=== PATIENT | female | born 1975 | race Hispanic/Latino ===

== ENCOUNTER 2018-03-25 18:37 | Emergency (ER) | payer OTHER ==
--- OUTSIDE RECORDS SUMMARY | 2018-03-25 18:40 | XMS REPORT ---
:1975 [facility] Address [address] [place] [address] Care Team Providers Name Role Phone Unavailable Unavailable Unavailable Problems This patient has no known problems. Allergies, Adverse Reactions, Alerts This patient has no known allergies or adverse reactions. Medications This patient has no known medications. Encounters Start End Encounter Admission Attending Care Care Encounter Date/Time Date/Time Type Type Clinicians Facility Department ID 2018-03-20 2018-03-20 Outpatient [facility] [id number] 00:00:00 00:00:00 2018-03-15 2018-03-15 Outpatient [facility] [id number] 10:56:14 10:56:14 2018-02-16 2018-02-16 Outpatient [facility] [id number] 08:26:03 08:26:03 2018-02-16 2018-02-16 Outpatient [facility] [id number] 00:00:00 00:00:00
[2018-03-25 19:43] LABS: Absolute Lymphocytes (CBC) 2.4 K/uL (0.7-4.9); Absolute Monocytes 0.9 K/uL (0.1-1.3); Absolute Neutrophil 7.2 K/uL (1.8-8.0); Basophils % 0.8 % (0-1.3); Eosinophils % 3.1 % (0-4.4); Hematocrit 39.2 % (36.0-45.0); Lymphocytes % 22.2 % (15.3-44.8); MPV 7.8 fL (7.6-11.3); Monocytes % 8.3 % (3.3-12.3)
[2018-03-25 20:02] LABS: ALT/SGPT 25 U/L (12-78); AST/SGOT 15 U/L (15-37); Albumin 3.7 g/dL (3.4-5.0); Alkaline Phosphatase 93 U/L (45-117); BUN Blood Urea Nitrogen 39 mg/dL (7-18); Bicarbonate 21 mmol/L (21-32); Bilirubin Direct < 0.1 mg/dL (0-0.2); Bilirubin Total 0.3 mg/dL (0.2-1.0); Glucose Level 95 mg/dL (74-106); Magnesium 2.2 mg/dL (1.8-2.4); NT PRO-BNP 421 pg/mL (<125); Potassium 4.1 mmol/L (3.5-5.1); Protein, Total 8.1 g/dL (6.4-8.2); Sodium Level 140 mmol/L (136-145); Troponin (Emerg Dept Use Only) 0.04 ng/mL (0.0-0.045)
[2018-03-25 20:05] LABS: Urine Blood NEGATIVE (NEG); Urine Glucose NEGATIVE (NEG); Urine Protein 3+ (NEG); Urine Specific Gravity >1.030 (1.005-1.030); Urine pH 5.5 (5.0-7.0)
--- NOTE | 2018-03-25 20:16 | RAD REPORT ---
EXAM DESCRIPTION: RAD - Chest Single View - 03/25/2018 7:48 pm CLINICAL HISTORY: Slurred speech, shortness of breath COMPARISON: October 2009 TECHNIQUE: AP portable chest image was obtained 1945 hours . FINDINGS: Lungs are clear. No significant failure or volume overload. Heart and vasculature are norm al. No measurable pleural effusion and no pneumothorax. No acute bony abnormality seen. No acute aort ic findings suspected. IMPRESSION: No acute cardiopulmonary process. No significant change from comparison.
--- NOTE | 2018-03-25 20:23 | RAD REPORT ---
EXAM DESCRIPTION: CT - Head Brain Wo Cont - 03/25/2018 7:58 pm CLINICAL HISTORY: Slurred speech, left-sided facial droop, history of CVA COMPARISON: None. TECHNIQUE: Axial 5 mm thick images of the head were obtained without IV contrast. All CT scans are performed using dose optimization technique as appropriate and may include automated exposure control or mA/KV adjustment according to patient size. FINDINGS: No intracranial hemorrhage is present. There is no mass, edema or shift of midline structu res. A 3.5 centimeter area of old encephalomalacia noted at the left frontal parietal junction. There is extension into the temporal lobe. A 3 x 2 centimeter area of diminished attenuation is present in the lateral right frontal lobe along the superior margin of the sylvian fissure. This has the appear ance of acute to subacute nonhemorrhagic CVA. Atrophy changes are minimal but greater than typically seen in a patient this age. Chronic ischemic changes throughout the cerebral white matter are present also greater than typically seen for age. No abnormal extra-axial fluid collections. Ventricles are in proportion to any volume loss. Mastoid air cells and visualized portions of the paranasal sinuses are clear. No acute bony findings. IMPRESSION: Acute to subacute nonhemorrhagic CVA right frontal lobe along the superior margin of the sylvian fissure. Old encephalomalacia at the left frontal parietal junction. Atrophy and chronic ischemic changes are minimal but greater than typically seen for a patient this a ge.
--- NOTE | 2018-03-25 21:04 | ER ---
Nurse's Notes [facility] Name: Donna Rust Age: 43 yrs Sex: Female : 1975 Arrival Date: 03/25/2018 Time: 18:40 Bed 19 Private MD: Out, of [facility] Diagnosis: Cerebral infarction-right acute vs sub acute non hem cva right frontal lobe, old left frontal;Obesity, unspecified;Unspecified kidney failure;Essential (primary) hypertension Presentation: 03/25 18:45 Presenting complaint: Slurred speech that started yesterday at 1330, today family hb reports speech seems more slurred, left sided facial droop today at 1300. Hx of CVA with right sided weakness. Transition of care: patient was not received from another setting of care. Onset of symptoms was March 24, 2018 at 13:30. Risk Assessment: Do you want to hurt yourself or someone else? Patient reports no desire to harm self or others. Care prior to arrival: None. 18:45 Method Of Arrival: Wheelchair hb 18:45 Acuity: TON 3 hb 20:21 Pre-hospital glucose is not applicable to this patient. Initial Sepsis Screen: Does the tl2 patient meet any 2 criteria? No. Patient's initial sepsis screen is negative. Does the patient have a suspected source of infection? No. Patient's initial sepsis screen is negative. 20:22 No acute neurological deficit is noted. tl2 Triage Assessment: 20:22 The onset of the patients symptoms was March 24, 2018 at 13:30. tl2 20:22 Neuro: Reports none. tl2 Historical: - Allergies: 18:48 No Known Allergies; hb - PMHx: 18:48 CVA; Hypertension; hb - Immunization history:: Adult Immunizations up to date. - Social history:: Smoking status: Patient uses tobacco products, smokes one-half pack cigarettes per day. - Ebola Screening: : No symptoms or risks identified at this time. Screenin:23 Abuse screen: Denies threats or abuse. Nutritional screening: No deficits noted. tl2 Tuberculosis screening: No symptoms or risk factors identified. Fall Risk None identified. Assessment: 19:20 T-PA (Activase) Screening: Contraindications: Patient reports onset of signs and tl2 symptoms of stroke greater than 6 hours ago: Yes. 19:23 General: Appears in no apparent distress. uncomfortable, Behavior is calm, cooperative, tl2 appropriate for age. Pain: Denies pain. Neuro: Level of Consciousness is awake, alert, obeys commands, Oriented to person, place, time, situation, Speech is normal, Facial symmetry appears normal, pt has right sided weakness and decreased sensation from previous stroke. Denies weakness blurred vision dizziness, numbness headache. Neuro: Small Business Consultant are equal bilaterally. Cardiovascular: Denies chest pain, Rhythm is sinus rhythm. Respiratory: Airway is patent Respiratory effort is even, unlabored, Respiratory pattern is regular, symmetrical. GI: No signs and/or symptoms were reported involving the gastrointestinal system. : No signs and/or symptoms were reported regarding the genitourinary system. Derm: Skin is pink, warm \T\ dry. 20:21 The patient has not been NPO before screening. The patient is alert, and able to follow tl2 commands. The patient does not exhibit slurred or garbled speech. The patient is not exhibiting difficulty speaking. The patient does not exhibit difficulty understanding words. The patient is able to swallow own secretions with no drooling or need for suction. Patient tolerated one teaspoon of water. No drooling, immediate coughing, gurgling, or clearing of the throat was noted. The patient tolerated 90mL of water. No drooling, immediate coughing, gurgling, or clearing of the throat was noted. The patient passed the bedside swallow screening. Oral medications may be given as ordered. Contact Physician for further diet orders. 20:21 Provider notified of bedside swallow screening results: Nathan العراقي MD. tl2 20:35 Reassessment: Patient appears in no apparent distress at this time. Patient and/or tl2 family updated on plan of care and expected duration. Pain level reassessed. Patient is alert, oriented x 3, equal unlabored respirations, skin warm/dry/pink. pt resting, no complaints or concerns at this time. 21:30 Reassessment: Patient appears in no apparent distress at this time. Patient and/or tl2 family updated on plan of care and expected duration. Pain level reassessed. Patient is alert, oriented x 3, equal unlabored respirations, skin warm/dry/pink. 22:30 Reassessment: Patient appears in no apparent distress at this time. Patient and/or tl2 family updated on plan of care and expected duration. Pain level reassessed. Patient is alert, oriented x 3, equal unlabored respirations, skin warm/dry/pink. 23:27 Reassessment: Patient appears in no apparent distress at this time. Patient and/or tl2 family updated on plan of care and expected duration. Pain level reassessed. Patient is alert, oriented x 3, equal unlabored respirations, skin warm/dry/pink. pt stable and ready for transfer. Vital Signs: 18:45 BP 142 / 90; Pulse 87; Resp 16; Temp 98.1(TE); Pulse Ox 100% on R/A; Pain 0/10; hb 20:34 BP 111 / 74; Pulse 84; Resp 18; Pulse Ox 100% on R/A; tl2 22:03 BP 108 / 64; Pulse 82; Resp 18; Pulse Ox 100% on R/A; tl2 NIH Stroke Scale Scores: 19:23 NIHSS Score: 2 tl2 20:52 NIHSS Score: 9 [facility] ED Course: 18:40 Patient arrived in ED. sb2 18:40 Out, of [facility] is Private Physician. sb2 18:46 Triage completed. hb 18:48 Arm band placed on. hb 19:09 Carole Alex, RN is Primary Nurse. tl2 19:23 Patient has correct armband on for positive identification. Placed in gown. Bed in low tl2 position. Call light in reach. Side rails up X 1. Adult w/ patient. 19:23 Inserted saline lock: 20 gauge in left antecubital area, using aseptic technique. Blood tl2 collected. 19:50 XRAY Chest (1 view) In Process Unspecified. EDMS 19:59 CT Head Brain wo Cont In Process Unspecified. EDMS 20:36 Nathan العراقي MD is Attending Physician. [facility] 23:27 No provider procedures requiring assistance completed. Patient transferred, IV remains tl2 in place. Administered Medications: 21:28 Drug: NS 0.9% 1000 ml Route: IV; Rate: 1 bolus; Site: left antecubital; tl2 23:29 Follow up: IV Status: Infusion continued upon transfer tl2 21:28 Drug: Aspirin Chewable Tablet 324 mg Route: PO; tl2 23:30 Follow up: Response: No adverse reaction tl2 21:28 Drug: foLIC Acid 1 mg Route: IVPB; Site: left antecubital; tl2 22:00 Follow up: IV Status: Completed infusion tl2 Point of Care Testing: Blood Glucose: 18:45 Blood Glucose: 91 mg/dL; hb Ranges: Outcome: 21:04 ER care complete, transfer ordered by MD. barrera 23:27 Transferred by ground EMS to [facility], Transfer form completed. tl2 23:27 Condition: stable 23:27 Discharge instructions given to patient, family, Instructed on the need for transfer. 23:30 Patient left the ED. tl2 NIH Stroke Scale - NIH Stroke Score Date: 03/25/2018 Time: 19:23 Total Score = 2 1a. Level of Consciousness (LOC) - 0(Alert) 1b. Level of Consciousness (LOC) (Year \T\ Age) - 0(Both) 1c. LOC Commands (Open \T\ Closes Eyes/Roof Plumber) - 0(Both) 2. Best Gaze (Lateral Gaze Paresis) - 0(Normal) 3. Visual Field Loss - 0(No visual loss) 4. Facial Palsy - 0(Normal) 5a. Left Arm: Motor (10-second hold) - 0(No drift) 5b. Right Arm: Motor (10-second hold) - 0(No drift) 6a. Left Leg: Motor (5-second hold - always test supine) - 0(No drift) 6b. Right Leg: Motor (5-second hold - always test supine) - 0(No drift) 7. Limb Ataxia (finger/nose \T\ heel/la - test with eyes open) - 0(Absent) 8. Sensory Loss (pinprick arms/legs/face) - 1(Mild to moderate loss) 9. Best Language: Aphasia (description/naming/reading) - 0(No aphasia) 10. Dysarthria (speech clarity - read or repeat words) - 1(Mild to Moderate) 11. Extinction and Inattention (visual/tactile/auditory/spatial/personal) - 0(No abnormality) Initials: tl2 NIH Stroke Scale - NIH Stroke Score Date: 03/25/2018 Time: 20:52 Total Score = 9 1a. Level of Consciousness (LOC) - 0(Alert) 1b. Level of Consciousness (LOC) (Year \T\ Age) - 0(Both) 1c. LOC Commands (Open \T\ Closes Eyes/Roof Plumber) - 0(Both) 2. Best Gaze (Lateral Gaze Paresis) - 0(Normal) 3. Visual Field Loss - 0(No visual loss) 4. Facial Palsy - 2(Partial paralysis) 5a. Left Arm: Motor (10-second hold) - 1(Drift) 5b. Right Arm: Motor (10-second hold) - 0(No drift) 6a. Left Leg: Motor (5-second hold - always test supine) - 1(Drift) 6b. Right Leg: Motor (5-second hold - always test supine) - 0(No drift) 7. Limb Ataxia (finger/nose \T\ heel/la - test with eyes open) - 1(Present in one limb) 8. Sensory Loss (pinprick arms/legs/face) - 1(Mild to moderate loss) 9. Best Language: Aphasia (description/naming/reading) - 1(Mild to moderate aphasia) 10. Dysarthria (speech clarity - read or repeat words) - 1(Mild to Moderate) 11. Extinction and Inattention (visual/tactile/auditory/spatial/personal) - 1(Present) Initials: bruce Signatures: Dispatcher [employer] Nathan Sung MD MD cha Baxter, Heather, RN RN Carole Alex RN RN tl2 Laura La sb2
--- NOTE | 2018-03-25 21:04 | EDPHYS ---
Physician Documentation [facility] Name: Donna Rust Age: 43 yrs Sex: Female : 1975 Arrival Date: 03/25/2018 Time: 18:40 Bed 19 Private MD: Out, [facility] ED Physician Nathan العراقي HPI: 03/25 20:50 This 43 yrs old Female presents to ER via Wheelchair with complaints of bruce Slurred Speech. 20:50 The patient presents to the emergency department with a speech or higher order brain bruce function problem, difficult walking, the patient falls to the left. Onset: The symptoms/episode began/occurred 1 day(s) ago. Context: occurred at work. Historical: - Allergies: 18:48 No Known Allergies; hb - PMHx: 18:48 CVA; Hypertension; hb - Immunization history:: Adult Immunizations up to date. - Social history:: Smoking status: Patient uses tobacco products, smokes one-half pack cigarettes per day. - Ebola Screening: : No symptoms or risks identified at this time. ROS: 20:53 Constitutional: Negative for fever, chills, and weight loss, Eyes: Negative for injury, bruce pain, redness, and discharge, ENT: Negative for injury, pain, and discharge, Neck: Negative for injury, pain, and swelling, Cardiovascular: Negative for chest pain, palpitations, and edema, Respiratory: Negative for shortness of breath, cough, wheezing, and pleuritic chest pain, Abdomen/GI: Negative for abdominal pain, nausea, vomiting, diarrhea, and constipation, Back: Negative for injury and pain, : Negative for injury, bleeding, discharge, and swelling, MS/Extremity: Negative for injury and deformity, Skin: Negative for injury, rash, and discoloration, Psych: Negative for depression, anxiety, suicide ideation, homicidal ideation, and hallucinations, Allergy/Immunology: Negative for hives, rash, and allergies, Endocrine: Negative for neck swelling, polydipsia, polyuria, polyphagia, and marked weight changes, Hematologic/Lymphatic: Negative for swollen nodes, abnormal bleeding, and unusual bruising. 20:53 Neuro: Positive for dizziness, gait disturbance, speech changes, weakness, of the face, left arm and left leg. Exam: 20:53 Constitutional: This is a well developed, well nourished patient who is awake, alert, bruce and in no acute distress. Eyes: Pupils equal round and reactive to light, extra-ocular motions intact. Lids and lashes normal. Conjunctiva and sclera are non-icteric and not injected. Cornea within normal limits. Periorbital areas with no swelling, redness, or edema. ENT: Nares patent. No nasal discharge, no septal abnormalities noted. Tympanic membranes are normal and external auditory canals are clear. Oropharynx with no redness, swelling, or masses, exudates, or evidence of obstruction, uvula midline. Mucous membranes moist. Neck: Trachea midline, no thyromegaly or masses palpated, and no cervical lymphadenopathy. Supple, full range of motion without nuchal rigidity, or vertebral point tenderness. No Meningismus. Chest/axilla: Normal chest wall appearance and motion. Nontender with no deformity. No lesions are appreciated. Cardiovascular: Regular rate and rhythm with a normal S1 and S2. No gallops, murmurs, or rubs. Normal PMI, no JVD. No pulse deficits. Respiratory: Lungs have equal breath sounds bilaterally, clear to auscultation and percussion. No rales, rhonchi or wheezes noted. No increased work of breathing, no retractions or nasal flaring. Abdomen/GI: Soft, non-tender, with normal bowel sounds. No distension or tympany. No guarding or rebound. No evidence of tenderness throughout. Back: No spinal tenderness. No costovertebral tenderness. Full range of motion. Female : Normal external genitalia. Skin: Warm, dry with normal turgor. Normal color with no rashes, no lesions, and no evidence of cellulitis. Psych: Awake, alert, with orientation to person, place and time. Behavior, mood, and affect are within normal limits. 20:53 Head/face: Noted is left facial weakness, forehead spared. 20:59 Musculoskeletal/extremity: Extremities: weakness and mild drift left arm. [facility] Vital Signs: 18:45 BP 142 / 90; Pulse 87; Resp 16; Temp 98.1(TE); Pulse Ox 100% on R/A; Pain 0/10; hb 20:34 BP 111 / 74; Pulse 84; Resp 18; Pulse Ox 100% on R/A; tl2 22:03 BP 108 / 64; Pulse 82; Resp 18; Pulse Ox 100% on R/A; tl2 NIH Stroke Scale Scores: 19:23 NIHSS Score: 2 tl2 20:52 NIHSS Score: 9 bruce MDM: 20:36 Patient medically screened. [facility] 20:53 Data reviewed: vital signs, nurses notes, lab test result(s), EKG, radiologic studies, bruce CT scan, plain films. 21:00 ED course: dw case with neuro at [facility], symptoms yesterday, cva seen on ct, asa only, no bruce tpa. 03/25 19:22 Order name: Basic Metabolic Panel; Complete Time: 20:20 2 03/25 19:22 Order name: CBC with Diff; Complete Time: 20:20 2 03/25 19:22 Order name: LFT's; Complete Time: 20:20 2 03/25 19:22 Order name: Magnesium; Complete Time: 20:20 2 03/25 19:22 Order name: NT PRO-BNP; Complete Time: 20:20 2 03/25 19:22 Order name: PT-INR; Complete Time: 20:20 2 03/25 18:53 Order name: CT Head Brain wo Cont; Complete Time: 20:46 hb 03/25 19:22 Order name: Troponin (emerg Dept Use Only); Complete Time: 20:20 2 03/25 19:22 Order name: XRAY Chest (1 view); Complete Time: 20:20 2 03/25 19:51 Order name: Urine Dipstick--Ancillary (enter results); Complete Time: 20:20 [facility] 03/25 19:51 Order name: Urine --Ancillary (enter results); Complete Time: 20:20 [facility] 03/25 20:45 Order name: Sed Rate; Complete Time: 23:27 [facility] 03/25 20:45 Order name: CRP; Complete Time: 23:27 [facility] 03/25 19:22 Order name: EKG; Complete Time: 19:23 2 03/25 19:22 Order name: Cardiac monitoring; Complete Time: 19:22 2 03/25 19:22 Order name: EKG - Nurse/Tech; Complete Time: 19:22 2 03/25 19:22 Order name: IV Saline Lock; Complete Time: 19:22 2 03/25 19:22 Order name: Labs collected and sent; Complete Time: 19:23 tl2 03/25 19:22 Order name: O2 Per Protocol; Complete Time: : tl2 03/25 19:22 Order name: O2 Sat Monitoring; Complete Time: tl2 03/25 19:44 Order name: Urine Dipstick-Ancillary (obtain specimen); Complete Time: : tl2 03/25 19:44 Order name: Urine Test (obtain specimen); Complete Time: :44 tl2 Administered Medications: 21:28 Drug: NS 0.9% 1000 ml Route: IV; Rate: 1 bolus; Site: left antecubital; tl2 23:29 Follow up: IV Status: Infusion continued upon transfer tl2 21:28 Drug: Aspirin Chewable Tablet 324 mg Route: PO; tl2 23:30 Follow up: Response: No adverse reaction tl2 21:28 Drug: foLIC Acid 1 mg Route: IVPB; Site: left antecubital; tl2 22:00 Follow up: IV Status: Completed infusion tl2 Point of Care Testing: Blood Glucose: 18:45 Blood Glucose: 91 mg/dL; hb Ranges: Critical Glucose Levels:Adult <50 mg/dl or >400 mg/dl <40 mg/dl or >180 mg/dl Disposition: 03/25/18 21:04 Transfer ordered to [facility]. Diagnosis are Cerebral infarction - right acute vs sub acute non hem cva right frontal lobe, old left frontal, Obesity, unspecified, Unspecified kidney failure, Essential (primary) hypertension. - Reason for transfer: Higher level of care. - Accepting physician is to dr. huddleston. - Condition is Fair. - Problem is new. - Symptoms have improved. NIH Stroke Scale - NIH Stroke Score Date: 03/25/2018 Time: : Total Score = 2 1a. Level of Consciousness (LOC) - 0(Alert) 1b. Level of Consciousness (LOC) (Year \T\ Age) - 0(Both) 1c. LOC Commands (Open \T\ Closes Eyes/Demolition Engineer) - 0(Both) 2. Best Gaze (Lateral Gaze Paresis) - 0(Normal) 3. Visual Field Loss - 0(No visual loss) 4. Facial Palsy - 0(Normal) 5a. Left Arm: Motor (10-second hold) - 0(No drift) 5b. Right Arm: Motor (10-second hold) - 0(No drift) 6a. Left Leg: Motor (5-second hold - always test supine) - 0(No drift) 6b. Right Leg: Motor (5-second hold - always test supine) - 0(No drift) 7. Limb Ataxia (finger/nose \T\ heel/la - test with eyes open) - 0(Absent) 8. Sensory Loss (pinprick arms/legs/face) - 1(Mild to moderate loss) 9. Best Language: Aphasia (description/naming/reading) - 0(No aphasia) 10. Dysarthria (speech clarity - read or repeat words) - 1(Mild to Moderate) 11. Extinction and Inattention (visual/tactile/auditory/spatial/personal) - 0(No abnormality) Initials: tl2 NIH Stroke Scale - NIH Stroke Score Date: 03/25/2018 Time: 20:52 Total Score = 9 1a. Level of Consciousness (LOC) - 0(Alert) 1b. Level of Consciousness (LOC) (Year \T\ Age) - 0(Both) 1c. LOC Commands (Open \T\ Closes Eyes/Demolition Engineer) - 0(Both) 2. Best Gaze (Lateral Gaze Paresis) - 0(Normal) 3. Visual Field Loss - 0(No visual loss) 4. Facial Palsy - 2(Partial paralysis) 5a. Left Arm: Motor (10-second hold) - 1(Drift) 5b. Right Arm: Motor (10-second hold) - 0(No drift) 6a. Left Leg: Motor (5-second hold - always test supine) - 1(Drift) 6b. Right Leg: Motor (5-second hold - always test supine) - 0(No drift) 7. Limb Ataxia (finger/nose \T\ heel/la - test with eyes open) - 1(Present in one limb) 8. Sensory Loss (pinprick arms/legs/face) - 1(Mild to moderate loss) 9. Best Language: Aphasia (description/naming/reading) - 1(Mild to moderate aphasia) 10. Dysarthria (speech clarity - read or repeat words) - 1(Mild to Moderate) 11. Extinction and Inattention (visual/tactile/auditory/spatial/personal) - 1(Present) Initials: bruce Signatures: Dispatcher [employer] Nathan Sung MD MD cha Therrien, Shelly, CAMPAIGN MARKETING MANAGER-C CAMPAIGN MARKETING MANAGER-Csnw Dorita Bowens, RN RN Carole Alex, RN RN tl2 Corrections: (The following items were deleted from the chart) 23:30 21:04 03/25/2018 21:04 Transfer ordered to [facility]. tl2 Diagnosis is Cerebral infarction - right acute vs sub acute non hem cva right frontal lobe, old left frontal; Obesity, unspecified; Unspecified kidney failure; Essential (primary) hypertension. Reason for transfer: Higher level of care. Accepting physician is to dr. huddleston. Condition is Fair. Problem is new. Symptoms have improved. bruce
[2018-03-25] MEDS ORDERED: NA CHLORIDE 0.9% 1,000 ML ONE (21:23)
[2018-03-25] MEDS ORDERED: ASPIRIN 81 MG CHEWABLE TABLET ONE (21:23)
[2018-03-25] MEDS ORDERED: FOLIC ACID 5 MG/ML VIAL ONE (21:24)
--- NOTE | 2018-03-26 07:21 | EKG ---
Test Date: 2018-03-25 Test Time: 19:10:17 Compressor Mechanic Bus: SNEHA MEASUREMENT RESULTS: Intervals: Rate: 82 TX: 194 QRSD: 82 QT: 366 QTc: 427 [place]: P: 36 TX: 194 QRS: 67 T: 54 INTERPRETIVE STATEMENTS: Normal sinus rhythm Normal ECG Compared to ECG 10/31/2009 00:53:05 T-wave abnormality no longer present Prolonged QT interval no longer present Electronically Signed On 03-26-18 07:20:41 DRIER FEEDER by Roberto Lewis
== END 2018-03-25 23:30 | disposition short-term general hospital (02) ==
LOC: ER 18:37
DX: I63.9 Cerebral infarction, unspecified (principal); E66.9 Obesity, unspecified; N19 Unspecified kidney failure; Z86.73 Personal history of transient ischemic attack (TIA), and cerebral infarction without residual deficits; I10 Essential (primary) hypertension
CPT/HCPCS: 36415; 70450; 71045; 80048; 80076; 81003; 81025; 82962; 83735; 83880; 84484; 85025; 85610; 85652; 86140; 93005; 96361; 96365; 99285; J7030

== ENCOUNTER 2023-01-06 11:47 | Emergency (ER) | payer OTHER, SELFPAY ==
--- OUTSIDE RECORDS SUMMARY | 2023-01-06 12:04 | XMS REPORT | Continuity of Care Document ---
:1975 Author Organization [facility] [place] [facility] t Address [address] [place] [address] [address] [place] [address] Care Team Providers Name Role Phone Jere Kelly MD Primary Care Physician Unavailable JAIMEE MCGEE Attending Clinician Unavailable JAIMEE MCGEE Attending Clinician Unavailable JESSIKA ROSS Attending Clinician Unavailable MARY GARCIA Attending Clinician Unavailable MARY GARCIA Attending Clinician Unavailable WANDER BOYCE Attending Clinician Unavailable LATOYA ABBASI Attending Clinician Unavailable Román Harding Attending Clinician Unavailable Doctor Unassigned, [place] Attending Clinician Unavailable Nurse, Kel Db Attending Clinician Unavailable Lab, Ang - Db Attending Clinician Unavailable LITTLE GIRON Attending Clinician Unavailable AKASH ORTIZ Attending Clinician Unavailable Akash Ortiz DO Attending Clinician OMERMAPERLA JOSE MANUELColin Attending Clinician Unavailable Omaghomi INSTALLER, Omayemi Attending Clinician Unknown, Attending Attending Clinician Unavailable Ayleen AMIN, Latoya Grewal Attending Clinician Brown PROCESS SAFETY ENGINEER, Marla Alex Attending Clinician Unavailable Vtc-Lab Attending Clinician Unavailable Jorge Perez MD Attending Clinician JORGE PEREZ Attending Clinician Unavailable Yanick Perez MD Attending Clinician Parag PT, Laura Mo Attending Clinician Unavailable JAYLEN HERNÁNDEZ Attending Clinician Unavailable Betito Duffy PT, Elisa Attending Clinician Unavailable Jessika Ross DO Attending Clinician Caryl Malin PA-C Attending Clinician Gladys Daniel MD Attending Clinician Pob, Adc Lab Main Attending Clinician Unavailable JASE SMITH Attending Clinician Unavailable Sarah AMIN, Jase Attending Clinician Pcp-Lab Attending Clinician Unavailable Venita Muro Attending Clinician VENITA WALTER Attending Clinician Unavailable Jessica Tsai RN Attending Clinician Unavailable PAYAL HOFFMAN Attending Clinician Unavailable Marialuisa Devine NP Attending Clinician Payal Hoffman DO Attending Clinician Isai BARBOZA Attending Clinician Unavailable Isai Zuniga Attending Clinician Toby Aquino RN Attending Clinician Unavailable ROC HERNANDEZ Attending Clinician Unavailable JEANIE GARCIA Attending Clinician Unavailable Roc Reed Attending Clinician Mick Collins MD Attending Clinician [phone] Roxana Osman MD Attending Clinician ROXANA OSMAN Attending Clinician Unavailable Tavon Snow Attending Clinician MELBA BASSETT Attending Clinician Unavailable Kel [facility] Attending Clinician Unavailable Melba Ortega Attending Clinician JERE KELLY Attending Clinician Unavailable ENDY MALDONADO Attending Clinician Unavailable ENDY MALDONADO Attending Clinician Unavailable Endy Maldonado MD Attending Clinician Radiology Attending Clinician Unavailable RADIOLOGY Attending Clinician Unavailable Jere Kelly MD Attending Clinician Ena Hung Attending Clinician Gemma Bill MD Attending Clinician KIMMIE PRESTON Attending Clinician Unavailable Kimmie Preston MD Attending Clinician GEMMA BILL Attending Clinician Unavailable BERTRAND PORRAS Attending Clinician Unavailable ADOLFO NEELY Attending Clinician Unavailable Carlotta Quiñones Attending Clinician [facility] Neurology Continuity Attending Clinician Unavail able SHAHID CAMPOS Attending Clinician Unavailable NIKA NARANJO Attending Clinician Unavailable Vladimir Luis Attending Clinician IWONA CRAFT Attending Clinician Unavailable KNOW, DOES_NOT Admitting Clinician Unavailable MARY GARCIA Admitting Clinician Unavailable ABBASI, LATOYA K.H. Admitting Clinician Unavailable JASE SMITH Admitting Clinician Unavailable PAYAL HOFFMAN Admitting Clinician Unavailable Payal Hoffman DO Admitting Clinician Isai BARBOZA Admitting Clinician Unavailable Roxana Osman MD Admitting Clinician ROXANA OSMAN Admitting Clinician Unavailable ENDY MALDONADO Admitting Clinician Unavailable SHAHID CAMPOS Admitting Clinician Unavailable NIKA NARANJO Admitting Clinician Unavailable IWONA CRAFT Admitting Clinician Unavailable Payers Payer Name Policy Type Policy Number Effective Date Expiration Date Valerio [facility] D[facility] [id number] 2021 COMP HMO D SNP 00:00:00 MEDICARE PART A [id number] 2016 \\T\\ B 00:00:00 Problems Condition Condition Condition Status Onset Resolution Last Treating Co mments Source Name Details Category Date Date Treatment Clinician Date Pain in Pain in Disease Active 2021-02 Univers leg, leg, 0-04 [facility] [place] [facility] Elevated Elevated Disease Active Unive rs brain brain 9-20 ity of natriureti natriureti [place] c peptide c peptide 00 Medi shavon (BNP) (BNP) Branch level level First First Disease Active Univers degree AV degree AV 9-20 ity of block block 00:00: [place] 00 Medical Branch Persistent Persistent Disease Active U nivers cough for cough for 9-19 ity of 3 weeks or 3 weeks [place] longer 00 [facility] Pneumonia Pneumonia Disease Active Uni vers 9-18 ity of 00:00: [place] 00 Medical Branch Acute Acute Disease Active Univers heart heart 7-07 ity of failure, failure, 00:00: [place] unspecifie unspecifie 00 Me dical d heart d heart Branch failure failure type type Balance Balance Disease Active Univers problem problem 3-18 ity of 00:00: [place] 00 Medical Branch Need for Need for Disease Active Unive rs vaccinatio vaccinatio 3-18 it y of n n 00:00: [place] 00 Medical Branch Change in Change in Disease Active Overview: Univers bowel bowel 1-21 Formattin ity of habits habits 00:00: g of this note Medical might be Branch different from the original. Added automatic ally from request for surgery [id number] Change in Change in Disease Active Overview: Univers bowel bowel 1-21 Formattin ity of habits habits 00:00: g of this note Medical might be Branch different from the original. Added automatic ally from request for surgery [id number] Obesity Obesity Disease Active Univers (BMI (BMI 1-11 ity of 30-39.9) 30-39.9) 00:00: [place] [facility] Vitamin D Vitamin D Disease Active 2020-02 Uni vers deficiency deficiency 2-23 it y of 00:00: [place] [facility] Weight Weight Disease Active 2020-02 Univers loss, loss, 2-21 ity of unintentio unintentio 00:00: [place] [facility] Branch History of History of Disease Active 2020-02 U nivers drug abuse drug abuse 2-21 it y of 00:00: [place] [facility] COVID-19 COVID-19 Disease Active 2020-02 Unive rs vaccinatio vaccinatio 2-10 it y of n refused n refused 00:00: [facility] COVID-19 COVID-19 Disease Active 2020-02 Unive rs vaccinatio vaccinatio 2-10 it y of n refused n refused 00:00: [facility] 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 1-06 it y of athy athy 00:00: [place] [facility] Chest pain Chest pain Disease Active 2018-02 U nivers 0-14 ity of 00:00: [place] [facility] 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 0-01 it y of sterolemia sterolemia 00:00: Parminder bahena Medical Branch Hyperurice Hyperurice Disease Active 2018- U nivers boni boni 0-01 ity of without without 00:00: [place] signs of signs of 00 Medica l inflammato inflammato Br anch ry ry arthritis arthritis and and tophaceous tophaceous disease disease Localized Localized Disease Active 2018-02 Uni vers edema due edema due 0-01 ity of to fluid to fluid 00:00: [place] overload overload 00 Medica l Branch Microscopi Microscopi Disease Active 2018- U nivers c c 0-01 ity of hematuria hematuria 00:00: [facility] Branch Acquired Acquired Disease Active 2019 Unive rs dysphasia dysphasia 8-20 ity of 00:00: [place] [address] Medical Branch Allergic Allergic Disease Active 2019 Unive rs rhinitis rhinitis 8-20 ity of due to due to 00:00: [place] pollen pollen Medical Branch Generalize Generalize Disease Active 2019- U nivers d anxiety d anxiety 8-20 ity of disorder disorder 00:00: [place] 00 Medical Branch Nephrogeno Nephrogeno Disease Active U nivers us us 8-20 ity of proteinuri proteinuri [place] [facility] Nicotine Nicotine Disease Active Unive rs dependence dependence 8-20 it y of 00:00: [place] 00 Medical Branch Slow Slow Disease Active Univers transit transit 8-20 ity of constipati constipati 00:[place]: [place] [facility] [place] Essential Essential Disease Active Uni vers hypertensi hypertensi 6-24 it y of on on 00:00: [place] 00 Medical Branch Insomnia Insomnia Disease Active Unive rs 6-24 ity of 00:00: [place] 00 Medical Branch Late Late Disease Active Overview: Univer s effects of effects of 5-13 Formattin ity of CVA CVA 00:00: g of this [place] (cerebrova (cerebrova 00 note Me dical scular scular might be Branch accident) accident) different from the original. Word-find ing difficult y, Some difficult ies with reading comprehen terrance, Mild facial droop Polyarthra Polyarthra Disease Active U nivers lgia lgia 2-23 ity of 00:00: [place] 00 Medical Branch Tobacco Tobacco Disease Active Univers use use 2-23 ity of 00:00: [place] 00 Medical Branch Positive Positive Disease Active Unive rs SHONDA SHONDA 2-23 ity of (antinucle (antinucle 00[place] 00 Medical antibody) antibody) Bran ch Folate Folate Disease Active Univers deficiency deficiency 2-22 it y of 00:00: [place] 00 Medical Branch Morbid Morbid Disease Active Univers obesity obesity 2-22 ity of 00:00: [place] 00 Medical Branch CLARI CLARI Disease Active [facility] (obstructi (obstructi 2-16 Roxanne kes ve sleep ve sleep 00:00: Medica l apnea) apnea) 00 Center Morbid Morbid Disease Recurre [facility] obesity obesity nce 2-13 [facility] with BMI with BMI 00:00: Medica l of of 00 Center 45.0-49.9, 45.0-49.9, adult adult CKD CKD Disease Recurre [facility] (chronic (chronic nce 2-12 [facility] kidney kidney 00:00: Medical disease), disease), 00 Cent er stage IV stage IV Folate Folate Disease Active [facility] deficiency deficiency 2-12 Roxanne kes 00:00: Medical 00 Center Acute Acute Disease Recurre [facility] ischemic ischemic nce 2-11 [facility] right MCA right MCA 00:00: Medi shavon stroke stroke 00 Center Essential Essential Disease Recurre [facility] hypertensi hypertensi nce 2-11 Roxanne kes on on 00:00: Medical 00 [place] Low back Low back Disease Active Lalito griffiths pain pain 112 Health radiating radiating 00:00: to right to right 00 lower lower extremity extremity Chronic Chronic Disease Active [facility] low back low back 1- ity of pain pain 00:00: [place] [address] Medical Branch Impaired Impaired Disease Active Lalito griffiths cognition cognition 3-03 Heal th 00:00: 00 Impaired Impaired Disease Active Lalito griffiths mobility mobility 3 Health and ADLs and ADLs 00:00: 00 At risk At risk Disease Active [facility] for stroke for stroke 03-11 He alth 00:00: 00 History of History of Disease Active H arris stroke stroke 03-03 Health 00:00: 00 Adjustment Adjustment Disease Active 2014-02 arris disorder disorder 02-21 Health with with 00:00: depressed depressed 00 mood mood History of History of Disease Active 2014-02 H arris cocaine cocaine 02-21 Health use use 00:00: 00 Cerebral Cerebral Disease Active Lalito griffiths vascular vascular 18 Health disease disease 00:00: 00 Late Late Disease Active Joshua effects of effects of 07-16 He alth CVA CVA 00:00: (cerebrova (cerebrova 00 scular scular accident) accident) Right Right Disease Active [facility] hemiparesi hemiparesi 07-16 He alth s s 00:00: 00 History of History of Disease Active H arris drug use drug use 07-16 Health 00:00: 00 HTN HTN Disease Active [facility] (hypertens (hypertens 5-20 He alth ion) ion) 00:00: 00 CRI CRI Disease Active [facility] (chronic (chronic 20 Health renal renal 00:00: insufficie insufficie 00 ncy) ncy) Obesity, Obesity, Disease Active Harri s unspecifie unspecifie 07-02 He alth d d 00:00: 00 Positive Positive Disease Active Lalito s SHONDA SHONDA 07-02 Health (antinucle (antinucle 00:00: ar ar 00 antibody) antibody) Vitamin D Vitamin D Disease Active Gordon ris deficiency deficiency 07-02 He alth 00:00: 00 Abnormal Abnormal Disease Active Brieni s EKG EKG 07-02 Health 00:00: 00 CVA CVA Disease Active Overview: Univer s (cerebral (cerebral Formattin i ty of vascular vascular g of this Daniel as accident) accident) note Medi shavon might be Branch different from the original. 03/2018 (MCA) and 2015 Hyperlipid Hyperlipid Disease Active U nivers emia emia ity of [facility] Depression Depression Disease Active U nivers ity of [facility] Asthma Asthma Disease Active Univers ity of [facility] Allergies, Adverse Reactions, Alerts Allergy Allergy Status Severity Reaction(s) Onset Inactive Treating Comm ents Source Name Type Date Date Clinician No DA Active U 2022-02 [facility] Allergy 03-08 [place] Informat 00:00: d ion 00 [facility] Center e Rosuvast Propensi Active Other - See MyalgiaM y Univers atin ty to comments 3-30 algiaMyal ity o f adverse 00:00: giaMyalgi [place] reaction 00 aMyalgia Medica l s Branch ROSUVAST DRUG Active Low Unknown-Cmnt Un anabell ATIN INGREDI 3-30 ity of 00:00: [place] 00 Medical Branch Atorvast Propensi Active Other - See 2020-02 Myalgia. Univers atin ty to comments 2-13 Patient ity of adverse 00:00: is [place] reaction 00 unaware Medical s of the Branch dose in which Lipitor was started.M yalgia. Patient is unaware of the dose in which Lipitor was started.M yalgia. Patient is unaware of the dose in which Lipitor was started.M yalgia. Patient is unaware of the dose in which Lipitor was started.M yalgia. Patient is unaware of the dose in which Lipitor was started. ATORVAST DRUG Active Low Unknown-Cmnt 2020-02 Un anabell ATIN INGREDI 2-13 ity of 00:00: [place] [facility] No Known DA Active U 2018-02 [facility] Allergie 2-14 [facility] [place] [facility] 00:[facility]: d [facility] No Known DA Active U 2011- [facility] Allergie 3-15 [place] [facility] Family History Family Member Diagnosis Comments Start Date Stop Date Source Natural father [facility] Natural father [facility] Natural father Alcohol abuse [place] Natural father Cancer [facility] Natural father Drug abuse [facility] Natural father Alcohol abuse [facility] Natural father Drug abuse [facility] Maternal grandmother Cancer [facility] Natural mother Hypert[facility] Natural mother Arthritis [facility] Paternal grandfather [facility] Paternal grandmother Diabetes [facility] Paternal grandmother Hearing loss [facility] Social History Social Habit Start Date Stop Date Quantity Comments Source History SDOH [facility] Alcohol Std Drinks Medica l Center History SDOH [facility] Alcohol Binge Medical [address] Gender identity Universit y of [facility] Sexual orientation [place] Exposure to 2022-07-02 2022-07-12 Not sure University of SARS-CoV-2 (event) 00:00:00 09:06:00 [facility] Tobacco use and 2021-10-31 2021-10-31 Smokeless Universit y of exposure 00:00:00 00:00:00 tobacco non-user [facility] History of tobacco 2019-02-18 Passive smoker Un iversity of use 00:00:00 [facility] History of Social 2018-12-24 2018-12-24 [facility] function 00:00:00 00:00:00 Alcohol intake 2018-03-29 2018-03-29 [facility] (finding) History SDOH 2018-03-26 2018-03-[address] [facility] Alcohol Frequency 00:00:00 00:00:00 [facility] Center Tobacco Comment 2018-03-26 2018-03-26 1 pack will last [facility] 00:00:00 00:00:00 2 weeks [facility] Center Alcohol Comment 2018-03-26 2018-03-26 social drinker RUSSELL Machuca 00:00:00 00:00:00 [facility] Sex [birth year] RUSSELL [place]pos 00:00:00 00:00:00 [facility] Smoking Status Start Date Stop Date Source Ex-smoker 2021-10-31 00:00:00 2021-10-31 [place] [facility] 00:00:00 [facility] Smokes tobacco daily 2021-02-23 00:00:00 Univers ity of [facility] Occasional tobacco 2016-02-18 00:00:00 [facility] Adkins alth smoker Medications Ordered Filled Start Stop Current Ordering Indication Dosage Frequency Signature Comments Components Source Medication Medication Date Date Medication? Clinician (SIG) Name Name ondansetron 2022- No [id number] 4mg U nivers (ZOFRAN-ODT 10-28 ity of ) 00:30: 23:48 [place] disintegrat 00 :00 Medical ing tablet Branch 4 mg ondansetron 2022- No [id number] 4mg 4 mg, Univers (ZOFRAN-ODT 10-28 Oral, ity of ) 00:30: 23:48 ONCE, 1 [place] disintegrat 00 :00 dose, On Medi shavon ing tablet Ryanne Branch 4 mg 10/27/22 at 1930, Routine rosuvastati Yes 10mg Take 1 Univ ers n 10 mg 9-14 tablet by ity of tablet 18:28: mouth. [address] rosuvastati Yes 10mg Take 1 Univ ers n 10 mg 9-14 tablet by ity of tablet 18:28: mouth. [address] rosuvastati Yes 10mg Take 1 Univ ers n 10 mg 9-14 tablet by ity of tablet 18:28: mouth. [address] rosuvastati Yes 10mg Take 1 Univ ers n 10 mg 9-14 tablet by ity of tablet 18:28: mouth. [address] rosuvastati Yes 10mg Take 1 Univ ers n 10 mg 9-14 tablet by ity of tablet 18:28: mouth. [address] rosuvastati Yes 10mg Take 1 Univ ers n 10 mg 9-14 tablet by ity of tablet 18:28: mouth. [address] rosuvastati 3-0 Yes 10mg Take 1 Univ ers n 10 mg 9-14 tablet by ity of tablet 18:28: mouth. [address] rosuvastati 2022-0 Yes 10mg Take 1 Univ ers n 10 mg 9-14 tablet by ity of tablet 18:28: mouth. [address] ondansetron 2022-0 Yes [id number] 4mg Take 1 Univers 4 mg 9-14 tablet by ity of disintegrat 00:00: mouth [place] ing tablet 00 every 12 Medic al (twelve) Branch hours as needed for Nausea and Vomiting (N/V). ondansetron 3-0 Yes [id number] 4mg Take 1 Univers 4 mg 9-14 tablet by ity of disintegrat 00:00: mouth [place] ing tablet 00 every 12 Medic al (twelve) Branch hours as needed for Nausea and Vomiting (N/V). ondansetron 3-0 Yes [id number] 4mg Take 1 Univers 4 mg 9-14 tablet by ity of disintegrat 00:00: mouth [place] ing tablet 00 every 12 Medic al (twelve) Branch hours as needed for Nausea and Vomiting (N/V). ondansetron 3-0 Yes [id number] 4mg Take 1 Univers 4 mg 9-14 tablet by ity of disintegrat 00:00: mouth [place] ing tablet 00 every 12 Medic al (twelve) Branch hours as needed for Nausea and Vomiting (N/V). ondansetron 3-0 Yes [id number] 4mg Take 1 Univers 4 mg 9-14 tablet by ity of disintegrat 00:00: mouth [place] ing tablet 00 every 12 Medic al (twelve) Branch hours as needed for Nausea and Vomiting (N/V). ondansetron 3-0 Yes [id number] 4mg Take 1 Univers 4 mg 9-14 tablet by ity of disintegrat 00:00: mouth [place] ing tablet 00 every 12 Medic al (twelve) Branch hours as needed for Nausea and Vomiting (N/V). ondansetron 3-0 Yes [id number] 4mg Take 1 Univers 4 mg 9-14 tablet by ity of disintegrat 00:00: mouth [place] ing tablet 00 every 12 Medic al (twelve) Branch hours as needed for Nausea and Vomiting (N/V). ondansetron 2023-0 Yes [id number] 4mg Take 1 Univers 4 mg 9-14 tablet by ity of disintegrat 00:00: mouth [place] ing tablet 00 every 12 Medic al (twelve) Branch hours as needed for Nausea and Vomiting (N/V). gabapentin 2023-0 Yes [id number] TAKE 1 Univers 100 mg 8-11 CAPSULE ity of capsule 00:00: (100 MG [place] 00 TOTAL) BY Medical MOUTH 2 Branch (TWO) TIMES A DAY IF NEEDED (PAIN) gabapentin 2023-0 Yes [id number] TAKE 1 Univers 100 mg 8-11 CAPSULE ity of capsule 00:00: (100 MG [place] 00 TOTAL) BY Medical MOUTH 2 Branch (TWO) TIMES A DAY IF NEEDED (PAIN) gabapentin 2023-0 Yes [id number] TAKE 1 Univers 100 mg 8-11 CAPSULE ity of capsule 00:00: (100 MG [place] 00 TOTAL) BY Medical MOUTH 2 Branch (TWO) TIMES A DAY IF NEEDED (PAIN) gabapentin 2023-0 Yes [id number] TAKE 1 Univers 100 mg 8-11 CAPSULE ity of capsule 00:00: (100 MG [place] 00 TOTAL) BY Medical MOUTH 2 Branch (TWO) TIMES A DAY IF NEEDED (PAIN) gabapentin 2023-0 Yes [id number] TAKE 1 Univers 100 mg 8-11 CAPSULE ity of capsule 00:00: (100 MG [place] 00 TOTAL) BY Medical MOUTH 2 Branch (TWO) TIMES A DAY IF NEEDED (PAIN) gabapentin 2023-0 Yes [id number] TAKE 1 Univers 100 mg 8-11 CAPSULE ity of capsule 00:00: (100 MG [place] 00 TOTAL) BY Medical MOUTH 2 Branch (TWO) TIMES A DAY IF NEEDED (PAIN) gabapentin 2023-0 Yes [id number] TAKE 1 Univers 100 mg 8-11 CAPSULE ity of capsule 00:00: (100 MG [place] 00 TOTAL) BY Medical MOUTH 2 Branch (TWO) TIMES A DAY IF NEEDED (PAIN) gabapentin 2023-0 Yes [id number] TAKE 1 Univers 100 mg 8-11 CAPSULE ity of capsule 00:00: (100 MG [place] 00 TOTAL) BY Medical MOUTH 2 Branch (TWO) TIMES A DAY IF NEEDED (PAIN) gabapentin 2023-0 Yes [id number] TAKE 1 Univers 100 mg 8-11 CAPSULE ity of capsule 00:00: (100 MG [place] 00 TOTAL) BY Medical MOUTH 2 Branch (TWO) TIMES A DAY IF NEEDED (PAIN) gabapentin 2023-0 Yes [id number] TAKE 1 Univers 100 mg 8-11 CAPSULE ity of capsule 00:00: (100 MG [place] 00 TOTAL) BY Medical MOUTH 2 Branch (TWO) TIMES A DAY IF NEEDED (PAIN) gabapentin 2023-0 Yes [id number] TAKE 1 Univers 100 mg 8-11 CAPSULE ity of capsule 00:00: (100 MG [place] 00 TOTAL) BY Medical MOUTH 2 Branch (TWO) TIMES A DAY IF NEEDED (PAIN) gabapentin 2023-0 Yes [id number] TAKE 1 Univers 100 mg 8-11 CAPSULE ity of capsule 00:00: (100 MG [place] 00 TOTAL) BY Medical MOUTH 2 Branch (TWO) TIMES A DAY IF NEEDED (PAIN) gabapentin 2023-0 Yes [id number] TAKE 1 Univers 100 mg 8-11 CAPSULE ity of capsule 00:00: (100 MG [place] 00 TOTAL) BY Medical MOUTH 2 Branch (TWO) TIMES A DAY IF NEEDED (PAIN) gabapentin 2023-0 Yes [id number] TAKE 1 Univers 100 mg 8-11 CAPSULE ity of capsule 00:00: (100 MG [place] 00 TOTAL) BY Medical MOUTH 2 Branch (TWO) TIMES A DAY IF NEEDED (PAIN) gabapentin 2023-0 Yes [id number] TAKE 1 Univers 100 mg 8-11 CAPSULE ity of capsule 00:00: (100 MG [place] 00 TOTAL) BY Medical MOUTH 2 Branch (TWO) TIMES A DAY IF NEEDED (PAIN) gabapentin 2023-0 Yes [id number] TAKE 1 Univers 100 mg 8-11 CAPSULE ity of capsule 00:00: (100 MG [place] 00 TOTAL) BY Medical MOUTH 2 Branch (TWO) TIMES A DAY IF NEEDED (PAIN) gabapentin 2023-0 Yes [id number] TAKE 1 Univers 100 mg 8-11 CAPSULE ity of capsule 00:00: (100 MG [place] 00 TOTAL) BY Medical MOUTH 2 Branch (TWO) TIMES A DAY IF NEEDED (PAIN) carvediloL 2023-0 Yes [id number] 6.25mg Take 1 Univers 6.25 mg 7-19 tablet by ity of tablet 00:00: mouth in [place] 00 the Medical morning Branch and 1 tablet in the evening. Take with meals. ezetimibe 2023-0 Yes [id number] 10mg Take 1 Un anabell 10 mg 7-19 tablet by ity of tablet 00:00: mouth in [place] 00 the Medical morning. Branch carvediloL 2023-0 Yes [id number] 6.25mg Take 1 Univers 6.25 mg 7-19 tablet by ity of tablet 00:00: mouth in [place] the morning Branch and 1 tablet in the evening. Take with meals. ezetimibe 2023-0 Yes [id number] 10mg Take 1 Un anabell 10 mg 7-19 tablet by ity of tablet 00:00: mouth in [place] the morning. Branch carvediloL 2023-0 Yes [id number] 6.25mg Take 1 Univers 6.25 mg 7-19 tablet by ity of tablet 00:00: mouth in [place] the morning Branch and 1 tablet in the evening. Take with meals. ezetimibe 2023-0 Yes [id number] 10mg Take 1 Un anabell 10 mg 7-19 tablet by ity of tablet 00:00: mouth in [place] the morning. Branch carvediloL 3-0 Yes [id number] 6.25mg Take 1 Univers 6.25 mg 7-19 tablet by ity of tablet 00:00: mouth in [place] the morning Branch and 1 tablet in the evening. Take with meals. ezetimibe 2023-0 Yes [id number] 10mg Take 1 Un anabell 10 mg 7-19 tablet by ity of tablet 00:00: mouth in [place] the morning. Branch carvediloL 3-0 Yes [id number] 6.25mg Take 1 Univers 6.25 mg 7-19 tablet by ity of tablet 00:00: mouth in [place] the morning Branch and 1 tablet in the evening. Take with meals. ezetimibe 2023-0 Yes [id number] 10mg Take 1 Un anabell 10 mg 7-19 tablet by ity of tablet 00:00: mouth in [place] the morning. Branch carvediloL 2023-0 Yes [id number] 6.25mg Take 1 Univers 6.25 mg 7-19 tablet by ity of tablet 00:00: mouth in [place] the morning Branch and 1 tablet in the evening. Take with meals. ezetimibe 2023-0 Yes [id number] 10mg Take 1 Un anabell 10 mg 7-19 tablet by ity of tablet 00:00: mouth in [place] the morning. Branch carvediloL 2023-0 Yes [id number] 6.25mg Take 1 [facility] 6.25 mg 7-19 tablet by [facility] of tablet 00:00: mouth in [place] the morning Branch and 1 tablet in the evening. Take with meals. ezetimibe 2023-0 Yes [id number] 10mg Take 1 [facility] anabell 10 mg 7-19 tablet by [facility] of tablet 00:00: mouth in [place] the morning. Branch carvediloL 2023-0 Yes [id number] 6.25mg Take 1 [facility] 6.25 mg 7-19 tablet by [facility] of tablet 00:00: mouth in [place] the morning Branch and 1 tablet in the evening. Take with meals. ezetimibe 2023-0 Yes [id number] 10mg Take 1 [facility] anabell 10 mg 7-19 tablet by [facility] of tablet 00:00: mouth in [place] the morning. Branch carvediloL 2023-0 Yes [id number] 6.25mg Take 1 [facility] 6.25 mg 7-19 tablet by [facility] of tablet 00:00: mouth in [place] the Branch and 1 tablet in the evening. Take with meals. ezetimibe 2023-0 Yes [id number] 10mg Take 1 [facility] anabell 10 mg 7-19 tablet by [facility] of tablet 00:00: mouth in [place] the morning. Branch carvediloL 3-0 Yes [id number] 6.25mg Take 1 [facility] 6.25 mg 7-19 tablet by [facility] of tablet 00:00: mouth in [place] the Branch and 1 tablet in the evening. Take with meals. ezetimibe 2023-0 Yes [id number] 10mg Take 1 [facility] anabell 10 mg 7-19 tablet by [facility] of tablet 00:00: mouth in [place] the morning. Branch carvediloL 2023-0 Yes [id number] 6.25mg Take 1 [facility] 6.25 mg 7-19 tablet by [facility] of tablet 00:00: mouth in [place] the morning Branch and 1 tablet in the evening. Take with meals. ezetimibe 2023-0 Yes [id number] 10mg Take 1 [facility] anabell 10 mg 7-19 tablet by [facility] of tablet 00:00: mouth in [place] the morning. Branch carvediloL 2023-0 Yes [id number] 6.25mg Take 1 [facility] 6.25 mg 7-19 tablet by [facility] of tablet 00:00: mouth in [place] the Medical morning Branch and 1 tablet in the evening. Take with meals. ezetimibe 2023-0 Yes [id number] 10mg Take 1 [facility] anabell 10 mg 7-19 tablet by [facility] of tablet 00:00: mouth in [place] the morning. Branch carvediloL 2023-0 Yes [id number] 6.25mg Take 1 [facility] 6.25 mg 7-19 tablet by [facility] of tablet 00:00: mouth in [place] the Medical morning Branch and 1 tablet in the evening. Take with meals. ezetimibe 2023-0 Yes [id number] 10mg Take 1 [facility] anabell 10 mg 7-19 tablet by [facility] of tablet 00:00: mouth in [place] the morning. Branch carvediloL 2023-0 Yes [id number] 6.25mg Take 1 [facility] 6.25 mg 7-19 tablet by [facility] of tablet 00:00: mouth in [place] the morning Branch and 1 tablet in the evening. Take with meals. ezetimibe 2023-0 Yes [id number] 10mg Take 1 [facility] anabell 10 mg 7-19 tablet by [facility] of tablet 00:00: mouth in [place] the morning. Branch carvediloL 3-0 Yes [id number] 6.25mg Take 1 [facility] 6.25 mg 7-19 tablet by [facility] of tablet 00:00: mouth in [place] the morning Branch and 1 tablet in the evening. Take with meals. ezetimibe 2023-0 Yes [id number] 10mg Take 1 [facility] anabell 10 mg 7-19 tablet by [facility] of tablet 00:00: mouth in [place] the morning. Branch carvediloL 2023-0 Yes [id number] 6.25mg Take 1 [facility] 6.25 mg 7-19 tablet by [facility] of tablet 00:00: mouth in [place] the morning Branch and 1 tablet in the evening. Take with meals. ezetimibe 2023-0 Yes [id number] 10mg Take 1 [facility] anabell 10 mg 7-19 tablet by [facility] of tablet 00:00: mouth in [place] the morning. Branch carvediloL 2023-0 Yes [id number] 6.25mg Take 1 [facility] 6.25 mg 7-19 tablet by [facility] of tablet 00:00: mouth in [place] the Medical morning Branch and 1 tablet in the evening. Take with meals. ezetimibe 2023-0 Yes [id number] 10mg Take 1 [facility] anabell 10 mg 7-19 tablet by [facility] of tablet 00:00: mouth in [place] the morning. Branch carvediloL 2023-0 Yes [id number] 6.25mg Take 1 [facility] 6.25 mg 7-19 tablet by it[facility] of tablet 00:00: mouth in [place] the Medical morning Branch and 1 tablet in the evening. Take with meals. ezetimibe 2023-0 Yes [id number] 10mg Take 1 [facility] anabell 10 mg 7-19 tablet by [facility] of tablet 00:00: mouth in [place] the morning. Branch carvediloL 2023-0 Yes [id number] 6.25mg Take 1 [facility] 6.25 mg 7-19 tablet by [facility] of tablet 00:00: mouth in [place] the Medical morning Branch and 1 tablet in the evening. Take with meals. ezetimibe 2023-0 Yes [id number] 10mg Take 1 [facility] anabell 10 mg 7-19 tablet by [facility] of tablet 00:00: mouth in [place] the morning. Branch carvediloL 2023-0 Yes [id number] 6.25mg Take 1 [facility] 6.25 mg 7-19 tablet by [facility] of tablet 00:00: mouth in [place] the Medical morning Branch and 1 tablet in the evening. Take with meals. ezetimibe 2023-0 Yes [id number] 10mg Take 1 [facility] anabell 10 mg 7-19 tablet by [facility] of tablet 00:00: mouth in [place] the Medical morning. Branch carvediloL 2023-0 Yes [id number] 6.25mg Take 1 [facility] 6.25 mg 7-19 tablet by [facility] of tablet 00:00: mouth in [place] the Medical morning Branch and 1 tablet in the evening. Take with meals. ezetimibe 2023-0 Yes [id number] 10mg Take 1 [facility] anabell 10 mg 7-19 tablet by [facility] of tablet 00:00: mouth in [place] the Medical morning. Branch carvediloL 2023-0 Yes [id number] 6.25mg Take 1 [facility] 6.25 mg 7-19 tablet by [facility] of tablet 00:00: mouth in [place] 00 the Medical morning Branch and 1 tablet in the evening. Take with meals. ezetimibe Yes [id number] 10mg Take 1 [facility] anabell 10 mg 7-19 tablet by it[facility] of tablet 00:00: mouth in [place] 00 the Medical morning. Branch ergocalcife Yes TAKE 1 [facility] ers rol, 7-18 CAPSULE ity of vitamin d2, 00:00: (50,000 [place] 1,250 mcg 00 UNITS Medical (50,000 TOTAL) BY Branch unit) MOUTH capsule EVERY 14 DAYS ergocalcife Yes TAKE 1 [facility] ers rol, 7-18 CAPSULE ity of vitamin d2, 00:00: (50,000 [place] [facility] 1,250 mcg 00 UNITS Medical (50,000 TOTAL) BY Branch unit) MOUTH capsule EVERY 14 DAYS ergocalcife Yes TAKE 1 [facility] ers rol, 7-18 CAPSULE ity of vitamin d2, 00:00: (50,000 [place] [facility] 1,250 mcg 00 UNITS Medical (50,000 TOTAL) BY Branch unit) MOUTH capsule EVERY 14 DAYS ergocalcife Yes TAKE 1 [facility] ers rol, 7-18 CAPSULE ity of vitamin d2, 00:00: (50,000 [place] [facility] 1,250 mcg 00 UNITS Medical (50,000 TOTAL) BY Branch unit) MOUTH capsule EVERY 14 DAYS ergocalcife Yes TAKE 1 [facility] ers rol, 7-18 CAPSULE ity of vitamin d2, 00:00: (50,000 [place] 1,250 mcg 00 UNITS Medical (50,000 TOTAL) BY Branch unit) MOUTH capsule EVERY 14 DAYS ergocalcife Yes TAKE 1 [facility] ers rol, 7-18 CAPSULE ity of vitamin d2, 00:00: (50,000 [place] 1,250 mcg 00 UNITS Medical (50,000 TOTAL) BY Branch unit) MOUTH capsule EVERY 14 DAYS ergocalcife Yes TAKE 1 [facility] ers rol, 7-18 CAPSULE ity of vitamin d2, 00:00: (50,000 [place] 1,250 mcg 00 UNITS Medical (50,000 TOTAL) BY Branch unit) MOUTH capsule EVERY 14 DAYS ergocalcife Yes TAKE 1 [facility] ers rol, 7-18 CAPSULE ity of vitamin d2, 00:00: (50,000 [place] 1,250 mcg 00 UNITS Medical (50,000 TOTAL) BY Branch unit) MOUTH capsule EVERY 14 DAYS aspirin 81 2023-0 Yes 81mg Take 1 [facility] rs mg chewable 6-26 tablet by it[facility] of tablet 08:08: mouth in [place] [address] the Medical morning. Branch ramipriL 2023-0 Yes 1.25mg Take 1 [facility] rs 1.25 mg 6-26 capsule by ity of capsule 08:08: mouth at [place] [address] bedtime. Medical Branch aspirin 81 2023-0 Yes 81mg Take 1 [facility] rs mg chewable 6-26 tablet by ity of tablet 08:08: mouth in [place] [address] the Medical morning. Branch ramipriL 2023-0 Yes 1.25mg Take 1 [facility] rs 1.25 mg 6-26 capsule by ity of capsule 08:08: mouth at [place] [address] bedtime. Medical Branch aspirin 81 2023-0 Yes 81mg Take 1 [facility] rs mg chewable 6-26 tablet by ity of tablet 08:08: mouth in [place] [address] the Medical morning. Branch ramipriL 2023-0 Yes 1.25mg Take 1 [facility] rs 1.25 mg 6-26 capsule by ity of capsule 08:08: mouth at [place] [address] bedtime. Medical Branch aspirin 81 2023-0 Yes 81mg Take 1 [facility] rs mg chewable 6-26 tablet by ity of tablet 08:08: mouth in [place] [address] the Medical morning. Branch ramipriL 2023-0 Yes 1.25mg Take 1 [facility] rs 1.25 mg 6-26 capsule by ity of capsule 08:08: mouth at [place] [address] bedtime. Medical Branch aspirin 81 2023-0 Yes 81mg Take 1 [facility] rs mg chewable 6-26 tablet by ity of tablet 08:08: mouth in [place] [address] the Medical morning. Branch ramipriL 2023-0 Yes 1.25mg Take 1 [facility] rs 1.25 mg 6-26 capsule by ity of capsule 08:08: mouth at [place] [address] bedtime. Medical Branch aspirin 81 2023-0 Yes 81mg Take 1 [facility] rs mg chewable 6-26 tablet by ity of tablet 08:08: mouth in [place] [address] the Medical morning. Branch ramipriL 2023-0 Yes 1.25mg Take 1 [facility] rs 1.25 mg 6-26 capsule by ity of capsule 08:08: mouth at [place] [address] bedtime. Medical Branch aspirin 81 2023-0 Yes 81mg Take 1 [facility] rs mg chewable 6-26 tablet by ity of tablet 08:08: mouth in [place] [address] the Medical morning. Branch ramipriL 2023-0 Yes 1.25mg Take 1 [facility] rs 1.25 mg 6-26 capsule by ity of capsule 08:08: mouth at [place] [address] bedtime. Medical Branch aspirin 81 2023-0 Yes 81mg Take 1 [facility] rs mg chewable 6-26 tablet by ity of tablet 08:08: mouth in [place] [address] the Medical morning. Branch ramipriL 2023-0 Yes 1.25mg Take 1 [facility] rs 1.25 mg 6-26 capsule by ity of capsule 08:08: mouth at [place] [address] bedtime. Medical Branch aspirin 81 2023-0 Yes 81mg Take 1 [facility] rs mg chewable 6-26 tablet by ity of tablet 08:08: mouth in [place] [address] the Medical morning. Branch ramipriL 2023-0 Yes 1.25mg Take 1 [facility] rs 1.25 mg 6-26 capsule by ity of capsule 08:08: mouth at [place] [address] bedtime. Medical Branch aspirin 81 2023-0 Yes 81mg Take 1 [facility] rs mg chewable 6-26 tablet by ity of tablet 08:08: mouth in [place] [address] the Medical morning. Branch ramipriL 2023-0 Yes 1.25mg Take 1 [facility] rs 1.25 mg 6-26 capsule by ity of capsule 08:08: mouth at [place] [address] bedtime. Medical Branch aspirin 81 2023-0 Yes 81mg Take 1 [facility] rs mg chewable 6-26 tablet by ity of tablet 08:08: mouth in [place] [address] the Medical morning. Branch ramipriL 2023-0 Yes 1.25mg Take 1 [facility] rs 1.25 mg 6-26 capsule by ity of capsule 08:08: mouth at [place] [address] bedtime. Medical Branch aspirin 81 2023-0 Yes 81mg Take 1 [facility] rs mg chewable 6-26 tablet by ity of tablet 08:08: mouth in [place] [address] the Medical morning. Branch ramipriL 2023-0 Yes 1.25mg Take 1 [facility] rs 1.25 mg 6-26 capsule by ity of capsule 08:08: mouth at [place] [address] bedtime. Medical Branch aspirin 81 2023-0 Yes 81mg Take 1 [facility] rs mg chewable 6-26 tablet by ity of tablet 08:08: mouth in [place] the Medical morning. Branch ramipriL 2023-0 Yes 1.25mg Take 1 [facility] rs 1.25 mg 6-26 capsule by ity of capsule 08:08: mouth at [place] [address] bedtime. Medical Branch aspirin 81 2023-0 Yes 81mg Take 1 [facility] rs mg chewable 6-26 tablet by ity of tablet 08:08: mouth in [place] the Medical morning. Branch ramipriL 2023-0 Yes 1.25mg Take 1 [facility] rs 1.25 mg 6-26 capsule by ity of capsule 08:08: mouth at [place] [address] bedtime. Medical Branch aspirin 81 2023-0 Yes 81mg Take 1 [facility] rs mg chewable 6-26 tablet by ity of tablet 08:08: mouth in [place] the Medical morning. Branch ramipriL 2023-0 Yes 1.25mg Take 1 [facility] rs 1.25 mg 6-26 capsule by ity of capsule 08:08: mouth at [place] [address] bedtime. Medical Branch aspirin 81 2023-0 Yes 81mg Take 1 [facility] rs mg chewable 6-26 tablet by ity of tablet 08:08: mouth in [place] the Medical morning. Branch ramipriL 2023-0 Yes 1.25mg Take 1 [facility] rs 1.25 mg 6-26 capsule by ity of capsule 08:08: mouth at [place] [address] bedtime. Medical Branch aspirin 81 2023-0 Yes 81mg Take 1 [facility] rs mg chewable 6-26 tablet by ity of tablet 08:08: mouth in [place] the Medical morning. Branch ramipriL 2023-0 Yes 1.25mg Take 1 [facility] rs 1.25 mg 6-26 capsule by ity of capsule 08:08: mouth at [place] [address] bedtime. Medical Branch aspirin 81 2023-0 Yes 81mg Take 1 [facility] rs mg chewable 6-26 tablet by ity of tablet 08:08: mouth in [place] [address] the Medical morning. Branch ramipriL 2023-0 Yes 1.25mg Take 1 [facility] rs 1.25 mg 6-26 capsule by ity of capsule 08:08: mouth at [place] [address] bedtime. Medical Branch aspirin 81 2023-0 Yes 81mg Take 1 [facility] rs mg chewable 6-26 tablet by ity of tablet 08:08: mouth in [place] [address] the Medical morning. Branch ramipriL 2023-0 Yes 1.25mg Take 1 [facility] rs 1.25 mg 6-26 capsule by ity of capsule 08:08: mouth at [place] [address] bedtime. Medical Branch aspirin 81 2023-0 Yes 81mg Take 1 [facility] rs mg chewable 6-26 tablet by ity of tablet 08:08: mouth in [place] the Medical morning. Branch aspirin 81 2023-0 Yes 81mg Take 1 [facility] rs mg chewable 6-26 tablet by ity of tablet 08:08: mouth in [place] the Medical morning. Branch aspirin 81 2023-0 Yes 81mg Take 1 [facility] rs mg chewable 6-26 tablet by ity of tablet 08:08: mouth in [place] [address] the Medical morning. Branch ramipriL 2023-0 Yes 1.25mg Take 1 [facility] rs 1.25 mg 6-26 capsule by ity of capsule 08:08: mouth at [place] [address] bedtime. Medical Branch aspirin 81 2023-0 Yes 81mg Take 1 [facility] rs mg chewable 6-26 tablet by ity of tablet 08:08: mouth in [place] [address] the Medical morning. Branch ramipriL 2023-0 Yes 1.25mg Take 1 [facility] rs 1.25 mg 6-26 capsule by ity of capsule 08:08: mouth at [place] [address] bedtime. Medical Branch aspirin 81 2023-0 Yes 81mg Take 1 [facility] rs mg chewable 6-26 tablet by ity of tablet 08:08: mouth in [place] the Medical morning. Branch ramipriL 2023-0 Yes 1.25mg Take 1 [facility] rs 1.25 mg 6-26 capsule by ity of capsule 08:08: mouth at [place] [address] bedtime. Medical Branch aspirin 81 2023-0 Yes 81mg Take 1 [facility] rs mg chewable 6-26 tablet by ity of tablet 08:08: mouth in [place] [address] the Medical morning. Branch ramipriL 2023-0 Yes 1.25mg Take 1 [facility] rs 1.25 mg 6-26 capsule by ity of capsule 08:08: mouth at [place] [address] bedtime. Medical Branch aspirin 81 2023-0 Yes 81mg Take 1 [facility] rs mg chewable 6-26 tablet by ity of tablet 08:08: mouth in [place] the Medical morning. Branch ramipriL 2023-0 Yes 1.25mg Take 1 [facility] rs 1.25 mg 6-26 capsule by ity of capsule 08:08: mouth at [place] [address] bedtime. Medical Branch aspirin 81 2023-0 Yes 81mg Take 1 [facility] rs mg chewable 6-26 tablet by ity of tablet 08:08: mouth in [place] the Medical morning. Branch ramipriL 2023-0 Yes 1.25mg Take 1 [facility] rs 1.25 mg 6-26 capsule by ity of capsule 08:08: mouth at [place] [address] bedtime. Medical Branch aspirin 81 2023-0 Yes 81mg Take 1 [facility] rs mg chewable 6-26 tablet by ity of tablet 08:08: mouth in [place] the Medical morning. Branch ramipriL 2023-0 Yes 1.25mg Take 1 [facility] rs 1.25 mg 6-26 capsule by ity of capsule 08:08: mouth at [place] [address] bedtime. Medical Branch aspirin 81 2023-0 Yes 81mg Take 1 [facility] rs mg chewable 6-26 tablet by ity of tablet 08:08: mouth in [place] the Medical morning. Branch ramipriL 2023-0 Yes 1.25mg Take 1 [facility] rs 1.25 mg 6-26 capsule by ity of capsule 08:08: mouth at [place] [address] bedtime. Medical Branch aspirin 81 2023-0 Yes 81mg Take 1 [facility] rs mg chewable 6-26 tablet by ity of tablet 08:08: mouth in [place] the Medical morning. Branch ramipriL 2023-0 Yes 1.25mg Take 1 [facility] rs 1.25 mg 6-26 capsule by ity of capsule 08:08: mouth at [place] [address] bedtime. Medical Branch cyclobenzap 2023-0 Yes [id number] 5mg Take 1 [facility] rine 5 mg 6-26 tablet by ity o f tablet 00:00: mouth 3 [place] 00 (three) Medical times Branch daily as needed for Muscle Spasms. cyclobenzap 2023-0 Yes [id number] 5mg Take 1 [facility] rine 5 mg 6-26 tablet by ity o f tablet 00:00: mouth 3 [place] 00 (three) Medical times Branch daily as needed for Muscle Spasms. cyclobenzap 2023-0 Yes [id number] 5mg Take 1 [facility] rine 5 mg 6-26 tablet by ity o f tablet 00:00: mouth 3 00 (three) Medical times Branch daily as needed for Muscle Spasms. cyclobenzap 2023-0 Yes [id number] 5mg Take 1 [facility] rine 5 mg 6-26 tablet by ity o f tablet 00:00: mouth 3 (three) Medical times Branch daily as needed for Muscle Spasms. cyclobenzap 2023-0 Yes [id number] 5mg Take 1 [facility] rine 5 mg 6-26 tablet by ity o f tablet 00:00: mouth 3 (three) Medical times Branch daily as needed for Muscle Spasms. cyclobenzap 2023-0 Yes [id number] 5mg Take 1 [facility] rine 5 mg 6-26 tablet by ity o f tablet 00:00: mouth 3 (three) Medical times Branch daily as needed for Muscle Spasms. cyclobenzap 2023-0 Yes [id number] 5mg Take 1 [facility] rine 5 mg 6-26 tablet by ity o f tablet 00:00: mouth 3 (three) Medical times Branch daily as needed for Muscle Spasms. cyclobenzap 2023-0 Yes [id number] 5mg Take 1 [facility] rine 5 mg 6-26 tablet by ity o f tablet 00:00: mouth 3 (three) Medical times Branch daily as needed for Muscle Spasms. cyclobenzap 2023-0 Yes [id number] 5mg Take 1 [facility] rine 5 mg 6-26 tablet by ity o f tablet 00:00: mouth 3 (three) Medical times Branch daily as needed for Muscle Spasms. cyclobenzap 2023-0 Yes [id number] 5mg Take 1 [facility] rine 5 mg 6-26 tablet by ity o f tablet 00:00: mouth 3 (three) Medical times Branch daily as needed for Muscle Spasms. cyclobenzap 2023-0 Yes [id number] 5mg Take 1 [facility] rine 5 mg 6-26 tablet by ity o f tablet 00:00: mouth 3 00 (three) Medical times Branch daily as needed for Muscle Spasms. cyclobenzap 2023-0 Yes [id number] 5mg Take 1 [facility] rine 5 mg 6-26 tablet by ity o f tablet 00:00: mouth 3 (three) Medical times Branch daily as needed for Muscle Spasms. cyclobenzap 2023-0 Yes [id number] 5mg Take 1 [facility] rine 5 mg 6-26 tablet by ity o f tablet 00:00: mouth 3 (three) Medical times Branch daily as needed for Muscle Spasms. cyclobenzap 2023-0 Yes [id number] 5mg Take 1 [facility] rine 5 mg 6-26 tablet by ity o f tablet 00:00: mouth 3 (three) Medical times Branch daily as needed for Muscle Spasms. cyclobenzap 2023-0 Yes [id number] 5mg Take 1 [facility] rine 5 mg 6-26 tablet by ity o f tablet 00:00: mouth 3 (three) Medical times Branch daily as needed for Muscle Spasms. cyclobenzap 2023-0 Yes [id number] 5mg Take 1 [facility] rine 5 mg 6-26 tablet by ity o f tablet 00:00: mouth (three) Medical times Branch daily as needed for Muscle Spasms. cyclobenzap 2023-0 Yes [id number] 5mg Take 1 [facility] rine 5 mg 6-26 tablet by ity o f tablet 00:00: mouth (three) Medical times Branch daily as needed for Muscle Spasms. cyclobenzap 2023-0 Yes [id number] 5mg Take 1 [facility] rine 5 mg 6-26 tablet by ity o f tablet 00:00: mouth 3 (three) Medical times Branch daily as needed for Muscle Spasms. cyclobenzap 2023-0 Yes [id number] 5mg Take 1 [facility] rine 5 mg 6-26 tablet by ity o f tablet 00:00: mouth 3 (three) Medical times Branch daily as needed for Muscle Spasms. cyclobenzap 2023-0 Yes [id number] 5mg Take 1 [facility] rine 5 mg 6-26 tablet by ity o f tablet 00:00: mouth 3 (three) Medical times Branch daily as needed for Muscle Spasms. cyclobenzap 2023-0 Yes [id number] 5mg Take 1 [facility] rine 5 mg 6-26 tablet by ity o f tablet 00:00: mouth 3 (three) Medical times Branch daily as needed for Muscle Spasms. cyclobenzap 2023-0 Yes [id number] 5mg Take 1 [facility] rine 5 mg 6-26 tablet by ity o f tablet 00:00: mouth 3 [place] 00 (three) Medical times Branch daily as needed for Muscle Spasms. cyclobenzap 2023-0 Yes [id number] 5mg Take 1 [facility] rine 5 mg 6-26 tablet by ity o f tablet 00:00: mouth 3 00 (three) Medical times Branch daily as needed for Muscle Spasms. cyclobenzap 2023-0 Yes [id number] 5mg Take 1 [facility] rine 5 mg 6-26 tablet by ity o f tablet 00:00: mouth 3 [place] 00 (three) Medical times Branch daily as needed for Muscle Spasms. aspirin 81 2022-0 Yes 81mg Take 81 mg [facility] mg chewable 5-30 by mouth ity of tablet 09:28: daily. [address] aspirin 81 2022-0 Yes 81mg Take 81 mg U nivers mg chewable 5-30 by mouth ity of tablet 09:28: daily. [address] aspirin 81 2022-0 Yes 81mg Take 81 mg U nivers mg chewable 5-30 by mouth ity of tablet 09:28: daily. [address] aspirin 81 3-0 Yes 81mg Take 81 mg U nivers mg chewable 5-30 by mouth ity of tablet 09:28: daily. [address] aspirin 81 3-0 Yes 81mg Take 81 mg U nivers mg chewable 5-30 by mouth ity of tablet 09:28: daily. [address] aspirin 81 3-0 Yes 81mg Take 81 mg U nivers mg chewable 5-30 by mouth ity of tablet 09:28: daily. [address] aspirin 81 3-0 Yes 81mg Take 81 mg U nivers mg chewable 5-30 by mouth ity of tablet 09:28: daily. [address] aspirin 81 2023-0 Yes 81mg Take 81 mg U nivers mg chewable 5-30 by mouth ity of tablet 09:28: daily. [address] aspirin 81 3-0 Yes 81mg Take 81 mg U nivers mg chewable 5-30 by mouth ity of tablet 09:28: daily. [place] [facility] Medical Branch aspirin 81 2022-0 Yes 81mg Take 81 mg U nivers mg chewable 5-30 by mouth ity of tablet 09:28: daily. [place] [address] Medical Branch aspirin 81 3-0 Yes 81mg Take 81 mg U nivers mg chewable 5-30 by mouth ity of tablet 09:28: daily. [place] [address] Medical Branch aspirin 81 2022-0 Yes 81mg Take 81 mg U nivers mg chewable 5-30 by mouth ity of tablet 09:28: daily. [place] [address] Medical Branch aspirin 81 2022-0 Yes 81mg Take 81 mg U nivers mg chewable 5-30 by mouth ity of tablet 09:28: daily. [place] [address] Medical Branch aspirin 81 2022-0 Yes 81mg Take 81 mg U nivers mg chewable 5-30 by mouth ity of tablet 09:28: daily. [place] [address] Medical Branch aspirin 81 2022-0 Yes 81mg Take 81 mg U nivers mg chewable 5-30 by mouth ity of tablet 09:28: daily. [place] [address] Medical Branch aspirin 81 2022-0 Yes 81mg Take 81 mg U nivers mg chewable 5-30 by mouth ity of tablet 09:28: daily. [place] [address] Medical Branch aspirin 81 2022-0 Yes 81mg Take 81 mg U nivers mg chewable 5-30 by mouth ity of tablet 09:28: daily. [place] [address] Medical Branch ramipriL 3-0 Yes 1.25mg Take 1 [facility] rs 1.25 mg 5-30 capsule by ity of capsule 09:26: mouth at [place] [address] bedtime. Medical Branch ramipriL 3-0 Yes 1.25mg Take 1 [facility] rs 1.25 mg 5-30 capsule by ity of capsule 09:26: mouth at [place] [address] bedtime. Medical Branch ramipriL 3-0 Yes 1.25mg Take 1 [facility] rs 1.25 mg 5-30 capsule by ity of capsule 09:26: mouth at [place] [address] bedtime. Medical Branch ramipriL 2023-0 Yes 1.25mg Take 1 [facility] rs 1.25 mg 5-30 capsule by ity of capsule 09:26: mouth at [place] [address] bedtime. Medical Branch ramipriL 3-0 Yes 1.25mg Take 1 [facility] rs 1.25 mg 5-30 capsule by ity of capsule 09:26: mouth at [place] [address] bedtime. Medical Branch ramipriL 2022-0 Yes 1.25mg Take 1 [facility] rs 1.25 mg 5-30 capsule by ity of capsule 09:26: mouth at [place] [address] bedtime. Medical Branch ramipriL 2022-0 Yes 1.25mg Take 1 [facility] rs 1.25 mg 5-30 capsule by ity of capsule 09:26: mouth at [place] [address] bedtime. Medical Branch ramipriL 2022-0 Yes 1.25mg Take 1 [facility] rs 1.25 mg 5-30 capsule by ity of capsule 09:26: mouth at [place] [address] bedtime. Medical Branch ramipriL 2022-0 Yes 1.25mg Take 1 [facility] rs 1.25 mg 5-30 capsule by ity of capsule 09:26: mouth at [place] [address] bedtime. Medical Branch ramipriL 2022-0 Yes 1.25mg Take 1 [facility] rs 1.25 mg 5-30 capsule by ity of capsule 09:26: mouth at [place] [address] bedtime. Medical Branch ramipriL 2022-0 Yes 1.25mg Take 1 [facility] rs 1.25 mg 5-30 capsule by ity of capsule 09:26: mouth at [place] [address] bedtime. Medical Branch ramipriL 2022-0 Yes 1.25mg Take 1 [facility] rs 1.25 mg 5-30 capsule by ity of capsule 09:26: mouth at [place] [address] bedtime. Medical Branch ramipriL 2022-0 Yes 1.25mg Take 1 [facility] rs 1.25 mg 5-30 capsule by ity of capsule 09:26: mouth at [place] [address] bedtime. Medical Branch ramipriL 2022-0 Yes 1.25mg Take 1 [facility] rs 1.25 mg 5-30 capsule by ity of capsule 09:26: mouth at [place] [address] bedtime. Medical Branch ramipriL 2022-0 Yes 1.25mg Take 1 [facility] rs 1.25 mg 5-30 capsule by ity of capsule 09:26: mouth at [place] [address] bedtime. Medical Branch ramipriL 2022-0 Yes 1.25mg Take 1 [facility] rs 1.25 mg 5-30 capsule by ity of capsule 09:26: mouth at [place] [address] bedtime. Medical Branch ramipriL 2022-0 Yes 1.25mg Take 1 [facility] rs 1.25 mg 5-30 capsule by ity of capsule 09:26: mouth at [place] [address] bedtime. Medical Branch ramipriL 2023-0 Yes 1.25mg Take 1 [facility] rs 1.25 mg 5-22 capsule by ity of capsule 09:27: mouth at [place] [address] bedtime. Medical Branch ramipriL 2023-0 Yes 1.25mg Take 1 [facility] rs 1.25 mg 5-22 capsule by ity of capsule 09:27: mouth at [place] [address] bedtime. Medical Branch ramipriL 2023-0 Yes 1.25mg Take 1 [facility] rs 1.25 mg 5-22 capsule by ity of capsule 09:27: mouth at [place] [address] bedtime. Medical Branch ramipriL 2023-0 Yes 1.25mg Take 1 [facility] rs 1.25 mg 5-22 capsule by ity of capsule 09:27: mouth at [place] [address] bedtime. Medical Branch ramipriL 2023-0 Yes 1.25mg Take 1 [facility] rs 1.25 mg 5-22 capsule by ity of capsule 09:27: mouth at [place] [address] bedtime. Medical Branch ramipriL 3-0 Yes 1.25mg Take 1 [facility] rs 1.25 mg 5-22 capsule by ity of capsule 09:27: mouth at [place] [address] bedtime. Medical Branch ramipriL 2023-0 Yes 1.25mg Take 1 [facility] rs 1.25 mg 5-22 capsule by ity of capsule 09:27: mouth at [place] [address] bedtime. Medical Branch Cholecalcif 2023-0 Yes 1000U Take 1,000 [facility], 5-09 Units by ity of Vitamin D3, 08:57: mouth. [place] 25 mcg 39 [facility] (1,000 Branch unit) Chew Cholecalcif 2023-0 Yes 1000U Take 1,000 [facility], 5-09 Units by ity of Vitamin D3, 08:57: mouth. [place] 25 [place] 39 [facility] (1,000 Branch unit) Chew Cholecalcif 2023-0 Yes 1000U Take 1,000 [facility], 5-09 Units by ity of Vitamin D3, 08:57: mouth. [place] 25 [place]cg 39 [facility] (1,000 Branch unit) Chew Cholecalcif 2023-0 Yes 1000U Take 1,000 [facility], 5-09 Units by ity of Vitamin D3, 08:57: mouth. [place] 25 mcg 39 Medical (1,000 Branch unit) Chew Cholecalcif 2023-0 Yes 1000U Take 1,000 [facility], 5-09 Units by ity of Vitamin D3, 08:57: mouth. [place] 25 mcg 39 Medical (1,000 Branch unit) Chew Cholecalcif 2023-0 Yes 1000U Take 1,000 [facility] [place], 5-09 Units by ity of Vitamin D3, 08:57: mouth. [place] 25 mcg 39 Medical (1,000 Branch unit) Chew Cholecalcif 2023-0 Yes 1000U Take 1,000 [facility], 5-09 Units by ity of Vitamin D3, 08:57: mouth. [place] 25 mcg 39 Medical (1,000 Branch unit) Chew Cholecalcif 2023-0 Yes 1000U Take 1,000 [facility] [place], 5-09 Units by ity of Vitamin D3, 08:57: mouth. [place] 25 mcg 39 Medical (1,000 Branch unit) Chew Cholecalcif 2023-0 Yes 1000U Take 1,000 [facility] [place], 5-09 Units by ity of Vitamin D3, 08:57: mouth. [place] 25 mcg 39 Medical (1,000 Branch unit) Chew Cholecalcif 2023-0 Yes 1000U Take 1,000 [facility] [place], 5-09 Units by ity of Vitamin D3, 08:57: mouth. [place] 25 mcg 39 Medical (1,000 Branch unit) Chew Cholecalcif 2023-0 Yes 1000U Take 1,000 [facility] [place], 5-09 Units by ity of Vitamin D3, 08:57: mouth. [place] 25 mcg 39 Medical (1,000 Branch unit) Chew Cholecalcif 2023-0 Yes 1000U Take 1,000 [facility], 5-09 Units by ity of Vitamin D3, 08:57: mouth. [place] 25 mcg 39 Medical (1,000 Branch unit) Chew Cholecalcif 2023-0 Yes 1000U Take 1,000 [facility], 5-09 Units by ity of Vitamin D3, 08:57: mouth. [place] 25 mcg 39 Medical (1,000 Branch unit) Chew Cholecalcif 2023-0 Yes 1000U Take 1,000 [facility], 5-09 Units by ity of Vitamin D3, 08:57: mouth. [place] 25 mcg 39 Medical (1,000 Branch unit) Chew Cholecalcif 2023-0 Yes 1000U Take 1,000 [facility], 5-09 Units by ity of Vitamin D3, 08:57: mouth. [place] 25 mcg 39 Medical (1,000 Branch unit) Chew Cholecalcif 2023-0 Yes 1000U Take 1,000 [facility], 5-09 Units by ity of Vitamin D3, 08:57: mouth. [place] 25 mcg 39 Medical (1,000 Branch unit) Chew Cholecalcif 2023-0 Yes 1000U Take 1,000 [facility], 5-09 Units by ity of Vitamin D3, 08:57: mouth. [place] 25 mcg 39 Medical (1,000 Branch unit) Chew Cholecalcif 2023-0 Yes 1000U Take 1,000 [facility] [place], 5-09 Units by ity of Vitamin D3, 08:57: mouth. [place] 25 mcg 39 Medical (1,000 Branch unit) Chew Cholecalcif 2023-0 Yes 1000U Take 1,000 [facility], 5-09 Units by ity of Vitamin D3, 08:57: mouth. [place] 25 mcg 39 Medical (1,000 Branch unit) Chew Cholecalcif 2023-0 Yes 1000U Take 1,000 [facility], 5-09 Units by ity of Vitamin D3, 08:57: mouth. [place] 25 mcg 39 Medical (1,000 Branch unit) Chew Cholecalcif 2023-0 Yes 1000U Take 1,000 [facility], 5-09 Units by ity of Vitamin D3, 08:57: mouth. [place] 25 mcg 39 Medical (1,000 Branch unit) Chew Cholecalcif 2023-0 Yes 1000U Take 1,000 [facility], 5-09 Units by ity of Vitamin D3, 08:57: mouth. [place] 25 mcg 39 Medical (1,000 Branch unit) Chew Cholecalcif 2023-0 Yes 1000U Take 1,000 [facility], 5-09 Units by ity of Vitamin D3, 08:57: mouth. [place] 25 mcg 39 Medical (1,000 Branch unit) Chew Cholecalcif 2023-0 Yes 1000U Take 1,000 [facility], 5-09 Units by ity of Vitamin D3, 08:57: mouth. [place] 25 mcg 39 Medical (1,000 Branch unit) Chew Cholecalcif 2023-0 Yes 1000U Take 1,000 [facility], 5-09 Units by ity of Vitamin D3, 08:57: mouth. [place] 25 mcg 39 Medical (1,000 Branch unit) Chew Cholecalcif 2023-0 Yes 1000U Take 1,000 [facility], 5-09 Units by ity of Vitamin D3, 08:57: mouth. [place] 25 mcg 39 Medical (1,000 Branch unit) Chew Cholecalcif 2023-0 Yes 1000U Take 1,000 [facility], 5-09 Units by ity of Vitamin D3, 08:57: mouth. [place] 25 mcg 39 Medical (1,000 Branch unit) Chew Cholecalcif 2023-0 Yes 1000U Take 1,000 [facility], 5-09 Units by ity of Vitamin D3, 08:57: mouth. [place] 25 mcg 39 Medical (1,000 Branch unit) Chew Cholecalcif 2023-0 Yes 1000U Take 1,000 [facility], 5-09 Units by ity of Vitamin D3, 08:57: mouth. [place] 25 mcg 39 Medical (1,000 Branch unit) Chew Cholecalcif 2023-0 Yes 1000U Take 1,000 [facility], 5-09 Units by ity of Vitamin D3, 08:57: mouth. [place] 25 mcg 39 Medical (1,000 Branch unit) Chew Cholecalcif 2023-0 Yes 1000U Take 1,000 [facility], 5-09 Units by ity of Vitamin D3, 08:57: mouth. [place] 25 mcg 39 Medical (1,000 Branch unit) Chew Cholecalcif 2023-0 Yes 1000U Take 1,000 [facility], 5-09 Units by ity of Vitamin D3, 08:57: mouth. [place] 25 mcg 39 Medical (1,000 Branch unit) Chew Cholecalcif 2023-0 Yes 1000U Take 1,000 [facility], 5-09 Units by ity of Vitamin D3, 08:57: mouth. [place] 25 mcg 39 Medical (1,000 Branch unit) Chew Cholecalcif 2023-0 Yes 1000U Take 1,000 [facility], 5-09 Units by ity of Vitamin D3, 08:57: mouth. [place] 25 mcg 39 Medical (1,000 Branch unit) Chew Cholecalcif 2023-0 Yes 1000U Take 1,000 [facility], 5-09 Units by ity of Vitamin D3, 08:57: mouth. [place] 25 mcg 39 Medical (1,000 Branch unit) Chew Cholecalcif 2023-0 Yes 1000U Take 1,000 [facility], 5-09 Units by ity of Vitamin D3, 08:57: mouth. [place] 25 mcg 39 Medical (1,000 Branch unit) Chew Cholecalcif 2023-0 Yes 1000U Take 1,000 [facility], 5-09 Units by ity of Vitamin D3, 08:57: mouth. [place] 25 mcg 39 Medical (1,000 Branch unit) Chew Cholecalcif 2023-0 Yes 1000U Take 1,000 [facility], 5-09 Units by ity of Vitamin D3, 08:57: mouth. [place] 25 mcg 39 Medical (1,000 Branch unit) Chew Cholecalcif 2023-0 Yes 1000U Take 1,000 [facility] [place], 5-09 Units by ity of Vitamin D3, 08:57: mouth. [place] 25 mcg 39 Medical (1,000 Branch unit) Chew Cholecalcif 2023-0 Yes 1000U Take 1,000 [facility], 5-09 Units by ity of Vitamin D3, 08:57: mouth. [place] 25 mcg 39 Medical (1,000 Branch unit) Chew Cholecalcif 2023-0 Yes 1000U Take 1,000 [facility], 5-09 Units by ity of Vitamin D3, 08:57: mouth. [place] 25 mcg 39 Medical (1,000 Branch unit) Chew Cholecalcif 2023-0 Yes 1000U Take 1,000 [facility], 5-09 Units by ity of Vitamin D3, 08:57: mouth. [place] 25 mcg 39 Medical (1,000 Branch unit) Chew Cholecalcif 2023-0 Yes 1000U Take 1,000 [facility], 5-09 Units by ity of Vitamin D3, 08:57: mouth. [place] 25 mcg 39 Medical (1,000 Branch unit) Chew Cholecalcif 2023-0 Yes 1000U Take 1,000 [facility], 5-09 Units by ity of Vitamin D3, 08:57: mouth. [place] 25 mcg 39 Medical (1,000 Branch unit) Chew Cholecalcif 2023-0 Yes 1000U Take 1,000 [facility], 5-09 Units by ity of Vitamin D3, 08:57: mouth. [place] 25 mcg 39 Medical (1,000 Branch unit) Chew Cholecalcif 2023-0 Yes 1000U Take 1,000 [facility], 5-09 Units by ity of Vitamin D3, 08:57: mouth. [place] 25 mcg 39 Medical (1,000 Branch unit) Chew Cholecalcif 2023-0 Yes 1000U Take 1,000 [facility], 5-09 Units by ity of Vitamin D3, 08:57: mouth. [place] 25 mcg 39 Medical (1,000 Branch unit) Chew Cholecalcif 2023-0 Yes 1000U Take 1,000 [facility], 5-09 Units by ity of Vitamin D3, 08:57: mouth. [place] 25 mcg 39 Medical (1,000 Branch unit) Chew Cholecalcif 2023-0 Yes 1000U Take 1,000 [facility], 5-09 Units by ity of Vitamin D3, 08:57: mouth. [place] 25 mcg 39 Medical (1,000 Branch unit) Chew Cholecalcif 2023-0 Yes 1000U Take 1,000 [facility], 5-09 Units by ity of Vitamin D3, 08:57: mouth. [place] 25 mcg 39 Medical (1,000 Branch unit) Chew Cholecalcif 2023-0 Yes 1000U Take 1,000 [facility], 5-09 Units by ity of Vitamin D3, 08:57: mouth. [place] 25 mcg 39 Medical (1,000 Branch unit) Chew Cholecalcif 2023-0 Yes 1000U Take 1,000 [facility], 5-09 Units by ity of Vitamin D3, 08:57: mouth. [place] 25 mcg 39 Medical (1,000 Branch unit) Chew Cholecalcif 2023-0 Yes 1000U Take 1,000 [facility] [place], 5-09 Units by ity of Vitamin D3, 08:57: mouth. [place] 25 mcg 39 Medical (1,000 Branch unit) Chew Cholecalcif 2023-0 Yes 1000U Take 1,000 [facility], 5-09 Units by ity of Vitamin D3, 08:57: mouth. [place] 25 mcg 39 Medical (1,000 Branch unit) Chew foLIC acid 2022-0 Yes [id number] 1mg Take 1 [facility] 1 mg tablet 5-09 tablet by ity of 00:00: mouth in [place] 00 the Medical morning. Branch cyclobenzap 2022-0 Yes [id number] 5mg Take 1 [facility] 5 mg 5-09 tablet by ity o f tablet 00:00: mouth 3 [place] 00 (three) Medical times [place] daily as needed for Muscle Spasms. foLIC acid 2022-0 Yes [id number] 1mg Take 1 [facility] 1 mg tablet 5-09 tablet by ity of 00:00: mouth in [place] 00 the Medical morning. Branch cyclobenzap 2022-0 Yes [id number] 5mg Take 1 [facility] 5 mg 5-09 tablet by ity o f tablet 00:00: mouth 3 [place] 00 (three) Medical times [place] daily as needed for Muscle Spasms. foLIC acid 2022-0 Yes [id number] 1mg Take 1 [facility] 1 mg tablet 5-09 tablet by ity of 00:00: mouth in [place] 00 the Medical morning. Branch cyclobenzap 2022-0 Yes [id number] 5mg Take 1 [facility] 5 mg 5-09 tablet by ity o f tablet 00:00: mouth 3 [place] (three) Medical times [place] daily as needed for Muscle Spasms. foLIC acid 2022-0 Yes [id number] 1mg Take 1 [facility] 1 mg tablet 5-09 tablet by ity of 00:00: mouth in [place] 00 the Medical morning. Branch cyclobenzap 2022-0 Yes [id number] 5mg Take 1 [facility] 5 mg 5-09 tablet by ity o f tablet 00:00: mouth 3 [place] 00 (three) Medical times [place] daily as needed for Muscle Spasms. foLIC acid 2022-0 Yes [id number] 1mg Take 1 [facility] 1 mg tablet 5-09 tablet by ity of 00:00: mouth in [place] 00 the Medical morning. Branch cyclobenzap 2022-0 Yes [id number] 5mg Take 1 [facility] 5 mg 5-09 tablet by ity o f tablet 00:00: mouth 3 [place] 00 (three) Medical times [place] daily as needed for Muscle Spasms. foLIC acid 2022-0 Yes [id number] 1mg Take 1 [facility] 1 mg tablet 5-09 tablet by ity of 00:00: mouth in [place] 00 the Medical morning. Branch cyclobenzap 2022-0 Yes [id number] 5mg Take 1 [facility] 5 mg 5-09 tablet by ity o f tablet 00:00: mouth 3 [place] 00 (three) Medical times Branch daily as needed for Muscle Spasms. foLIC acid 2022-0 Yes [id number] 1mg Take 1 [facility] 1 mg tablet 5-09 tablet by ity of 00:00: mouth in [place] 00 the Medical morning. Branch cyclobenzap 2022-0 Yes [id number] 5mg Take 1 [facility] 5 mg 5-09 tablet by ity o f tablet 00:00: mouth 3 [place] (three) Medical times Branch daily as needed for Muscle Spasms. foLIC acid 2022-0 Yes [id number] 1mg Take 1 [facility] 1 mg tablet 5-09 tablet by ity of 00:00: mouth in [place] 00 the Medical morning. Branch cyclobenzap 2022-0 Yes [id number] 5mg Take 1 [facility] 5 mg 5-09 tablet by ity o f tablet 00:00: mouth 3 [place] (three) Medical times Branch daily as needed for Muscle Spasms. foLIC acid 2022-0 Yes [id number] 1mg Take 1 [facility] 1 mg tablet 5-09 tablet by ity of 00:00: mouth in [place] 00 the Medical morning. Branch cyclobenzap 2022-0 Yes [id number] 5mg Take 1 [facility] 5 mg 5-09 tablet by ity o f tablet 00:00: mouth 3 [place] 00 (three) Medical times Branch daily as needed for Muscle Spasms. foLIC acid 2022-0 Yes [id number] 1mg Take 1 [facility] 1 mg tablet 5-09 tablet by ity of 00:00: mouth in [place] 00 the Medical morning. Branch cyclobenzap 2022-0 Yes [id number] 5mg Take 1 [facility] 5 mg 5-09 tablet by ity o f tablet 00:00: mouth 3 [place] 00 (three) Medical times Branch daily as needed for Muscle Spasms. foLIC acid 2022-0 Yes [id number] 1mg Take 1 [facility] 1 mg tablet 5-09 tablet by ity of 00:00: mouth in [place] 00 the Medical morning. Branch cyclobenzap 2022-0 Yes [id number] 5mg Take 1 [facility] 5 mg 5-09 tablet by ity o f tablet 00:00: mouth 3 [place] 00 (three) Medical times Branch daily as needed for Muscle Spasms. foLIC acid 2022-0 Yes [id number] 1mg Take 1 [facility] 1 mg tablet 5-09 tablet by ity of 00:00: mouth in [place] 00 the Medical morning. Branch cyclobenzap 2022-0 Yes [id number] 5mg Take 1 [facility] 5 mg 5-09 tablet by ity o f tablet 00:00: mouth 3 [place] 00 (three) Medical times Branch daily as needed for Muscle Spasms. foLIC acid 2022-0 Yes [id number] 1mg Take 1 [facility] 1 mg tablet 5-09 tablet by ity of 00:00: mouth in [place] 00 the Medical morning. Branch cyclobenzap 2022-0 Yes [id number] 5mg Take 1 [facility] 5 mg 5-09 tablet by ity o f tablet 00:00: mouth 3 [place] (three) Medical times [place] daily as needed for Muscle Spasms. foLIC acid 2022-0 Yes [id number] 1mg Take 1 [facility] 1 mg tablet 5-09 tablet by ity of 00:00: mouth in [place] 00 the Medical morning. Branch cyclobenzap 2022-0 Yes [id number] 5mg Take 1 [facility] 5 mg 5-09 tablet by ity o f tablet 00:00: mouth 3 [place] (three) Medical times [place] daily as needed for Muscle Spasms. foLIC acid 2022-0 Yes [id number] 1mg Take 1 [facility] 1 mg tablet 5-09 tablet by ity of 00:00: mouth in [place] 00 the Medical morning. Branch cyclobenzap 2022-0 Yes [id number] 5mg Take 1 [facility] 5 mg 5-09 tablet by ity o f tablet 00:00: mouth 3 [place] 00 (three) Medical times Branch daily as needed for Muscle Spasms. foLIC acid 2022-0 Yes [id number] 1mg Take 1 [facility] 1 mg tablet 5-09 tablet by ity of 00:00: mouth in [place] 00 the Medical morning. Branch cyclobenzap 2022-0 Yes [id number] 5mg Take 1 [facility] 5 mg 5-09 tablet by ity o f tablet 00:00: mouth 3 [place] 00 (three) Medical times Branch daily as needed for Muscle Spasms. foLIC acid 2022-0 Yes [id number] 1mg Take 1 [facility] 1 mg tablet 5-09 tablet by ity of 00:00: mouth in [place] 00 the Medical morning. Branch cyclobenzap 2022-0 Yes [id number] 5mg Take 1 [facility] 5 mg 5-09 tablet by ity o f tablet 00:00: mouth 3 [place] (three) Medical times Branch daily as needed for Muscle Spasms. foLIC acid 2022-0 Yes [id number] 1mg Take 1 [facility] 1 mg tablet 5-09 tablet by ity of 00:00: mouth in [place] 00 the Medical morning. Branch cyclobenzap 2022-0 Yes [id number] 5mg Take 1 [facility] 5 mg 5-09 tablet by ity o f tablet 00:00: mouth 3 [place] (three) Medical times Branch daily as needed for Muscle Spasms. foLIC acid 2022-0 Yes [id number] 1mg Take 1 [facility] 1 mg tablet 5-09 tablet by ity of 00:00: mouth in [place] 00 the Medical morning. Branch cyclobenzap 2022-0 Yes [id number] 5mg Take 1 [facility] 5 mg 5-09 tablet by ity o f tablet 00:00: mouth 3 [place] (three) Medical times Branch daily as needed for Muscle Spasms. foLIC acid 2022-0 Yes [id number] 1mg Take 1 [facility] 1 mg tablet 5-09 tablet by ity of 00:00: mouth in [place] 00 the Medical morning. Branch cyclobenzap 2022-0 Yes [id number] 5mg Take 1 [facility] 5 mg 5-09 tablet by ity o f tablet 00:00: mouth 3 [place] (three) Medical times Branch daily as needed for Muscle Spasms. foLIC acid 2022-0 Yes [id number] 1mg Take 1 [facility] 1 mg tablet 5-09 tablet by ity of 00:00: mouth in [place] 00 the Medical morning. Branch cyclobenzap 2022-0 Yes [id number] 5mg Take 1 [facility] 5 mg 5-09 tablet by ity o f tablet 00:00: mouth 3 [place] (three) Medical times Branch daily as needed for Muscle Spasms. foLIC acid 2022-0 Yes [id number] 1mg Take 1 [facility] 1 mg tablet 5-09 tablet by ity of 00:00: mouth in [place] 00 the Medical morning. Branch cyclobenzap 2022-0 Yes [id number] 5mg Take 1 [facility] 5 mg 5-09 tablet by ity o f tablet 00:00: mouth 3 [place] (three) Medical times [place] daily as needed for Muscle Spasms. foLIC acid 2022-0 Yes [id number] 1mg Take 1 [facility] 1 mg tablet 5-09 tablet by ity of 00:00: mouth in [place] 00 the Medical morning. Branch cyclobenzap 2022-0 Yes [id number] 5mg Take 1 [facility] 5 mg 5-09 tablet by ity o f tablet 00:00: mouth 3 [place] (three) Medical times [place] daily as needed for Muscle Spasms. foLIC acid 2022-0 Yes [id number] 1mg Take 1 [facility] 1 mg tablet 5-09 tablet by ity of 00:00: mouth in [place] the Medical morning. Branch cyclobenzap 2022-0 Yes [id number] 5mg Take 1 [facility] 5 mg 5-09 tablet by ity o f tablet 00:00: mouth 3 [place] (three) Medical times [place] daily as needed for Muscle Spasms. foLIC acid 2022-0 Yes [id number] 1mg Take 1 [facility] 1 mg tablet 5-09 tablet by ity of 00:00: mouth in [place] the Medical morning. Branch cyclobenzap 3-0 Yes [id number] 5mg Take 1 [facility] 5 mg 5-09 tablet by ity o f tablet 00:00: mouth 3 [place] (three) Medical times [place] daily as needed for Muscle Spasms. foLIC acid 2022-0 Yes [id number] 1mg Take 1 [facility] 1 mg tablet 5-09 tablet by ity of 00:00: mouth in [place] 00 the Medical morning. Branch cyclobenzap 3-0 Yes [id number] 5mg Take 1 [facility] 5 mg 5-09 tablet by ity o f tablet 00:00: mouth 3 [place] 00 (three) Medical times [place] daily as needed for Muscle Spasms. foLIC acid 2022-0 Yes [id number] 1mg Take 1 [facility] 1 mg tablet 5-09 tablet by ity of 00:00: mouth in [place] 00 the Medical morning. Branch foLIC acid 2022-0 Yes [id number] 1mg Take 1 [facility] 1 mg tablet 5-09 tablet by ity of 00:00: mouth in [place] the Medical morning. Branch foLIC acid 2023-0 Yes [id number] 1mg Take 1 [facility] 1 mg tablet 5-09 tablet by ity of 00:00: mouth in [place] the Medical morning. Branch foLIC acid 2023-0 Yes [id number] 1mg Take 1 [facility] 1 mg tablet 5-09 tablet by ity of 00:00: mouth in [place] the Medical morning. Branch foLIC acid 2023-0 Yes [id number] 1mg Take 1 [facility] 1 mg tablet 5-09 tablet by ity of 00:00: mouth in [place] the Medical morning. Branch foLIC acid 2023-0 Yes [id number] 1mg Take 1 [facility] 1 mg tablet 5-09 tablet by ity of 00:00: mouth in [place] the Medical morning. Branch foLIC acid 2023-0 Yes [id number] 1mg Take 1 [facility] 1 mg tablet 5-09 tablet by ity of 00:00: mouth in [place] the Medical morning. Branch foLIC acid 2023-0 Yes [id number] 1mg Take 1 [facility] 1 mg tablet 5-09 tablet by ity of 00:00: mouth in [place] the Medical morning. Branch foLIC acid 2023-0 Yes [id number] 1mg Take 1 [facility] 1 mg tablet 5-09 tablet by ity of 00:00: mouth in [place] the Medical morning. Branch foLIC acid 2023-0 Yes [id number] 1mg Take 1 [facility] 1 mg tablet 5-09 tablet by ity of 00:00: mouth in [place] the Medical morning. Branch foLIC acid 2023-0 Yes [id number] 1mg Take 1 [facility] 1 mg tablet 5-09 tablet by ity of 00:00: mouth in [place] the Medical morning. Branch foLIC acid 2023-0 Yes [id number] 1mg Take 1 [facility] 1 mg tablet 5-09 tablet by ity of 00:00: mouth in [place] the Medical morning. Branch foLIC acid 2023-0 Yes [id number] 1mg Take 1 [facility] 1 mg tablet 5-09 tablet by ity of 00:00: mouth in [place] the Medical morning. Branch foLIC acid 2023-0 Yes [id number] 1mg Take 1 [facility] 1 mg tablet 5-09 tablet by ity of 00:00: mouth in [place] the Medical morning. Branch foLIC acid 2023-0 Yes [id number] 1mg Take 1 [facility] 1 mg tablet 5-09 tablet by ity of 00:00: mouth in [place] the Medical morning. Branch foLIC acid 2023-0 Yes [id number] 1mg Take 1 [facility] 1 mg tablet 5-09 tablet by ity of 00:00: mouth in [place] the Medical morning. Branch foLIC acid 2023-0 Yes [id number] 1mg Take 1 [facility] 1 mg tablet 5-09 tablet by ity of 00:00: mouth in [place] the Medical morning. Branch foLIC acid 2023-0 Yes [id number] 1mg Take 1 [facility] 1 mg tablet 5-09 tablet by ity of 00:00: mouth in [place] the Medical morning. Branch foLIC acid 2023-0 Yes [id number] 1mg Take 1 [facility] 1 mg tablet 5-09 tablet by ity of 00:00: mouth in [place] the Medical morning. Branch foLIC acid 2023-0 Yes [id number] 1mg Take 1 [facility] 1 mg tablet 5-09 tablet by ity of 00:00: mouth in [place] the morning. Branch foLIC acid 2023-0 Yes [id number] 1mg Take 1 [facility] 1 mg tablet 5-09 tablet by ity of 00:00: mouth in [place] the Medical morning. Branch foLIC acid 2023-0 Yes [id number] 1mg Take 1 [facility] 1 mg tablet 5-09 tablet by ity of 00:00: mouth in [place] the Medical morning. Branch foLIC acid 2023-0 Yes [id number] 1mg Take 1 [facility] 1 mg tablet 5-09 tablet by ity of 00:00: mouth in [place] the Medical morning. Branch foLIC acid 2023-0 Yes [id number] 1mg Take 1 [facility] 1 mg tablet 5-09 tablet by ity of 00:00: mouth in [place] the Medical morning. Branch foLIC acid 2023-0 Yes [id number] 1mg Take 1 [facility] 1 mg tablet 5-09 tablet by ity of 00:00: mouth in [place] the Medical morning. Branch foLIC acid 2023-0 Yes [id number] 1mg Take 1 [facility] 1 mg tablet 5-09 tablet by ity of 00:00: mouth in [place] the Medical morning. Branch foLIC acid 2023-0 Yes [id number] 1mg Take 1 [facility] 1 mg tablet 5-09 tablet by ity of 00:00: mouth in [place] 00 the Medical morning. Branch cyclobenzap 2022-0 2022- No [id number] 5mg Take 1 [facility] rine 5 mg 5-09 - tablet by ity of tablet 00:00: 00:00 mouth 3 [place] 00 :00 (three) Medical times Branch daily as needed for Muscle Spasms. cyclobenzap 2022-0 2022- No [id number] 5mg Take 1 [facility] rine 5 mg 5-10 19- tablet by ity of tablet 00:00: 00:00 mouth 3 [place] 00 :00 (three) Medical times Branch daily as needed for Muscle Spasms. foLIC acid 2022-0 Yes [id number] 1mg Take 1 [facility] 1 mg tablet 5-05 tablet by ity of 00:00: mouth in [place] 00 the Medical morning. Branch foLIC acid 2022-0 Yes [id number] 1mg Take 1 [facility] 1 mg tablet 5-05 tablet by ity of 00:00: mouth in [place] 00 the Medical morning. Branch foLIC acid 2022-0 2022- No [id number] 1mg Take 1 [facility] 1 mg tablet 5-05 05-09 tablet by it y of 00:00: 00:00 mouth in [place] 00 :00 the Medical morning. Branch foLIC acid 2022-0 2022- No [id number] 1mg Take 1 [facility] 1 mg tablet 5-05 05-09 tablet by it y of 00:00: 00:00 mouth in [place] 00 :00 the Medical morning. Branch ramipriL 2022-0 Yes 1.25mg Take 1.25 [facility] [place] 1.25 mg 1-31 mg by ity of capsule 10:36: mouth at [place] [address] bedtime. Medical Branch ramipriL 2022-0 Yes 1.25mg Take 1.25 [facility] [place] 1.25 mg 1-31 mg by ity of capsule 10:36: mouth at [place] [address] bedtime. Medical Branch ramipriL 2023-0 Yes 1.25mg Take 1.25 [facility] [place] 1.25 mg 1-31 mg by ity of capsule 10:36: mouth at [place] [address] bedtime. Medical Branch ramipriL 3-0 Yes 1.25mg Take 1.25 [facility] [place] 1.25 mg 1-31 mg by ity of capsule 10:36: mouth at [place] [address] bedtime. Medical Branch ramipriL 2023-0 Yes 1.25mg Take 1.25 [facility] [place] 1.25 mg 1-31 mg by ity of capsule 10:36: mouth at [place] [address] bedtime. Medical Branch ramipriL 2023-0 Yes 1.25mg Take 1.25 [facility] [place] 1.25 mg 1-31 mg by ity of capsule 10:36: mouth at [place] [address] bedtime. Medical Branch ramipriL 2023-0 Yes 1.25mg Take 1.25 [facility] [place] 1.25 mg 1-31 mg by ity of capsule 10:36: mouth at [place] [address] bedtime. Medical Branch ramipriL 2023-0 Yes 1.25mg Take 1.25 [facility] [place] 1.25 mg 1-31 mg by ity of capsule 10:36: mouth at [place] [address] bedtime. Medical Branch ramipriL 3-0 Yes 1.25mg Take 1.25 [facility] [place] 1.25 mg 1-31 mg by ity of capsule 10:36: mouth at [place] [address] bedtime. Medical Branch isosorbide 2023-0 Yes [id number] 30mg Take 1 U nivers mononitrate 1-31 tablet by ity of 30 mg 24 hr 00:00: mouth in [place] tablet 00 the Medical morning. Branch isosorbide 3-0 Yes [id number] 30mg Take 1 [facility] n[facility] mononitrate 1-31 tablet by ity of 30 mg 24 hr 00:00: mouth in [place] tablet 00 the Medical morning. Branch isosorbide 2023-0 Yes [id number] 30mg Take 1 U nivers mononitrate 1-31 tablet by ity of 30 mg 24 hr 00:00: mouth in [place] tablet 00 the Medical morning. Branch CYCLOBENZAP 3-0 Yes [id number] TAKE 1 [facility] R[facility] 5 mg 1-31 TABLET BY ity o f tablet 00:00: MOUTH [place] 00 THREE Medical TIMES A DAY NEEDED FOR MUSCLE SPASMS isosorbide 2023-0 Yes [id number] 30mg Take 1 U nivers mononitrate 1-31 tablet by ity of 30 mg 24 hr 00:00: mouth in [place] tablet 00 the Medical morning. Branch CYCLOBENZAP 3-0 Yes [id number] TAKE 1 [facility] RINE 5 mg 1-31 TABLET BY ity o f tablet 00:00: MOUTH [place] 00 THREE Medical TIMES A Branch DAY NEEDED FOR MUSCLE SPASMS isosorbide 2023-0 Yes [id number] 30mg Take 1 U nivers mononitrate 1-31 tablet by ity of 30 mg 24 hr 00:00: mouth in [place] tablet 00 the Medical morning. Branch CYCLOBENZAP 2023-0 Yes [id number] TAKE 1 [facility] RINE 5 mg 1-31 TABLET BY ity o f tablet 00:00: MOUTH [place] 00 THREE Medical TIMES A Branch DAY NEEDED FOR MUSCLE SPASMS isosorbide 2023-0 Yes [id number] 30mg Take 1 U nivers mononitrate 1-31 tablet by ity of 30 mg 24 hr 00:00: mouth in [place] tablet 00 the Medical morning. Branch CYCLOBENZAP 2023-0 Yes [id number] TAKE 1 [facility] RINE 5 mg 1-31 TABLET BY ity o f tablet 00:00: MOUTH [place] 00 THREE Medical TIMES A Branch DAY NEEDED FOR MUSCLE SPASMS isosorbide 2023-0 Yes [id number] 30mg Take 1 [facility] n[facility] mononitrate 1-31 tablet by [facility] of 30 mg 24 hr 00:00: mouth in [place] tablet 00 the Medical morning. Branch CYCLOBENZAP 2023-0 Yes [id number] TAKE 1 [facility] RINE 5 mg 1-31 TABLET BY [facility] o f tablet 00:00: MOUTH [place] 00 THREE Medical TIMES A Branch DAY NEEDED FOR MUSCLE SPASMS isosorbide 2023-0 Yes [id number] 30mg Take 1 [facility] n[facility] mononitrate 1-31 tablet by [facility] of 30 mg 24 hr 00:00: mouth in [place] tablet 00 the Medical morning. Branch isosorbide 2023-0 Yes [id number] 30mg Take 1 [facility] mononitrate 1-31 tablet by [facility] of 30 mg 24 hr 00:00: mouth in [place] tablet 00 the Medical morning. Branch isosorbide 2023-0 Yes [id number] 30mg Take 1 [facility] mononitrate 1-31 tablet by [facility] of 30 mg 24 hr 00:00: mouth in [place] tablet 00 the Medical morning. Branch isosorbide 2023-0 Yes [id number] 30mg Take 1 [facility] n[facility] mononitrate 1-31 tablet by [facility] of 30 mg 24 hr 00:00: mouth in [place] tablet 00 the Medical morning. Branch isosorbide 2023-0 Yes [id number] 30mg Take 1 [facility] n[facility] mononitrate 1-31 tablet by [facility] 30 mg 24 hr 00:00: mouth in [place] tablet 00 the Medical morning. Branch isosorbide 2023-0 Yes [id number] 30mg Take 1 [facility] mononitrate 1-31 tablet by [facility] of 30 mg 24 hr 00:00: mouth in [place] tablet 00 the Medical morning. Branch isosorbide 2023-0 Yes [id number] 30mg Take 1 [facility] mononitrate 1-31 tablet by [facility] of 30 mg 24 hr 00:00: mouth in [place] tablet 00 the Medical morning. Branch isosorbide 2023-0 Yes [id number] 30mg Take 1 [facility] mononitrate 1-31 tablet by [facility] of 30 mg 24 hr 00:00: mouth in [place] tablet 00 the Medical morning. Branch isosorbide 2023-0 Yes [id number] 30mg Take 1 [facility] mononitrate 1-31 tablet by [facility] of 30 mg 24 hr 00:00: mouth in [place] tablet 00 the Medical morning. Branch isosorbide 2023-0 Yes [id number] 30mg Take 1 [facility] mononitrate 1-31 tablet by [facility] of 30 mg 24 hr 00:00: mouth in [place] tablet 00 the Medical morning. Branch isosorbide 2023-0 Yes [id number] 30mg Take 1 [facility] mononitrate 1-31 tablet by [facility] of 30 mg 24 hr 00:00: mouth in [place] tablet 00 the Medical morning. Branch isosorbide 2023-0 Yes [id number] 30mg Take 1 [facility] mononitrate 1-31 tablet by [facility] of 30 mg 24 hr 00:00: mouth in [place] tablet 00 the Medical morning. Branch isosorbide 2023-0 Yes [id number] 30mg Take 1 [facility] mononitrate 1-31 tablet by [facility] 30 mg 24 hr 00:00: mouth in [place] tablet 00 the Medical morning. Branch isosorbide 2023-0 Yes [id number] 30mg Take 1 [facility] mononitrate 1-31 tablet by [facility] 30 mg 24 hr 00:00: mouth in [place] tablet 00 the Medical morning. Branch isosorbide 2023-0 Yes [id number] 30mg Take 1 [facility] mononitrate 1-31 tablet by [facility] of 30 mg 24 hr 00:00: mouth in [place] tablet 00 the Medical morning. Branch isosorbide 2023-0 Yes [id number] 30mg Take 1 [facility] mononitrate 1-31 tablet by [facility] 30 mg 24 hr 00:00: mouth in [place] tablet 00 the Medical morning. Branch isosorbide 2023-0 Yes [id number] 30mg Take 1 [facility] mononitrate 1-31 tablet by [facility] of 30 mg 24 hr 00:00: mouth in [place] tablet 00 the Medical morning. Branch isosorbide 2023-0 Yes [id number] 30mg Take 1 [facility] mononitrate 1-31 tablet by [facility] of 30 mg 24 hr 00:00: mouth in [place] tablet 00 the Medical morning. Branch isosorbide 2023-0 Yes [id number] 30mg Take 1 [facility] mononitrate 1-31 tablet by [facility] 30 mg 24 hr 00:00: mouth in [place] tablet 00 the Medical morning. Branch isosorbide 2023-0 Yes [id number] 30mg Take 1 [facility] mononitrate 1-31 tablet by [facility] 30 mg 24 hr 00:00: mouth in [place] tablet 00 the Medical morning. Branch isosorbide 2023-0 Yes [id number] 30mg Take 1 [facility] mononitrate 1-31 tablet by [facility] 30 mg 24 hr 00:00: mouth in [place] tablet 00 the Medical morning. Branch isosorbide 2023-0 Yes [id number] 30mg Take 1 [facility] mononitrate 1-31 tablet by [facility] of 30 mg 24 hr 00:00: mouth in [place] tablet 00 the Medical morning. Branch isosorbide 2023-0 Yes [id number] 30mg Take 1 [facility] mononitrate 1-31 tablet by [facility] of 30 mg 24 hr 00:00: mouth in [place] tablet 00 the Medical morning. Branch isosorbide 2023-0 Yes [id number] 30mg Take 1 [facility] mononitrate 1-31 tablet by [facility] of 30 mg 24 hr 00:00: mouth in [place] tablet 00 the Medical morning. Branch isosorbide 2023-0 Yes [id number] 30mg Take 1 [facility] mononitrate 1-31 tablet by [facility] 30 mg 24 hr 00:00: mouth in [place] tablet 00 the Medical morning. Branch isosorbide 2023-0 Yes [id number] 30mg Take 1 [facility] mononitrate 1-31 tablet by [facility] 30 mg 24 hr 00:00: mouth in [place] tablet 00 the Medical morning. Branch isosorbide 2023-0 Yes [id number] 30mg Take 1 [facility] mononitrate 1-31 tablet by [facility] 30 mg 24 hr 00:00: mouth in [place] tablet 00 the Medical morning. Branch isosorbide 2023-0 Yes [id number] 30mg Take 1 [facility] mononitrate 1-31 tablet by [facility] 30 mg 24 hr 00:00: mouth in [place] tablet 00 the Medical morning. Branch isosorbide 2023-0 Yes [id number] 30mg Take 1 [facility] mononitrate 1-31 tablet by [facility] 30 mg 24 hr 00:00: mouth in [place] tablet 00 the Medical morning. Branch isosorbide 2023-0 Yes [id number] 30mg Take 1 [facility] mononitrate 1-31 tablet by [facility] 30 mg 24 hr 00:00: mouth in [place] tablet 00 the Medical morning. Branch isosorbide 2023-0 Yes [id number] 30mg Take 1 [facility] mononitrate 1-31 tablet by [facility] 30 mg 24 hr 00:00: mouth in [place] tablet 00 the Medical morning. Branch isosorbide 2023-0 Yes [id number] 30mg Take 1 [facility] mononitrate 1-31 tablet by [facility] of 30 mg 24 hr 00:00: mouth in [place] tablet 00 the Medical morning. Branch isosorbide 2023-0 Yes [id number] 30mg Take 1 [facility] mononitrate 1-31 tablet by [facility] 30 mg 24 hr 00:00: mouth in [place] tablet 00 the Medical morning. Branch isosorbide 2023-0 Yes [id number] 30mg Take 1 [facility] mononitrate 1-31 tablet by [facility] of 30 mg 24 hr 00:00: mouth in [place] tablet 00 the Medical morning. Branch isosorbide 2023-0 Yes [id number] 30mg Take 1 [facility] mononitrate 1-31 tablet by [facility] of 30 mg 24 hr 00:00: mouth in [place] tablet 00 the Medical morning. Branch isosorbide 2023-0 Yes [id number] 30mg Take 1 [facility] mononitrate 1-31 tablet by [facility] of 30 mg 24 hr 00:00: mouth in [place] tablet 00 the Medical morning. Branch isosorbide 2023-0 Yes [id number] 30mg Take 1 [facility] mononitrate 1-31 tablet by [facility] of 30 mg 24 hr 00:00: mouth in [place] tablet 00 the Medical morning. Branch isosorbide 2023-0 Yes [id number] 30mg Take 1 [facility] mononitrate 1-31 tablet by [facility] of 30 mg 24 hr 00:00: mouth in [place] tablet 00 the Medical morning. Branch isosorbide 2023-0 Yes [id number] 30mg Take 1 [facility] mononitrate 1-31 tablet by [facility] of 30 mg 24 hr 00:00: mouth in [place] tablet 00 the Medical morning. Branch isosorbide 2023-0 Yes [id number] 30mg Take 1 [facility] mononitrate 1-31 tablet by [facility] of 30 mg 24 hr 00:00: mouth in [place] tablet 00 the Medical morning. Branch isosorbide 2023-0 Yes [id number] 30mg Take 1 [facility] mononitrate 1-31 tablet by [facility] of 30 mg 24 hr 00:00: mouth in [place] tablet 00 the Medical morning. Branch isosorbide 2023-0 Yes [id number] 30mg Take 1 [facility] mononitrate 1-31 tablet by [facility] of 30 mg 24 hr 00:00: mouth in [place] tablet 00 the Medical morning. Branch isosorbide 2023-0 Yes [id number] 30mg Take 1 [facility] mononitrate 1-31 tablet by [facility] of 30 mg 24 hr 00:00: mouth in [place] tablet 00 the Medical morning. Branch isosorbide 2023-0 Yes [id number] 30mg Take 1 [facility] mononitrate 1-31 tablet by [facility] of 30 mg 24 hr 00:00: mouth in [place] tablet 00 the Medical morning. Branch isosorbide 2023-0 Yes [id number] 30mg Take 1 [facility] mononitrate 1-31 tablet by [facility] of 30 mg 24 hr 00:00: mouth in [place] tablet 00 the Medical morning. Branch isosorbide 2023-0 Yes [id number] 30mg Take 1 [facility] mononitrate 1-31 tablet by [facility] of 30 mg 24 hr 00:00: mouth in [place] tablet 00 the Medical morning. Branch isosorbide 2023-0 Yes [id number] 30mg Take 1 [facility] mononitrate 1-31 tablet by [facility] of 30 mg 24 hr 00:00: mouth in [place] tablet 00 the Medical morning. Branch isosorbide 2023-0 Yes [id number] 30mg Take 1 [facility] mononitrate 1-31 tablet by [facility] of 30 mg 24 hr 00:00: mouth in [place] tablet 00 the Medical morning. Branch isosorbide 2023-0 Yes [id number] 30mg Take 1 [facility] mononitrate 1-31 tablet by [facility] of 30 mg 24 hr 00:00: mouth in [place] tablet 00 the Medical morning. Branch isosorbide 2023-0 Yes [id number] 30mg Take 1 [facility] mononitrate 1-31 tablet by [facility] of 30 mg 24 hr 00:00: mouth in [place] tablet 00 the Medical morning. Branch isosorbide 2023-0 Yes [id number] 30mg Take 1 [facility] mononitrate 1-31 tablet by [facility] of 30 mg 24 hr 00:00: mouth in [place] tablet 00 the Medical morning. Branch isosorbide 2023-0 Yes [id number] 30mg Take 1 [facility] mononitrate 1-31 tablet by [facility] of 30 mg 24 hr 00:00: mouth in [place] tablet 00 the Medical morning. Branch isosorbide 2023-0 Yes [id number] 30mg Take 1 [facility] mononitrate 1-31 tablet by [facility] of 30 mg 24 hr 00:00: mouth in [place] tablet 00 the Medical morning. Branch isosorbide 2023-0 Yes [id number] 30mg Take 1 [facility] mononitrate 1-31 tablet by [facility] of 30 mg 24 hr 00:00: mouth in [place] tablet 00 the Medical morning. Branch CYCLOBENZAP 2022-0 2022- No [id number] TAKE 1 [facility] RINE 5 mg 1-31 05-09 TABLET BY it[facility] of tablet 00:00: 00:00 MOUTH [place] 00 :00 THREE Medical TIMES A Branch DAY NEEDED FOR MUSCLE SPASMS CYCLOBENZAP 2022-0 2022- No [id number] TAKE 1 [facility] RINE 5 mg 1-31 05-09 TABLET BY ity of tablet 00:00: 00:00 MOUTH [place] 00 :00 THREE Medical TIMES A Branch DAY NEEDED FOR MUSCLE SPASMS RIFAMPIN 2023-0 Yes [id number] TAKE 2 [facility] vers 300 mg 1-05 CAPSULES ity of capsule 00:00: BY MOUTH [place] [address] IN THE Medical MORNING Branch RIFAMPIN 3-0 Yes [id number] TAKE 2 [facility] vers 300 mg 1-05 CAPSULES ity of capsule 00:00: BY MOUTH [place] [address] IN THE Medical MORNING Branch isoniazid 2023-0 Yes [id number] 300mg Take 1 [facility] nivers 300 mg 1-05 tablet by ity of tablet 00:00: mouth in [place] the Medical morning. Branch RIFAMPIN 3-0 Yes [id number] TAKE 2 [facility] vers 300 mg 1-05 CAPSULES ity of capsule 00:00: BY MOUTH [place] [address] IN THE Medical MORNING Branch isoniazid 2023-0 Yes [id number] 300mg Take 1 [facility] nivers 300 mg 1-05 tablet by ity of tablet 00:00: mouth in [place] the Medical morning. Branch RIFAMPIN 2023-0 Yes [id number] TAKE 2 [facility] vers 300 mg 1-05 CAPSULES ity of capsule 00:00: BY MOUTH [place] [address] IN THE Medical MORNING Branch isoniazid 2023-0 Yes [id number] 300mg Take 1 [facility] nivers 300 mg 1-05 tablet by ity of tablet 00:00: mouth in [place] the Medical morning. Branch RIFAMPIN 2023-0 Yes [id number] TAKE 2 [facility] vers 300 mg 1-05 CAPSULES ity of capsule 00:00: BY MOUTH [place] [address] IN THE Medical MORNING Branch isoniazid 2023-0 Yes [id number] 300mg Take 1 [facility] nivers 300 mg 1-05 tablet by ity of tablet 00:00: mouth in [place] the Medical morning. Branch RIFAMPIN 2023-0 2022- No [id number] TAKE 2 Un anabell 300 mg 02-17 CAPSULES ity of capsule 00:00: 00:00 BY MOUTH [place] 00 :00 IN THE Medical MORNING Branch isoniazid 2022-0 2022- No [id number] 300mg Take 1 [facility] 300 mg 02-17 tablet by ity of tablet 00:00: 00:00 mouth in [place] 00 :00 the Medical morning. Branch RIFAMPIN 2022-0 2022- No [id number] TAKE 2 Un anabell 300 mg 02-17 CAPSULES ity of capsule 00:00: 00:00 BY MOUTH [place] 00 :00 IN THE Medical MORNING Branch isoniazid 2022-0 2022- No [id number] 300mg Take 1 [facility] 300 mg 02-17 tablet by ity of tablet 00:00: 00:00 mouth in [place] 00 :00 the Medical morning. Branch isoniazid-r Yes [id number] 2{capsu Take 2 [facility] ifampin 1-02 le} capsules ity of 300-150 mg 00:00: by mouth [place] per capsule 00 in the Medica l morning. Branch pyridoxine, Yes [id number] 50mg Take 1 [facility] vitamin B6, 1-02 tablet by ity of 50 mg 00:00: mouth in [place] tablet 00 the Medical morning. Branch isoniazid-r 0 Yes [id number] 2{capsu Take 2 [facility] ifampin 1-02 le} capsules ity of 300-150 mg 00:00: by mouth [place] 00 in the Medica l morning. Branch pyridoxine, 0 Yes [id number] 50mg Take 1 [facility] vitamin B6, 1-02 tablet by ity of 50 mg 00:00: mouth in [place] tablet 00 the Medical morning. Branch isoniazid-r 2022-0 Yes [id number] 2{capsu Take 2 [facility] ifampin 1-02 le} capsules ity of 300-150 mg 00:00: by mouth [place] 00 in the Medica l morning. Branch pyridoxine, 0 Yes [id number] 50mg Take 1 [facility] vitamin B6, 1-02 tablet by ity of 50 mg 00:00: mouth in [place] tablet 00 the Medical morning. Branch pyridoxine, Yes [id number] 50mg Take 1 [facility] vitamin B6, 1-02 tablet by ity of 50 mg 00:00: mouth in [place] tablet 00 the Medical morning. Branch pyridoxine, 0 Yes [id number] 50mg Take 1 [facility] vitamin B6, 1-02 tablet by ity of 50 mg 00:00: mouth in [place] tablet 00 the Medical morning. [place] pyridoxine, 0 Yes [id number] 50mg Take 1 [facility] vitamin B6, 1-02 tablet by ity of 50 mg 00:00: mouth in [place] tablet 00 the Medical morning. Branch pyridoxine, Yes [id number] 50mg Take 1 [facility] vitamin B6, 1-02 tablet by ity of 50 mg 00:00: mouth in [place] tablet 00 the Medical morning. [place] pyridoxine, Yes [id number] 50mg Take 1 [facility] vitamin B6, 1-02 tablet by ity of 50 mg 00:00: mouth in [place] tablet 00 the Medical morning. [place] pyridoxine, 2022- No [id number] 50mg Take 1 [facility] vitamin B6, 02-14 tablet by it y of 50 mg 00:00: 00:00 mouth in [place] tablet 00 :00 the Medical morning. [place] pyridoxine, 2022- No [id number] 50mg Take 1 [facility] vitamin B6, 02-14 tablet by it y of 50 mg 00:00: 00:00 mouth in [place] tablet 00 :00 the Medical morning. [place] isoniazid-r 2022- No [id number] 2{capsu Take 2 [facility] ifampin 1-02-17 le} capsules ity of 300-150 mg 00:00: 00:00 by mouth [place] per capsule 00 :00 in the Medica l morning. [place] isoniazid-r 2022- No [id number] 2{capsu Take 2 [facility] ifampin 1-02-17 le} capsules ity of 300-150 mg 00:00: 00:00 by mouth [place] per capsule 00 :00 in the Medica l morning. [place] aspirin 81 2021-02 Yes 81mg Take 81 mg U nivers mg chewable 2-29 by mouth ity of tablet 08:05: daily. [address] aspirin 81 2021-02 Yes 81mg Take 81 mg U nivers mg chewable 2-29 by mouth ity of tablet 08:05: daily. [place] [address] Medical Branch aspirin 81 2021-02 Yes 81mg Take 81 mg U nivers mg chewable 2-29 by mouth ity of tablet 08:05: daily. [address] Branch aspirin 81 2021-02 Yes 81mg Take 81 mg U nivers mg chewable 2-29 by mouth ity of tablet 08:05: daily. [address] Branch aspirin 81 2021-02 Yes 81mg Take 81 mg U nivers mg chewable 2-29 by mouth ity of tablet 08:05: daily. [place] [address] Medical Branch aspirin 81 2021-02 Yes 81mg Take 81 mg U nivers mg chewable 2-29 by mouth ity of tablet 08:05: daily. [address] Branch aspirin 81 2021-02 Yes 81mg Take 81 mg U nivers mg chewable 2-29 by mouth ity of tablet 08:05: daily. [address] Branch aspirin 81 2021-02 Yes 81mg Take 81 mg U nivers mg chewable 2-29 by mouth ity of tablet 08:05: daily. [address] Branch aspirin 81 2021-02 Yes 81mg Take 81 mg U nivers mg chewable 2-29 by mouth ity of tablet 08:05: daily. [address] Branch aspirin 81 2021-02 Yes 81mg Take 81 mg U nivers mg chewable 2-29 by mouth ity of tablet 08:05: daily. [address] aspirin 81 2021-02 Yes 81mg Take 81 mg U nivers mg chewable 2-29 by mouth ity of tablet 08:05: daily. [address] Branch aspirin 81 2021-02 Yes 81mg Take 81 mg U nivers mg chewable 2-29 by mouth ity of tablet 08:05: daily. [address] Branch aspirin 81 2021-02 Yes 81mg Take 81 mg U nivers mg chewable 2-29 by mouth ity of tablet 08:05: daily. [address] Branch aspirin 81 2021-02 Yes 81mg Take 81 mg U nivers mg chewable 2-29 by mouth ity of tablet 08:05: daily. [address] Branch aspirin 81 2021-02 Yes 81mg Take 81 mg U nivers mg chewable 2-29 by mouth ity of tablet 08:05: daily. [address] Branch aspirin 81 2021-02 Yes 81mg Take 81 mg U nivers mg chewable 2-29 by mouth ity of tablet 08:05: daily. [place] [address] Medical Branch aspirin 81 2021-02 Yes 81mg Take 81 mg U nivers mg chewable 2-29 by mouth ity of tablet 08:05: daily. [address] Branch aspirin 81 2021-02 Yes 81mg Take 81 mg U nivers mg chewable 2-29 by mouth ity of tablet 08:05: daily. [place] [address] Medical Branch aspirin 81 2021-02 Yes 81mg Take 81 mg U nivers mg chewable 2-29 by mouth ity of tablet 08:05: daily. [place] [address] Medical Branch aspirin 81 2021-02 Yes 81mg Take 81 mg U nivers mg chewable 2-29 by mouth ity of tablet 08:05: daily. [address] Branch aspirin 81 2021-02 Yes 81mg Take 81 mg U nivers mg chewable 2-29 by mouth ity of tablet 08:05: daily. [address] Branch aspirin 81 2021-02 Yes 81mg Take 81 mg U nivers mg chewable 2-29 by mouth ity of tablet 08:05: daily. [address] Branch aspirin 81 2021-02 Yes 81mg Take 81 mg U nivers mg chewable 2-29 by mouth ity of tablet 08:05: daily. [address] Branch aspirin 81 2021-02 Yes 81mg Take 81 mg U nivers mg chewable 2-29 by mouth ity of tablet 08:05: daily. [address] Branch aspirin 81 2021-02 Yes 81mg Take 81 mg U nivers mg chewable 2-29 by mouth ity of tablet 08:05: daily. [place] [address] Medical Branch aspirin 81 2021-02 Yes 81mg Take 81 mg U nivers mg chewable 2-29 by mouth ity of tablet 08:05: daily. [place] [address] Medical Branch aspirin 81 2021-02 Yes 81mg Take 81 mg U nivers mg chewable 2-29 by mouth ity of tablet 08:05: daily. [address] Branch aspirin 81 2021-02 Yes 81mg Take 81 mg U nivers mg chewable 2-29 by mouth ity of tablet 08:05: daily. [address] aspirin 81 2021-02 Yes 81mg Take 81 mg U nivers mg chewable 2-29 by mouth ity of tablet 08:05: daily. [address] aspirin 81 2021-02 Yes 81mg Take 81 mg U nivers mg chewable 2-29 by mouth ity of tablet 08:05: daily. [address] aspirin 81 2021-02 Yes 81mg Take 81 mg U nivers mg chewable 2-29 by mouth ity of tablet 08:05: daily. [address] aspirin 81 2021-02 Yes 81mg Take 81 mg U nivers mg chewable 2-29 by mouth ity of tablet 08:05: daily. [address] CARVEDILOL 2021-02 Yes [id number] TAKE 1 U nivers 6.25 mg 2-27 TABLET BY ity of tablet 00:00: [place] [id number] TWICE A Medical DAY WITH Branch MEALS CARVEDILOL 2021-02 Yes [id number] TAKE 1 U nivers 6.25 mg 2-27 TABLET BY ity of tablet 00:00: [place] [id number] TWICE A Medical DAY WITH Branch MEALS CARVEDILOL 2021-02- No [id number] TAKE 1 [facility] 6.25 mg 2-27 12-29 TABLET BY ity of tablet 00:00: 00:00 [facility] 00 :00 TWICE A Medical DAY WITH Branch MEALS CARVEDILOL 2021-02- No [id number] TAKE 1 [facility] 6.25 mg 2-27 12-29 TABLET BY ity of tablet 00:00: 00:00 [facility] 00 :00 TWICE A Medical DAY WITH Branch MEALS CARVEDILOL 2021-02- No [id number] TAKE 1 [facility] 6.25 mg 2-27 12-29 TABLET BY ity of tablet 00:00: 00:00 [facility] 00 :00 TWICE A Medical DAY WITH Branch MEALS CARVEDILOL 2021-02- No [id number] TAKE 1 [facility] 6.25 mg 2-27 12-29 TABLET BY ity of tablet 00:00: 00:00 [facility] 00 :00 TWICE A Medical DAY WITH Branch MEALS CARVEDILOL 2021-02- No [id number] TAKE 1 [facility] 6.25 mg 2-27 12-29 TABLET BY ity of tablet 00:00: 00:00 [facility] 00 :00 TWICE A Medical DAY WITH Branch MEALS CARVEDILOL 2021-02- No [id number] TAKE 1 [facility] 6.25 mg 2-27 12-29 TABLET BY ity of tablet 00:00: 00:00 MOUTH [place] 00 :00 TWICE A Medical DAY WITH Branch MEALS carvediloL 2021-02 Yes 12.5mg Take 12.5 [facility] 12.5 mg 2-20 mg by ity of tablet 00:00: mouth in [place] 00 the Medical morning Branch and 12.5 mg in the evening. carvediloL 2021-02 Yes 12.5mg Take 12.5 [facility] 12.5 mg 2-20 mg by ity of tablet 00:00: mouth in [place] 00 the Medical morning Branch and 12.5 mg in the evening. carvediloL 2021-02 Yes 12.5mg Take 12.5 [facility] 12.5 mg 2-20 mg by ity of tablet 00:00: mouth in [place] 00 the Medical morning Branch and 12.5 mg in the evening. carvediloL 2021-02 Yes 12.5mg Take 12.5 [facility] 12.5 mg 2-20 mg by ity of tablet 00:00: mouth in [place] 00 the Medical morning Branch and 12.5 mg in the evening. carvediloL 2021-02 Yes 12.5mg Take 12.5 [facility] 12.5 mg 2-20 mg by ity of tablet 00:00: mouth in [place] 00 the Medical morning Branch and 12.5 mg in the evening. carvediloL 2021-02 Yes 12.5mg Take 12.5 [facility] 12.5 mg 2-20 mg by ity of tablet 00:00: mouth in [place] 00 the Medical morning Branch and 12.5 mg in the evening. carvediloL 2021-02 Yes 12.5mg Take 12.5 [facility] 12.5 mg 2-20 mg by ity of tablet 00:00: mouth in [place] 00 the Medical morning Branch and 12.5 mg in the evening. carvediloL 2021-02 Yes 12.5mg Take 12.5 [facility] 12.5 mg 2-20 mg by ity of tablet 00:00: mouth in [place] 00 the Medical morning Branch and 12.5 mg in the evening. carvediloL 2021-02 Yes 12.5mg Take 12.5 [facility] 12.5 mg 2-20 mg by ity of tablet 00:00: mouth in [place] [address] the Medical morning Branch and 12.5 mg in the evening. carvediloL 2021- Yes 12.5mg Take 12.5 [facility] 12.5 mg 2-20 mg by ity of tablet 00:00: mouth in [place] [address] the Medical morning Branch and 12.5 mg in the evening. carvediloL 2021- Yes 12.5mg Take 12.5 [facility] 12.5 mg 2-20 mg by ity of tablet 00:00: mouth in [place] [address] the Medical morning Branch and 12.5 mg in the evening. carvediloL 2021- Yes 12.5mg Take 12.5 [facility] 12.5 mg 2-20 mg by ity of tablet 00:00: mouth in [place] [address] the Medical morning Branch and 12.5 mg in the evening. carvediloL 2021- Yes 12.5mg Take 12.5 [facility] 12.5 mg 2-20 mg by ity of tablet 00:00: mouth in [place] [address] the Medical morning Branch and 12.5 mg in the evening. carvediloL 2021- Yes 12.5mg Take 12.5 [facility] 12.5 mg 2-20 mg by ity of tablet 00:00: mouth in [place] [address] the Medical morning Branch and 12.5 mg in the evening. carvediloL 2021-02 Yes 12.5mg Take 12.5 [facility] 12.5 mg 2-20 mg by ity of tablet 00:00: mouth in [place] [address] the Medical morning Branch and 12.5 mg in the evening. carvediloL 2021- Yes 12.5mg Take 12.5 [facility] 12.5 mg 2-20 mg by ity of tablet 00:00: mouth in [place] [address] the Medical morning Branch and 12.5 mg in the evening. carvediloL 2021-1 Yes 12.5mg Take 12.5 [facility] 12.5 mg 2-20 mg by ity of tablet 00:00: mouth in [place] [address] the Medical morning Branch and 12.5 mg in the evening. carvediloL 2021- Yes 12.5mg Take 12.5 [facility] 12.5 mg 2-20 mg by ity of tablet 00:00: mouth in [place] [address] the Medical morning Branch and 12.5 mg in the evening. carvediloL 2021-1 Yes 12.5mg Take 12.5 [facility] 12.5 mg 2-20 mg by ity of tablet 00:00: mouth in [place] 00 the Medical morning Branch and 12.5 mg in the evening. carvediloL 2021-02 Yes 12.5mg Take 12.5 [facility] 12.5 mg 2-20 mg by ity of tablet 00:00: mouth in [place] 00 the Medical morning Branch and 12.5 mg in the evening. carvediloL 2021-02 Yes 12.5mg Take 12.5 [facility] 12.5 mg 2-20 mg by ity of tablet 00:00: mouth in [place] [address] the Medical morning Branch and 12.5 mg in the evening. carvediloL 2021-02 Yes 12.5mg Take 12.5 [facility] 12.5 mg 2-20 mg by ity of tablet 00:00: mouth in [place] [address] the Medical morning Branch and 12.5 mg in the evening. carvediloL 2021-02 Yes 12.5mg Take 12.5 [facility] 12.5 mg 2-20 mg by ity of tablet 00:00: mouth in [place] [address] the Medical morning Branch and 12.5 mg in the evening. carvediloL 2021-02 Yes 12.5mg Take 12.5 [facility] 12.5 mg 2-20 mg by ity of tablet 00:00: mouth in [place] [address] the Medical morning Branch and 12.5 mg in the evening. carvediloL 2021-02 Yes 12.5mg Take 12.5 [facility] 12.5 mg 2-20 mg by ity of tablet 00:00: mouth in [place] [address] the Medical morning Branch and 12.5 mg in the evening. carvediloL 2021-02 Yes 12.5mg Take 12.5 [facility] 12.5 mg 2-20 mg by ity of tablet 00:00: mouth in [place] [address] the Medical morning Branch and 12.5 mg in the evening. carvediloL 2021-02 Yes 12.5mg Take 12.5 [facility] 12.5 mg 2-20 mg by ity of tablet 00:00: mouth in [place] [address] the Medical morning Branch and 12.5 mg in the evening. carvediloL 2021- Yes 12.5mg Take 12.5 [facility] 12.5 mg 2-20 mg by ity of tablet 00:00: mouth in [place] 00 the Medical morning Branch and 12.5 mg in the evening. carvediloL 2021- Yes 12.5mg Take 12.5 [facility] 12.5 mg 2-20 mg by ity of tablet 00:00: mouth in [place] 00 the Medical morning Branch and 12.5 mg in the evening. carvediloL 2021- Yes 12.5mg Take 12.5 [facility] 12.5 mg 2-20 mg by ity of tablet 00:00: mouth in [place] 00 the Medical morning Branch and 12.5 mg in the evening. carvediloL 2021- Yes 12.5mg Take 12.5 [facility] 12.5 mg 2-20 mg by ity of tablet 00:00: mouth in [place] 00 the Medical morning Branch and 12.5 mg in the evening. carvediloL 2021-02 Yes 12.5mg Take 12.5 [facility] 12.5 mg 2-20 mg by ity of tablet 00:00: mouth in [place] [address] the Medical morning Branch and 12.5 mg in the evening. carvediloL 2021-02 Yes 12.5mg Take 12.5 [facility] 12.5 mg 2-20 mg by ity of tablet 00:00: mouth in [place] [address] the Medical morning Branch and 12.5 mg in the evening. carvediloL 2021-02 Yes 12.5mg Take 12.5 [facility] 12.5 mg 2-20 mg by ity of tablet 00:00: mouth in [place] [address] the Medical morning Branch and 12.5 mg in the evening. carvediloL 2021-02 Yes 12.5mg Take 12.5 [facility] 12.5 mg 2-20 mg by ity of tablet 00:00: mouth in [place] [address] the Medical morning Branch and 12.5 mg in the evening. carvediloL 2021-02 Yes 12.5mg Take 12.5 [facility] 12.5 mg 2-20 mg by ity of tablet 00:00: mouth in [place] [address] the Medical morning Branch and 12.5 mg in the evening. carvediloL 2021- Yes 12.5mg Take 12.5 [facility] 12.5 mg 2-20 mg by ity of tablet 00:00: mouth in [place] [address] the Medical morning Branch and 12.5 mg in the evening. carvediloL 2021-1 Yes 12.5mg Take 12.5 [facility] 12.5 mg 2-20 mg by ity of tablet 00:00: mouth in [place] [address] the Medical morning Branch and 12.5 mg in the evening. carvediloL 2021-02 Yes 12.5mg Take 12.5 [facility] 12.5 mg 2-20 mg by ity of tablet 00:00: mouth in [place] [address] the Medical morning Branch and 12.5 mg in the evening. carvediloL 2021-02 Yes 12.5mg Take 12.5 [facility] 12.5 mg 2-20 mg by ity of tablet 00:00: mouth in [place] [address] the Medical morning Branch and 12.5 mg in the evening. carvediloL 2021-02 Yes 12.5mg Take 12.5 [facility] 12.5 mg 2-20 mg by ity of tablet 00:00: mouth in [place] [address] the Medical morning Branch and 12.5 mg in the evening. carvediloL 2021-02 Yes 12.5mg Take 12.5 [facility] 12.5 mg 2-20 mg by ity of tablet 00:00: mouth in [place] [address] the Medical morning Branch and 12.5 mg in the evening. carvediloL 2021-02 Yes 12.5mg Take 12.5 [facility] 12.5 mg 2-20 mg by ity of tablet 00:00: mouth in [place] [address] the Medical morning Branch and 12.5 mg in the evening. carvediloL 2021-02 Yes 12.5mg Take 12.5 [facility] 12.5 mg 2-20 mg by ity of tablet 00:00: mouth in [place] [address] the Medical morning Branch and 12.5 mg in the evening. carvediloL 2021-02 Yes 12.5mg Take 12.5 [facility] 12.5 mg 2-20 mg by ity of tablet 00:00: mouth in [place] [address] the Medical morning Branch and 12.5 mg in the evening. carvediloL 2021-02 Yes 12.5mg Take 12.5 [facility] 12.5 mg 2-20 mg by ity of tablet 00:00: mouth in [place] [address] the Medical morning Branch and 12.5 mg in the evening. carvediloL 2021-02 Yes 12.5mg Take 12.5 [facility] 12.5 mg 2-20 mg by ity of tablet 00:00: mouth in [place] [address] the Medical morning Branch and 12.5 mg in the evening. carvediloL 2022-1 Yes 12.5mg Take 12.5 [facility] 12.5 mg 2-20 mg by ity of tablet 00:00: mouth in [place] 00 the Medical morning Branch and 12.5 mg in the evening. carvediloL 2021-02 Yes 12.5mg Take 12.5 [facility] 12.5 mg 2-20 mg by ity of tablet 00:00: mouth in [place] 00 the Medical morning Branch and 12.5 mg in the evening. carvediloL 2021-02 Yes 12.5mg Take 1 [facility] vers 12.5 mg 2-20 tablet by ity of tablet 00:00: mouth in [place] [address] the Medical morning Branch and 1 tablet in the evening. carvediloL 2021-02 Yes 12.5mg Take 1 [facility] vers 12.5 mg 2-20 tablet by ity of tablet 00:00: mouth in [place] [address] the Medical morning Branch and 1 tablet in the evening. carvediloL 2021-02 Yes 12.5mg Take 1 [facility] vers 12.5 mg 2-20 tablet by ity of tablet 00:00: mouth in [place] [address] the Medical morning Branch and 1 tablet in the evening. amLODIPine 2021-02- No 5mg Take 5 mg U nivers 5 mg tablet 2-20 12-21 by mouth ity of 00:00: 05:59 in the [place] 00 :00 morning. Medical Branch amLODIPine 2021-02- No 5mg Take 5 mg U nivers 5 mg tablet 2-20 12-21 by mouth ity of 00:00: 05:59 in the [place] 00 :00 morning. Medical Branch amLODIPine 2021-02- No 5mg Take 5 mg U nivers 5 mg tablet 2-20 12-21 by mouth ity of 00:00: 05:59 in the [place] 00 :00 morning. Medical Branch amLODIPine 2021-2022- No 5mg Take 5 mg U nivers 5 mg tablet 2-20 12-21 by mouth ity of 00:00: 05:59 in the [place] 00 :00 morning. Medical Branch amLODIPine 2021-2022- No 5mg Take 5 mg U nivers 5 mg tablet 2-20 12-21 by mouth ity of 00:00: 05:59 in the [place] 00 :00 morning. Medical Branch amLODIPine 2021-1 2023- No 5mg Take 5 mg U nivers 5 mg tablet 2-20 12-21 by mouth ity of 00:00: 05:59 in the [place] 00 :00 morning. Medical Branch amLODIPine 2021-3- No 5mg Take 5 mg U nivers 5 mg tablet 2-20 12-21 by mouth ity of 00:00: 05:59 in the [place] 00 :00 morning. Medical Branch amLODIPine 2021-3- No 5mg Take 5 mg U nivers 5 mg tablet 2-20 12-21 by mouth ity of 00:00: 05:59 in the [place] 00 :00 morning. Medical Branch amLODIPine 2021-3- No 5mg Take 5 mg U nivers 5 mg tablet 2-01 02-21 by mouth ity of 00:00: 05:59 in the [place] 00 :00 morning. Medical Branch amLODIPine 2021-3- No 5mg Take 5 mg U nivers 5 mg tablet 2-01 02-21 by mouth ity of 00:00: 05:59 in the [place] 00 :00 morning. Medical Branch amLODIPine 2021-3- No 5mg Take 5 mg U nivers 5 mg tablet 2-01 02-21 by mouth ity of 00:00: 05:59 in the [place] 00 :00 morning. Medical Branch amLODIPine 2021-3- No 5mg Take 5 mg U nivers 5 mg tablet 2-20 -21 by mouth ity of 00:00: 05:59 in the [place] 00 :00 morning. Medical Branch amLODIPine 2021-3- No 5mg Take 5 mg U nivers 5 mg tablet 2-20 12-21 by mouth ity of 00:00: 05:59 in the [place] 00 :00 morning. Medical Branch amLODIPine 2021-3- No 5mg Take 5 mg U nivers 5 mg tablet 2-20 12-21 by mouth ity of 00:00: 05:59 in the [place] 00 :00 morning. Medical Branch amLODIPine 2021-3- No 5mg Take 5 mg U nivers 5 mg tablet 2-20 12-21 by mouth ity of 00:00: 05:59 in the [place] 00 :00 morning. Medical Branch amLODIPine 2-3- No 5mg Take 5 mg U nivers 5 mg tablet 2-20 12-21 by mouth ity of 00:00: 05:59 in the [place] 00 :00 morning. Medical Branch amLODIPine 2021-3- No 5mg Take 5 mg U nivers 5 mg tablet 2-20 12-21 by mouth ity of 00:00: 05:59 in the [place] 00 :00 morning. Medical Branch amLODIPine 2021-3- No 5mg Take 5 mg U nivers 5 mg tablet 2-20 12-21 by mouth ity of 00:00: 05:59 in the [place] 00 :00 morning. Medical Branch amLODIPine 2021-2022- No 5mg Take 5 mg U nivers 5 mg tablet 2-20 12-21 by mouth ity of 00:00: 05:59 in the [place] 00 :00 morning. Medical Branch amLODIPine 2021-2022- No 5mg Take 5 mg U nivers 5 mg tablet 2-20 -21 by mouth ity of 00:00: 05:59 in the [place] 00 :00 morning. Medical Branch amLODIPine 2021-3- No 5mg Take 5 mg U nivers 5 mg tablet 2-20 12-21 by mouth ity of 00:00: 05:59 in the [place] 00 :00 morning. Medical Branch amLODIPine 2021-3- No 5mg Take 5 mg U nivers 5 mg tablet 2-20 -21 by mouth ity of 00:00: 05:59 in the [place] 00 :00 morning. Medical Branch amLODIPine 2021-3- No 5mg Take 5 mg U nivers 5 mg tablet 2-20 -21 by mouth ity of 00:00: 05:59 in the [place] 00 :00 morning. Medical Branch amLODIPine 2021-3- No 5mg Take 5 mg U nivers 5 mg tablet 2-20 12-21 by mouth ity of 00:00: 05:59 in the [place] 00 :00 morning. Medical Branch amLODIPine 2021-3- No 5mg Take 5 mg U nivers 5 mg tablet 2-20 12-21 by mouth ity of 00:00: 05:59 in the [place] 00 :00 morning. Medical Branch amLODIPine 2021-3- No 5mg Take 5 mg U nivers 5 mg tablet 2-20 12-21 by mouth ity of 00:00: 05:59 in the [place] 00 :00 morning. Medical Branch amLODIPine 2-3- No 5mg Take 5 mg U nivers 5 mg tablet 2-20 12-21 by mouth ity of 00:00: 05:59 in the [place] 00 :00 morning. Medical Branch amLODIPine 2021-1 3- No 5mg Take 5 mg U nivers 5 mg tablet 2-20 12-21 by mouth ity of 00:00: 05:59 in the [place] 00 :00 morning. Medical Branch amLODIPine 2-1 3- No 5mg Take 5 mg U nivers 5 mg tablet 2-20 12-21 by mouth ity of 00:00: 05:59 in the [place] 00 :00 morning. Medical Branch amLODIPine 2-1 3- No 5mg Take 5 mg U nivers 5 mg tablet 2-01 02-21 by mouth ity of 00:00: 05:59 in the [place] 00 :00 morning. Medical Branch amLODIPine 2021-3- No 5mg Take 5 mg U nivers 5 mg tablet 2-20 -21 by mouth ity of 00:00: 05:59 in the [place] 00 :00 morning. Medical Branch amLODIPine 2021-3- No 5mg Take 5 mg U nivers 5 mg tablet 2-01 02-21 by mouth ity of 00:00: 05:59 in the [place] 00 :00 morning. Medical Branch amLODIPine 2-1 3- No 5mg Take 5 mg U nivers 5 mg tablet 2-01 02-21 by mouth ity of 00:00: 05:59 in the [place] 00 :00 morning. Medical Branch amLODIPine 2-1 3- No 5mg Take 5 mg U nivers 5 mg tablet 2-20 -21 by mouth ity of 00:00: 05:59 in the [place] 00 :00 morning. Medical Branch amLODIPine 2-1 3- No 5mg Take 5 mg U nivers 5 mg tablet 2-20 -21 by mouth ity of 00:00: 05:59 in the [place] 00 :00 morning. Medical Branch amLODIPine 2-1 3- No 5mg Take 5 mg U nivers 5 mg tablet 2-20 12-21 by mouth ity of 00:00: 05:59 in the [place] 00 :00 morning. Medical Branch amLODIPine 2021- 2023- No 5mg Take 5 mg U nivers 5 mg tablet 2-20 12-21 by mouth ity of 00:00: 05:59 in the [place] 00 :00 morning. Medical Branch amLODIPine 2021-1 2023- No 5mg Take 5 mg U nivers 5 mg tablet 2-20 12-21 by mouth ity of 00:00: 05:59 in the [place] 00 :00 morning. Medical Branch amLODIPine 2021-1 2023- No 5mg Take 5 mg U nivers 5 mg tablet 2-20 12-21 by mouth ity of 00:00: 05:59 in the [place] 00 :00 morning. Medical Branch amLODIPine 2021-3- No 5mg Take 5 mg U nivers 5 mg tablet 2-20 12-21 by mouth ity of 00:00: 05:59 in the [place] 00 :00 morning. Medical Branch amLODIPine 2021-3- No 5mg Take 5 mg U nivers 5 mg tablet 2-20 12-21 by mouth ity of 00:00: 05:59 in the [place] 00 :00 morning. Medical Branch amLODIPine 2021- 2023- No 5mg Take 5 mg U nivers 5 mg tablet 2-20 12-21 by mouth ity of 00:00: 05:59 in the [place] 00 :00 morning. Medical Branch amLODIPine 2021-3- No 5mg Take 5 mg U nivers 5 mg tablet 2-20 12-21 by mouth ity of 00:00: 05:59 in the [place] 00 :00 morning. Medical Branch amLODIPine 2-1 2023- No 5mg Take 5 mg U nivers 5 mg tablet 2-20 12-21 by mouth ity of 00:00: 05:59 in the [place] 00 :00 morning. Medical Branch amLODIPine 2-1 2023- No 5mg Take 5 mg U nivers 5 mg tablet 2-20 12-21 by mouth ity of 00:00: 05:59 in the [place] 00 :00 morning. Medical Branch amLODIPine 2021-1 2023- No 5mg Take 5 mg U nivers 5 mg tablet 2-20 12-21 by mouth ity of 00:00: 05:59 in the [place] 00 :00 morning. Medical Branch amLODIPine 2-1 2023- No 5mg Take 5 mg U nivers 5 mg tablet 2-01 02-21 by mouth ity of 00:00: 05:59 in the [place] 00 :00 morning. Medical Branch amLODIPine 2-1 2023- No 5mg Take 5 mg U nivers 5 mg tablet 2-20 12-21 by mouth ity of 00:00: 05:59 in the [place] 00 :00 morning. Medical Branch amLODIPine 2-1 2023- No 5mg Take 5 mg [facility] nivers 5 mg tablet 2-01 02-21 by mouth ity of 00:00: 05:59 in the [place] 00 :00 morning. Medical Branch amLODIPine 2-1 2023- No 5mg Take 1 [facility] ers 5 mg tablet 2-20 12-21 tablet by it y of 00:00: 05:59 mouth in [place] 00 :00 the Medical morning. Branch amLODIPine 2022-1 2023- No 5mg Take 1 [facility] ers 5 mg tablet 2-20 12-21 tablet by it y of 00:00: 05:59 mouth in [place] 00 :00 the Medical morning. Branch amLODIPine 2-1 2023- No 5mg Take 1 [facility] ers 5 mg tablet 2-20 12-21 tablet by it y of 00:00: 05:59 mouth in [place] 00 :00 the Medical morning. Branch amLODIPine 2-1 2023- No 5mg Take 1 [facility] ers 5 mg tablet 2-20 12-21 tablet by it y of 00:00: 05:59 mouth in [place] 00 :00 the Medical morning. Branch amLODIPine 2022-1 2023- No 5mg Take 1 [facility] ers 5 mg tablet 2-20 12-21 tablet by it y of 00:00: 05:59 mouth in [place] 00 :00 the Medical morning. Branch amLODIPine 2022-1 2023- No 5mg Take 1 [facility] ers 5 mg tablet 2-20 12-21 tablet by it y of 00:00: 05:59 mouth in [place] 00 :00 the Medical morning. Branch amLODIPine 2022-1 2023- No 5mg Take 1 [facility] ers 5 mg tablet 2-20 12-21 tablet by it y of 00:00: 05:59 mouth in [place] 00 :00 the Medical morning. Branch amLODIPine 2022-1 2023- No 5mg Take 1 [facility] ers 5 mg tablet 2-20 12-21 tablet by it y of 00:00: 05:59 mouth in [place] 00 :00 the Medical morning. Branch amLODIPine 2-1 2023- No 5mg Take 1 [facility] ers 5 mg tablet 2-20 12-21 tablet by it y of 00:00: 05:59 mouth in [place] 00 :00 the Medical morning. Branch amLODIPine 2022-1 2023- No 5mg Take 1 [facility] ers 5 mg tablet 2-20 12-21 tablet by it y of 00:00: 05:59 mouth in [place] 00 :00 the Medical morning. Branch amLODIPine 2-1 2023- No 5mg Take 1 [facility] ers 5 mg tablet 2-20 12-21 tablet by it y of 00:00: 05:59 mouth in [place] 00 :00 the Medical morning. Branch amLODIPine 2022-1 2023- No 5mg Take 1 [facility] ers 5 mg tablet 2-20 12-21 tablet by it y of 00:00: 05:59 mouth in [place] 00 :00 the Medical morning. Branch amLODIPine 2-1 3- No 5mg Take 1 [facility] ers 5 mg tablet 2-20 12-21 tablet by it y of 00:00: 05:59 mouth in [place] 00 :00 the Medical morning. Branch amLODIPine 2-1 2023- No 5mg Take 1 [facility] ers 5 mg tablet 2-20 12-21 tablet by it y of 00:00: 05:59 mouth in [place] 00 :00 the Medical morning. Branch amLODIPine 2022-1 2023- No 5mg Take 1 [facility] ers 5 mg tablet 2-20 12-21 tablet by it y of 00:00: 05:59 mouth in [place] 00 :00 the Medical morning. Branch amLODIPine 2-1 2023- No 5mg Take 1 [facility] ers 5 mg tablet 2-20 12-21 tablet by it y of 00:00: 05:59 mouth in [place] 00 :00 the Medical morning. Branch amLODIPine 2022-1 2023- No 5mg Take 1 [facility] ers 5 mg tablet 2-20 12-21 tablet by it y of 00:00: 05:59 mouth in [place] 00 :00 the Medical morning. Branch amLODIPine 2022-1 2023- No 5mg Take 1 [facility] ers 5 mg tablet 2-20 12-21 tablet by it y of 00:00: 05:59 mouth in [place] 00 :00 the Medical morning. Branch amLODIPine 2-1 2023- No 5mg Take 1 [facility] ers 5 mg tablet 2-20 12-21 tablet by it y of 00:00: 05:59 mouth in [place] 00 :00 the Medical morning. Branch amLODIPine 2-1 2023- No 5mg Take 1 [facility] ers 5 mg tablet 2-20 12-21 tablet by it y of 00:00: 05:59 mouth in [place] 00 :00 the Medical morning. Branch amLODIPine 2-1 2023- No 5mg Take 1 [facility] ers 5 mg tablet 2-20 12-21 tablet by it y of 00:00: 05:59 mouth in [place] 00 :00 the Medical morning. Branch amLODIPine 2-1 2023- No 5mg Take 1 [facility] ers 5 mg tablet 2-20 12-21 tablet by it y of 00:00: 05:59 mouth in [place] 00 :00 the Medical morning. Branch amLODIPine 2-1 3- No 5mg Take 1 [facility] ers 5 mg tablet 2-20 12-21 tablet by it y of 00:00: 05:59 mouth in [place] 00 :00 the Medical morning. Branch amLODIPine 2-1 2023- No 5mg Take 1 [facility] ers 5 mg tablet 2-20 12-21 tablet by it y of 00:00: 05:59 mouth in [place] 00 :00 the Medical morning. Branch amLODIPine 2-1 2023- No 5mg Take 1 [facility] ers 5 mg tablet 2-20 12-21 tablet by it y of 00:00: 05:59 mouth in [place] 00 :00 the Medical morning. Branch amLODIPine 2-1 2023- No 5mg Take 1 [facility] ers 5 mg tablet 2-20 12-21 tablet by it y of 00:00: 05:59 mouth in [place] 00 :00 the Medical morning. Branch amLODIPine 2-1 2023- No 5mg Take 1 [facility] ers 5 mg tablet 2-20 12-21 tablet by it y of 00:00: 05:59 mouth in [place] 00 :00 the Medical morning. Branch amLODIPine 2022-1 2023- No 5mg Take 1 [facility] ers 5 mg tablet 2-20 12-21 tablet by it y of 00:00: 05:59 mouth in [place] 00 :00 the Medical morning. Branch carvediloL 2021-02- No 12.5mg Take 1 [facility] 12.5 mg 2-20 07-19 tablet by ity of tablet 00:00: 00:00 mouth in [place] 00 :00 the Medical morning Branch and 1 tablet in the evening. EZETIMIBE 2021-02 Yes [id number] TAKE 1 [facility] 10 mg 2-05 TABLET BY ity of tablet 00:00: MOUTH EVERY DAY Medical Branch EZETIMIBE 2021-02 Yes [id number] TAKE 1 [facility] [place] 10 mg 2-05 TABLET BY ity of tablet 00:00: MOUTH EVERY DAY Medical Branch EZETIMIBE 2021-02 Yes [id number] TAKE 1 [facility] [place] 10 mg 2-05 TABLET BY ity of tablet 00:00: MOUTH EVERY DAY Medical Branch EZETIMIBE 2021-02 Yes [id number] TAKE 1 [facility] [place] 10 mg 2-05 TABLET BY ity of tablet 00:00: MOUTH EVERY DAY Medical Branch EZETIMIBE 2021-02 Yes [id number] TAKE 1 [facility] [place] 10 mg 2-05 TABLET BY ity of tablet 00:00: MOUTH 00 EVERY DAY Medical Branch EZETIMIBE 2021-02 Yes [id number] TAKE 1 [facility] [place] 10 mg 2-05 TABLET BY ity of tablet 00:00: MOUTH [place] EVERY DAY Medical Branch EZETIMIBE 2021-02 Yes [id number] TAKE 1 [facility] [place] 10 mg 2-05 TABLET BY ity of tablet 00:00: MOUTH EVERY DAY Medical Branch EZETIMIBE 2021-02 Yes [id number] TAKE 1 [facility] [place] 10 mg 2-05 TABLET BY ity of tablet 00:00: MOUTH 00 EVERY DAY Medical Branch EZETIMIBE 2021-02 Yes [id number] TAKE 1 [facility] [place] 10 mg 2-05 TABLET BY ity of tablet 00:00: MOUTH EVERY DAY Medical Branch EZETIMIBE 2021-02 Yes [id number] TAKE 1 [facility] [place] 10 mg 2-05 TABLET BY ity of tablet 00:00: MOUTH 00 EVERY DAY Medical Branch EZETIMIBE 2021-02 Yes [id number] TAKE 1 [facility] [place] 10 mg 2-05 TABLET BY ity of tablet 00:00: MOUTH [place] EVERY DAY Medical Branch EZETIMIBE 2021-02 Yes [id number] TAKE 1 [facility] [place] 10 mg 2-05 TABLET BY ity of tablet 00:00: MOUTH EVERY DAY Medical Branch EZETIMIBE 2021-02 Yes [id number] TAKE 1 [facility] [place] 10 mg 2-05 TABLET BY ity of tablet 00:00: MOUTH EVERY DAY Medical Branch EZETIMIBE 2021-02 Yes [id number] TAKE 1 [facility] [place] 10 mg 2-05 TABLET BY ity of tablet 00:00: MOUTH EVERY DAY Medical Branch EZETIMIBE 2021-02 Yes [id number] TAKE 1 [facility] [place] 10 mg 2-05 TABLET BY ity of tablet 00:00: MOUTH EVERY DAY Medical Branch EZETIMIBE 2021-02 Yes [id number] TAKE 1 [facility] [place] 10 mg 2-05 TABLET BY ity of tablet 00:00: MOUTH EVERY DAY Medical Branch EZETIMIBE 2021-02 Yes [id number] TAKE 1 [facility] [place] 10 mg 2-05 TABLET BY ity of tablet 00:00: MOUTH EVERY DAY Medical Branch EZETIMIBE 2021-02 Yes [id number] TAKE 1 [facility] [place] 10 mg 2-05 TABLET BY ity of tablet 00:00: MOUTH EVERY DAY Medical Branch EZETIMIBE 2021-02 Yes [id number] TAKE 1 [facility] [place] 10 mg 2-05 TABLET BY ity of tablet 00:00: MOUTH EVERY DAY Medical Branch EZETIMIBE 2021-02 Yes [id number] TAKE 1 [facility] [place] 10 mg 2-05 TABLET BY ity of tablet 00:00: MOUTH EVERY DAY Medical Branch EZETIMIBE 2021-02 Yes [id number] TAKE 1 [facility] [place] 10 mg 2-05 TABLET BY ity of tablet 00:00: MOUTH EVERY DAY Medical Branch EZETIMIBE 2021-02 Yes [id number] TAKE 1 [facility] [place] 10 mg 2-05 TABLET BY ity of tablet 00:00: MOUTH EVERY DAY Medical Branch EZETIMIBE 2021-02 Yes [id number] TAKE 1 [facility] [place] 10 mg 2-05 TABLET BY ity of tablet 00:00: MOUTH EVERY DAY Medical Branch EZETIMIBE 2021-02 Yes [id number] TAKE 1 [facility] [place] 10 mg 2-05 TABLET BY ity of tablet 00:00: MOUTH EVERY DAY Medical Branch EZETIMIBE 2021-02 Yes [id number] TAKE 1 [facility] [place] 10 mg 2-05 TABLET BY ity of tablet 00:00: MOUTH EVERY DAY Medical Branch EZETIMIBE 2021-02 Yes [id number] TAKE 1 [facility] [place] 10 mg 2-05 TABLET BY ity of tablet 00:00: MOUTH EVERY DAY Medical Branch EZETIMIBE 2021-02 Yes [id number] TAKE 1 [facility] [place] 10 mg 2-05 TABLET BY ity of tablet 00:00: MOUTH EVERY DAY Medical Branch EZETIMIBE 2021-02 Yes [id number] TAKE 1 [facility] [place] 10 mg 2-05 TABLET BY ity of tablet 00:00: MOUTH EVERY DAY Medical Branch EZETIMIBE 2021-02 Yes [id number] TAKE 1 [facility] [place] 10 mg 2-05 TABLET BY ity of tablet 00:00: MOUTH EVERY DAY Medical Branch EZETIMIBE 2021-02 Yes [id number] TAKE 1 [facility] [place] 10 mg 2-05 TABLET BY ity of tablet 00:00: MOUTH EVERY DAY Medical Branch EZETIMIBE 2021-02 Yes [id number] TAKE 1 [facility] [place] 10 mg 2-05 TABLET BY ity of tablet 00:00: MOUTH EVERY DAY Medical Branch EZETIMIBE 2021-02 Yes [id number] TAKE 1 [facility] [place] 10 mg 2-05 TABLET BY ity of tablet 00:00: MOUTH EVERY DAY Medical Branch EZETIMIBE 2021-02 Yes [id number] TAKE 1 [facility] [place] 10 mg 2-05 TABLET BY ity of tablet 00:00: MOUTH EVERY DAY Medical Branch EZETIMIBE 2021- Yes [id number] TAKE 1 [facility] [place] 10 mg 2-05 TABLET BY ity of tablet 00:00: MOUTH EVERY DAY Medical Branch EZETIMIBE 2021- Yes [id number] TAKE 1 [facility] [place] 10 mg 2-05 TABLET BY ity of tablet 00:00: MOUTH EVERY DAY Medical Branch EZETIMIBE 2021- Yes [id number] TAKE 1 [facility] [place] 10 mg 2-05 TABLET BY ity of tablet 00:00: MOUTH EVERY DAY Medical Branch EZETIMIBE 2021-02 Yes [id number] TAKE 1 [facility] [place] 10 mg 2-05 TABLET BY ity of tablet 00:00: MOUTH [place] 00 EVERY DAY Medical Branch EZETIMIBE 2021- Yes [id number] TAKE 1 [facility] [place] 10 mg 2-05 TABLET BY ity of tablet 00:00: MOUTH EVERY DAY Medical Branch EZETIMIBE 2021-02 Yes [id number] TAKE 1 [facility] [place] 10 mg 2-05 TABLET BY ity of tablet 00:00: MOUTH EVERY DAY Medical Branch EZETIMIBE 2021-02 Yes [id number] TAKE 1 [facility] [place] 10 mg 2-05 TABLET BY ity of tablet 00:00: MOUTH EVERY DAY Medical Branch EZETIMIBE 2021-02 Yes [id number] TAKE 1 [facility] [place] 10 mg 2-05 TABLET BY ity of tablet 00:00: MOUTH EVERY DAY Medical Branch EZETIMIBE 2021-02 Yes [id number] TAKE 1 [facility] [place] 10 mg 2-05 TABLET BY ity of tablet 00:00: MOUTH EVERY DAY Medical Branch EZETIMIBE 2021-02 Yes [id number] TAKE 1 [facility] [place] 10 mg 2-05 TABLET BY ity of tablet 00:00: MOUTH EVERY DAY Medical Branch EZETIMIBE 2021-02 Yes [id number] TAKE 1 [facility] [place] 10 mg 2-05 TABLET BY ity of tablet 00:00: MOUTH EVERY DAY Medical Branch EZETIMIBE 2021-02 Yes [id number] TAKE 1 [facility] [place] 10 mg 2-05 TABLET BY ity of tablet 00:00: MOUTH EVERY DAY Medical Branch EZETIMIBE 2021-02 Yes [id number] TAKE 1 [facility] [place] 10 mg 2-05 TABLET BY ity of tablet 00:00: MOUTH EVERY DAY Medical Branch EZETIMIBE 2021-02 Yes [id number] TAKE 1 [facility] [place] 10 mg 2-05 TABLET BY ity of tablet 00:00: MOUTH EVERY DAY Medical Branch EZETIMIBE 2021-02 Yes [id number] TAKE 1 [facility] [place] 10 mg 2-05 TABLET BY ity of tablet 00:00: MOUTH EVERY DAY Medical Branch EZETIMIBE 2021-02 Yes [id number] TAKE 1 [facility] [place] 10 mg 2-05 TABLET BY ity of tablet 00:00: MOUTH EVERY DAY Medical Branch EZETIMIBE 2021-02 Yes [id number] TAKE 1 [facility] [place] 10 mg 2-05 TABLET BY ity of tablet 00:00: MOUTH 00 EVERY DAY Medical Branch EZETIMIBE 2021-02 Yes [id number] TAKE 1 [facility] [place] 10 mg 2-05 TABLET BY ity of tablet 00:00: MOUTH [place] 00 EVERY DAY Medical Branch EZETIMIBE 2021- Yes [id number] TAKE 1 [facility] [place] 10 mg 2-05 TABLET BY ity of tablet 00:00: MOUTH [place] 00 EVERY DAY Medical Branch EZETIMIBE 2021- Yes [id number] TAKE 1 [facility] [place] 10 mg 2-05 TABLET BY ity of tablet 00:00: MOUTH [place] 00 EVERY DAY Medical Branch EZETIMIBE 2021-02 Yes [id number] TAKE 1 [facility] [place] 10 mg 2-05 TABLET BY ity of tablet 00:00: MOUTH [place] 00 EVERY DAY Medical Branch EZETIMIBE 2021-02 Yes [id number] TAKE 1 [facility] [place] 10 mg 2-05 TABLET BY ity of tablet 00:00: MOUTH [place] 00 EVERY DAY Medical Branch EZETIMIBE 2021-02 Yes [id number] TAKE 1 [facility] [place] 10 mg 2-05 TABLET BY ity of tablet 00:00: MOUTH [place] 00 EVERY DAY Medical Branch EZETIMIBE 2021-02- No [id number] TAKE 1 U nivers 10 mg 2-05 07-19 TABLET BY ity of tablet 00:00: 00:00 MOUTH [place] 00 :00 EVERY DAY Medical Branch aspirin 81 2021-02 Yes 81mg Take 81 mg U nivers mg chewable 1-29 by mouth ity of tablet 09:07: daily. [address] Branch aspirin 81 2021-02 Yes 81mg Take 81 mg U nivers mg chewable 1-29 by mouth ity of tablet 09:07: daily. [address] Branch aspirin 81 2021- Yes 81mg Take 81 mg U nivers mg chewable 1-29 by mouth ity of tablet 09:07: daily. [address] Branch aspirin 81 2021- Yes 81mg Take 81 mg U nivers mg chewable 1-29 by mouth ity of tablet 09:07: daily. [address] Branch aspirin 81 2021- Yes 81mg Take 81 mg U nivers mg chewable 1-29 by mouth ity of tablet 09:07: daily. [address] aspirin 81 2021- Yes 81mg Take 81 mg U nivers mg chewable 1-29 by mouth ity of tablet 09:07: daily. [place] [facility] 2021-02 Yes Take by Uni vers n/iron/foli 0-24 mouth. ity of c acid 11:03: [place] [facility] Medical [facility] 2021-02 Yes Take by Uni vers n/iron/foli 0-24 mouth. ity of c acid 11:03: [place] ([facility] 13 Medical ORAL) [facility] 2021-02 Yes Take by Uni vers n/iron/foli 0-24 mouth. ity of c acid 11:03: [place] ([facility] 13 Medical ORAL) [facility] 2021-02 Yes Take by Uni vers n/iron/foli 0-24 mouth. ity of c acid 11:03: [place] [facility] 2021-02 Yes Take by Uni vers n/iron/foli 0-24 mouth. ity of c acid 11:03: [place] ([facility] 13 Medical ORAL) [facility] 2021-02 Yes Take by Uni vers n/iron/foli 0-24 mouth. ity of c acid 11:03: [place] [facility] 2021-02 Yes Take by Uni vers n/iron/foli 0-24 mouth. ity of c acid 11:03: [place] [facility] 2021-02 Yes Take by Uni vers n/iron/foli 0-24 mouth. ity of c acid 11:03: [place] ([facility] 13 Medical ORAL) [facility] 2021-02 Yes Take by Uni vers n/iron/foli 0-24 mouth. ity of c acid 11:03: [place] ([facility] 13 Medical ORAL) [facility] 2021-02 Yes Take by Uni vers n/iron/foli 0-24 mouth. ity of c acid 11:03: [place] ([facility] 13 Medical ORAL) [facility] 2021-02 Yes Take by Uni vers n/iron/foli 0-24 mouth. ity of c acid 11:03: [place] ([facility] 13 Medical ORAL) [facility] 2021-02 Yes Take by Uni vers n/iron/foli 0-24 mouth. ity of c acid 11:03: [place] ([facility] Medical [facility]AL) [facility] 2021-02 Yes Take by Uni vers n/iron/foli 0-24 mouth. ity of c acid 11:03: [place] ([facility] 13 Medical ORAL) [facility] 2021-02 Yes Take by Uni vers n/iron/foli 0-24 mouth. ity of c acid 11:03: [place] ([facility] 13 Medical ORAL) [facility] 2021-02 Yes Take by Uni vers n/iron/foli 0-24 mouth. ity of c acid 11:03: [place] ([facility] 13 Medical ORAL) [facility] 2021-02 Yes Take by Uni vers n/iron/foli 0-24 mouth. ity of c acid 11:03: [place] ([facility] 13 Medical ORAL) [facility] 2021-02 Yes Take by Uni vers n/iron/foli 0-24 mouth. ity of c acid 11:03: [place] ([facility] 13 Medical ORAL) [facility] 2021-02 Yes Take by Uni vers n/iron/foli 0-24 mouth. ity of c acid 11:03: [place] ([facility] 13 Medical ORAL) [facility] 2021-02 Yes Take by Uni vers n/iron/foli 0-24 mouth. ity of c acid 11:03: [place] ([facility] 13 Medical ORAL) [facility] 2021-02 Yes Take by Uni vers n/iron/foli 0-24 mouth. ity of c acid 11:03: [place] ([facility] 13 Medical ORAL) [facility] 2021-02 Yes Take by Uni vers n/iron/foli 0-24 mouth. ity of c acid 11:03: [place] ([facility] 13 Medical ORAL) [facility] 2021-02 Yes Take by Uni vers n/iron/foli 0-24 mouth. ity of c acid 11:03: [place] ([facility] 13 Medical ORAL) [facility] 2021-02 Yes Take by Uni vers n/iron/foli 0-24 mouth. ity of c acid 11:03: [place] ([facility] 13 Medical ORAL) [facility] 2021-02 Yes Take by Uni vers n/iron/foli 0-24 mouth. ity of c acid 11:03: [place] ([facility] 13 Medical ORAL) [facility] 2021-02 Yes Take by Uni vers n/iron/foli 0-24 mouth. ity of c acid 11:03: [place] ([facility] 13 Medical ORAL) [facility] 2021-02 Yes Take by Uni vers n/iron/foli 0-24 mouth. ity of c acid 11:03: [place] ([facility] 13 Medical ORAL) [facility] 2021-02 Yes Take by Uni vers n/iron/foli 0-24 mouth. ity of c acid 11:03: [place] ([facility] 13 Medical ORAL) [facility] 2021-02 Yes Take by Uni vers n/iron/foli 0-24 mouth. ity of c acid 11:03: [place] ([facility] 13 Medical ORAL) [facility] 2021-02 Yes Take by Uni vers n/iron/foli 0-24 mouth. ity of c acid 11:03: [place] ([facility] 13 Medical ORAL) [facility] 2021-02 Yes Take by Uni vers n/iron/foli 0-24 mouth. ity of c acid 11:03: [place] ([facility] 13 Medical ORAL) [facility] 2021-02 Yes Take by Uni vers n/iron/foli 0-24 mouth. ity of c acid 11:03: [place] ([facility] 13 Medical ORAL) [facility] 2021-02 Yes Take by Uni vers n/iron/foli 0-24 mouth. ity of c acid 11:03: [place] ([facility] 13 Medical ORAL) [facility] 2021-02 Yes Take by Uni vers n/iron/foli 0-24 mouth. ity of c acid 11:03: [place] ([facility] 13 Medical ORAL) [facility] 2021-02 Yes Take by Uni vers n/iron/foli 0-24 mouth. ity of c acid 11:03: [place] ([facility] 13 Medical ORAL) [facility] 2021-02 Yes Take by Uni vers n/iron/foli 0-24 mouth. ity of c acid 11:03: [place] ([facility] 13 Medical ORAL) [facility] 2021-02 Yes Take by Uni vers n/iron/foli 0-24 mouth. ity of c acid 11:03: [place] ([facility] 13 Medical ORAL) [facility] 2021-02 Yes Take by Uni vers n/iron/foli 0-24 mouth. ity of c acid 11:03: [place] ([facility] 13 Medical ORAL) [facility] 2021-02 Yes Take by Uni vers n/iron/foli 0-24 mouth. ity of c acid 11:03: [place] ([facility] 13 Medical ORAL) [facility] 2021-02 Yes Take by Uni vers n/iron/foli 0-24 mouth. ity of c acid 11:03: [place] ([facility] 13 Medical ORAL) [facility] 2021-02 Yes Take by Uni vers n/iron/foli 0-24 mouth. ity of c acid 11:03: [place] ([facility] 13 Medical ORAL) [facility] 2021-02 Yes Take by Uni vers n/iron/foli 0-24 mouth. ity of c acid 11:03: [place] ([facility] 13 Medical ORAL) [facility] 2021-02 Yes Take by Uni vers n/iron/foli 0-24 mouth. ity of c acid 11:03: [place] ([facility] 13 Medical ORAL) [facility] 2021-02 Yes Take by Uni vers n/iron/foli 0-24 mouth. ity of c acid 11:03: [place] ([facility] 13 Medical ORAL) [facility] 2021-02 Yes Take by Uni vers n/iron/foli 0-24 mouth. ity of c acid 11:03: [place] ([facility] 13 Medical ORAL) [facility] 2021-02 Yes Take by Uni vers n/iron/foli 0-24 mouth. ity of c acid 11:03: [place] ([facility] 13 Medical ORAL) [facility] 2021-02 Yes Take by Uni vers n/iron/foli 0-24 mouth. ity of c acid 11:03: [place] ([facility] 13 Medical ORAL) [facility] 2021-02 Yes Take by Uni vers n/iron/foli 0-24 mouth. ity of c acid 11:03: [place] ([facility] 13 Medical ORAL) [facility] 2021-02 Yes Take by Uni vers n/iron/foli 0-24 mouth. ity of c acid 11:03: [place] ([facility] 13 Medical ORAL) [facility] 2021-02 Yes Take by Uni vers n/iron/foli 0-24 mouth. ity of c acid 11:03: [place] ([facility] 13 Medical ORAL) [facility] 2021-02 Yes Take by Uni vers n/iron/foli 0-24 mouth. ity of c acid 11:03: [place] ([facility] 13 Medical ORAL) [facility] 2021-02 Yes Take by Uni vers n/iron/foli 0-24 mouth. ity of c acid 11:03: [place] ([facility] 13 Medical ORAL) [facility] 2021-02 Yes Take by Uni vers n/iron/foli 0-24 mouth. ity of c acid 11:03: [place] ([facility] 13 Medical ORAL) [facility] 2021-02 Yes Take by Uni vers n/iron/foli 0-24 mouth. ity of c acid 11:03: [place] ([facility] 13 Medical ORAL) [facility] 2021-02 Yes Take by Uni vers n/iron/foli 0-24 mouth. ity of c acid 11:03: [place] ([facility] 13 Medical ORAL) [facility] 2021-02 Yes Take by Uni vers n/iron/foli 0-24 mouth. ity of c acid 11:03: [place] ([facility] 13 Medical ORAL) [facility] 2021-02 Yes Take by Uni vers n/iron/foli 0-24 mouth. ity of c acid 11:03: [place] ([facility] 13 Medical ORAL) [facility] 2021-02 Yes Take by Uni vers n/iron/foli 0-24 mouth. ity of c acid 11:03: [place] ([facility] 13 Medical ORAL) [facility] 2021-02 Yes Take by Uni vers n/iron/foli 0-24 mouth. ity of c acid 11:03: [place] ([facility] 13 Medical ORAL) [facility] 2021-02 Yes Take by Uni vers n/iron/foli 0-24 mouth. ity of c acid 11:03: [place] ([facility] 13 Medical ORAL) [facility] 2021-02 Yes Take by Uni vers n/iron/foli 0-24 mouth. ity of c acid 11:03: [place] ([facility] 13 Medical ORAL) [facility] 2021-02 Yes Take by Uni vers n/iron/foli 0-24 mouth. ity of c acid 11:03: [place] ([facility] 13 Medical ORAL) [facility] 2021-02 Yes Take by Uni vers n/iron/foli 0-24 mouth. ity of c acid 11:03: [place] ([facility] 13 Medical ORAL) [facility] 2021-02 Yes Take by Uni vers n/iron/foli 0-24 mouth. ity of c acid 11:03: [place] ([facility] 13 Medical ORAL) [facility] 2021-02 Yes Take by Uni vers n/iron/foli 0-24 mouth. ity of c acid 11:03: [place] ([facility] 13 Medical ORAL) [facility] 2021-02 Yes Take by Uni vers n/iron/foli 0-24 mouth. ity of c acid 11:03: [place] ([facility] 13 Medical ORAL) [facility] 2021-02 Yes Take by Uni vers n/iron/foli 0-24 mouth. ity of c acid 11:03: [place] ([facility] 13 Medical ORAL) [facility] 2021-02 Yes Take by Uni vers n/iron/foli 0-24 mouth. ity of c acid 11:03: [place] ([facility] 13 Medical ORAL) [facility] 2021-02 Yes Take by Uni vers n/iron/foli 0-24 mouth. ity of c acid 11:03: [place] ([facility] 13 Medical ORAL) [facility] 2021-02 Yes Take by Uni vers n/iron/foli 0-24 mouth. ity of c acid 11:03: [place] ([facility] 13 Medical ORAL) [facility] 2021-02 Yes Take by Uni vers n/iron/foli 0-24 mouth. ity of c acid 11:03: [place] ([facility] 13 Medical ORAL) [facility] 2021-02 Yes Take by Uni vers n/iron/foli 0-24 mouth. ity of c acid 11:03: [place] ([facility] 13 Medical ORAL) [facility] 2021-02 Yes Take by Uni vers n/iron/foli 0-24 mouth. ity of c acid 11:03: [place] ([facility] 13 Medical ORAL) [facility] 2021-02 Yes Take by Uni vers n/iron/foli 0-24 mouth. ity of c acid 11:03: [place] ([facility] 13 Medical ORAL) [facility] 2021-02 Yes Take by Uni vers n/iron/foli 0-24 mouth. ity of c acid 11:03: [place] ([facility] 13 Medical ORAL) [facility] 2021-02 Yes Take by Uni vers n/iron/foli 0-24 mouth. ity of c acid 11:03: [place] ([facility] 13 Medical ORAL) [facility] 2021-02 Yes Take by Uni vers n/iron/foli 0-24 mouth. ity of c acid 11:03: [place] ([facility] 13 Medical ORAL) [facility] 2021-02 Yes Take by Uni vers n/iron/foli 0-24 mouth. ity of c acid 11:03: [place] ([facility] 13 Medical ORAL) [facility] 2021-02 Yes Take by Uni vers n/iron/foli 0-24 mouth. ity of c acid 11:03: [place] ([facility] 13 Medical ORAL) [facility] 2021-02 Yes Take by Uni vers n/iron/foli 0-24 mouth. ity of c acid 11:03: [place] ([facility] 13 Medical ORAL) [facility] 2021-02 Yes Take by Uni vers n/iron/foli 0-24 mouth. ity of c acid 11:03: [place] ([facility] 13 Medical ORAL) [facility] 2021-02 Yes Take by Uni vers n/iron/foli 0-24 mouth. ity of c acid 11:03: [place] ([facility] 13 Medical ORAL) [facility] 2021-02 Yes Take by Uni vers n/iron/foli 0-24 mouth. ity of c acid 11:03: [place] ([facility] 13 Medical ORAL) [facility] 2021-02 Yes Take by Uni vers n/iron/foli 0-24 mouth. ity of c acid 11:03: [place] ([facility] 13 Medical ORAL) [facility] 2021-02 Yes Take by Uni vers n/iron/foli 0-24 mouth. ity of c acid 11:03: [place] ([facility] 13 Medical ORAL) [facility] 2021-02 Yes Take by Uni vers n/iron/foli 0-24 mouth. ity of c acid 11:03: [place] ([facility] 13 Medical ORAL) [facility] 2021-02 Yes Take by Uni vers n/iron/foli 0-24 mouth. ity of c acid 11:03: [place] ([facility] 13 Medical ORAL) [facility] 2021-02 Yes Take by Uni vers n/iron/foli 0-24 mouth. ity of c acid 11:03: [place] ([facility] 13 Medical ORAL) [facility] 2021-02 Yes Take by Uni vers n/iron/foli 0-24 mouth. ity of c acid 11:03: [place] ([place] [address] Medical ORAL) [facility] 2021-02 Yes Take by Uni vers n/iron/foli 0-24 mouth. ity of c acid 11:03: [place] ([place] [address] Medical ORAL) [facility] 2021-02 Yes Take by Uni vers n/iron/foli 0-24 mouth. ity of c acid 11:03: [place] ([place] [address] Medical ORAL) [facility] 2021-02 Yes Take by Uni vers n/iron/foli 0-24 mouth. ity of c acid 11:03: [place] ([place] [address] Medical ORAL) [facility] 2021-02 Yes Take by Uni vers n/iron/foli 0-24 mouth. ity of c acid 11:03: [place] ([place] [address] Medical ORAL) [facility] 2021-02 Yes Take by Uni vers n/iron/foli 0-24 mouth. ity of c acid 11:03: [place] ([place] [address] Medical ORAL) [facility] 2021-02 Yes Take by Uni vers n/iron/foli 0-24 mouth. ity of c acid 11:03: [place] ([place] [address] Medical ORAL) [facility] gabapentin 2021-02 Yes TAKE 1 Unive rs 100 mg 0-04 CAPSULE ity of capsule 00:00: (100 MG [place] 00 TOTAL) BY Medical MOUTH 2 Branch (TWO) TIMES A DAY IF NEEDED (PAIN) gabapentin 2021-02 Yes TAKE 1 Unive rs 100 mg 0-04 CAPSULE ity of capsule 00:00: (100 MG [place] 00 TOTAL) BY Medical MOUTH 2 Branch (TWO) TIMES A DAY IF NEEDED (PAIN) gabapentin 2021-02 Yes TAKE 1 Unive rs 100 mg 0-04 CAPSULE ity of capsule 00:00: (100 MG [place] 00 TOTAL) BY Medical MOUTH 2 Branch (TWO) TIMES A DAY IF NEEDED (PAIN) gabapentin 2021-02 Yes TAKE 1 Unive rs 100 mg 0-04 CAPSULE ity of capsule 00:00: (100 MG [place] 00 TOTAL) BY Medical MOUTH 2 Branch (TWO) TIMES A DAY IF NEEDED (PAIN) gabapentin 2021-02 Yes TAKE 1 Unive rs 100 mg 0-04 CAPSULE ity of capsule 00:00: (100 MG [place] 00 TOTAL) BY Medical MOUTH 2 Branch (TWO) TIMES A DAY IF NEEDED (PAIN) gabapentin 2021-02 Yes TAKE 1 Unive rs 100 mg 0-04 CAPSULE ity of capsule 00:00: (100 MG [place] 00 TOTAL) BY Medical MOUTH 2 Branch (TWO) TIMES A DAY IF NEEDED (PAIN) gabapentin 2021-02 Yes TAKE 1 Unive rs 100 mg 0-04 CAPSULE ity of capsule 00:00: (100 MG [place] 00 TOTAL) BY Medical MOUTH 2 Branch (TWO) TIMES A DAY IF NEEDED (PAIN) gabapentin 2021-02 Yes TAKE 1 Unive rs 100 mg 0-04 CAPSULE ity of capsule 00:00: (100 MG [place] 00 TOTAL) BY Medical MOUTH 2 Branch (TWO) TIMES A DAY IF NEEDED (PAIN) gabapentin 2021-02 Yes TAKE 1 Unive rs 100 mg 0-04 CAPSULE ity of capsule 00:00: (100 MG [place] 00 TOTAL) BY Medical MOUTH 2 Branch (TWO) TIMES A DAY IF NEEDED (PAIN) gabapentin 2021-02 Yes TAKE 1 Unive rs 100 mg 0-04 CAPSULE ity of capsule 00:00: (100 MG [place] 00 TOTAL) BY Medical MOUTH 2 Branch (TWO) TIMES A DAY IF NEEDED (PAIN) gabapentin 2021-02 Yes TAKE 1 Unive rs 100 mg 0-04 CAPSULE ity of capsule 00:00: (100 MG [place] 00 TOTAL) BY Medical MOUTH 2 Branch (TWO) TIMES A DAY IF NEEDED (PAIN) gabapentin 2021-02 Yes TAKE 1 Unive rs 100 mg 0-04 CAPSULE ity of capsule 00:00: (100 MG [place] 00 TOTAL) BY Medical MOUTH 2 Branch (TWO) TIMES A DAY IF NEEDED (PAIN) gabapentin 2021-02 Yes TAKE 1 Unive rs 100 mg 0-04 CAPSULE ity of capsule 00:00: (100 MG [place] 00 TOTAL) BY Medical MOUTH 2 Branch (TWO) TIMES A DAY IF NEEDED (PAIN) gabapentin 2021-02 Yes TAKE 1 Unive rs 100 mg 0-04 CAPSULE ity of capsule 00:00: (100 MG [place] 00 TOTAL) BY Medical MOUTH 2 Branch (TWO) TIMES A DAY IF NEEDED (PAIN) gabapentin 2021-02 Yes TAKE 1 Unive rs 100 mg 0-04 CAPSULE ity of capsule 00:00: (100 MG [place] 00 TOTAL) BY Medical MOUTH 2 Branch (TWO) TIMES A DAY IF NEEDED (PAIN) gabapentin 2021-02 Yes TAKE 1 Unive rs 100 mg 0-04 CAPSULE ity of capsule 00:00: (100 MG [place] 00 TOTAL) BY Medical MOUTH 2 Branch (TWO) TIMES A DAY IF NEEDED (PAIN) gabapentin 2021-02 Yes TAKE 1 Unive rs 100 mg 0-04 CAPSULE ity of capsule 00:00: (100 MG [place] 00 TOTAL) BY Medical MOUTH 2 Branch (TWO) TIMES A DAY IF NEEDED (PAIN) gabapentin 2021-02 Yes TAKE 1 Unive rs 100 mg 0-04 CAPSULE ity of capsule 00:00: (100 MG [place] 00 TOTAL) BY Medical MOUTH 2 Branch (TWO) TIMES A DAY IF NEEDED (PAIN) gabapentin 2021-02 Yes TAKE 1 Unive rs 100 mg 0-04 CAPSULE ity of capsule 00:00: (100 MG [place] 00 TOTAL) BY Medical MOUTH 2 Branch (TWO) TIMES A DAY IF NEEDED (PAIN) gabapentin 2021-02 Yes TAKE 1 Unive rs 100 mg 0-04 CAPSULE ity of capsule 00:00: (100 MG [place] 00 TOTAL) BY Medical MOUTH 2 Branch (TWO) TIMES A DAY IF NEEDED (PAIN) gabapentin 2021-02 Yes TAKE 1 Unive rs 100 mg 0-04 CAPSULE ity of capsule 00:00: (100 MG [place] 00 TOTAL) BY Medical MOUTH 2 Branch (TWO) TIMES A DAY IF NEEDED (PAIN) gabapentin 2021-02 Yes TAKE 1 Unive rs 100 mg 0-04 CAPSULE ity of capsule 00:00: (100 MG [place] 00 TOTAL) BY Medical MOUTH 2 Branch (TWO) TIMES A DAY IF NEEDED (PAIN) gabapentin 2021-02 Yes TAKE 1 Unive rs 100 mg 0-04 CAPSULE ity of capsule 00:00: (100 MG [place] 00 TOTAL) BY Medical MOUTH 2 Branch (TWO) TIMES A DAY IF NEEDED (PAIN) gabapentin 2021-02 Yes TAKE 1 Unive rs 100 mg 0-04 CAPSULE ity of capsule 00:00: (100 MG [place] 00 TOTAL) BY Medical MOUTH 2 Branch (TWO) TIMES A DAY IF NEEDED (PAIN) gabapentin 2021-02 Yes TAKE 1 Unive rs 100 mg 0-04 CAPSULE ity of capsule 00:00: (100 MG [place] 00 TOTAL) BY Medical MOUTH 2 Branch (TWO) TIMES A DAY IF NEEDED (PAIN) gabapentin 2021-02 Yes TAKE 1 Unive rs 100 mg 0-04 CAPSULE ity of capsule 00:00: (100 MG [place] 00 TOTAL) BY Medical MOUTH 2 Branch (TWO) TIMES A DAY IF NEEDED (PAIN) gabapentin 2021-02 Yes TAKE 1 Unive rs 100 mg 0-04 CAPSULE ity of capsule 00:00: (100 MG [place] 00 TOTAL) BY Medical MOUTH 2 Branch (TWO) TIMES A DAY IF NEEDED (PAIN) gabapentin 2021-02 Yes TAKE 1 Unive rs 100 mg 0-04 CAPSULE ity of capsule 00:00: (100 MG [place] 00 TOTAL) BY Medical MOUTH 2 Branch (TWO) TIMES A DAY IF NEEDED (PAIN) gabapentin 2021-02 Yes TAKE 1 Unive rs 100 mg 0-04 CAPSULE ity of capsule 00:00: (100 MG [place] 00 TOTAL) BY Medical MOUTH 2 Branch (TWO) TIMES A DAY IF NEEDED (PAIN) gabapentin 2021-02 Yes TAKE 1 Unive rs 100 mg 0-04 CAPSULE ity of capsule 00:00: (100 MG [place] 00 TOTAL) BY Medical MOUTH 2 Branch (TWO) TIMES A DAY IF NEEDED (PAIN) gabapentin 2021-02 Yes TAKE 1 Unive rs 100 mg 0-04 CAPSULE ity of capsule 00:00: (100 MG [place] 00 TOTAL) BY Medical MOUTH 2 Branch (TWO) TIMES A DAY IF NEEDED (PAIN) gabapentin 2021-02 Yes TAKE 1 Unive rs 100 mg 0-04 CAPSULE ity of capsule 00:00: (100 MG [place] 00 TOTAL) BY Medical MOUTH 2 Branch (TWO) TIMES A DAY IF NEEDED (PAIN) gabapentin 2021-02 Yes TAKE 1 Unive rs 100 mg 0-04 CAPSULE ity of capsule 00:00: (100 MG [place] 00 TOTAL) BY Medical MOUTH 2 Branch (TWO) TIMES A DAY IF NEEDED (PAIN) gabapentin 2021-02 Yes TAKE 1 Unive rs 100 mg 0-04 CAPSULE ity of capsule 00:00: (100 MG [place] 00 TOTAL) BY Medical MOUTH 2 Branch (TWO) TIMES A DAY IF NEEDED (PAIN) gabapentin 2021-02 Yes TAKE 1 Unive rs 100 mg 0-04 CAPSULE ity of capsule 00:00: (100 MG [place] 00 TOTAL) BY Medical MOUTH 2 Branch (TWO) TIMES A DAY IF NEEDED (PAIN) gabapentin 2021-02 Yes TAKE 1 Unive rs 100 mg 0-04 CAPSULE ity of capsule 00:00: (100 MG [place] 00 TOTAL) BY Medical MOUTH 2 Branch (TWO) TIMES A DAY IF NEEDED (PAIN) gabapentin 2021-02 Yes TAKE 1 Unive rs 100 mg 0-04 CAPSULE ity of capsule 00:00: (100 MG [place] 00 TOTAL) BY Medical MOUTH 2 Branch (TWO) TIMES A DAY IF NEEDED (PAIN) gabapentin 2021-02 Yes TAKE 1 Unive rs 100 mg 0-04 CAPSULE ity of capsule 00:00: (100 MG [place] 00 TOTAL) BY Medical MOUTH 2 Branch (TWO) TIMES A DAY IF NEEDED (PAIN) gabapentin 2021-02 Yes TAKE 1 Unive rs 100 mg 0-04 CAPSULE ity of capsule 00:00: (100 MG [place] 00 TOTAL) BY Medical MOUTH 2 Branch (TWO) TIMES A DAY IF NEEDED (PAIN) gabapentin 2021-02 Yes TAKE 1 Unive rs 100 mg 0-04 CAPSULE ity of capsule 00:00: (100 MG [place] 00 TOTAL) BY Medical MOUTH 2 Branch (TWO) TIMES A DAY IF NEEDED (PAIN) gabapentin 2021-02 Yes TAKE 1 Unive rs 100 mg 0-04 CAPSULE ity of capsule 00:00: (100 MG [place] 00 TOTAL) BY Medical MOUTH 2 Branch (TWO) TIMES A DAY IF NEEDED (PAIN) gabapentin 2021-02 Yes TAKE 1 Unive rs 100 mg 0-04 CAPSULE ity of capsule 00:00: (100 MG [place] 00 TOTAL) BY Medical MOUTH 2 Branch (TWO) TIMES A DAY IF NEEDED (PAIN) gabapentin 2021-02 Yes TAKE 1 Unive rs 100 mg 0-04 CAPSULE ity of capsule 00:00: (100 MG [place] 00 TOTAL) BY Medical MOUTH 2 Branch (TWO) TIMES A DAY IF NEEDED (PAIN) gabapentin 2021-02 Yes TAKE 1 Unive rs 100 mg 0-04 CAPSULE ity of capsule 00:00: (100 MG [place] 00 TOTAL) BY Medical MOUTH 2 Branch (TWO) TIMES A DAY IF NEEDED (PAIN) gabapentin 2021-02 Yes TAKE 1 Unive rs 100 mg 0-04 CAPSULE ity of capsule 00:00: (100 MG [place] 00 TOTAL) BY Medical MOUTH 2 Branch (TWO) TIMES A DAY IF NEEDED (PAIN) gabapentin 2021-02 Yes TAKE 1 Unive rs 100 mg 0-04 CAPSULE ity of capsule 00:00: (100 MG [place] 00 TOTAL) BY Medical MOUTH 2 Branch (TWO) TIMES A DAY IF NEEDED (PAIN) gabapentin 2021-02 Yes TAKE 1 Unive rs 100 mg 0-04 CAPSULE ity of capsule 00:00: (100 MG [place] 00 TOTAL) BY Medical MOUTH 2 Branch (TWO) TIMES A DAY IF NEEDED (PAIN) gabapentin 2021-02 Yes TAKE 1 Unive rs 100 mg 0-04 CAPSULE ity of capsule 00:00: (100 MG [place] 00 TOTAL) BY Medical MOUTH 2 Branch (TWO) TIMES A DAY IF NEEDED (PAIN) gabapentin 2021-02 Yes TAKE 1 Unive rs 100 mg 0-04 CAPSULE ity of capsule 00:00: (100 MG [place] 00 TOTAL) BY Medical MOUTH 2 Branch (TWO) TIMES A DAY IF NEEDED (PAIN) gabapentin 2021-02 Yes TAKE 1 Unive rs 100 mg 0-04 CAPSULE ity of capsule 00:00: (100 MG [place] 00 TOTAL) BY Medical MOUTH 2 Branch (TWO) TIMES A DAY IF NEEDED (PAIN) gabapentin 2021-02 Yes TAKE 1 Unive rs 100 mg 0-04 CAPSULE ity of capsule 00:00: (100 MG [place] 00 TOTAL) BY Medical MOUTH 2 Branch (TWO) TIMES A DAY IF NEEDED (PAIN) gabapentin 2021-02 Yes TAKE 1 Unive rs 100 mg 0-04 CAPSULE ity of capsule 00:00: (100 MG [place] 00 TOTAL) BY Medical MOUTH 2 Branch (TWO) TIMES A DAY IF NEEDED (PAIN) gabapentin 2021-02 Yes TAKE 1 Unive rs 100 mg 0-04 CAPSULE ity of capsule 00:00: (100 MG [place] 00 TOTAL) BY Medical MOUTH 2 Branch (TWO) TIMES A DAY IF NEEDED (PAIN) gabapentin 2021-02 Yes TAKE 1 Unive rs 100 mg 0-04 CAPSULE ity of capsule 00:00: (100 MG [place] 00 TOTAL) BY Medical MOUTH 2 Branch (TWO) TIMES A DAY IF NEEDED (PAIN) gabapentin 2021-02 Yes TAKE 1 Unive rs 100 mg 0-04 CAPSULE ity of capsule 00:00: (100 MG [place] 00 TOTAL) BY Medical MOUTH 2 Branch (TWO) TIMES A DAY IF NEEDED (PAIN) gabapentin 2021-02 Yes TAKE 1 Unive rs 100 mg 0-04 CAPSULE ity of capsule 00:00: (100 MG [place] 00 TOTAL) BY Medical MOUTH 2 Branch (TWO) TIMES A DAY IF NEEDED (PAIN) gabapentin 2021-02 Yes TAKE 1 Unive rs 100 mg 0-04 CAPSULE ity of capsule 00:00: (100 MG [place] 00 TOTAL) BY Medical MOUTH 2 Branch (TWO) TIMES A DAY IF NEEDED (PAIN) gabapentin 2021-02 Yes TAKE 1 Unive rs 100 mg 0-04 CAPSULE ity of capsule 00:00: (100 MG [place] 00 TOTAL) BY Medical MOUTH 2 Branch (TWO) TIMES A DAY IF NEEDED (PAIN) gabapentin 2021-02 Yes TAKE 1 Unive rs 100 mg 0-04 CAPSULE ity of capsule 00:00: (100 MG [place] 00 TOTAL) BY Medical MOUTH 2 Branch (TWO) TIMES A DAY IF NEEDED (PAIN) gabapentin 2021-02 Yes TAKE 1 Unive rs 100 mg 0-04 CAPSULE ity of capsule 00:00: (100 MG [place] 00 TOTAL) BY Medical MOUTH 2 Branch (TWO) TIMES A DAY IF NEEDED (PAIN) gabapentin 2021-02 Yes TAKE 1 Un[facility] rs 100 mg 0-04 CAPSULE ity of capsule 00:00: (100 MG [place] 00 TOTAL) BY Medical MOUTH 2 Branch (TWO) TIMES A DAY IF NEEDED (PAIN) gabapentin 2021-02 Yes TAKE 1 Un[facility] rs 100 mg 0-04 CAPSULE ity of capsule 00:00: (100 MG [place] 00 TOTAL) BY Medical MOUTH 2 Branch (TWO) TIMES A DAY IF NEEDED (PAIN) gabapentin 2021-02 Yes TAKE 1 Unive rs 100 mg 0-04 CAPSULE ity of capsule 00:00: (100 MG [place] 00 TOTAL) BY Medical MOUTH 2 Branch (TWO) TIMES A DAY IF NEEDED (PAIN) gabapentin 2021-02 Yes TAKE 1 Un[facility] rs 100 mg 0-04 CAPSULE ity of capsule 00:00: (100 MG [place] 00 TOTAL) BY Medical MOUTH 2 Branch (TWO) TIMES A DAY IF NEEDED (PAIN) gabapentin 2021-02 Yes TAKE 1 Unive rs 100 mg 0-04 CAPSULE ity of capsule 00:00: (100 MG [place] 00 TOTAL) BY Medical MOUTH 2 Branch (TWO) TIMES A DAY IF NEEDED (PAIN) gabapentin 2021-02 Yes TAKE 1 [facility] 100 mg 0-04 CAPSULE ity of capsule 00:00: (100 MG [place] 00 TOTAL) BY Medical MOUTH 2 Branch (TWO) TIMES A DAY IF NEEDED (PAIN) gabapentin 2021-02 Yes TAKE 1 [facility] 100 mg 0-04 CAPSULE ity of capsule 00:00: (100 MG [place] 00 TOTAL) BY Medical MOUTH 2 Branch (TWO) TIMES A DAY IF NEEDED (PAIN) gabapentin 2021-02 Yes TAKE 1 [facility] 100 mg 0-04 CAPSULE ity of capsule 00:00: (100 MG [place] 00 TOTAL) BY Medical MOUTH 2 Branch (TWO) TIMES A DAY IF NEEDED (PAIN) gabapentin 2021-02 Yes TAKE 1 [facility] 100 mg 0-04 CAPSULE ity of capsule 00:00: (100 MG [place] 00 TOTAL) BY Medical MOUTH 2 Branch (TWO) TIMES A DAY IF NEEDED (PAIN) gabapentin 2021-02 Yes TAKE 1 [facility] rs 100 mg 0-04 CAPSULE ity of capsule 00:00: (100 MG [place] 00 TOTAL) BY Medical MOUTH 2 Branch (TWO) TIMES A DAY IF NEEDED (PAIN) gabapentin 2021-02 Yes TAKE 1 [facility] rs 100 mg 0-04 CAPSULE ity of capsule 00:00: (100 MG [place] 00 TOTAL) BY Medical MOUTH 2 Branch (TWO) TIMES A DAY IF NEEDED (PAIN) gabapentin 2021-02 Yes TAKE 1 [facility] rs 100 mg 0-04 CAPSULE ity of capsule 00:00: (100 MG [place] 00 TOTAL) BY Medical MOUTH 2 Branch (TWO) TIMES A DAY IF NEEDED (PAIN) gabapentin 2021-02 Yes TAKE 1 [facility] rs 100 mg 0-04 CAPSULE ity of capsule 00:00: (100 MG [place] 00 TOTAL) BY Medical MOUTH 2 Branch (TWO) TIMES A DAY IF NEEDED (PAIN) gabapentin 2021-02- No TAKE 1 [facility] ers 100 mg 0-04 08-11 CAPSULE ity of capsule 00:00: 00:00 (100 MG [place] 00 :00 TOTAL) BY Medical MOUTH 2 Branch (TWO) TIMES A DAY IF NEEDED (PAIN) gabapentin 2021-02- No TAKE 1 Univ ers 100 mg 0-04 08-11 CAPSULE ity of capsule 00:00: 00:00 (100 MG [place] 00 :00 TOTAL) BY Medical MOUTH 2 Branch (TWO) TIMES A DAY IF NEEDED (PAIN) gabapentin 2021-02- No 100mg Take 100 U nivers 100 mg 0-04 10-24 mg by ity of capsule 00:00: 00:00 mouth. [place] 00 :00 Medical Branch gabapentin 2021-02- No 100mg Take 100 U nivers 100 mg 0-04 10-24 mg by ity of capsule 00:00: 00:00 mouth. [place] 00 :00 Medical Branch gabapentin 2021-02- No 100mg Take 100 U nivers 100 mg 0-04 10-24 mg by ity of capsule 00:00: 00:00 mouth. [place] 00 :00 Medical Branch isosorbide 2021-0 2021- No 30mg Take 30 mg Univers mononitrate 11-11 by mouth. it y of 30 mg 24 hr 08:31: 00:00 [place] tablet 31 :00 Medical Branch isosorbide 2021-0 2021- No 30mg Take 30 mg [facility] mononitrate 11-11 by mouth. it y of 30 mg 24 hr 08:31: 00:00 [place] tablet 31 :00 Medical Branch aspirin 81 2021-0 Yes 81mg Take 81 mg U nivers mg chewable 11-11 by mouth ity of tablet 08:13: daily. [place] [address] Medical Branch TURMERIC Yes Take by Univer s ORAL 11-11 mouth. ity of 08:13: [address] Branch Cholecalcif 0 Yes 1000U Take 1,000 [facility] alhaji, 9-29 Units by ity of Vitamin D3, 08:13: mouth. [place] 25 mcg 16 Medical (1,000 Branch unit) Chew aspirin 81 2021-0 Yes 81mg Take 81 mg U nivers mg chewable 11-11 by mouth ity of tablet 08:13: daily. [address] Branch TURMERIC 0 Yes Take by Univer s ORAL - mouth. ity of 08:13: [address] Branch Cholecalcif 0 Yes 1000U Take 1,000 [facility] alhaji, 9-29 Units by ity of Vitamin D3, 08:13: mouth. [place] 25 mcg 16 Medical (1,000 Branch unit) Chew aspirin 81 2021-0 Yes 81mg Take 81 mg U nivers mg chewable -29 by mouth ity of tablet 08:13: daily. [address] Branch TURMERIC 0 Yes Take by Univer s ORAL - mouth. ity of 08:13: [address] Branch aspirin 81 2021-0 Yes 81mg Take 81 mg U nivers mg chewable -29 by mouth ity of tablet 08:13: daily. [address] Branch TURMERIC 0 Yes Take by Univer s ORAL 9-29 mouth. ity of 08:13: [place] 16 Medical Branch Cholecalcif 0 Yes 1000U Take 1,000 [facility] alhaji, 9-29 Units by ity of Vitamin D3, 08:13: mouth. [place] 25 mcg 16 Medical (1,000 Branch unit) Chew aspirin 81 2021-0 Yes 81mg Take 81 mg U nivers mg chewable 9-29 by mouth ity of tablet 08:13: daily. [address] Branch TURMERIC 0 Yes Take by Univer s ORAL - mouth. ity of 08:13: [address] Branch Cholecalcif 2021-0 Yes 1000U Take 1,000 [facility] alhaji, 9-29 Units by ity of Vitamin D3, 08:13: mouth. [place] 25 mcg 16 Medical (1,000 Branch unit) Chew aspirin 81 2-0 Yes 81mg Take 81 mg U nivers mg chewable -29 by mouth ity of tablet 08:13: daily. [address] TURMERIC Yes Take by Univer s ORAL - mouth. ity of 08:13: [address] Cholecalcif 2021-0 Yes 1000U Take 1,000 [facility] alhaji, 9-29 Units by ity of Vitamin D3, 08:13: mouth. [place] 25 mcg 16 Medical (1,000 Branch unit) Chew aspirin 81 2021-0 Yes 81mg Take 81 mg U nivers mg chewable - by mouth ity of tablet 08:13: daily. [address] TURMERIC 0 Yes Take by Univer s ORAL - mouth. ity of 08:13: [address] Cholecalcif 2021-0 Yes 1000U Take 1,000 [facility] alhaji, 9-29 Units by ity of Vitamin D3, 08:13: mouth. [place] 25 mcg 16 Medical (1,000 Branch unit) Chew aspirin 81 2-0 Yes 81mg Take 81 mg U nivers mg chewable 9-29 by mouth ity of tablet 08:13: daily. [address] Branch TURMERIC 0 Yes Take by Univer s ORAL 9-29 mouth. ity of 08:13: [address] Cholecalcif 2021-0 Yes 1000U Take 1,000 [facility] alhaji, 9-29 Units by ity of Vitamin D3, 08:13: mouth. [place] 25 mcg 16 Medical (1,000 Branch unit) Chew aspirin 81 2022-0 Yes 81mg Take 81 mg U nivers mg chewable 9-29 by mouth ity of tablet 08:13: daily. [address] Branch TURMERIC 2021-0 Yes Take by Univer s ORAL 9-29 mouth. ity of 08:13: [address] Branch Cholecalcif 2021-0 Yes 1000U Take 1,000 [facility] al[facility]aji, 9-29 Units by ity of Vitamin D3, 08:13: mouth. [place] 25 mcg 16 Medical (1,000 Branch unit) Chew aspirin 81 2022-0 Yes 81mg Take 81 mg U nivers mg chewable 9-29 by mouth ity of tablet 08:13: daily. [address] TURMERIC 0 Yes Take by Univer s ORAL 9-29 mouth. ity of 08:13: [address] Cholecalcif 2021-0 Yes 1000U Take 1,000 [facility] al[place]aji, 9-29 Units by ity of Vitamin D3, 08:13: mouth. [place] 25 mcg 16 Medical (1,000 Branch unit) Chew aspirin 81 2-0 Yes 81mg Take 81 mg U nivers mg chewable 9-29 by mouth ity of tablet 08:13: daily. [address] TURMERIC 0 Yes Take by Univer s ORAL 9-29 mouth. ity of 08:13: [address] Cholecalcif 2021-0 Yes 1000U Take 1,000 [facility] al[facility]aji, 9-29 Units by ity of Vitamin D3, 08:13: mouth. [place] 25 [place] 16 Medical (1,000 Branch unit) Chew aspirin 81 2022-0 Yes 81mg Take 81 mg U nivers mg chewable 9-29 by mouth ity of tablet 08:13: daily. [address] TURMERIC 2021-0 Yes Take by Univer s ORAL 9-29 mouth. ity of 08:13: [address] Cholecalcif 2022-0 Yes 1000U Take 1,000 [facility] al[facility]aji, 9-29 Units by ity of Vitamin D3, 08:13: mouth. [place] 25 mcg 16 Medical (1,000 Branch unit) Chew aspirin 81 2022-0 Yes 81mg Take 81 mg U nivers mg chewable 9-29 by mouth ity of tablet 08:13: daily. [address] TURMERIC 2021-0 Yes Take by Univer s ORAL 11-11 mouth. ity of 08:13: [address] Cholecalcif 2021-0 Yes 1000U Take 1,000 [facility] al[place]aji, 9-29 Units by ity of Vitamin D3, 08:13: mouth. [place] 25 mcg 16 Medical (1,000 Branch unit) Chew aspirin 81 2021-0 Yes 81mg Take 81 mg U nivers mg chewable 11-11 by mouth ity of tablet 08:13: daily. [address] TURMERIC 2021-0 Yes Take by Univer s ORAL 11-11 mouth. ity of 08:13: [address] Cholecalcif 2021-0 Yes 1000U Take 1,000 [facility] al[facility]aji, 9-29 Units by ity of Vitamin D3, 08:13: mouth. [place] 25 mcg 16 Medical (1,000 Branch unit) Chew TURMERIC 2021-0 Yes Take by Univer s ORAL 11-11 mouth. ity of 08:13: [address] Cholecalcif 2021-0 Yes 1000U Take 1,000 [facility] al[place]aji, 9-29 Units by ity of Vitamin D3, 08:13: mouth. [place] 25 mcg 16 Medical (1,000 Branch unit) Chew TURMERIC 2021-0 Yes Take by Univer s ORAL 11-11 mouth. ity of 08:13: [address] Cholecalcif 2021-0 Yes 1000U Take 1,000 [facility] al[place]aji, 9-29 Units by ity of Vitamin D3, 08:13: mouth. [place] 25 mcg 16 Medical (1,000 Branch unit) Chew TURMERIC 2021-0 Yes Take by Univer s ORAL - mouth. ity of 08:13: [address] Cholecalcif 2021-0 Yes 1000U Take 1,000 [facility] al[place]aji, 9-29 Units by ity of Vitamin D3, 08:13: mouth. [place] 16 Medical (1,000 Branch unit) Chew TURMERIC 2021-0 Yes Take by Univer s ORAL 11-11 mouth. ity of 08:13: [address] Cholecalcif 2021-0 Yes 1000U Take 1,000 [facility] al[facility]aji, 9-29 Units by ity of Vitamin D3, 08:13: mouth. [place] 25 mcg 16 Medical (1,000 Branch unit) Chew TURMERIC 2021-0 Yes Take by Univer s ORAL 11-11 mouth. ity of 08:13: [place] [address] Medical Branch Cholecalcif 2022-0 Yes 1000U Take 1,000 Univers alhaji, 9-29 Units by ity of Vitamin D3, 08:13: mouth. [place] 25 mcg 16 Medical (1,000 Branch unit) Chew TURMERIC 2021-0 [facility] mouth. ity of 08:13: [place] [address] Medical Branch Cholecalcif 2021-0 Yes 1000U Take 1,000 Univers alhaji, 9-29 Units by ity of Vitamin D3, 08:13: mouth. [place] 25 mcg 16 Medical (1,000 Branch unit) Chew TURMERIC 2021-0 Yes Take by [facility] ORAL 11-11 mouth. ity of 08:13: [address] Branch Cholecalcif 2021-0 Yes 1000U Take 1,000 Univers alhaji, 9-29 Units by ity of Vitamin D3, 08:13: mouth. [place] 25 mcg 16 Medical (1,000 Branch unit) Chew TURMERIC 2021-0 Yes Take by [facility] ORAL 11-11 mouth. ity of 08:13: [address] Branch Cholecalcif 2022-0 Yes 1000U Take 1,000 [facility] al[place]aji, 9-29 Units by ity of Vitamin D3, 08:13: mouth. [place] 25 mcg 16 Medical (1,000 Branch unit) Chew TURMERIC 2021-0 Yes Take by [facility] ORAL 11-11 mouth. ity of 08:13: [place] [address] Medical Branch Cholecalcif 2-0 Yes 1000U Take 1,000 Univers alhaji, 9-29 Units by ity of Vitamin D3, 08:13: mouth. [place] 25 mcg 16 Medical (1,000 Branch unit) Chew TURMERIC 2021-0 Yes Take by [facility] ORAL 11-11 mouth. ity of 08:13: [address] Cholecalcif 2022-0 Yes 1000U Take 1,000 [facility] al[facility]aji, 9-29 Units by ity of Vitamin D3, 08:13: mouth. [place] 25 mcg 16 Medical (1,000 Branch unit) Chew TURMERIC 2022-0 Yes Take by [facility] ORAL - mouth. ity of 08:13: [address] Branch Cholecalcif 2022-0 Yes 1000U Take 1,000 Univers alhaji, 9-29 Units by ity of Vitamin D3, 08:13: mouth. [place] 25 mcg 16 Medical (1,000 Branch unit) Chew TURMERIC 2022-0 Yes Take by [facility] ORAL 11-11 mouth. ity of 08:13: [address] Branch Cholecalcif 2022-0 Yes 1000U Take 1,000 Univers al[facility]aji, 9-29 Units by ity of Vitamin D3, 08:13: mouth. [place] 25 mcg 16 Medical (1,000 Branch unit) Chew TURMERIC 2022-0 Yes Take by [facility] ORAL 11-11 mouth. ity of 08:13: [address] Cholecalcif 2022-0 Yes 1000U Take 1,000 Univers alhaji, 9-29 Units by ity of Vitamin D3, 08:13: mouth. [place] 25 mcg 16 Medical (1,000 Branch unit) Chew TURMERIC 2-0 Yes Take by [facility] ORAL 11-11 mouth. ity of 08:13: [address] Branch Cholecalcif 2-0 Yes 1000U Take 1,000 [facility] al[place]aji, 9-29 Units by ity of Vitamin D3, 08:13: mouth. [place] 25 mcg 16 Medical (1,000 Branch unit) Chew TURMERIC 2022-0 Yes Take by [facility] ORAL 11-11 mouth. ity of 08:13: [address] Branch Cholecalcif 2022-0 Yes 1000U Take 1,000 Univers alhaji, 9-29 Units by ity of Vitamin D3, 08:13: mouth. [place] 25 mcg 16 Medical (1,000 Branch unit) Chew TURMERIC 2022-0 Yes Take by [facility] ORAL - mouth. ity of 08:13: [address] Cholecalcif 2022-0 Yes 1000U Take 1,000 [facility] al[facility]aji, 9-29 Units by ity of Vitamin D3, 08:13: mouth. [place] 25 mcg 16 Medical (1,000 Branch unit) Chew TURMERIC 2022-0 Yes Take by [facility] ORAL 9-29 mouth. ity of 08:13: [place] [address] Medical Branch Cholecalcif 2022-0 Yes 1000U Take 1,000 [facility] al[facility]aji, 9-29 Units by ity of Vitamin D3, 08:13: mouth. [place] 25 mcg 16 Medical (1,000 Branch unit) Chew TURMERIC 2022-0 Yes Take by [facility] ORAL 9-29 mouth. ity of 08:13: [place] [address] Medical Branch Cholecalcif 2022-0 Yes 1000U Take 1,000 Univers al[facility]aji, 9-29 Units by ity of Vitamin D3, 08:13: mouth. [place] 25 mcg 16 Medical (1,000 Branch unit) Chew TURMERIC 2022-0 Yes Take by [facility] s ORAL - mouth. ity of 08:13: [place] [address] Medical Branch Cholecalcif 2022-0 Yes 1000U Take 1,000 Univers al[place]aji, 9-29 Units by ity of Vitamin D3, 08:13: mouth. [place] 25 mcg 16 Medical (1,000 Branch unit) Chew TURMERIC 2022-0 Yes Take by [facility] s ORAL - mouth. ity of 08:13: [place] [address] Medical Branch Cholecalcif 2022-0 Yes 1000U Take 1,000 Univers al[facility]aji, 9-29 Units by ity of Vitamin D3, 08:13: mouth. [place] 25 mcg 16 Medical (1,000 Branch unit) Chew TURMERIC 2022-0 Yes Take by [facility] s ORAL 9-29 mouth. ity of 08:13: [place] [address] Medical Branch Cholecalcif 2022-0 Yes 1000U Take 1,000 [facility] al[facility]aji, 9-29 Units by ity of Vitamin D3, 08:13: mouth. [place] 25 mcg 16 Medical (1,000 Branch unit) Chew TURMERIC 2022-0 Yes Take by [facility] ORAL 9-29 mouth. ity of 08:13: [place] [address] Medical Branch Cholecalcif 2022-0 Yes 1000U Take 1,000 [facility] al[facility]aji, 9-29 Units by ity of Vitamin D3, 08:13: [place]. [place] 16 Medical (1,000 Branch unit) Chew TURMERIC 2022-0 Yes Take by [facility] ORAL 9-29 mouth. ity of 08:13: [place] [address] Medical Branch Cholecalcif 2022-0 Yes 1000U Take 1,000 [facility] al[place]aji, 9-29 Units by ity of Vitamin D3, 08:13: mouth. [place] 25 mcg 16 Medical (1,000 Branch unit) Chew TURMERIC 2022-0 Yes Take by Univer s ORAL 9-29 mouth. ity of 08:13: [place] [address] Medical Branch Cholecalcif 2022-0 Yes 1000U Take 1,000 [facility] al[facility]aji, 9-29 Units by ity of Vitamin D3, 08:13: mouth. [place] 25 mcg 16 Medical (1,000 Branch unit) Chew TURMERIC 2-0 Yes Take by [facility] ORAL 9- mouth. ity of 08:13: [address] Branch Cholecalcif 2021-0 Yes 1000U Take 1,000 Univers al[place]aji, 9-29 Units by ity of Vitamin D3, 08:13: mouth. [place] 25 mcg 16 Medical (1,000 Branch unit) Chew TURMERIC 2022-0 Yes Take by [facility] ORAL - mouth. ity of 08:13: [address] Branch Cholecalcif 2022-0 Yes 1000U Take 1,000 [facility] al[place]aji, 9-29 Units by ity of Vitamin D3, 08:13: mouth. [place] 25 mcg 16 Medical (1,000 Branch unit) Chew TURMERIC 2021-0 Yes Take by [facility] ORAL - mouth. ity of 08:13: [address] Branch Cholecalcif 2022-0 Yes 1000U Take 1,000 Univers al[place]aji, 9-29 Units by ity of Vitamin D3, 08:13: mouth. [place] 25 mcg 16 Medical (1,000 Branch unit) Chew TURMERIC 2-0 Yes Take by Univer s ORAL 9-29 mouth. ity of 08:13: [address] Branch Cholecalcif 2022-0 Yes 1000U Take 1,000 [facility] al[place]aji, 9-29 Units by ity of Vitamin D3, 08:13: mouth. [place] 25 mcg 16 Medical (1,000 Branch unit) Chew TURMERIC 2022-0 Yes Take by Univer s ORAL 9-29 mouth. ity of 08:13: [address] Branch Cholecalcif 2022-0 Yes 1000U Take 1,000 [facility] al[facility]aji, 9-29 Units by ity of Vitamin D3, 08:13: [place]. [place] [facility] (1,000 Branch unit) Chew [facility] Yes Take by Univer s ORAL 9-29 mouth. ity of 08:13: [place] [address] Medical Branch TURMERIC Yes Take by Univer s ORAL 9-29 mouth. ity of 08:13: [place] [address] Medical Branch TURMERIC Yes Take by Univer s ORAL 9-29 mouth. ity of 08:13: [place] [address] Medical Branch TURMERIC Yes Take by Univer s ORAL 9-29 mouth. ity of 08:13: [place] [address] Medical Branch TURMERIC Yes Take by Univer s ORAL 9-29 mouth. ity of 08:13: [place] [address] Medical Branch TURMERIC Yes Take by Univer s ORAL 9-29 mouth. ity of 08:13: [place] [address] Medical Branch TURMERIC Yes Take by Univer s ORAL 9-29 mouth. ity of 08:13: [place] [address] Medical Branch TURMERIC Yes Take by Univer s ORAL 9-29 mouth. ity of 08:13: [place] [address] Medical Branch TURMERIC Yes Take by Univer s ORAL 9-29 mouth. ity of 08:13: [place] [address] Medical Branch TURMERIC Yes Take by Univer s ORAL 9-29 mouth. ity of 08:13: [place] [address] Medical Branch TURMERIC Yes Take by Univer s ORAL 9-29 mouth. ity of 08:13: [place] [address] Medical Branch TURMERIC Yes Take by Univer s ORAL 9-29 mouth. ity of 08:13: [place] [address] Medical Branch TURMERIC Yes Take by Univer s ORAL 9-29 mouth. ity of 08:13: [place] [address] Medical Branch TURMERIC Yes Take by Univer s ORAL 9-29 mouth. ity of 08:13: [place] [address] Medical Branch TURMERIC Yes Take by Univer s ORAL 9-29 mouth. ity of 08:13: [place] [address] Medical Branch TURMERIC Yes Take by Univer s ORAL 9-29 mouth. ity of 08:13: [place] [address] Medical Branch TURMERIC Yes Take by Univer s ORAL 9-29 mouth. ity of 08:13: [place] [address] Medical Branch TURMERIC Yes Take by Univer s ORAL 9-29 mouth. ity of 08:13: [place] [address] Medical Branch TURMERIC Yes Take by Univer s ORAL 9-29 mouth. ity of 08:13: [place] [address] Medical Branch TURMERIC Yes Take by Univer s ORAL 9-29 mouth. ity of 08:13: [place] [address] Medical Branch TURMERIC Yes Take by Univer s ORAL 9-29 mouth. ity of 08:13: [place] [address] Medical Branch TURMERIC Yes Take by Univer s ORAL 9-29 mouth. ity of 08:13: [place] [address] Medical Branch TURMERIC Yes Take by Univer s ORAL 9-29 mouth. ity of 08:13: [place] [address] Medical Branch TURMERIC Yes Take by Univer s ORAL 9-29 mouth. ity of 08:13: [place] [address] Medical Branch TURMERIC Yes Take by Univer s ORAL 9-29 mouth. ity of 08:13: [place] [address] Medical Branch TURMERIC Yes Take by Univer s ORAL 9-29 mouth. ity of 08:13: [place] [address] Medical Branch TURMERIC Yes Take by Univer s ORAL 9-29 mouth. ity of 08:13: [place] [address] Medical Branch TURMERIC Yes Take by Univer s ORAL 9-29 mouth. ity of 08:13: [place] [address] Medical Branch TURMERIC Yes Take by Univer s ORAL 9-29 mouth. ity of 08:13: [place] [address] Medical Branch TURMERIC Yes Take by Univer s ORAL 9-29 mouth. ity of 08:13: [place] [address] Medical Branch TURMERIC Yes Take by Univer s ORAL 9-29 mouth. ity of 08:13: [place] [address] Medical Branch TURMERIC Yes Take by Univer s ORAL 9-29 mouth. ity of 08:13: [place] [address] Medical Branch TURMERIC Yes Take by Univer s ORAL 9-29 mouth. ity of 08:13: [place] [address] Medical Branch TURMERIC Yes Take by Univer s ORAL 9-29 mouth. ity of 08:13: [place] [address] Medical Branch TURMERIC Yes Take by Univer s ORAL 9-29 mouth. ity of 08:13: [place] [address] Medical Branch TURMERIC Yes Take by Univer s ORAL 9-29 mouth. ity of 08:13: [place] [address] Medical Branch TURMERIC Yes Take by Univer s ORAL 9-29 mouth. ity of 08:13: [place] [address] Medical Branch TURMERIC Yes Take by Univer s ORAL 9-29 mouth. ity of 08:13: [place] [address] Medical Branch TURMERIC Yes Take by Univer s ORAL 9-29 mouth. ity of 08:13: [place] [address] Medical Branch TURMERIC Yes Take by Univer s ORAL 9-29 mouth. ity of 08:13: [place] [address] Medical Branch TURMERIC Yes Take by Univer s ORAL 9-29 mouth. ity of 08:13: [place] [address] Medical Branch TURMERIC Yes Take by Univer s ORAL 9-29 mouth. ity of 08:13: [place] [address] Medical Branch TURMERIC Yes Take by Univer s ORAL 9-29 mouth. ity of 08:13: [place] [address] Medical Branch TURMERIC Yes Take by Univer s ORAL 9-29 mouth. ity of 08:13: [place] [address] Medical Branch TURMERIC Yes Take by Univer s ORAL 9-29 mouth. ity of 08:13: [place] [address] Medical Branch TURMERIC Yes Take by Univer s ORAL 9-29 mouth. ity of 08:13: [place] [address] Medical Branch TURMERIC Yes Take by Univer s ORAL 9-29 mouth. ity of 08:13: [place] [address] Medical Branch TURMERIC Yes Take by Univer s ORAL 9-29 mouth. ity of 08:13: [place] [address] Medical Branch TURMERIC Yes Take by Univer s ORAL 9-29 mouth. ity of 08:13: [place] [address] Medical Branch [facility] Yes Take by Univer s ORAL 9-29 mouth. ity of 08:13: [place] [address] Medical Branch TURMERIC 2021-0 Yes Take by Univer s ORAL 9-29 mouth. ity of 08:13: [place] [address] Medical Branch [facility] Yes Take by Univer s ORAL 9-29 mouth. ity of 08:13: [place] [address] Medical Branch [facility]-0 Yes Take by Univer s ORAL 9-29 mouth. ity of 08:13: [place] [address] Medical Branch [facility]-0 Yes Take by Univer s ORAL 9-29 mouth. ity of 08:13: [address] Branch isosorbide 2021-0 Yes [id number] 30mg Take 1 U nivers mononitrate 9-29 tablet by ity of 30 mg 24 hr 00:00: mouth in [place] tablet 00 the Medical morning. Branch cyclobenzap 2021-0 Yes [id number] 5mg Take 1 Univers rine 5 mg 9-29 tablet by ity o f tablet 00:00: mouth 3 [place] [id number] (three) Medical times Branch daily as needed for Muscle Spasms. isosorbide 2021-0 Yes [id number] 30mg Take 1 U nivers mononitrate 9-29 tablet by ity of 30 mg 24 hr 00:00: mouth in [place] tablet 00 the Medical morning. Branch cyclobenzap 2021-0 Yes [id number] 5mg Take 1 Univers rine 5 mg 9-29 tablet by ity o f tablet 00:00: mouth 3 [place] 00 (three) Medical times Branch daily as needed for Muscle Spasms. isosorbide 2-0 Yes [id number] 30mg Take 1 U nivers mononitrate 9-29 tablet by ity of 30 mg 24 hr 00:00: mouth in [place] tablet 00 the Medical morning. Branch cyclobenzap 2021-0 Yes [id number] 5mg Take 1 Univers rine 5 mg 9-29 tablet by ity o f tablet 00:00: mouth 3 [place] 00 (three) Medical times Branch daily as needed for Muscle Spasms. isosorbide 2022-0 Yes [id number] 30mg Take 1 U nivers mononitrate 9-29 tablet by ity of 30 mg 24 hr 00:00: mouth in [place] tablet 00 the Medical morning. Branch cyclobenzap 2-0 Yes [id number] 5mg Take 1 Univers rine 5 mg 9-29 tablet by ity o f tablet 00:00: mouth 3 [place] 00 (three) Medical times Branch daily as needed for Muscle Spasms. isosorbide 2022-0 Yes [id number] 30mg Take 1 U nivers mononitrate 9-29 tablet by ity of 30 mg 24 hr 00:00: mouth in [place] tablet 00 the Medical morning. Branch cyclobenzap 2021-0 Yes [id number] 5mg Take 1 [facility] rine 5 mg 9-29 tablet by ity o f tablet 00:00: mouth 3 [place] (three) Medical times Branch daily as needed for Muscle Spasms. isosorbide 2022-0 Yes [id number] 30mg Take 1 U nivers mononitrate 9-29 tablet by ity of 30 mg 24 hr 00:00: mouth in [place] tablet 00 the Medical morning. Branch cyclobenzap 2021-0 Yes [id number] 5mg Take 1 [facility] rine 5 mg 9-29 tablet by ity o f tablet 00:00: mouth 3 (three) Medical times Branch daily as needed for Muscle Spasms. isosorbide 2022-0 Yes [id number] 30mg Take 1 U nivers mononitrate 9-29 tablet by ity of 30 mg 24 hr 00:00: mouth in [place] tablet 00 the Medical morning. Branch cyclobenzap 2-0 Yes [id number] 5mg Take 1 [facility] rine 5 mg 9-29 tablet by ity o f tablet 00:00: mouth 3 [place] 00 (three) Medical times Branch daily as needed for Muscle Spasms. isosorbide 2022-0 Yes [id number] 30mg Take 1 U nivers mononitrate 9-29 tablet by ity of 30 mg 24 hr 00:00: mouth in [place] tablet 00 the Medical morning. Branch cyclobenzap 2-0 Yes [id number] 5mg Take 1 [facility] rine 5 mg 9-29 tablet by ity o f tablet 00:00: mouth 3 [place] 00 (three) Medical times Branch daily as needed for Muscle Spasms. isosorbide 2022-0 Yes [id number] 30mg Take 1 U nivers mononitrate 9-29 tablet by ity of 30 mg 24 hr 00:00: mouth in [place] tablet 00 the Medical morning. Branch cyclobenzap 2-0 Yes [id number] 5mg Take 1 [facility] rine 5 mg 9-29 tablet by ity o f tablet 00:00: mouth 3 [place] 00 (three) Medical times Branch daily as needed for Muscle Spasms. isosorbide 2022-0 Yes [id number] 30mg Take 1 U nivers mononitrate 9-29 tablet by ity of 30 mg 24 hr 00:00: mouth in [place] tablet 00 the Medical morning. Branch cyclobenzap 2021-0 Yes [id number] 5mg Take 1 [facility] rine 5 mg 9-29 tablet by ity o f tablet 00:00: mouth 3 [place] 00 (three) Medical times Branch daily as needed for Muscle Spasms. isosorbide 2022-0 Yes [id number] 30mg Take 1 U nivers mononitrate 9-29 tablet by ity of 30 mg 24 hr 00:00: mouth in [place] tablet 00 the Medical morning. Branch cyclobenzap 2-0 Yes [id number] 5mg Take 1 [facility] rine 5 mg 9-29 tablet by ity o f tablet 00:00: mouth 3 [place] (three) Medical times Branch daily as needed for Muscle Spasms. isosorbide 2022-0 Yes [id number] 30mg Take 1 U nivers mononitrate 9-29 tablet by ity of 30 mg 24 hr 00:00: mouth in [place] tablet 00 the Medical morning. Branch cyclobenzap 2-0 Yes [id number] 5mg Take 1 Univers rine 5 mg 9-29 tablet by ity o f tablet 00:00: mouth 3 [place] 00 (three) Medical times Branch daily as needed for Muscle Spasms. isosorbide 2022-0 Yes [id number] 30mg Take 1 U nivers mononitrate 9-29 tablet by ity of 30 mg 24 hr 00:00: mouth in [place] tablet 00 the Medical morning. Branch cyclobenzap 2-0 Yes [id number] 5mg Take 1 [facility] rine 5 mg 9-29 tablet by ity o f tablet 00:00: mouth 3 [place] 00 (three) Medical times Branch daily as needed for Muscle Spasms. isosorbide 2022-0 Yes [id number] 30mg Take 1 U nivers mononitrate 9-29 tablet by ity of 30 mg 24 hr 00:00: mouth in [place] tablet 00 the Medical morning. Branch cyclobenzap 2021-0 Yes [id number] 5mg Take 1 [facility] rine 5 mg 9-29 tablet by ity o f tablet 00:00: mouth 3 [place] 00 (three) Medical times Branch daily as needed for Muscle Spasms. isosorbide 2-0 Yes [id number] 30mg Take 1 U nivers mononitrate 9-29 tablet by ity of 30 mg 24 hr 00:00: mouth in [place] tablet 00 the Medical morning. Branch cyclobenzap 2021-0 Yes [id number] 5mg Take 1 [facility] rine 5 mg 9-29 tablet by ity o f tablet 00:00: mouth 3 (three) Medical times Branch daily as needed for Muscle Spasms. isosorbide 2021-0 Yes [id number] 30mg Take 1 U nivers mononitrate 9-29 tablet by ity of 30 mg 24 hr 00:00: mouth in [place] tablet 00 the Medical morning. Branch cyclobenzap 2021-0 Yes [id number] 5mg Take 1 [facility] rine 5 mg 9-29 tablet by ity o f tablet 00:00: mouth 3 (three) Medical times Branch daily as needed for Muscle Spasms. isosorbide 2021-0 Yes [id number] 30mg Take 1 U nivers mononitrate 9-29 tablet by ity of 30 mg 24 hr 00:00: mouth in [place] tablet 00 the Medical morning. Branch cyclobenzap 2021-0 Yes [id number] 5mg Take 1 [facility] rine 5 mg 9-29 tablet by ity o f tablet 00:00: mouth 3 [place] 00 (three) Medical times Branch daily as needed for Muscle Spasms. isosorbide 2022-0 Yes [id number] 30mg Take 1 U nivers mononitrate 9-29 tablet by ity of 30 mg 24 hr 00:00: mouth in [place] tablet 00 the Medical morning. Branch cyclobenzap 2021-0 Yes [id number] 5mg Take 1 [facility] rine 5 mg 9-29 tablet by ity o f tablet 00:00: mouth 3 [place] 00 (three) Medical times Branch daily as needed for Muscle Spasms. isosorbide 2022-0 Yes [id number] 30mg Take 1 U nivers mononitrate 9-29 tablet by ity of 30 mg 24 hr 00:00: mouth in [place] tablet 00 the Medical morning. Branch cyclobenzap 2-0 Yes [id number] 5mg Take 1 [facility] rine 5 mg 9-29 tablet by ity o f tablet 00:00: mouth 3 [place] (three) Medical times Branch daily as needed for Muscle Spasms. isosorbide 2022-0 Yes [id number] 30mg Take 1 U nivers mononitrate 9-29 tablet by ity of 30 mg 24 hr 00:00: mouth in [place] tablet 00 the Medical morning. Branch cyclobenzap 2-0 Yes [id number] 5mg Take 1 [facility] rine 5 mg 9-29 tablet by ity o f tablet 00:00: mouth 3 [place] (three) Medical times Branch daily as needed for Muscle Spasms. isosorbide 2022-0 Yes [id number] 30mg Take 1 U nivers mononitrate 9-29 tablet by ity of 30 mg 24 hr 00:00: mouth in [place] tablet 00 the Medical morning. Branch cyclobenzap 2-0 Yes [id number] 5mg Take 1 [facility] rine 5 mg 9-29 tablet by ity o f tablet 00:00: mouth 3 [place] (three) Medical times Branch daily as needed for Muscle Spasms. isosorbide 2022-0 Yes [id number] 30mg Take 1 U nivers mononitrate 9-29 tablet by ity of 30 mg 24 hr 00:00: mouth in [place] tablet 00 the Medical morning. Branch cyclobenzap 2-0 Yes [id number] 5mg Take 1 [facility] rine 5 mg 9-29 tablet by ity o f tablet 00:00: mouth 3 [place] (three) Medical times Branch daily as needed for Muscle Spasms. isosorbide 2022-0 Yes [id number] 30mg Take 1 U nivers mononitrate 9-29 tablet by ity of 30 mg 24 hr 00:00: mouth in [place] tablet 00 the Medical morning. Branch cyclobenzap 2022-0 Yes [id number] 5mg Take 1 [facility] rine 5 mg 9-29 tablet by ity o f tablet 00:00: mouth 3 (three) Medical times Branch daily as needed for Muscle Spasms. isosorbide 2022-0 Yes [id number] 30mg Take 1 U nivers mononitrate 9-29 tablet by ity of 30 mg 24 hr 00:00: mouth in [place] tablet 00 the Medical morning. Branch cyclobenzap 2022-0 Yes [id number] 5mg Take 1 [facility] rine 5 mg 9-29 tablet by ity o f tablet 00:00: mouth 3 (three) Medical times Branch daily as needed for Muscle Spasms. isosorbide 2022-0 Yes [id number] 30mg Take 1 U nivers mononitrate 9-29 tablet by ity of 30 mg 24 hr 00:00: mouth in [place] tablet 00 the Medical morning. Branch cyclobenzap 2-0 Yes [id number] 5mg Take 1 [facility] rine 5 mg 9-29 tablet by ity o f tablet 00:00: mouth 3 (three) Medical times Branch daily as needed for Muscle Spasms. isosorbide 2022-0 Yes [id number] 30mg Take 1 U nivers mononitrate 9-29 tablet by ity of 30 mg 24 hr 00:00: mouth in [place] tablet 00 the Medical morning. Branch cyclobenzap 2-0 Yes [id number] 5mg Take 1 [facility] rine 5 mg 9-29 tablet by ity o f tablet 00:00: mouth 3 (three) Medical times Branch daily as needed for Muscle Spasms. isosorbide 2022-0 Yes [id number] 30mg Take 1 U nivers mononitrate 9-29 tablet by ity of 30 mg 24 hr 00:00: mouth in [place] tablet 00 the Medical morning. Branch cyclobenzap 2022-0 Yes [id number] 5mg Take 1 [facility] rine 5 mg 9-29 tablet by ity o f tablet 00:00: mouth 3 (three) Medical times Branch daily as needed for Muscle Spasms. isosorbide 2022-0 Yes [id number] 30mg Take 1 U nivers mononitrate 9-29 tablet by ity of 30 mg 24 hr 00:00: mouth in [place] tablet 00 the Medical morning. Branch cyclobenzap 2022-0 Yes [id number] 5mg Take 1 [facility] rine 5 mg 9-29 tablet by ity o f tablet 00:00: mouth 3 (three) Medical times Branch daily as needed for Muscle Spasms. isosorbide 2022-0 Yes [id number] 30mg Take 1 U nivers mononitrate 9-29 tablet by ity of 30 mg 24 hr 00:00: mouth in [place] tablet 00 the Medical morning. Branch cyclobenzap 2-0 Yes [id number] 5mg Take 1 [facility] rine 5 mg 9-29 tablet by ity o f tablet 00:00: mouth 3 (three) Medical times Branch daily as needed for Muscle Spasms. isosorbide 2022-0 Yes [id number] 30mg Take 1 U nivers mononitrate 9-29 tablet by ity of 30 mg 24 hr 00:00: mouth in [place] tablet 00 the Medical morning. Branch cyclobenzap 2-0 Yes [id number] 5mg Take 1 [facility] rine 5 mg 9-29 tablet by ity o f tablet 00:00: mouth 3 (three) Medical times Branch daily as needed for Muscle Spasms. isosorbide 2022-0 Yes [id number] 30mg Take 1 U nivers mononitrate 9-29 tablet by ity of 30 mg 24 hr 00:00: mouth in [place] tablet 00 the Medical morning. Branch cyclobenzap 2-0 Yes [id number] 5mg Take 1 [facility] rine 5 mg 9-29 tablet by ity o f tablet 00:00: mouth 3 (three) Medical times Branch daily as needed for Muscle Spasms. isosorbide 2022-0 Yes [id number] 30mg Take 1 U nivers mononitrate 9-29 tablet by ity of 30 mg 24 hr 00:00: mouth in [place] tablet 00 the Medical morning. Branch cyclobenzap 2022-0 Yes [id number] 5mg Take 1 [facility] rine 5 mg 9-29 tablet by ity o f tablet 00:00: mouth 3 [place] 00 (three) Medical times Branch daily as needed for Muscle Spasms. isosorbide 2022-0 Yes [id number] 30mg Take 1 U nivers mononitrate 9-29 tablet by ity of 30 mg 24 hr 00:00: mouth in [place] tablet 00 the Medical morning. Branch cyclobenzap 2021-0 Yes [id number] 5mg Take 1 [facility] rine 5 mg 9-29 tablet by ity o f tablet 00:00: mouth 3 [place] 00 (three) Medical times Branch daily as needed for Muscle Spasms. isosorbide 2-0 Yes [id number] 30mg Take 1 U nivers mononitrate 9-29 tablet by ity of 30 mg 24 hr 00:00: mouth in [place] tablet 00 the Medical morning. Branch cyclobenzap 2021-0 Yes [id number] 5mg Take 1 [facility] rine 5 mg 9-29 tablet by ity o f tablet 00:00: mouth 3 [place] 00 (three) Medical times Branch daily as needed for Muscle Spasms. isosorbide 2022-0 Yes [id number] 30mg Take 1 U nivers mononitrate 9-29 tablet by ity of 30 mg 24 hr 00:00: mouth in [place] tablet 00 the Medical morning. Branch cyclobenzap 2021-0 Yes [id number] 5mg Take 1 [facility] rine 5 mg 9-29 tablet by ity o f tablet 00:00: mouth 3 [place] 00 (three) Medical times Branch daily as needed for Muscle Spasms. cyclobenzap 2021-0 Yes [id number] 5mg Take 1 [facility] rine 5 mg 9-29 tablet by ity o f tablet 00:00: mouth 3 [place] 00 (three) Medical times Branch daily as needed for Muscle Spasms. cyclobenzap 2-0 Yes [id number] 5mg Take 1 [facility] rine 5 mg 9-29 tablet by ity o f tablet 00:00: mouth 3 (three) Medical times Branch daily as needed for Muscle Spasms. isosorbide 2022-0 3- No [id number] 30mg Take 1 Univers mononitrate 9-29 01-31 tablet by it y of 30 mg 24 hr 00:00: 00:00 mouth in [place] tablet 00 :00 the Medical morning. Branch isosorbide 2022-0 3- No [id number] 30mg Take 1 Univers mononitrate 9-29 01-31 tablet by it y of 30 mg 24 hr 00:00: 00:00 mouth in [place] tablet 00 :00 the Medical morning. Branch cyclobenzap 2022-0 3- No [id number] 5mg Take 1 Univers rine 5 mg 11-11 tablet by ity of tablet 00:00: 00:00 mouth 3 [place] 00 :00 (three) Medical times [place] daily as needed for Muscle Spasms. levoFLOXaci 750mg 750 mg, IV Univers n in D5W 11-04 Piggyback, ity of (LEVAQUIN) 16:00: 15:59 at 100 [place] mg/150 00 :00 mL/hr Medical mL Administer Branch Piggyback over 90 750 mg Minutes, Q48H, 3 doses, First dose on [place] 11/04/21 at 1100, Last dose on 11/08/21 at 1100, HELEN
Re ason for Anti-Infec tive: Documented Infection< br>Documen sera Infection Site: Respirator y
Durat ion of Therapy: 7 days aspirin 81 Yes 81mg Take 81 mg U nivers mg chewable 11-03 by mouth ity of tablet 13:37: daily. [address] [facility] Take by Univer s ORAL 11-03 mouth. ity of 13:37: [address] multivitami Yes Take by Uni vers n/iron/foli 11-03 mouth. ity of c acid 13:37: [place] ([facility] ORAL) [place] isosorbide Yes 30mg Take 30 mg U nivers mononitrate 11-03 by mouth. ity of 30 mg 24 hr 13:37: [place] tablet [address] [place] [address] Branch Cholecalcif Yes 1000U Take 1,000 Univers alhaji, - Units by ity of Vitamin D3, 13:37: [facility] (1,000 Branch unit) Chew aspirin 81 Yes 81mg Take 81 mg U nivers mg chewable -21 by mouth ity of tablet 13:37: daily. [address] [facility] Yes Take by Univer s ORAL 9- mouth. ity of 13:37: [address] multivitami Yes Take by Uni vers n/iron/foli 11-03 mouth. ity of c acid 13:37: [place] ([facility] 27 Medical ORAL) Branch isosorbide Yes 30mg Take 30 mg U nivers mononitrate 9-21 by mouth. ity of 30 mg 24 hr 13:37: [place] tablet Medical Branch Cholecalcif Yes 1000U Take 1,000 Univers alhaji, 9-21 Units by ity of Vitamin D3, 13:37: mouth. [place] 25 mcg 27 Medical (1,000 Branch unit) Chew aspirin 81 0 Yes 81mg Take 81 mg U nivers mg chewable 21 by mouth ity of tablet 13:37: daily. [address] Branch [facility] Yes Take by Univer s ORAL - mouth. ity of 13:37: [address] multivitami Yes Take by Uni vers n/iron/foli -21 mouth. ity of c acid 13:37: [place] ([facility] 27 Medical ORAL) [place] isosorbide Yes 30mg Take 30 mg U nivers mononitrate -21 by mouth. ity of 30 mg 24 hr 13:37: [place] tablet [address] [place] [address] Branch Cholecalcif Yes 1000U Take 1,000 Univers alhaji, 9-21 Units by ity of Vitamin D3, 13:37: mouth. [place] 25 mcg 27 Medical (1,000 Branch unit) Chew multivitami Yes Take by Uni vers n/iron/foli 9-21 mouth. ity of c acid 13:37: [place] ([facility] 27 Medical ORAL) Branch multivitami Yes Take by Uni vers n/iron/foli 9-21 mouth. ity of c acid 13:37: [place] ([facility] 27 Medical ORAL) Branch multivitami Yes Take by Uni vers n/iron/foli 9-21 mouth. ity of c acid 13:37: [place] ([place] [address] Medical ORAL) Branch heparin Yes 5000U 5,000 Univers (porcine) 9-21 Units, ity of injection 01:00: [place] 5,000 Units 00 us, Q12H, Med ical First dose Branch on Mon11/02/21 at 2000, Until Discontinu ed, Routine traMADoL 0 2021- No 50mg 50 mg, Univer s (ULTRAM) 11-03 Oral, ity of tablet 50 00:37: 00:36 Q8HPRN, [place] mg 23 :23 Starting Medical on [facility] Branch 11/02/21 at 1937, Until [facility] 11/04/21 at 193, Routine, Pain (scale 4-6) benzonatate 2021- No [id number] 100mg Take 1 Univers 100 mg 11-03 capsule by ity of capsule 00:00: 04:59 mouth [place] 00 :00 every 8 Medical (eight) Branch hours for 10 days. benzonatate 2021- No [id number] 100mg Take 1 Univers 100 mg 11-03 capsule by ity of capsule 00:00: 04:59 mouth [place] 00 :00 every 8 Medical (eight) Branch hours for 10 days. benzonatate 2021- No [id number] 100mg Take 1 Univers 100 mg 11-03 capsule by ity of capsule 00:00: 04:59 mouth [place] 00 :00 every 8 Medical ([facility]) Branch hours for 10 days. levoFLOXaci 2021- No [id number] 500mg Take 1 Univers n 500 mg 11-03 tablet by ity o f tablet 00:00: 04:59 mouth [place] 00 :00 every 48 Medical ([facility]) hours for 7 days. levoFLOXaci 2021-0 2021- No [id number] 500mg Take 1 Univers n 500 mg 11-03 tablet by ity o f tablet 00:00: 04:59 mouth [place] 00 :00 every 48 Medical ([facility]) hours for 7 days. levoFLOXaci 2021-0 2021- No [id number] 500mg Take 1 Univers n 500 mg 11-03 tablet by ity o f tablet 00:00: 04:59 mouth [place] 00 :00 every 48 Medical ([facility]) hours for 7 days. benzonatate 2021- No [id number] 100mg Take 1 Univers 100 mg 11-03 capsule by ity of capsule 00:00: 00:00 mouth [place] 00 :00 every 8 Medical (eight) Branch hours for 10 days. benzonatate 2021- No [id number] 100mg Take 1 Univers 100 mg 11-03 capsule by ity of capsule 00:00: 00:00 mouth [place] 00 :00 every 8 Medical (eight) Branch hours for 10 days. nystatin 2021- No [id number] Take 10 mL Univers 100,000 11-03 U by mouth 4 ity o f unit/mL 00:00: 04:59 (four) [place] suspension 00 :00 times Medical daily for Branch 5 days. predniSONE 2021- No [id number] 40mg Take 2 Univers 20 mg 11-03 tablets by ity of tablet 00:00: 04:59 mouth in [place] 00 :00 the [facility] Branch for 5 days. nystatin 2021- No [id number] Take 10 mL Univers 100,000 11-03 U by mouth 4 ity o f unit/mL 00:00: 04:59 (four) [place] suspension 00 :00 times Medical daily for Branch 5 days. predniSONE 2021- No [id number] 40mg Take 2 Univers 20 mg 11-03 tablets by ity of tablet 00:00: 04:59 mouth in [place] 00 :00 the [facility] Branch for 5 days. nystatin 2021- No [id number] Take 10 mL Univers 100,000 11-03 U by mouth 4 ity o f unit/mL 00:00: 04:59 (four) [place] suspension 00 :00 times Medical daily for Branch 5 days. predniSONE 2021- No [id number] 40mg Take 2 Univers 20 mg 11-03 tablets by ity of tablet 00:00: 04:59 mouth in [place] 00 :00 the [facility] morning Branch for 5 days. levoFLOXaci 2021- No 500mg 500 mg, IV Univers n in D5W 11-02 Piggyback, ity of (LEVAQUIN) 16:30: 22:33 at 100 [place] 500 mg/100 00 :58 mL/hr Medical mL Administer Branch Piggyback over 60 500 mg Minutes, Q24H ABX, 5 doses, First dose on Mon11/02/21 at 1130, Last dose on 11/06/21 at 1130, HELEN
Re ason for Anti-Infec tive: Documented Infection< br>Documen sera Infection Site: Respirator y
Durat ion of Therapy: 7 days ipratropium 0 Yes 3mL 3 mL, Unive rs -albuteroL 11-02 Inhalation ity of (DUONEB) 16:00: , Q4HPRN, [place] 0.5 mg-3 00 Starting Medical mg(2.5 mg on Mon base)/3 mL 11/02/21 at nebulizer 1100, solution 3 Until mL Discontinu ed, Routine, Wheezing nystatin 0 Yes 10mL 1,000,000 Univ ers (NILSTAT) 9 Units (10 ity o f 100,000 15:30: mL), Oral, [place] unit/mL 00 QID, First Medica l suspension dose on Branch 1,000,000 Tue Units 11/02/21 at 1030, Until Discontinu ed, Routine sodium Yes 650mg 650 mg, Univers bicarbonate 11-02 Oral, BID, it y of (ANTACID 15:00: First dose [place] (SODIUM 00 on Mon Medical BICARBONATE 11/02/21 at Br anch )) tablet 1000, 650 mg Until Discontinu ed, Routine budesonide 2021- No .5mg 0.5 mg, Uni vers (PULMICORT 11-02-20 Inhalation it y of RESPULE) 06:15: 15:59 , BID, [place] nebulizer 00 :34 First dose Medi shavon solution on Mon 0.5 mg 11/02/21 at 0115, Until Discontinu ed, Routine albuterol 0 Yes 2{puff} 2 Puff, Un anabell (VENTOLIN) 11-02 Inhalation ity of inhaler 2 06:07: , Q4HPRN, [place] Puff 28 Starting Medical on [facility] 11/02/21 at 0107, Until Discontinu ed, Routine, Wheezing, Shortness of Breath, Bronchospa sm NaCl 0.9% 0 202- No 1000mL at 75 Univ ers (NS) IV 11-01 09-20 mL/hr, IV ity of infusion 21:45: 14:56 Infusion, [place] 1,000 mL 00 :29 CONTINUOUS Medic al , Starting Branch on Mon11/01/21 at 1645, Until Mon11/02/21 at 0956, Routine isosorbide 0 Yes 30mg 30 mg, Unive rs mononitrate 11-01 Oral, ity of (IMDUR) 24 14:00: DAILY, [place] hr tablet 00 First dose Medi shavon 30 mg on [facility] 11/01/21 at 0900, Until Discontinu ed, Routine foLIC acid Yes 1mg 1 mg, Univer s (FOLATE) 11-01 Oral, ity of tablet 1 mg 14:00: DAILY, [place] 00 First dose Medical on [facility] 11/01/21 at 0900, Until Discontinu ed, Routine ezetimibe Yes 10mg 10 mg, Univer s (ZETIA) 11-01 Oral, ity of tablet 10 14:00: DAILY, [place] mg 00 First dose Medical on [facility] 11/01/21 at 0900, Until Discontinu ed, Routine aspirin Yes 81mg 81 mg, Univers chewable 11-01 Oral, ity of tablet 81 14:00: DAILY, [place] mg 00 First dose Medical on [facility] 11/01/21 at 0900, Until Discontinu ed, Routine enoxaparin No 40mg 40 mg, Univ ers (LOVENOX) 11-01 Subcutaneo ity of injection 14:00: 14:56 [place], DAILY, [place] 40 mg 00 :30 First dose Medical on [facility] 11/01/21 at 0900, Until Discontinu ed, Routine carvediloL 0 Yes 6.25mg 6.25 mg, U nivers (COREG) 11-01 Oral, BID ity of tablet 6.25 13:00: MEALS, [place] mg 00 First dose Medical on [facility] 11/01/21 at 0800, Until Discontinu ed, Routine sodium 2021-0 202- No 4mL 4 mL, Univers chloride 7% 11-01 Inhalation i ty of (HYPER-KE) 07:00: 09:26 , ONCE, 1 [place] nebulizer 00 :00 dose, On Medica l solution 4 [facility] mL 11/01/21 at 0200, Routine benzocaine- 2021-0 Yes 1{lozen 1 Lozenge, Univers menthoL 11-01 ge} Oral, ity of (CEPACOL 03:05: Q4HPRN, [place] SORE THROAT 44 Starting Medi shavon (BARNEY-MEN)) on Sun Branch lozenge 1 10/31/21 at Lozenge 2205, Until Discontinu ed, Routine, Sore throat ipratropium 2021-0 2021- No 3mL 3 mL, Univ ers -albuteroL 11-01 Inhalation it y of (DUONEB) 01:00: 15:59 , Q4H, [place] 0.5 mg-3 00 :34 First dose Medic al mg(2.5 mg on Sun Branch base)/3 mL 10/31/21 at nebulizer 2000, solution 3 Until mL Discontinu ed, Routine NaCl 0.9% 2021- No 1000mL at 100 Uni vers (NS) IV 11-01 mL/hr, IV ity of infusion 00:30: 21:44 Infusion, [place] 1,000 mL 00 :10 CONTINUOUS Medic al , Starting Branch on 10/31/21 at 1930, Until 11/01/21 at 1644, Routine acetaminoph 2021-0 Yes 650mg 650 mg, Un anabell en 11-01 Oral, ity of (TYLENOL) 00:13: Q6HPRN, [place] tablet 650 29 Starting Medic al mg on Sun Branch 10/31/21 at 1913, Until Discontinu ed, Routine, Pain (scale 1-3) benzonatate 2021-0 Yes 100mg 100 mg, Un anabell (TESSALON 18 Oral, Q8H, ity of PERLES) 23:00: First dose [place] capsule 100 00 on Sun Medica l mg 10/31/21 at Branch 1800, Until Discontinu ed, Routine Cholecalcif 2021-0 2021- No Take by Un anabell alhaji, 10-3118 mouth. ity of Vitamin D3, 19:15: 00:00 [place] 125 mcg 31 :00 Medical (5,000 Branch unit) tablet aspirin 81 2021-0 Yes 81mg Take 81 mg U nivers mg chewable 9-13 by mouth ity of tablet 14:35: daily. [address] aspirin 81 2-0 Yes 81mg Take 81 mg U nivers mg chewable 9-13 by mouth ity of tablet 14:35: daily. [address] aspirin 81 2-0 Yes 81mg Take 81 mg U nivers mg chewable 9-13 by mouth ity of tablet 14:35: daily. [address] doxycycline 2-0 Yes [id number] 100mg Take 1 Univers hyclate 100 9-13 tablet by ity of mg tablet 00:00: [place] in [place] 00 the Medical morning Branch and 1 tablet in the evening. promethazin 2021-0 Yes [id number] 5mL Take 5 mL Univers e-dextromet 9-13 by mouth 4 it y of horphan 00:00: (four) [place] 6.25-15 00 times Medical mg/5 mL daily as Branch syrup needed for Cough. doxycycline 2021-0 Yes [id number] 100mg Take 1 Univers hyclate 100 9-13 tablet by ity of mg tablet 00:00: mouth [place] 00 the [facility] morning Branch and 1 tablet in the evening. promethazin 2021-0 Yes [id number] 5mL Take 5 mL Univers e-dextromet 9-13 by mouth 4 it y of horphan 00:00: (four) [place] 6.25-15 00 times Medical mg/5 mL daily as Branch syrup needed for Cough. doxycycline 2021-0 Yes [id number] 100mg Take 1 Univers hyclate 100 9-13 tablet by ity of mg tablet 00:00: mouth [place] the [facility] morning Branch and 1 tablet in the evening. promethazin 2-0 Yes [id number] 5mL Take 5 mL Univers e-dextromet 9-13 by mouth 4 it y of horphan 00:00: (four) [place] 6.25-15 00 times Medical mg/5 mL daily as Branch syrup needed for Cough. promethazin 2022-0 Yes [id number] 5mL Take 5 mL Univers e-dextromet 9-13 by mouth 4 it y of horphan 00:00: (four) [place] 6.25-15 00 times Medical mg/5 mL daily as Branch syrup needed for Cough. promethazin 2-0 Yes [id number] 5mL Take 5 mL Univers e-dextromet 9-13 by mouth 4 it y of horphan 00:00: (four) [place] 6.25-15 00 times Medical mg/5 mL daily as Branch syrup needed for Cough. promethazin 0 Yes [id number] 5mL Take 5 mL Univers e-dextromet 9-13 by mouth 4 it y of horphan 00:00: (four) [place] 6.25-15 00 times Medical mg/5 mL daily as Branch syrup needed for Cough. promethazin Yes [id number] 5mL Take 5 mL Univers e-dextromet 9-13 by mouth 4 it y of horphan 00:00: (four) [place] 6.25-15 00 times Medical mg/5 mL daily as Branch syrup needed for Cough. promethazin Yes [id number] 5mL Take 5 mL Univers e-dextromet 9-13 by mouth 4 it y of horphan 00:00: (four) [place] 6.25-15 00 times Medical mg/5 mL daily as Branch syrup needed for Cough. promethazin 2021- No [id number] 5mL Take 5 mL Univers e-dextromet 9-13 10-24 by mouth 4 i ty of horphan 00:00: 00:00 (four) [place] 6.25-15 00 :00 times Medical mg/5 mL daily as Branch syrup needed for Cough. promethazin 2021- No [id number] 5mL Take 5 mL Univers e-dextromet 9-13 10-24 by mouth 4 i ty of horphan 00:00: 00:00 (four) [place] 6.25-15 00 :00 times Medical mg/5 mL daily as Branch syrup needed for Cough. promethazin 2021-0 2021- No [id number] 5mL Take 5 mL Univers e-dextromet 9-13 10-24 by mouth 4 i ty of horphan 00:00: 00:00 (four) [place] 6.25-15 00 :00 times Medical mg/5 mL daily as Branch syrup needed for Cough. doxycycline 2021- No [id number] 100mg Take 1 Univers hyclate 100 -26 10- tablet by it y of mg tablet 00:00: 00:00 mouth in [place] 00 :00 the Medical morning Branch and 1 tablet in the evening. Cholecalcif 2022-0 Yes Take by Uni vers alhaji, 8-16 mouth. ity of Vitamin D3, 14:34: [place] 125 mcg 54 Medical (5,000 Branch unit) tablet Cholecalcif 2022-0 Yes Take by Uni vers alhaji, 8-16 mouth. ity of Vitamin D3, 14:34: [place] 125 mcg 54 Medical (5,000 Branch unit) tablet Cholecalcif 2022-0 Yes Take by Uni vers alhaji, 8-16 mouth. ity of Vitamin D3, 14:34: [place] 125 mcg 54 Medical (5,000 Branch unit) tablet spironolact 2022-0 Yes as needed. Univers one-hydroch 8-16 PRN Daily ity of lorothiazid 00:00: [place] e 25-25 mg 00 Medical per tablet Branch cyclobenzap 2-0 Yes [id number] 5mg Take 1 Univers rine 5 mg 8-16 tablet by ity o f tablet 00:00: mouth 3 [place] [address] (three) Medical times Branch daily as needed for Muscle Spasms. spironolact 2022-0 Yes as needed. Univers one-hydroch 8-16 PRN Daily ity of lorothiazid 00:00: [place] e 25-25 mg 00 Medical per tablet Branch cyclobenzap 2022-0 Yes [id number] 5mg Take 1 Univers rine 5 mg 8-16 tablet by ity o f tablet 00:00: mouth 3 [place] 00 (three) Medical times Branch daily as needed for Muscle Spasms. spironolact 2022-0 Yes as needed. Univers one-hydroch 8-16 PRN Daily ity of lorothiazid 00:00: [place] e 25-25 mg 00 Medical per tablet Branch cyclobenzap 2022-0 Yes [id number] 5mg Take 1 Univers rine 5 mg 8-16 tablet by ity o f tablet 00:00: mouth 3 [place] 00 (three) Medical times Branch daily as needed for Muscle Spasms. spironolact 2022-0 Yes as needed. Univers one-hydroch 8-16 PRN Daily ity of lorothiazid 00:00: [place] e 25-25 mg 00 Medical per tablet Branch spironolact 2022-0 Yes as needed. [facility] one-hydroch 8-16 PRN Daily ity of lorothiazid 00:00: [place] e 25-25 mg 00 Medical per tablet Branch spironolact 2021-0 Yes as needed. [facility] one-hydroch 8-16 PRN Daily ity of lorothiazid 00:00: [place] e 25-25 mg 00 Medical per tablet Branch spironolact 2021-0 Yes as needed. [facility] one-hydroch 8-16 PRN Daily ity of lorothiazid 00:00: [place] e 25-25 mg 00 Medical per tablet Branch spironolact 2021-0 Yes as needed. [facility] one-hydroch 8-16 PRN Daily ity of lorothiazid 00:00: [place] e 25-25 mg 00 Medical per tablet Branch spironolact 2021-0 Yes as needed. [facility] one-hydroch 8-16 PRN Daily ity of lorothiazid 00:00: [place] e 25-25 mg 00 Medical per tablet Branch spironolact 2021-0 Yes as needed. [facility] one-hydroch 8-16 PRN Daily ity of lorothiazid 00:00: [place] e 25-25 mg 00 Medical per tablet Branch spironolact 2021-0 Yes as needed. [facility] one-hydroch 8-16 PRN Daily ity of lorothiazid 00:00: [place] e 25-25 mg 00 Medical per tablet Branch spironolact 2021-0 Yes as needed. [facility] one-hydroch 8-16 PRN Daily ity of lorothiazid 00:00: [place] e 25-25 mg 00 Medical per tablet Branch spironolact 2021-0 Yes as needed. [facility] one-hydroch 8-16 PRN Daily ity of lorothiazid 00:00: [place] e 25-25 mg 00 Medical per tablet Branch spironolact 2021-0 Yes as needed. [facility] one-hydroch 8-16 PRN Daily ity of lorothiazid 00:00: [place] e 25-25 mg 00 Medical per tablet Branch spironolact 2021-0 Yes as needed. [facility] one-hydroch 8-16 PRN Daily ity of lorothiazid 00:00: [place] e 25-25 mg 00 Medical per tablet Branch spironolact 2021-0 Yes as needed. [facility] one-hydroch 8-16 PRN Daily ity of lorothiazid 00:00: [place] e 25-25 mg 00 Medical per tablet Branch spironolact 2021-0 Yes as needed. [facility] one-hydroch 8-16 PRN Daily ity of lorothiazid 00:00: [place] e 25-25 mg 00 Medical per tablet Branch spironolact 2021-0 Yes as needed. [facility] one-hydroch 8-16 PRN Daily ity of lorothiazid 00:00: [place] e 25-25 mg 00 Medical per tablet Branch spironolact 2021-0 Yes as needed. [facility] one-hydroch 8-16 PRN Daily ity of lorothiazid 00:00: [place] e 25-25 mg 00 Medical per tablet Branch spironolact 2021-0 Yes as needed. [facility] one-hydroch 8-16 PRN Daily ity of lorothiazid 00:00: [place] e 25-25 mg 00 Medical per tablet Branch spironolact 2021-0 Yes as needed. [facility] one-hydroch 8-16 PRN Daily ity of lorothiazid 00:00: [place] e 25-25 mg 00 Medical per tablet Branch spironolact 2021-0 Yes as needed. [facility] one-hydroch 8-16 PRN Daily ity of lorothiazid 00:00: [place] e 25-25 mg 00 Medical per tablet Branch spironolact 2021-0 Yes as needed. [facility] one-hydroch 8-16 PRN Daily ity of lorothiazid 00:00: [place] e 25-25 mg 00 Medical per tablet Branch spironolact 2021-0 Yes as needed. [facility] one-hydroch 8-16 PRN Daily ity of lorothiazid 00:00: [place] e 25-25 mg 00 Medical per tablet Branch spironolact 2021-0 Yes as needed. [facility] one-hydroch 8-16 PRN Daily ity of lorothiazid 00:00: [place] e 25-25 mg 00 Medical per tablet Branch spironolact 2021-0 Yes as needed. [facility] one-hydroch 8-16 PRN Daily ity of lorothiazid 00:00: [place] e 25-25 mg 00 Medical per tablet Branch spironolact 2021-0 Yes as needed. [facility] one-hydroch 8-16 PRN Daily ity of lorothiazid 00:00: [place] e 25-25 mg 00 Medical per tablet Branch spironolact 2021-0 Yes as needed. [facility] one-hydroch 8-16 PRN Daily ity of lorothiazid 00:00: [place] e 25-25 mg 00 Medical per tablet Branch spironolact 2021-0 Yes as needed. [facility] one-hydroch 8-16 PRN Daily ity of lorothiazid 00:00: [place] e 25-25 mg 00 Medical per tablet Branch spironolact 2021-0 Yes as needed. [facility] one-hydroch 8-16 PRN Daily ity of lorothiazid 00:00: [place] e 25-25 mg 00 Medical per tablet Branch spironolact 2021-0 Yes as needed. [facility] one-hydroch 8-16 PRN Daily ity of lorothiazid 00:00: [place] e 25-25 mg 00 Medical per tablet Branch spironolact 2021-0 Yes as needed. [facility] one-hydroch 8-16 PRN Daily ity of lorothiazid 00:00: [place] e 25-25 mg 00 Medical per tablet Branch spironolact 2021-0 Yes as needed. [facility] one-hydroch 8-16 PRN Daily ity of lorothiazid 00:00: [place] e 25-25 mg 00 Medical per tablet Branch spironolact 2021-0 Yes as needed. [facility] one-hydroch 8-16 PRN Daily ity of lorothiazid 00:00: [place] e 25-25 mg 00 Medical per tablet Branch spironolact 2021-0 Yes as needed. [facility] one-hydroch 8-16 PRN Daily ity of lorothiazid 00:00: [place] e 25-25 mg 00 Medical per tablet Branch spironolact 2021-0 Yes as needed. [facility] one-hydroch 8-16 PRN Daily ity of lorothiazid 00:00: [place] e 25-25 mg 00 Medical per tablet Branch spironolact 2021-0 Yes as needed. [facility] one-hydroch 8-16 PRN Daily ity of lorothiazid 00:00: [place] e 25-25 mg 00 Medical per tablet Branch spironolact 2021-0 Yes as needed. [facility] one-hydroch 8-16 PRN Daily ity of lorothiazid 00:00: [place] e 25-25 mg 00 Medical per tablet Branch spironolact 2021-0 Yes as needed. [facility] one-hydroch 8-16 PRN Daily ity of lorothiazid 00:00: [place] e 25-25 mg 00 Medical per tablet Branch spironolact 2021-0 Yes as needed. [facility] one-hydroch 8-16 PRN Daily ity of lorothiazid 00:00: [place] e 25-25 mg 00 Medical per tablet Branch spironolact 2021-0 Yes as needed. [facility] one-hydroch 8-16 PRN Daily ity of lorothiazid 00:00: [place] e 25-25 mg 00 Medical per tablet Branch spironolact 2021-0 Yes as needed. [facility] one-hydroch 8-16 PRN Daily ity of lorothiazid 00:00: [place] e 25-25 mg 00 Medical per tablet Branch spironolact 2021-0 Yes as needed. [facility] one-hydroch 8-16 PRN Daily ity of lorothiazid 00:00: [place] e 25-25 mg 00 Medical per tablet Branch spironolact 2021-0 Yes as needed. [facility] one-hydroch 8-16 PRN Daily ity of lorothiazid 00:00: [place] e 25-25 mg 00 Medical per tablet Branch spironolact 2021-0 Yes as needed. [facility] one-hydroch 8-16 PRN Daily ity of lorothiazid 00:00: [place] e 25-25 mg 00 Medical per tablet Branch spironolact 2021-0 Yes as needed. [facility] one-hydroch 8-16 PRN Daily ity of lorothiazid 00:00: [place] e 25-25 mg 00 Medical per tablet Branch spironolact 2021-0 Yes as needed. [facility] one-hydroch 8-16 PRN Daily ity of lorothiazid 00:00: [place] e 25-25 mg 00 Medical per tablet Branch spironolact 2021-0 Yes as needed. [facility] one-hydroch 8-16 PRN Daily ity of lorothiazid 00:00: [place] e 25-25 mg 00 Medical per tablet Branch spironolact 2021-0 Yes as needed. [facility] one-hydroch 8-16 PRN Daily ity of lorothiazid 00:00: [place] e 25-25 mg 00 Medical per tablet Branch spironolact 2021-0 Yes as needed. [facility] one-hydroch 8-16 PRN Daily ity of lorothiazid 00:00: [place] e 25-25 mg 00 Medical per tablet Branch spironolact 2021-0 Yes as needed. [facility] one-hydroch 8-16 PRN Daily ity of lorothiazid 00:00: [place] e 25-25 mg 00 Medical per tablet Branch spironolact 2021-0 Yes as needed. [facility] one-hydroch 8-16 PRN Daily ity of lorothiazid 00:00: [place] e 25-25 mg 00 Medical per tablet Branch spironolact 2021-0 Yes as needed. [facility] one-hydroch 8-16 PRN Daily ity of lorothiazid 00:00: [place] e 25-25 mg 00 Medical per tablet Branch spironolact 2021-0 Yes as needed. [facility] one-hydroch 8-16 PRN Daily ity of lorothiazid 00:00: [place] e 25-25 mg 00 Medical per tablet Branch spironolact 2021-0 Yes as needed. [facility] one-hydroch 8-16 PRN Daily ity of lorothiazid 00:00: [place] e 25-25 mg 00 Medical per tablet Branch spironolact 2021-0 Yes as needed. [facility] one-hydroch 8-16 PRN Daily ity of lorothiazid 00:00: [place] e 25-25 mg 00 Medical per tablet Branch spironolact 2021-0 Yes as needed. [facility] one-hydroch 8-16 PRN Daily ity of lorothiazid 00:00: [place] e 25-25 mg 00 Medical per tablet Branch spironolact 2021-0 Yes as needed. [facility] one-hydroch 8-16 PRN Daily ity of lorothiazid 00:00: [place] e 25-25 mg 00 Medical per tablet Branch spironolact 2021-0 Yes as needed. [facility] one-hydroch 8-16 PRN Daily ity of lorothiazid 00:00: [place] e 25-25 mg 00 Medical per tablet Branch spironolact 2021-0 Yes as needed. [facility] one-hydroch 8-16 PRN Daily ity of lorothiazid 00:00: [place] e 25-25 mg 00 Medical per tablet Branch spironolact 2021-0 Yes as needed. [facility] one-hydroch 8-16 PRN Daily ity of lorothiazid 00:00: [place] e 25-25 mg 00 Medical per tablet Branch spironolact 2021-0 Yes as needed. [facility] one-hydroch 8-16 PRN Daily ity of lorothiazid 00:00: [place] e 25-25 mg 00 Medical per tablet Branch spironolact 2021-0 Yes as needed. [facility] one-hydroch 8-16 PRN Daily ity of lorothiazid 00:00: [place] e 25-25 mg 00 Medical per tablet Branch spironolact 2021-0 Yes as needed. [facility] one-hydroch 8-16 PRN Daily ity of lorothiazid 00:00: [place] e 25-25 mg 00 Medical per tablet Branch spironolact 2021-0 Yes as needed. [facility] one-hydroch 8-16 PRN Daily ity of lorothiazid 00:00: [place] e 25-25 mg 00 Medical per tablet Branch spironolact 2021-0 Yes as needed. [facility] one-hydroch 8-16 PRN Daily ity of lorothiazid 00:00: [place] e 25-25 mg 00 Medical per tablet Branch spironolact 2021-0 Yes as needed. [facility] one-hydroch 8-16 PRN Daily ity of lorothiazid 00:00: [place] e 25-25 mg 00 Medical per tablet Branch spironolact 2021-0 Yes as needed. [facility] one-hydroch 8-16 PRN Daily ity of lorothiazid 00:00: [place] e 25-25 mg 00 Medical per tablet Branch spironolact 2021-0 Yes as needed. [facility] one-hydroch 8-16 PRN Daily ity of lorothiazid 00:00: [place] e 25-25 mg 00 Medical per tablet Branch spironolact 2021-0 Yes as needed. [facility] one-hydroch 8-16 PRN Daily ity of lorothiazid 00:00: [place] e 25-25 mg 00 Medical per tablet Branch spironolact 2021-0 Yes as needed. [facility] one-hydroch 8-16 PRN Daily ity of lorothiazid 00:00: [place] e 25-25 mg 00 Medical per tablet Branch spironolact 2021-0 Yes as needed. [facility] one-hydroch 8-16 PRN Daily ity of lorothiazid 00:00: [place] e 25-25 mg 00 Medical per tablet Branch spironolact 2021-0 Yes as needed. [facility] one-hydroch 8-16 PRN Daily ity of lorothiazid 00:00: [place] e 25-25 mg 00 Medical per tablet Branch spironolact 2021-0 Yes as needed. [facility] one-hydroch 8-16 PRN Daily ity of lorothiazid 00:00: [place] e 25-25 mg 00 Medical per tablet Branch spironolact 2021-0 Yes as needed. [facility] one-hydroch 8-16 PRN Daily ity of lorothiazid 00:00: [place] e 25-25 mg 00 Medical per tablet Branch spironolact 2021-0 Yes as needed. [facility] one-hydroch 8-16 PRN Daily ity of lorothiazid 00:00: [place] e 25-25 mg 00 Medical per tablet Branch spironolact 2021-0 Yes as needed. [facility] one-hydroch 8-16 PRN Daily ity of lorothiazid 00:00: [place] e 25-25 mg 00 Medical per tablet Branch spironolact 2021-0 Yes as needed. [facility] one-hydroch 8-16 PRN Daily ity of lorothiazid 00:00: [place] e 25-25 mg 00 Medical per tablet Branch spironolact 2021-0 Yes as needed. [facility] one-hydroch 8-16 PRN Daily ity of lorothiazid 00:00: [place] e 25-25 mg 00 Medical per tablet Branch spironolact 2021-0 Yes as needed. [facility] one-hydroch 8-16 PRN Daily ity of lorothiazid 00:00: [place] e 25-25 mg 00 Medical per tablet Branch spironolact 2021-0 Yes as needed. [facility] one-hydroch 8-16 PRN Daily ity of lorothiazid 00:00: [place] e 25-25 mg 00 Medical per tablet Branch spironolact 2021-0 Yes as needed. [facility] one-hydroch 8-16 PRN Daily ity of lorothiazid 00:00: [place] e 25-25 mg 00 Medical per tablet Branch spironolact 2021-0 Yes as needed. [facility] one-hydroch 8-16 PRN Daily ity of lorothiazid 00:00: [place] e 25-25 mg 00 Medical per tablet Branch spironolact 2021-0 Yes as needed. [facility] one-hydroch 8-16 PRN Daily ity of lorothiazid 00:00: [place] e 25-25 mg 00 Medical per tablet Branch spironolact 2021-0 Yes as needed. [facility] one-hydroch 8-16 PRN Daily ity of lorothiazid 00:00: [place] e 25-25 mg 00 Medical per tablet Branch spironolact 2021-0 Yes as needed. [facility] one-hydroch 8-16 PRN Daily ity of lorothiazid 00:00: [place] e 25-25 mg 00 Medical per tablet Branch spironolact 2021-0 Yes as needed. [facility] one-hydroch 8-16 PRN Daily ity of lorothiazid 00:00: [place] e 25-25 mg 00 Medical per tablet Branch spironolact 2021-0 Yes as needed. [facility] one-hydroch 8-16 PRN Daily ity of lorothiazid 00:00: [place] e 25-25 mg 00 Medical per tablet Branch spironolact 2021-0 Yes as needed. [facility] one-hydroch 8-16 PRN Daily ity of lorothiazid 00:00: [place] e 25-25 mg 00 Medical per tablet Branch spironolact 2021-0 Yes as needed. [facility] one-hydroch 8-16 PRN Daily ity of lorothiazid 00:00: [place] e 25-25 mg 00 Medical per tablet Branch spironolact 2021-0 Yes as needed. [facility] one-hydroch 8-16 PRN Daily ity of lorothiazid 00:00: [place] e 25-25 mg 00 Medical per tablet Branch spironolact 2021-0 Yes as needed. [facility] one-hydroch 8-16 PRN Daily ity of lorothiazid 00:00: [place] e 25-25 mg 00 Medical per tablet Branch spironolact 2021-0 Yes as needed. [facility] one-hydroch 8-16 PRN Daily ity of lorothiazid 00:00: [place] e 25-25 mg 00 Medical per tablet Branch spironolact 2021-0 Yes as needed. [facility] one-hydroch 8-16 PRN Daily ity of lorothiazid 00:00: [place] e 25-25 mg 00 Medical per tablet Branch spironolact 2021-0 Yes as needed. [facility] one-hydroch 8-16 PRN Daily ity of lorothiazid 00:00: [place] e 25-25 mg 00 Medical per tablet Branch spironolact 2021-0 Yes as needed. [facility] one-hydroch 8-16 PRN Daily ity of lorothiazid 00:00: [place] e 25-25 mg 00 Medical per tablet Branch spironolact 2021-0 Yes as needed. [facility] one-hydroch 8-16 PRN Daily ity of lorothiazid 00:00: [place] e 25-25 mg 00 Medical per tablet Branch spironolact 2021-0 Yes as needed. [facility] one-hydroch 8-16 PRN Daily ity of lorothiazid 00:00: [place] e 25-25 mg 00 Medical per tablet Branch spironolact 2021-0 Yes as needed. [facility] one-hydroch 8-16 PRN Daily ity of lorothiazid 00:00: [place] e 25-25 mg 00 Medical per tablet Branch spironolact 2021-0 Yes as needed. [facility] one-hydroch 8-16 PRN Daily ity of lorothiazid 00:00: [place] e 25-25 mg 00 Medical per tablet Branch spironolact 2021-0 Yes as needed. [facility] one-hydroch 8-16 PRN Daily ity of lorothiazid 00:00: [place] e 25-25 mg 00 Medical per tablet Branch spironolact 2021-0 Yes as needed. [facility] one-hydroch 8-16 PRN Daily ity of lorothiazid 00:00: [place] e 25-25 mg 00 Medical per tablet Branch spironolact 2021-0 Yes as needed. [facility] one-hydroch 8-16 PRN Daily ity of lorothiazid 00:00: [place] e 25-25 mg 00 Medical per tablet Branch cyclobenzap 0 202- No [id number] 5mg Take 1 [facility] rine 5 mg -18 tablet by ity of tablet 00:00: 00:00 mouth 3 [place] 00 :00 (three) Medical times Branch daily as needed for Muscle Spasms. isosorbide 0 Yes 30mg Take 30 mg U nivers mononitrate 7-28 by mouth. ity of 30 mg 24 hr 09:19: [place] tablet Medical Branch isosorbide 2021-0 Yes 30mg Take 30 mg U nivers mononitrate 7-28 by mouth. ity of 30 mg 24 hr 09:19: [place] tablet Medical Branch isosorbide 2021-0 Yes 30mg Take 30 mg U nivers mononitrate 7-28 by mouth. ity of 30 mg 24 hr 09:19: [place] tablet 01 Medical Branch TURMERIC 2021-0 Yes Take by Univer s ORAL 7-28 mouth. ity of 09:05: [place] 53 Medical Branch multivitami 2021-0 Yes Take by Uni vers n/iron/foli 7-28 mouth. ity of c acid 09:05: [place] ([address] ORAL) Branch TURMERIC 2021-0 Yes Take by Univer s ORAL 7-28 mouth. ity of 09:05: [place] [address] Medical Branch multivitami 0 Yes Take by Uni vers n/iron/foli 7-28 mouth. ity of c acid 09:05: [place] ([address] ORAL) Branch TURMERIC Yes Take by Univer s ORAL 7-28 mouth. ity of 09:05: [place] [address] Medical Branch multivitami 0 Yes Take by Uni vers n/iron/foli 7-28 mouth. ity of c acid 09:05: [place] ([place] [address] Medical ORAL) Branch foLIC acid 2021-0 Yes [id number] 1mg Take 1 [facility] 1 mg tablet 7-22 tablet by ity of 00:00: mouth in [place] the Medical morning. Branch foLIC acid 2021-0 Yes [id number] 1mg Take 1 [facility] 1 mg tablet 7-22 tablet by ity of 00:00: mouth in [place] the Medical morning. Branch foLIC acid 2021-0 Yes [id number] 1mg Take 1 [facility] 1 mg tablet 7-22 tablet by ity of 00:00: mouth in [place] the Medical morning. Branch foLIC acid 2-0 Yes [id number] 1mg Take 1 [facility] 1 mg tablet 7-22 tablet by ity of 00:00: mouth in [place] the Medical morning. Branch foLIC acid 2-0 Yes [id number] 1mg Take 1 [facility] 1 mg tablet 7-22 tablet by ity of 00:00: mouth in [place] the Medical morning. Branch foLIC acid 2022-0 Yes [id number] 1mg Take 1 [facility] 1 mg tablet 7-22 tablet by ity of 00:00: mouth in [place] the Medical morning. Branch foLIC acid 2-0 Yes [id number] 1mg Take 1 [facility] 1 mg tablet 7-22 tablet by ity of 00:00: mouth in [place] the Medical morning. Branch foLIC acid 2022-0 Yes [id number] 1mg Take 1 [facility] 1 mg tablet 7-22 tablet by ity of 00:00: mouth in [place] the Medical morning. Branch foLIC acid 2022-0 Yes [id number] 1mg Take 1 [facility] 1 mg tablet 7-22 tablet by ity of 00:00: mouth in [place] the Medical morning. Branch foLIC acid 2022-0 Yes [id number] 1mg Take 1 [facility] 1 mg tablet 7-22 tablet by ity of 00:00: mouth in [place] the Medical morning. Branch foLIC acid 2022-0 Yes [id number] 1mg Take 1 [facility] 1 mg tablet 7-22 tablet by ity of 00:00: mouth in [place] the Medical morning. Branch foLIC acid 2022-0 Yes [id number] 1mg Take 1 [facility] 1 mg tablet 7-22 tablet by ity of 00:00: mouth in [place] the Medical morning. Branch foLIC acid 2022-0 Yes [id number] 1mg Take 1 [facility] 1 mg tablet 7-22 tablet by ity of 00:00: mouth in [place] the Medical morning. Branch foLIC acid 2022-0 Yes [id number] 1mg Take 1 [facility] 1 mg tablet 7-22 tablet by ity of 00:00: mouth in [place] the Medical morning. Branch foLIC acid 2022-0 Yes [id number] 1mg Take 1 [facility] 1 mg tablet 7-22 tablet by ity of 00:00: mouth in [place] the Medical morning. Branch foLIC acid 2022-0 Yes [id number] 1mg Take 1 [facility] 1 mg tablet 7-22 tablet by ity of 00:00: mouth in [place] the Medical morning. Branch foLIC acid 2022-0 Yes [id number] 1mg Take 1 [facility] 1 mg tablet 7-22 tablet by ity of 00:00: mouth in [place] the Medical morning. Branch foLIC acid 2022-0 Yes [id number] 1mg Take 1 [facility] 1 mg tablet 7-22 tablet by ity of 00:00: mouth in [place] the Medical morning. Branch foLIC acid 2022-0 Yes [id number] 1mg Take 1 [facility] 1 mg tablet 7-22 tablet by ity of 00:00: mouth in [place] the Medical morning. Branch foLIC acid 2022-0 Yes [id number] 1mg Take 1 [facility] 1 mg tablet 7-22 tablet by ity of 00:00: mouth in [place] 00 the Medical morning. Branch foLIC acid 2022-0 Yes [id number] 1mg Take 1 [facility] 1 mg tablet 7-22 tablet by ity of 00:00: mouth in [place] the Medical morning. Branch foLIC acid 2022-0 Yes [id number] 1mg Take 1 [facility] 1 mg tablet 7-22 tablet by ity of 00:00: mouth in [place] the Medical morning. Branch foLIC acid 2022-0 Yes [id number] 1mg Take 1 [facility] 1 mg tablet 7-22 tablet by ity of 00:00: mouth in [place] the Medical morning. Branch foLIC acid 2022-0 Yes [id number] 1mg Take 1 [facility] 1 mg tablet 7-22 tablet by ity of 00:00: mouth in [place] the Medical morning. Branch foLIC acid 2022-0 Yes [id number] 1mg Take 1 [facility] 1 mg tablet 7-22 tablet by ity of 00:00: mouth in [place] the Medical morning. Branch foLIC acid 2-0 Yes [id number] 1mg Take 1 [facility] 1 mg tablet 7-22 tablet by ity of 00:00: mouth in [place] the Medical morning. Branch foLIC acid 2-0 Yes [id number] 1mg Take 1 [facility] 1 mg tablet 7-22 tablet by ity of 00:00: mouth in [place] the Medical morning. Branch foLIC acid 2022-0 Yes [id number] 1mg Take 1 [facility] 1 mg tablet 7-22 tablet by ity of 00:00: mouth in [place] the Medical morning. Branch foLIC acid 2022-0 Yes [id number] 1mg Take 1 [facility] 1 mg tablet 7-22 tablet by ity of 00:00: mouth in [place] the Medical morning. Branch foLIC acid 2022-0 Yes [id number] 1mg Take 1 [facility] 1 mg tablet 7-22 tablet by ity of 00:00: mouth in [place] the Medical morning. Branch foLIC acid 2022-0 Yes [id number] 1mg Take 1 [facility] 1 mg tablet 7-22 tablet by ity of 00:00: mouth in [place] 00 the Medical morning. Branch foLIC acid 2022-0 Yes [id number] 1mg Take 1 [facility] 1 mg tablet 7-22 tablet by ity of 00:00: mouth in [place] the Medical morning. Branch foLIC acid 2022-0 Yes [id number] 1mg Take 1 [facility] 1 mg tablet 7-22 tablet by ity of 00:00: mouth in [place] the Medical morning. Branch foLIC acid 2022-0 Yes [id number] 1mg Take 1 [facility] 1 mg tablet 7-22 tablet by ity of 00:00: mouth in [place] the Medical morning. Branch foLIC acid 2022-0 Yes [id number] 1mg Take 1 [facility] 1 mg tablet 7-22 tablet by ity of 00:00: mouth in [place] the Medical morning. Branch foLIC acid 2022-0 Yes [id number] 1mg Take 1 [facility] 1 mg tablet 7-22 tablet by ity of 00:00: mouth in [place] the Medical morning. Branch foLIC acid 2022-0 Yes [id number] 1mg Take 1 [facility] 1 mg tablet 7-22 tablet by ity of 00:00: mouth in [place] the Medical morning. Branch foLIC acid 2022-0 Yes [id number] 1mg Take 1 [facility] 1 mg tablet 7-22 tablet by ity of 00:00: mouth in [place] the Medical morning. Branch foLIC acid 2022-0 Yes [id number] 1mg Take 1 [facility] 1 mg tablet 7-22 tablet by ity of 00:00: mouth in [place] the Medical morning. Branch foLIC acid 2022-0 Yes [id number] 1mg Take 1 [facility] 1 mg tablet 7-22 tablet by ity of 00:00: mouth in [place] the Medical morning. Branch foLIC acid 2022-0 Yes [id number] 1mg Take 1 [facility] 1 mg tablet 7-22 tablet by ity of 00:00: mouth in [place] the Medical morning. Branch foLIC acid 2022-0 Yes [id number] 1mg Take 1 [facility] 1 mg tablet 7-22 tablet by ity of 00:00: mouth in [place] the Medical morning. Branch foLIC acid 2022-0 Yes [id number] 1mg Take 1 [facility] 1 mg tablet 7-22 tablet by ity of 00:00: mouth in [place] the Medical morning. Branch foLIC acid 2022-0 Yes [id number] 1mg Take 1 [facility] 1 mg tablet 7-22 tablet by ity of 00:00: mouth in [place] the Medical morning. Branch foLIC acid 2022-0 Yes [id number] 1mg Take 1 [facility] 1 mg tablet 7-22 tablet by ity of 00:00: mouth in [place] 00 the Medical morning. Branch foLIC acid 2021-0 Yes [id number] 1mg Take 1 [facility] 1 mg tablet 7-22 tablet by ity of 00:00: mouth in [place] 00 the Medical morning. Branch foLIC acid 2021-0 Yes [id number] 1mg Take 1 [facility] 1 mg tablet 7-22 tablet by ity of 00:00: mouth in [place] 00 the Medical morning. Branch foLIC acid 2021-0 2023- No [id number] 1mg Take 1 [facility] 1 mg tablet 7-22 05-05 tablet by it y of 00:00: 00:00 mouth in [place] 00 :00 the Medical morning. Branch ezetimibe 2021-0 Yes [id number] 10mg Take 1 [facility] [place] 10 mg 6-30 tablet by ity of tablet 00:00: mouth [place] 00 daily. Medical Branch ezetimibe 2021-0 Yes [id number] 10mg Take 1 [facility] [place] 10 mg 6-30 tablet by ity of tablet 00:00: mouth [place] 00 daily. Medical Branch ezetimibe 2021-0 Yes [id number] 10mg Take 1 [facility] [place] 10 mg 6-30 tablet by ity of tablet 00:00: mouth [place] 00 daily. Medical Branch ezetimibe 2021-0 Yes [id number] 10mg Take 1 [facility] [place] 10 mg 6-30 tablet by ity of tablet 00:00: mouth [place] 00 daily. Medical Branch ezetimibe 2021-0 Yes [id number] 10mg Take 1 [facility] [place] 10 mg 6-30 tablet by ity of tablet 00:00: mouth [place] 00 daily. Medical Branch ezetimibe 2021-0 Yes [id number] 10mg Take 1 [facility] [place] 10 mg 6-30 tablet by ity of tablet 00:00: mouth [place] 00 daily. Medical Branch ezetimibe 2021-0 Yes [id number] 10mg Take 1 Un [place] 10 mg 6-30 tablet by ity of tablet 00:00: mouth [place] 00 daily. Medical Branch ezetimibe 2021-0 Yes [id number] 10mg Take 1 Un [place] 10 mg 6-30 tablet by ity of tablet 00:00: mouth [place] 00 daily. Medical Branch ezetimibe 2021-0 Yes [id number] 10mg Take 1 [facility] [place] 10 mg 6-30 tablet by ity of tablet 00:00: mouth [place] 00 daily. Medical Branch ezetimibe 2021-0 Yes [id number] 10mg Take 1 Un [place] 10 mg 6-30 tablet by ity of tablet 00:00: mouth [place] 00 daily. Medical Branch ezetimibe 2021-0 Yes [id number] 10mg Take 1 Un [place] 10 mg 6-30 tablet by ity of tablet 00:00: mouth [place] 00 daily. Medical Branch ezetimibe 2021-0 Yes [id number] 10mg Take 1 [facility] [place] 10 mg 6-30 tablet by ity of tablet 00:00: mouth [place] 00 daily. Medical Branch ezetimibe 2021-0 Yes [id number] 10mg Take 1 [facility] [place] 10 mg 6-30 tablet by ity of tablet 00:00: mouth [place] 00 daily. Medical Branch ezetimibe 2021-0 Yes [id number] 10mg Take 1 [facility] [place] 10 mg 6-30 tablet by ity of tablet 00:00: mouth [place] 00 daily. Medical Branch ezetimibe 2021-0 Yes [id number] 10mg Take 1 [facility] [place] 10 mg 6-30 tablet by ity of tablet 00:00: mouth [place] 00 daily. Medical Branch ezetimibe 2021-0 Yes [id number] 10mg Take 1 [facility] [place] 10 mg 6-30 tablet by ity of tablet 00:00: mouth [place] 00 daily. Medical Branch ezetimibe 2021-0 Yes [id number] 10mg Take 1 [facility] [place] 10 mg 6-30 tablet by ity of tablet 00:00: mouth [place] 00 daily. Medical Branch ezetimibe 2-0 Yes [id number] 10mg Take 1 [facility] anabell 10 mg 6-30 tablet by [facility] tablet 00:00: mouth [place] 00 daily. [facility] ezetimibe 2-0 Yes [id number] 10mg Take 1 [facility] 10 mg 6-30 tablet by [facility] tablet 00:00: mouth [place] 00 daily. [facility] ezetimibe 2-0 Yes [id number] 10mg Take 1 [facility] 10 mg 6-30 tablet by [facility] tablet 00:00: mouth [place] 00 daily. [facility] ezetimibe 2-0 Yes [id number] 10mg Take 1 [facility] 10 mg 6-30 tablet by [facility] tablet 00:00: mouth [place] 00 daily. [facility] ezetimibe 2021-0 Yes [id number] 10mg Take 1 [facility] 10 mg 6-30 tablet by [facility] tablet 00:00: mouth [place] 00 daily. [facility] ezetimibe 2021-0 2- No [id number] 10mg Take 1 U nivers 10 mg 6-30 12-05 tablet by [facility] tablet 00:00: 00:00 mouth [place] 00 :00 daily. [facility] Branch CARVEDILOL 2021-0 Yes [id number] TAKE 1 U nivers 6.25 mg 6-27 TABLET BY ity of tablet 00:00: MOUTH 00 TWICE A Medical DAY WITH Branch MEALS CARVEDILOL 2021-0 Yes [id number] TAKE 1 [facility] nivers 6.25 mg 6-27 TABLET BY ity of tablet 00:00: MOUTH 00 TWICE A Medical DAY WITH Branch MEALS CARVEDILOL 2021-0 Yes [id number] TAKE 1 [facility] nivers 6.25 mg 6-27 TABLET BY ity of tablet 00:00: MOUTH 00 TWICE A Medical DAY WITH Branch MEALS CARVEDILOL 2021-0 Yes [id number] TAKE 1 [facility] nivers 6.25 mg 6-27 TABLET BY ity of tablet 00:00: MOUTH 00 TWICE A Medical DAY WITH Branch MEALS CARVEDILOL 2021-0 Yes [id number] TAKE 1 [facility]ivers 6.25 mg 6-27 TABLET BY ity of tablet 00:00: MOUTH 00 TWICE A Medical DAY WITH Branch MEALS CARVEDILOL 2021-0 Yes [id number] TAKE 1 [facility] nivers 6.25 mg 6-27 TABLET BY ity of tablet 00:00: MOUTH 00 TWICE A Medical DAY WITH Branch MEALS CARVEDILOL 2021-0 Yes [id number] TAKE 1 [facility] nivers 6.25 mg 6-27 TABLET BY ity of tablet 00:00: MOUTH 00 TWICE A Medical DAY WITH Branch MEALS CARVEDILOL 2021-0 Yes [id number] TAKE 1 [facility] nivers 6.25 mg 6-27 TABLET BY ity of tablet 00:00: MOUTH 00 TWICE A Medical DAY WITH Branch MEALS CARVEDILOL 2021-0 Yes [id number] TAKE 1 [facility] nivers 6.25 mg 6-27 TABLET BY ity of tablet 00:00: MOUTH TWICE A Medical DAY WITH Branch MEALS CARVEDILOL 2022-0 Yes [id number] TAKE 1 [facility]ivers 6.25 mg 6-27 TABLET BY ity of tablet 00:00: MOUTH 00 TWICE A Medical DAY WITH Branch MEALS CARVEDILOL 2-0 Yes [id number] TAKE 1 U nivers 6.25 mg 6-27 TABLET BY ity of tablet 00:00: MOUTH TWICE A Medical DAY WITH Branch MEALS CARVEDILOL 2-0 Yes [id number] TAKE 1 [facility] nivers 6.25 mg 6-27 TABLET BY ity of tablet 00:00: MOUTH 00 TWICE A Medical DAY WITH Branch MEALS CARVEDILOL 2021-0 Yes [id number] TAKE 1 [facility] nivers 6.25 mg 6-27 TABLET BY ity of tablet 00:00: MOUTH TWICE A Medical DAY WITH Branch MEALS CARVEDILOL 2021-0 Yes [id number] TAKE 1 [facility]ivers 6.25 mg 6-27 TABLET BY ity of tablet 00:00: MOUTH TWICE A Medical DAY WITH Branch MEALS CARVEDILOL 2-0 Yes [id number] TAKE 1 [facility] nivers 6.25 mg 6-27 TABLET BY ity of tablet 00:00: MOUTH TWICE A Medical DAY WITH Branch MEALS CARVEDILOL 2021-0 Yes [id number] TAKE 1 [facility] nivers 6.25 mg 6-27 TABLET BY ity of tablet 00:00: MOUTH TWICE A Medical DAY WITH Branch MEALS CARVEDILOL 2-0 Yes [id number] TAKE 1 [facility] nivers 6.25 mg 6-27 TABLET BY ity of tablet 00:00: MOUTH TWICE A Medical DAY WITH Branch MEALS CARVEDILOL 2-0 Yes [id number] TAKE 1 [facility] nivers 6.25 mg 6-27 TABLET BY ity of tablet 00:00: MOUTH 00 TWICE A Medical DAY WITH Branch MEALS CARVEDILOL 2-0 Yes [id number] TAKE 1 [facility] nivers 6.25 mg 6-27 TABLET BY ity of tablet 00:00: MOUTH 00 TWICE A Medical DAY WITH Branch MEALS CARVEDILOL 2-0 Yes [id number] TAKE 1 [facility]ivers 6.25 mg 6-27 TABLET BY ity of tablet 00:00: MOUTH 00 TWICE A Medical DAY WITH Branch MEALS CARVEDILOL Yes [id number] TAKE 1 U nivers 6.25 mg 6-27 TABLET BY [facility]y of tablet 00:00: MOUTH [place] 00 TWICE A Medical DAY WITH Branch MEALS CARVEDILOL 0 Yes [id number] TAKE 1 [facility] nivers 6.25 mg 6-27 TABLET BY ity of tablet 00:00: MOUTH 00 TWICE A Medical DAY WITH Branch MEALS CARVEDILOL 0 Yes [id number] TAKE 1 [facility] nivers 6.25 mg 6-27 TABLET BY [facility]y of tablet 00:00: MOUTH [place] 00 TWICE A Medical DAY WITH Branch MEALS CARVEDILOL 0 Yes [id number] TAKE 1 U nivers 6.25 mg 6-27 TABLET BY ity of tablet 00:00: MOUTH [place] 00 TWICE A Medical DAY WITH Branch MEALS CARVEDILOL 2021- No [id number] TAKE 1 [facility] 6.25 mg 6-27 12-27 TABLET BY [facility]y of tablet 00:00: 00:00 MOUTH [place] 00 :00 TWICE A Medical DAY WITH Branch MEALS traMADol Yes pain 50mg Take [address] [facility] (ULTRAM) 50 2-14 by mouth [facility] mg tablet 18:39: every 12 Medi shavon 03 (twelve) Center hours. gabapentin Yes neuropathic 100mg Q.[id number] Take [address] [facility] (NEURONTIN) 2-14 pain [id number] mg by [facility] 100 MG 18:39: 3D mouth 3 Medical capsule 03 (three) Center times daily. rosuvastati Yes 10mg QD Take [address] [facility] (CRESTOR) 2-14 by mouth [facility] 10 MG 18:39: daily. Medical tablet 03 Center traMADol Yes pain 50mg Take [address] [facility] (ULTRAM) 50 2-14 by mouth [facility] mg tablet 18:39: every 12 Medi shavon 03 (twelve) Center hours. gabapentin 20190 Yes neuropathic 100mg Q.[id number] Take [address] [facility] (NEURONTIN) 2-14 pain [id number] mg by [facility] 100 MG 18:39: 3D mouth 3 Medical capsule 03 (three) Center times daily. rosuvastati Yes 10mg QD Take [address] [facility] (CRESTOR) 2-14 by mouth [facility] 10 MG 18:39: daily. Medical tablet 03 Center traMADol Yes pain 50mg Take [address] [facility] (ULTRAM) 50 2-14 by mouth [facility] mg tablet 18:39: every 12 Medi shavon 03 (twelve) Center hours. gabapentin Yes neuropathic 100mg Q.[id number] Take [address] [facility] (NEURONTIN) 2-14 pain [id number] mg by [facility] 100 MG 18:39: 3D mouth 3 Medical capsule 03 (three) Center times daily. rosuvastati Yes 10mg QD Take [address] [facility] (CRESTOR) 2-14 by mouth [facility] 10 MG 18:39: daily. Medical tablet 03 Center citalopram Yes Take half [facility] (CELEXA) 20 2-14 a tablet [facility] MG tablet 00:00: daily for Med ical 00 1 week, Center then 1 tablet daily after that. citalopram Yes Take half [facility] (CELEXA) 20 2-14 a tablet [facility] MG tablet 00:00: daily for Med ical 00 1 week, Center then 1 tablet daily after that. citalopram Yes Take half [facility] (CELEXA) 20 2-14 a tablet [facility] MG tablet 00:00: daily for Med ical 00 1 week, Center then 1 tablet daily after that. lisinopril- 2017-02 Yes Essential 2{tbl} QD Take 2 [facility] hydrochloro 2-10 hypertensio tablets by Health thiazide 00:00: n with goal mouth (ZESTORETIC 00 blood daily. ) 20-25 mg pressure per tablet less than 140/90 calcitriol 2017-02 Yes Proteinuria .25ug QD Take 1 [facility] (ROCALTROL) 2-10 capsule by He alth 0.25 mcg 00:00: mouth [place] 00 daily. amLODIPine 2017-02 Yes Essential 5mg QD Take 1 [facility] (NORVASC) 5 2-10 hypertensio tablet by Health mg tablet 00:00: n with goal mouth 00 blood daily. pressure less than 140/90 traMADoL 2017-02 Yes Low back 50mg Take 1 [facility] (ULTRAM) 50 2-10 pain tablet by He lth mg tablet 00:00: radiating mouth 00 to right every 12 lower hours as extremity needed for Pain. 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 cular accident) gabapentin 2017-02 Yes Paresthesia Start [facility] (NEURONTIN) 2-10 of hand, taking one [facility] 100 mg 00:00: bilateral cap at capsule 00 bedtime for one week , then 1 cap twice a day for another week then 1 cap three times a day. lisinopril- 2017-02 Yes Essential 2{tbl} QD Take 2 [facility] hydrochloro 2-10 hypertensio tablets by Health thiazide 00:00: n with goal mouth (ZESTORETIC 00 blood daily. ) 20-25 mg pressure per tablet less than 140/90 calcitriol 2017-02 Yes Proteinuria .25ug QD Take 1 [facility] (ROCALTROL) 2-10 capsule by He alth 0.25 mcg 00:00: mouth [place] 00 daily. amLODIPine 2017-02 Yes Essential 5mg QD Take 1 [facility] (NORVASC) 5 2-10 hypertensio tablet by Health mg tablet 00:00: n with goal mouth 00 blood daily. pressure less than 140/90 traMADoL 2017-02 Yes Low back 50mg Take 1 [facility] (ULTRAM) 50 2-10 pain tablet by Hea lth mg tablet 00:00: radiating mouth 00 to right every 12 lower hours as extremity needed for Pain. 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 cular accident) gabapentin 2017-02 Yes Paresthesia Start [facility] (NEURONTIN) 2-10 of hand, taking one [facility] 100 mg 00:00: bilateral cap at capsule 00 bedtime for one week , then 1 cap twice a day for another week then 1 cap three times a day. lisinopril- 2017-02 Yes Essential 2{tbl} QD Take 2 [facility] hydrochloro 2-10 hypertensio tablets by Health thiazide 00:00: n with goal mouth (ZESTORETIC 00 blood daily. ) 20-25 mg pressure per tablet less than 140/90 calcitriol 2017-02 Yes Proteinuria .25ug QD Take 1 [facility] (ROCALTROL) 2-10 capsule by He alth 0.25 mcg 00:00: mouth [place] 00 daily. amLODIPine 2017-02 Yes Essential 5mg QD Take 1 [facility] (NORVASC) 5 2-10 hypertensio tablet by Health mg tablet 00:00: n with goal mouth 00 blood daily. pressure less than 140/90 traMADoL 2017-02 Yes Low back 50mg Take 1 [facility] (ULTRAM) 50 2-10 pain tablet by Hea lth mg tablet 00:00: radiating mouth 00 to right every 12 lower hours as extremity needed for Pain. 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 cular accident) gabapentin 2017-02 Yes Paresthesia Start [facility] (NEURONTIN) 2-10 of hand, taking one [facility] 100 mg 00:00: bilateral cap at capsule 00 bedtime for one week , then 1 cap twice a day for another week then 1 cap three times a day. clopidogrel Yes Persistent 75mg QD Take 1 [facility] (PLAVIX) 75 9-28 headaches tablet by Health mg tablet 00:00: mouth 00 daily. rosuvastati Yes Late 10mg Take 1 [facility] (CRESTOR) 9-28 effects of tablet by Health 10 mg 00:00: CVA mouth at tablet 00 (cerebrovas bedtime cular nightly accident) For cholestero l. clopidogrel Yes Persistent 75mg QD Take 1 [facility] (PLAVIX) 75 9-28 headaches tablet by Health mg tablet 00:00: mouth 00 daily. rosuvastati Yes Late 10mg Take 1 [facility] (CRESTOR) 9-28 effects of tablet by Health 10 mg 00:00: CVA mouth at tablet 00 (cerebrovas bedtime cular nightly accident) For cholestero l. clopidogrel Yes Persistent 75mg QD Take 1 [facility] (PLAVIX) 75 9-28 headaches tablet by Health mg tablet 00:00: mouth 00 daily. rosuvastati Yes Late 10mg Take 1 [facility] (CRESTOR) 9-28 effects of tablet by Health 10 mg 00:00: CVA mouth at tablet 00 (cerebrovas bedtime cular nightly accident) For cholestero l. cyclobenzap Yes Spasm of 10mg Take 1 [facility] rine 8-10 muscle tablet by Health (FLEXERIL) 00:00: mouth 2 10 mg 00 times tablet daily as needed for Muscle Spasms. cyclobenzap Yes Spasm of 10mg Take 1 [facility] rine 8-10 muscle tablet by Health (FLEXERIL) 00:00: mouth 2 10 mg 00 times tablet daily as needed for Muscle Spasms. cyclobenzap Yes Spasm of 10mg Take 1 [facility] rine 8-10 muscle tablet by Health (FLEXERIL) 00:00: mouth 2 10 mg 00 times tablet daily as needed for Muscle Spasms. albuterol 2016-02 Yes Dyspnea, 2{puff} Inhale 2 [facility] (VENTOLIN 1-22 unspecified Puffs by [facility] HFA,PROVENT 00:00: type mouth 4 [place] 00 times HFA,PROAIR daily as HFA) 90 needed for mcg/actuati Wheezing. on inhaler albuterol 2016-02 Yes Dyspnea, 2{puff} Inhale 2 [facility] (VENTOLIN 1-22 unspecified Puffs by [facility] HFA,PROVENT 00:00: type mouth 4 [place] 00 times HFA,PROAIR daily as HFA) 90 needed for mcg/actuati Wheezing. on inhaler albuterol 2016-02 Yes Dyspnea, 2{puff} Inhale 2 [facility] (VENTOLIN 1-22 unspecified Puffs by [facility] HFA,PROVENT 00:00: type mouth 4 [place] 00 times HFA,PROAIR daily as HFA) 90 needed for mcg/actuati Wheezing. on inhaler hydroxychlo Yes Sjogren's 200mg QD Take 1 [facility] roquine 7-25 disease tablet by [facility] (PLAQUENIL) 00:00: mouth 200 mg 00 daily. tablet hydroxychlo 2016-0 Yes Sjogren's 200mg QD Take 1 [facility] roquine 7-25 disease tablet by [facility] (PLAQUENIL) 00:00: mouth 200 mg 00 daily. tablet hydroxychlo 2016-0 Yes Sjogren's 200mg QD Take 1 [facility] roquine 7-25 disease tablet by [facility] (PLAQUENIL) 00:00: mouth 200 mg 00 daily. tablet Immunizations Ordered Filled Date Status Comments Source Immunization Name Immunization Name Pneumococcal 2022-06-21 [facility] o f Polysaccharide, 00:00:00 [place] [facility] ical PPSV23 (PNEUMOVAX) Branch TDAP 2022-06-21 Completed [facility] of 00:00:00 [facility] Pneumococcal 2022-06-21 Completed University o f Polysaccharide, 00:00:00 [place] Med ical PPSV23 (PNEUMOVAX) Branch TDAP 2022-06-21 Completed University of 00:00:00 [facility] Pneumococcal 2022-06-21 Completed University o f Polysaccharide, 00:00:00 [place] Med ical PPSV23 (PNEUMOVAX) Branch TDAP 2022-06-21 Completed University of 00:00:00 [facility] Pneumococcal 2022-06-21 Completed University o f Polysaccharide, 00:00:00 [place] Med ical PPSV23 (PNEUMOVAX) Branch TDAP 2022-06-21 Completed University of 00:00:00 [facility] Pneumococcal 2022-06-21 Completed University o f Polysaccharide, 00:00:00 [place] Med ical PPSV23 (PNEUMOVAX) Branch TDAP 2022-06-21 Completed University of 00:00:00 [facility] Pneumococcal 2022-06-21 Completed University o f Polysaccharide, 00:00:00 [place] Med ical PPSV23 (PNEUMOVAX) Branch TDAP 2022-06-21 Completed University of 00:00:00 [facility] Pneumococcal 2022-06-21 Completed University o f Polysaccharide, 00:00:00 [place] Med ical PPSV23 (PNEUMOVAX) Branch TDAP 2022-06-21 Completed University of 00:00:00 [facility] Pneumococcal 2022-06-21 Completed University o f Polysaccharide, 00:00:00 [place] Med ical PPSV23 (PNEUMOVAX) Branch TDAP 2022-06-21 Completed University of 00:00:00 [facility] Pneumococcal 2022-06-21 Completed University o f Polysaccharide, 00:00:00 [place] Med ical PPSV23 (PNEUMOVAX) Branch TDAP 2022-06-21 Completed University of 00:00:00 [facility] Pneumococcal 2022-06-21 Completed University o f Polysaccharide, 00:00:00 [place] Med ical PPSV23 (PNEUMOVAX) Branch TDAP 2022-06-21 Completed University of 00:00:00 [facility] Pneumococcal 2022-06-21 Completed University o f Polysaccharide, 00:00:00 [place] Med ical PPSV23 (PNEUMOVAX) Branch TDAP 2022-06-21 Completed University of 00:00:00 [facility] Pneumococcal 2022-06-21 Completed University o f Polysaccharide, 00:00:00 [place] Med ical PPSV23 (PNEUMOVAX) Branch TDAP 2022-06-21 Completed University of 00:00:00 [facility] Pneumococcal 2022-06-21 Completed University o f Polysaccharide, 00:00:00 [place] Med ical PPSV23 (PNEUMOVAX) Branch TDAP 2022-06-21 Completed University of 00:00:00 [facility] Pneumococcal 2022-06-21 Completed University o f Polysaccharide, 00:00:00 [place] Med ical PPSV23 (PNEUMOVAX) Branch TDAP 2022-06-21 Completed University of 00:00:00 [facility] Pneumococcal 2022-06-21 Completed University o f Polysaccharide, 00:00:00 [place] Med ical PPSV23 (PNEUMOVAX) Branch TDAP 2022-06-21 Completed University of 00:00:00 [facility] Pneumococcal 2022-06-21 Completed University o f Polysaccharide, 00:00:00 [place] Med ical PPSV23 (PNEUMOVAX) Branch TDAP 2022-06-21 Completed University of 00:00:00 [facility] Pneumococcal 2022-06-21 Completed University o f Polysaccharide, 00:00:00 [place] Med ical PPSV23 (PNEUMOVAX) Branch TDAP 2022-06-21 Completed University of 00:00:00 [facility] Pneumococcal 2022-06-21 Completed University o f Polysaccharide, 00:00:00 [place] Med ical PPSV23 (PNEUMOVAX) Branch TDAP 2022-06-21 Completed University of 00:00:00 [facility] Pneumococcal 2022-06-21 Completed University o f Polysaccharide, 00:00:00 [place] Med ical PPSV23 (PNEUMOVAX) Branch TDAP 2022-06-21 Completed University of 00:00:00 [facility] Pneumococcal 2022-06-21 Completed University o f Polysaccharide, 00:00:00 [place] Med ical PPSV23 (PNEUMOVAX) Branch TDAP 2022-06-21 Completed University of 00:00:00 [facility] Pneumococcal 2022-06-21 Completed University o f Polysaccharide, 00:00:00 [place] Med ical PPSV23 (PNEUMOVAX) Branch TDAP 2022-06-21 Completed University of 00:00:00 [facility] Pneumococcal 2022-06-21 Completed University o f Polysaccharide, 00:00:00 [place] Med ical PPSV23 (PNEUMOVAX) Branch TDAP 2022-06-21 Completed University of 00:00:00 [facility] Pneumococcal 2022-06-21 Completed University o f Polysaccharide, 00:00:00 [place] Med ical PPSV23 (PNEUMOVAX) Branch TDAP 2022-06-21 Completed University of 00:00:00 [facility] Pneumococcal 2022-06-21 Completed University o f Polysaccharide, 00:00:00 [place] Med ical PPSV23 (PNEUMOVAX) Branch TDAP 2022-06-21 Completed University of 00:00:00 [facility] Pneumococcal 2022-06-21 Completed University o f Polysaccharide, 00:00:00 [place] Med ical PPSV23 (PNEUMOVAX) Branch TDAP 2022-06-21 Completed University of 00:00:00 [facility] Pneumococcal 2022-06-21 Completed University o f Polysaccharide, 00:00:00 [place] Med ical PPSV23 (PNEUMOVAX) Branch TDAP 2022-06-21 Completed University of 00:00:00 [facility] Pneumococcal 2022-06-21 Completed University o f Polysaccharide, 00:00:00 [place] Med ical PPSV23 (PNEUMOVAX) Branch TDAP 2022-06-21 Completed University of 00:00:00 [facility] Pneumococcal 2022-06-21 Completed University o f Polysaccharide, 00:00:00 [place] Med ical PPSV23 (PNEUMOVAX) Branch TDAP 2022-06-21 Completed University of 00:00:00 [facility] Pneumococcal 2022-06-21 Completed University o f Polysaccharide, 00:00:00 [place] Med ical PPSV23 (PNEUMOVAX) Branch TDAP 2022-06-21 Completed University of 00:00:00 [facility] Pneumococcal 2022-06-21 Completed University o f Polysaccharide, 00:00:00 [place] Med ical PPSV23 (PNEUMOVAX) Branch TDAP 2022-06-21 Completed University of 00:00:00 [facility] Pneumococcal 2022-06-21 Completed University o f Polysaccharide, 00:00:00 [place] Med ical PPSV23 (PNEUMOVAX) Branch TDAP 2022-06-21 Completed University of 00:00:00 [facility] Pneumococcal 2022-06-21 Completed University o f Polysaccharide, 00:00:00 [place] Med ical PPSV23 (PNEUMOVAX) Branch TDAP 2022-06-21 Completed University of 00:00:00 [facility] Pneumococcal 2022-06-21 Completed University o f Polysaccharide, 00:00:00 [place] Med ical PPSV23 (PNEUMOVAX) Branch TDAP 2022-06-21 Completed University of 00:00:00 [facility] Pneumococcal 2022-06-21 Completed University o f Polysaccharide, 00:00:00 [place] Med ical PPSV23 (PNEUMOVAX) Branch TDAP 2022-06-21 Completed University of 00:00:00 [facility] Pneumococcal 2022-06-21 Completed University o f Polysaccharide, 00:00:00 [place] Med ical PPSV23 (PNEUMOVAX) Branch TDAP 2022-06-21 Completed University of 00:00:00 [facility] Pneumococcal 2022-06-21 Completed University o f Polysaccharide, 00:00:00 [place] Med ical PPSV23 (PNEUMOVAX) Branch TDAP 2022-06-21 Completed University of 00:00:00 [facility] Pneumococcal 2022-06-21 Completed University o f Polysaccharide, 00:00:00 [place] Med ical PPSV23 (PNEUMOVAX) Branch TDAP 2022-06-21 Completed University of 00:00:00 [facility] Pneumococcal 2022-06-21 Completed University o f Polysaccharide, 00:00:00 [place] Med ical PPSV23 (PNEUMOVAX) Branch TDAP 2022-06-21 Completed University of 00:00:00 [facility] Pneumococcal 2022-06-21 Completed University o f Polysaccharide, 00:00:00 [place] Med ical PPSV23 (PNEUMOVAX) Branch TDAP 2022-06-21 Completed University of 00:00:00 [facility] Pneumococcal 2022-06-21 Completed University o f Polysaccharide, 00:00:00 [place] Med ical PPSV23 (PNEUMOVAX) Branch TDAP 2022-06-21 Completed University of 00:00:00 [facility] Pneumococcal 2022-06-21 Completed University o f Polysaccharide, 00:00:00 [place] Med ical PPSV23 (PNEUMOVAX) Branch TDAP 2022-06-21 Completed University of 00:00:00 [facility] Branch Influenza Virus 2021-04-30 Completed Universit y of Vaccine [facility], 00:00:00 [facility] dical Preserv and ABX Branch Free 6 MO-64 YRS Influenza Virus 2021-04-30 Completed Universit y of Vaccine [facility], 00:00:00 [place] [facility] Preserv and ABX Branch Free 6 MO-64 YRS Influenza Virus 2021-04-30 Completed Universit y of Vaccine [facility], 00:00:00 [place] [facility]ical Preserv and ABX Branch Free 6 MO-64 YRS Influenza Virus 2021-04-30 Completed Universit y of [facility], 00:00:00 [place] [facility] dical Preserv and ABX Branch Free 6 MO-64 YRS Influenza Virus 2021-04-30 Completed Universit y of Vaccine [facility], 00:00:00 [place] Me dical Preserv and ABX Branch Free 6 MO-64 YRS Influenza Virus 2021-04-30 Completed Universit y of [facility]ine [facility], 00:00:00 [place] Me dical Preserv and ABX Branch Free 6 MO-64 YRS Influenza Virus 2021-04-30 Completed Universit y of [facility]ine [facility], 00:00:00 [place] [facility] dical Preserv and ABX Branch Free 6 MO-64 YRS Influenza Virus 2021-04-30 Completed Universit y of [facility]ine [facility], 00:00:00 [place] [facility] dical Preserv and ABX Branch Free 6 MO-64 YRS Influenza Virus 2021-04-30 Completed Universit y of [facility]ine [facility], 00:00:00 [place] [facility] dical Preserv and ABX Branch Free 6 MO-64 YRS Influenza Virus 2021-04-30 Completed Universit y of [facility]ine [facility], 00:00:00 [place] Me dical Preserv and ABX Branch Free 6 MO-64 YRS Influenza Virus 2021-04-30 Completed Universit y of [facility]ine [facility], 00:00:00 [place] Me dical Preserv and ABX Branch Free 6 MO-64 YRS Influenza Virus 2021-04-30 Completed Universit y of Vaccine [facility], 00:00:00 [place] Me dical Preserv and ABX Branch Free 6 MO-64 YRS Influenza Virus 2021-04-30 Completed Universit y of [facility]ine [facility], 00:00:00 [place] [facility] dical Preserv and ABX Branch Free 6 MO-64 YRS Influenza Virus 2021-04-30 Completed Universit y of [facility]ine [facility], 00:00:00 [place] [facility]ical Preserv and ABX Branch Free 6 MO-64 YRS Influenza Virus 2021-04-30 Completed Universit y of [facility]ine [facility], 00:00:00 [place] [facility] dical Preserv and ABX Branch Free 6 MO-64 YRS Influenza Virus 2021-04-30 Completed Universit y of [facility]ine [facility], 00:00:00 [place] [facility] dical Preserv and ABX Branch Free 6 MO-64 YRS Influenza Virus 2021-04-30 Completed Universit y of [facility]ine [facility], 00:00:00 [place] [facility] dical Preserv and ABX Branch Free 6 MO-64 YRS Influenza Virus 2021-04-30 Completed Universit y of Vaccine [facility], 00:00:00 [place] [facility] dical Preserv and ABX Branch Free 6 MO-64 YRS Influenza Virus 2021-04-30 Completed Universit y of Vaccine [facility], 00:00:00 [place] [facility] dical Preserv and ABX Branch Free 6 MO-64 YRS Influenza Virus 2021-04-30 Completed Universit y of Vaccine [facility], 00:00:00 [place] [facility] dical Preserv and ABX Branch Free 6 MO-64 YRS Influenza Virus 2021-04-30 Completed Universit y of Vaccine [facility], 00:00:00 [place] [facility] dical Preserv and ABX Branch Free 6 MO-64 YRS Influenza Virus 2021-04-30 Completed Universit y of Vaccine [facility], 00:00:00 [place] [facility] dical Preserv and ABX Branch Free 6 MO-64 YRS Influenza Virus 2021-04-30 Completed Universit y of Vaccine [facility], 00:00:00 [place] [facility] dical Preserv and ABX Branch Free 6 MO-64 YRS Influenza Virus 2021-04-30 Completed Universit y of Vaccine [facility], 00:00:00 [place] [facility] dical Preserv and ABX Branch Free 6 MO-64 YRS Influenza Virus 2021-04-30 Completed Universit y of Vaccine [facility], 00:00:00 [place] [facility] dical Preserv and ABX Branch Free 6 MO-64 YRS Influenza Virus 2021-04-30 Completed Universit y of Vaccine [facility], 00:00:00 [place] [facility] dical Preserv and ABX Branch Free 6 MO-64 YRS Influenza Virus 2021-04-30 Completed Universit y of Vaccine [facility], 00:00:00 [place] Me dical Preserv and ABX Branch Free 6 MO-64 YRS Influenza Virus 2021-04-30 Completed Universit y of Vaccine [facility], 00:00:00 [place] Me dical Preserv and ABX Branch Free 6 MO-64 YRS Influenza Virus 2021-04-30 Completed Universit y of Vaccine [facility], 00:00:00 [place] Me dical Preserv and ABX Branch Free 6 MO-64 YRS Influenza Virus 2021-04-30 Completed Universit y of Vaccine [facility], 00:00:00 [place] Me dical Preserv and ABX Branch Free 6 MO-64 YRS Influenza Virus 2021-04-30 Completed Universit y of Vaccine [facility], 00:00:00 [place] Me dical Preserv and ABX Branch Free 6 MO-64 YRS Influenza Virus 2021-04-30 [facility], [facility]:00 [place] [facility] ABX Branch Free 6 MO-64 YRS Influenza Virus 2021-04-30 Completed [facility], 00:00:00 [place] [facility] ABX [facility] Free 6 MO-64 YRS Influenza Virus 2021-04-30 Completed [facility], 00:00:00 [place] [facility] ABX [facility] Free 6 MO-64 YRS Influenza Virus 2021-04-30 Completed [facility], 00:00:00 [place] [facility] ABX [facility] Free 6 MO-64 YRS Influenza Virus 2021-04-30 Completed [facility], 00:00:00 [place] [facility] ABX Branch Free 6 MO-64 YRS Influenza Virus 2021-04-30 Completed [facility], 00:00:00 [place] [facility] ABX [facility] Free 6 MO-64 YRS Influenza Virus 2021-04-30 Completed [facility], 00:00:00 [place] [facility] ABX [facility] Free 6 MO-64 YRS Influenza Virus 2021-04-30 Completed [facility], 00:00:00 [place] [facility] ABX [facility] Free 6 MO-64 YRS Influenza Virus 2021-04-30 Completed [facility], 00:00:00 [place] [facility] Pres[facility] ABX Branch Free 6 MO-64 YRS Influenza Virus 2021-04-30 Completed [facility], 00:00:00 [place] [facility] Pres[facility] ABX Branch Free 6 MO-64 YRS Influenza Virus 2021-04-30 Completed [facility], 00:00:00 [place] [facility] ABX [facility] Free 6 MO-64 YRS Influenza Virus 2021-04-30 Completed [facility], 00:00:00 [place] [facility] ABX [facility] Free 6 MO-64 YRS Influenza Virus 2021-04-30 Completed [facility], 00:00:00 [place] [facility] Pres[facility] ABX Branch Free 6 MO-64 YRS Influenza Virus 2021-04-30 Completed [facility], 00:00:00 [place] [facility] Pres[facility] ABX Branch Free 6 MO-64 YRS Influenza Virus 2021-04-30 Completed [facility], 00:00:00 [place] [facility] Pres[facility] ABX Branch Free 6 MO-64 YRS Influenza Virus 2021-04-30 Completed [facility], 00:00:00 [place] [facility] ABX [facility] Free 6 MO-64 YRS Influenza Virus 2021-04-30 Completed [facility], 00:00:00 [place] [facility] Pres[facility] ABX Branch Free 6 MO-64 YRS Influenza Virus 2021-04-30 Completed [facility], 00:00:00 [place] [facility] Pres[facility] ABX Branch Free 6 MO-64 YRS Influenza Virus 2021-04-30 Completed [facility], 00:00:00 [place] [facility] Pres[facility] ABX [facility] Free 6 MO-64 YRS Influenza Virus 2021-04-30 Completed [facility], 00:00:00 [place] [facility] Pres[facility] ABX [facility] Free 6 MO-64 YRS Influenza Virus 2021-04-30 Completed [facility], 00:00:00 [place] [facility] ABX [facility] Free 6 MO-64 YRS Influenza Virus 2021-04-30 Completed [facility], 00:00:00 [place] [facility] Pres[facility] ABX Branch Free 6 MO-64 YRS Influenza Virus 2021-04-30 Completed [facility], 00:00:00 [place] [facility] Pres[facility] ABX Branch Free 6 MO-64 YRS Influenza Virus 2021-04-30 Completed [facility], 00:00:00 [place] [facility] ABX Branch Free 6 MO-64 YRS Influenza Virus 2021-04-30 Completed [facility], 00:00:00 [place] [facility] ABX [facility] Free 6 MO-64 YRS Influenza Virus 2021-04-30 Completed [facility], 00:00:00 [place] [facility] Pres[facility] ABX Branch Free 6 MO-64 YRS Influenza Virus 2021-04-30 Completed [facility], 00:00:00 [place] [facility] Pres[facility] ABX Branch Free 6 MO-64 YRS Influenza Virus 2021-04-30 Completed [facility], 00:00:00 [place] [facility] Pres[facility] ABX Branch Free 6 MO-64 YRS Influenza Virus 2021-04-30 Completed [facility], 00:00:00 [place] [facility] Pres[facility] ABX Branch Free 6 MO-64 YRS Influenza Virus 2021-04-30 Completed [facility], 00:00:00 [place] [facility] Pres[facility] ABX Branch Free 6 MO-64 YRS Influenza Virus 2021-04-30 Completed [facility], 00:00:00 [place] [facility] Pres[facility] ABX Branch Free 6 MO-64 YRS Influenza Virus 2021-04-30 Completed [facility], 00:00:00 [place] [facility] Pres[facility] ABX Branch Free 6 MO-64 YRS Influenza Virus 2021-04-30 Completed [facility], 00:00:00 [place] [facility] Pres[facility] ABX Branch Free 6 MO-64 YRS Influenza Virus 2021-04-30 Completed [facility], 00:00:00 [place] [facility] Pres[facility] ABX Branch Free 6 MO-64 YRS Influenza Virus 2021-04-30 Completed [facility], 00:00:00 [place] [facility] Pres[facility] and ABX Branch Free 6 MO-64 YRS Influenza Virus 2021-04-30 Completed [facility], 00:00:00 [place] [facility] Pres[facility] and ABX Branch Free 6 MO-64 YRS Influenza Virus 2021-04-30 Completed [facility], 00:00:00 [place] [facility] Pres[facility] and ABX Branch Free 6 MO-64 YRS Influenza Virus 2021-04-30 Completed [facility], 00:00:00 [place] [facility] Pres[facility] ABX Branch Free 6 MO-64 YRS Influenza Virus 2021-04-30 Completed [facility], 00:00:00 [place] [facility] Pres[facility] and ABX Branch Free 6 MO-64 YRS Influenza Virus 2021-04-30 Completed [facility], 00:00:00 [place] [facility] Pres[facility] and ABX Branch Free 6 MO-64 YRS Influenza Virus 2021-04-30 Completed [facility], 00:00:00 [place] [facility] Pres[facility] and ABX Branch Free 6 MO-64 YRS Influenza Virus 2021-04-30 Completed [facility], 00:00:00 [place] [facility] Pres[facility] and ABX Branch Free 6 MO-64 YRS Influenza Virus 2021-04-30 Completed [facility], 00:00:00 [place] [facility] Pres[facility] and ABX Branch Free 6 MO-64 YRS Influenza Virus 2021-04-30 Completed [facility], 00:00:00 [place] [facility] Pres[facility] and ABX Branch Free 6 MO-64 YRS Influenza Virus 2021-04-30 Completed [facility], 00:00:00 [place] [facility] Pres[facility] and ABX Branch Free 6 MO-64 YRS Influenza Virus 2021-04-30 Completed [facility], 00:00:00 [place] [facility] Pres[facility] and ABX Branch Free 6 MO-64 YRS Influenza Virus 2021-04-30 Completed [facility], 00:00:00 [place] [facility] Pres[facility] and ABX Branch Free 6 MO-64 YRS Influenza Virus 2021-04-30 Completed [facility], 00:00:00 [place] [facility] Pres[facility] and ABX Branch Free 6 MO-64 YRS Influenza Virus 2021-04-30 Completed [facility], 00:00:00 [place] [facility] Pres[facility] and ABX Branch Free 6 MO-64 YRS Influenza Virus 2021-04-30 Completed [facility], 00:00:00 [place] [facility] Pres[facility] and ABX Branch Free 6 MO-64 YRS Influenza Virus 2021-04-30 Completed [facility], 00:00:00 [place] [facility] Pres[facility] and ABX Branch Free 6 MO-64 YRS Influenza Virus 2021-04-30 Completed [facility], 00:00:00 [place] [facility] Pres[facility] and ABX Branch Free 6 MO-64 YRS Influenza Virus 2021-04-30 Completed [facility], 00:00:00 [place] [facility] Pres[facility] and ABX Branch Free 6 MO-64 YRS Influenza Virus 2021-04-30 Completed [facility], 00:00:00 [place] [facility] Pres[facility] and ABX Branch Free 6 MO-64 YRS Influenza Virus 2021-04-30 Completed [facility], 00:00:00 [place] [facility] Pres[facility] and ABX Branch Free 6 MO-64 YRS Influenza Virus 2021-04-30 Completed [facility], 00:00:00 [place] [facility] Pres[facility] and ABX Branch Free 6 MO-64 YRS Influenza Virus 2021-04-30 Completed [facility], 00:00:00 [place] [facility] Pres[facility] and ABX Branch Free 6 MO-64 YRS Influenza Virus 2021-04-30 Completed [facility], 00:00:00 [place] [facility] Pres[facility] and ABX Branch Free 6 MO-64 YRS Influenza Virus 2021-04-30 Completed [facility], 00:00:00 [place] [facility] ABX Branch Free 6 MO-64 YRS (FLUCELVAX) Influenza Virus 2018-11-06 Completed [facility] 00:00:00 [place] [facility] 6+ MO Branch Influenza Virus 2018-11-06 Completed [facility] 00:00:00 [facility] Influenza Virus 2018-11-06 Completed [facility] 00:00:00 [facility] 6+ MO [place] Influenza Virus 2018-11-06 Completed [facility] 00:00:00 [facility] Influenza Virus 2018-11-06 Completed [facility] mL 00:00:00 [facility] 6+ MO Branch Influenza Virus 2018-11-06 Completed [facility] 00:00:00 [facility] Influenza Virus 2018-11-06 Completed [facility] mL 00:00:00 [facility] 6+ MO [place] Influenza Virus 2018-11-06 Completed [facility] 00:00:00 [facility] Influenza Virus 2018-11-06 Completed [facility] mL 00:00:00 [facility] 6 MO Harmans Influenza Virus 2018-11-06 Completed [facility] 00:00:00 [facility] Influenza Virus 2018-11-06 Completed [facility] mL 00:00:00 [facility] 6+ MO [place] Influenza Virus 2018-11-06 Completed [facility] 00:00:00 [facility] Influenza Virus 2018-11-06 Completed [facility] mL 00:00:00 [facility] 6+ MO [place] Influenza Virus 2018-11-06 Completed [facility] 00:00:00 [facility] Influenza Virus 2018-11-06 Completed [facility] mL 00:00:00 [facility] 6+ MO [place] Influenza Virus 2018-11-06 Completed [facility] 00:00:00 [facility] Influenza Virus 2018-11-06 Completed [facility]5 mL 00:00:00 [facility] 6+ MO [place] Influenza Virus 2018-11-06 Completed [facility] 00:00:00 [facility] Influenza Virus 2018-11-06 Completed [facility]5 mL 00:00:00 [facility] 6+ MO [place] Influenza Virus 2018-11-06 Completed [facility] 00:00:00 [facility] Influenza Virus 2018-11-06 Completed [facility]5 mL 00:00:00 [facility] 6+ MO Branch Influenza Virus 2018-11-06 Completed [facility] 00:00:00 [facility] Influenza Virus 2018-11-06 Completed [facility]5 mL 00:00:00 [facility] 6+ MO [place] Influenza Virus 2018-11-06 Completed [facility] 00:00:00 [facility] Influenza Virus 2018-11-06 Completed [facility]5 mL 00:00:00 [facility] 6+ MO [place] Influenza Virus 2018-11-06 Completed [facility] 00:00:00 [facility] Influenza Virus 2018-11-06 Completed [facility]5 mL 00:00:00 [facility] 6+ MO [place] Influenza Virus 2018-11-06 Completed [facility] 00:00:00 [facility] Influenza Virus 2018-11-06 Completed [facility]5 mL 00:00:00 [facility] 6+ MO [place] Influenza Virus 2018-11-06 Completed [facility] 00:00:00 [facility] Influenza Virus 2018-11-06 Completed [facility]5 mL 00:00:00 [facility] 6+ MO [place] Influenza Virus 2018-11-06 Completed [facility] 00:00:00 [facility] Influenza Virus 2018-11-06 Completed [facility]5 mL 00:00:00 [facility] 6+ MO [place] Influenza Virus 2018-11-06 Completed [facility] 00:00:00 [facility] Influenza Virus 2018-11-06 Completed [facility]5 mL 00:00:00 [facility] 6+ MO [place] Influenza Virus 2018-11-06 Completed [facility] 00:00:00 [facility] Influenza Virus 2018-11-06 Completed [facility]5 mL 00:00:00 [facility] 6+ MO [place] Influenza Virus 2018-11-06 Completed [facility] 00:00:00 [facility] Influenza Virus 2018-11-06 Completed [facility]5 mL 00:00:00 [facility] 6+ MO Branch Influenza Virus 2018-11-06 Completed [facility] 00:00:00 [facility] Influenza Virus 2018-11-06 Completed [facility]5 mL 00:00:00 [facility] 6+ MO Branch Influenza Virus 2018-11-06 Completed [facility] 00:00:00 [facility] Influenza Virus 2018-11-06 Completed [facility]5 mL 00:00:00 [facility] 6+ MO Branch Influenza Virus 2018-11-06 Completed [facility] 00:00:00 [facility] Influenza Virus 2018-11-06 Completed [facility] mL 00:00:00 [facility] 6+ MO Branch Influenza Virus 2018-11-06 Completed [facility] 00:00:00 [facility] Influenza Virus 2018-11-06 Completed [facility] mL 00:00:00 [facility] 6+ MO [place] Influenza Virus 2018-11-06 Completed [facility] 00:00:00 [facility] Influenza Virus 2018-11-06 Completed [facility] mL 00:00:00 [facility] 6+ MO [place] Influenza Virus 2018-11-06 Completed [facility] 00:00:00 [facility] Influenza Virus 2018-11-06 Completed [facility] mL 00:00:00 [facility] 6+ MO [place] Influenza Virus 2018-11-06 Completed [facility] 00:00:00 [facility] Influenza Virus 2018-11-06 Completed [facility]5 mL 00:00:00 [facility] 6+ MO [place] Influenza Virus 2018-11-06 Completed [facility] 00:00:00 [facility] Influenza Virus 2018-11-06 Completed [facility]5 mL 00:00:00 [facility] 6+ MO [place] Influenza Virus 2018-11-06 Completed [facility] 00:00:00 [facility] Influenza Virus 2018-11-06 Completed [facility]5 mL 00:00:00 [facility] 6+ MO [place] Influenza Virus 2018-11-06 Completed [facility] 00:00:00 [facility] Influenza Virus 2018-11-06 Completed [facility]5 mL 00:00:00 [facility] 6+ MO [place] Influenza Virus 2018-11-06 Completed [facility] 00:00:00 [facility] Influenza Virus 2018-11-06 Completed [facility]5 mL 00:00:00 [facility] 6+ MO Branch Influenza Virus 2018-11-06 Completed [facility] 00:00:00 [facility] Influenza Virus 2018-11-06 Completed [facility]5 mL 00:00:00 [facility] 6+ MO Branch Influenza Virus 2018-11-06 Completed [facility] 00:00:00 [facility] Influenza Virus 2018-11-06 Completed [facility]5 mL 00:00:00 [facility] 6+ MO [place] Influenza Virus 2018-11-06 Completed [facility] 00:00:00 [facility] Influenza Virus 2018-11-06 Completed [facility]5 mL 00:00:00 [facility] 6+ MO [place] Influenza Virus 2018-11-06 Completed [facility] 00:00:00 [facility] Influenza Virus 2018-11-06 Completed [facility]5 mL 00:00:00 [facility] 6+ MO [place] Influenza Virus 2018-11-06 Completed [facility] 00:00:00 [facility] Influenza Virus 2018-11-06 Completed [facility]5 mL 00:00:00 [facility] 6+ MO [place] Influenza Virus 2018-11-06 Completed [facility] 00:00:00 [facility] Influenza Virus 2018-11-06 Completed [facility]5 mL 00:00:00 [facility] 6+ MO Branch Influenza Virus 2018-11-06 Completed [facility] 00:00:00 [facility] Influenza Virus 2018-11-06 Completed [facility]5 mL 00:00:00 [facility] 6+ MO [place] Influenza Virus 2018-11-06 Completed [facility] 00:00:00 [facility] Influenza Virus 2018-11-06 Completed [facility]5 mL 00:00:00 [facility] 6+ MO Branch Influenza Virus 2018-11-06 Completed [facility] 00:00:00 [facility] Influenza Virus 2018-11-06 Completed [facility]5 mL 00:00:00 [facility] 6+ MO Branch Influenza Virus 2018-11-06 Completed [facility] 00:00:00 [facility] Influenza Virus 2018-11-06 Completed [facility]5 mL 00:00:00 [facility] 6+ MO Branch Influenza Virus 2018-11-06 Completed [facility] 00:00:00 [facility] Influenza Virus 2018-11-06 Completed [facility]5 mL 00:00:00 [facility] 6+ MO [place] Influenza Virus 2018-11-06 Completed [facility] 00:00:00 [facility] Influenza Virus 2018-11-06 Completed [facility]5 mL 00:00:00 [facility] 6+ MO [place] Influenza Virus 2018-11-06 Completed [facility] 00:00:00 [facility] Influenza Virus 2018-11-06 Completed [facility]5 mL 00:00:00 [facility] 6+ MO [place] Influenza Virus 2018-11-06 Completed [facility] 00:00:00 [facility] Influenza Virus 2018-11-06 Completed [facility]5 mL 00:00:00 [facility] 6+ MO [place] Influenza Virus 2018-11-06 Completed [facility] 00:00:00 [facility] Influenza Virus 2018-11-06 Completed [facility]5 mL 00:00:00 [facility] 6+ MO [place] Influenza Virus 2018-11-06 Completed [facility] 00:00:00 [facility] Influenza Virus 2018-11-06 Completed [facility]5 mL 00:00:00 [facility] 6+ MO [place] Influenza Virus 2018-11-06 Completed [facility] 00:00:00 [facility] Influenza Virus 2018-11-06 Completed [facility]5 mL 00:00:00 [facility] 6+ MO [place] Influenza Virus 2018-11-06 Completed [facility] 00:00:00 [facility] Influenza Virus 2018-11-06 Completed [facility]5 mL 00:00:00 [facility] 6+ MO Branch Influenza Virus 2018-11-06 Completed [facility] 00:00:00 [facility] Influenza Virus 2018-11-06 Completed [facility]5 mL 00:00:00 [facility] 6+ MO [place] Influenza Virus 2018-11-06 Completed [facility] 00:00:00 [facility] Influenza Virus 2018-11-06 Completed [facility]5 mL 00:00:00 [facility] 6+ MO Branch Influenza Virus 2018-11-06 Completed [facility] 00:00:00 [facility] Influenza Virus 2018-11-06 Completed [facility]5 mL 00:00:00 [facility] 6+ MO [place] Influenza Virus 2018-11-06 Completed [facility] 00:00:00 [facility] Influenza Virus 2018-11-06 Completed [facility]5 mL 00:00:00 [facility] 6+ MO [place] Influenza Virus 2018-11-06 Completed [facility] 00:00:00 [facility] Influenza Virus 2018-11-06 Completed [facility]5 mL 00:00:00 [facility] 6+ MO [place] Influenza Virus 2018-11-06 Completed [facility] 00:00:00 [facility] Influenza Virus 2018-11-06 Completed [facility]5 mL 00:00:00 [facility] 6+ MO [place] Influenza Virus 2018-11-06 Completed [facility] 00:00:00 [facility] Influenza Virus 2018-11-06 Completed [facility]5 mL 00:00:00 [facility] 6+ MO [place] Influenza Virus 2018-11-06 Completed [facility] 00:00:00 [facility] Influenza Virus 2018-11-06 Completed [facility]5 mL 00:00:00 [facility] 6+ MO [place] Influenza Virus 2018-11-06 Completed [facility] 00:00:00 [facility] Influenza Virus 2018-11-06 Completed [facility]5 mL 00:00:00 [facility] 6+ MO [place] Influenza Virus 2018-11-06 Completed [facility] 00:00:00 [facility] Influenza Virus 2018-11-06 Completed [facility]5 mL 00:00:00 [facility] 6+ MO Branch Influenza Virus 2018-11-06 Completed [facility] 00:00:00 [facility] Influenza Virus 2018-11-06 Completed [facility]5 mL 00:00:00 [facility] 6+ MO Branch Influenza Virus 2018-11-06 Completed [facility] 00:00:00 [facility] Influenza Virus 2018-11-06 Completed [facility]5 mL 00:00:00 [facility] 6+ MO Branch Influenza Virus 2018-11-06 Completed [facility] 00:00:00 [facility] Influenza Virus 2018-11-06 Completed [facility]5 mL 00:00:00 [facility] 6+ [place] Influenza Virus 2018-11-06 Completed [facility] 00:00:00 [facility] Influenza Virus 2018-11-06 Completed [facility]5 mL 00:00:00 [facility] 6+ MO [place] Influenza Virus 2018-11-06 Completed [facility] 00:00:00 [facility] Influenza Virus 2018-11-06 Completed [facility]5 mL 00:00:00 [facility] 6+ [place] Influenza Virus 2018-11-06 Completed [facility] 00:00:00 [facility] Influenza Virus 2018-11-06 Completed [facility]5 mL 00:00:00 [facility] 6+ MO [place] Influenza Virus 2018-11-06 Completed [facility] 00:00:00 [facility] Influenza Virus 2018-11-06 Completed [facility]5 mL 00:00:00 [facility] 6+ MO [place] Influenza Virus 2018-11-06 Completed [facility] 00:00:00 [facility] Influenza Virus 2018-11-06 Completed [facility]5 mL 00:00:00 [facility] 6+ MO [place] Influenza Virus 2018-11-06 Completed [facility] Vaccine Quad Nasal 00:00:00 [facility] Influenza Virus 2018-11-06 Completed [facility] Vaccine Quad .5 mL 00:00:00 [facility] 6+ MO Branch Influenza Virus 2018-11-06 Completed [facility] of Vaccine Quad Nasal 00:00:00 [facility] Influenza Virus 2018-11-06 Completed [facility] of Vaccine Quad .5 mL 00:00:00 [facility] 6+ MO Branch Influenza Virus 2018-11-06 Completed [facility] of Vaccine Quad Nasal 00:00:00 [facility] Influenza Virus 2018-11-06 Completed [facility] of Vaccine Quad .5 mL 00:00:00 [facility] 6+ MO [place] Influenza Virus 2018-11-06 Completed [facility] of Vaccine Quad Nasal 00:00:00 [facility] Influenza Virus 2018-11-06 Completed [facility] of Vaccine Quad .5 mL 00:00:00 [facility] 6+ MO [place] Influenza Virus 2018-11-06 Completed [facility] of Vaccine Quad Nasal 00:00:00 [facility] Influenza Virus 2018-11-06 Completed [facility] of Vaccine Quad .5 mL 00:00:00 [facility] 6+ MO [place] Influenza Virus 2018-11-06 Completed [facility] of Vaccine Quad Nasal 00:00:00 [facility] Influenza Virus 2018-11-06 Completed [facility] of Vaccine Quad .5 mL 00:00:00 [facility] 6+ MO [place] Influenza Virus 2018-11-06 Completed [facility] of Vaccine Quad Nasal 00:00:00 [facility] Influenza Virus 2018-11-06 Completed [facility] of Vaccine Quad .5 mL 00:00:00 [facility] 6+ MO [place] Influenza Virus 2018-11-06 Completed [facility] of Vaccine Quad Nasal 00:00:00 [facility] Influenza Virus 2018-11-06 Completed [facility] of Vaccine Quad .5 mL 00:00:00 [facility] 6+ MO [place] Influenza Virus 2018-11-06 Completed [facility] of Vaccine Quad Nasal 00:00:00 [facility] Influenza Virus 2018-11-06 Completed [facility] of Vaccine Quad .5 mL 00:00:00 [facility] 6+ MO [place] Influenza Virus 2018-11-06 Completed [facility] of Vaccine Quad Nasal 00:00:00 [facility] Influenza Virus 2018-11-06 Completed [facility] of Vaccine Quad .5 mL 00:00:00 [facility] 6+ MO [place] Influenza Virus 2018-11-06 Completed [facility] of Vaccine Quad Nasal 00:00:00 [facility] Influenza Virus 2018-11-06 Completed [facility] of Vaccine Quad .5 mL 00:00:00 [facility] 6+ MO Branch Influenza Virus 2018-11-06 Completed [facility] of Vaccine Quad Nasal 00:00:00 [facility] Influenza Virus 2018-11-06 Completed [facility] of Vaccine Quad .5 mL 00:00:00 [facility] 6+ MO Branch Influenza Virus 2018-11-06 Completed [facility] of Vaccine Quad Nasal 00:00:00 [facility] Influenza Virus 2018-11-06 Completed [facility] of Vaccine Quad .5 mL 00:00:00 [facility] 6+ MO [place] Influenza Virus 2018-11-06 Completed [facility] of Vaccine Quad Nasal 00:00:00 [facility] Influenza Virus 2018-11-06 Completed [facility] of Vaccine Quad .5 mL 00:00:00 [facility] 6+ MO Branch Influenza Virus 2018-11-06 Completed [facility] of Vaccine Quad Nasal 00:00:00 [facility] Influenza Virus 2018-11-06 Completed [facility] of Vaccine Quad .5 mL 00:00:00 [facility] 6+ MO [place] Influenza Virus 2018-11-06 Completed [facility] of Vaccine Quad Nasal 00:00:00 [facility] Influenza Virus 2018-11-06 Completed [facility] of Vaccine Quad .5 mL 00:00:00 [facility] 6+ MO [place] Influenza Virus 2018-11-06 Completed [facility] of Vaccine Quad Nasal 00:00:00 [facility] Influenza Virus 2018-11-06 Completed [facility] of Vaccine Quad .5 mL 00:00:00 [facility] 6+ MO [place] Influenza Virus 2018-11-06 Completed [facility] of Vaccine Quad Nasal 00:00:00 [facility] Influenza Virus 2018-11-06 Completed [facility] of Vaccine Quad .5 mL 00:00:00 [facility] 6+ MO Branch Influenza Virus 2018-11-06 Completed [facility] of Vaccine Quad Nasal 00:00:00 [facility] Influenza Virus 2018-11-06 Completed [facility] of Vaccine Quad .5 mL 00:00:00 [facility] 6+ MO Branch Influenza Virus 2018-11-06 Completed [facility] of Vaccine Quad Nasal 00:00:00 [facility] Influenza Virus 2018-11-06 Completed [facility] of Vaccine Quad .5 mL 00:00:00 [facility] 6+ MO Branch Influenza Virus 2018-11-06 Completed [facility] of Vaccine Quad Nasal 00:00:00 [facility] Influenza Virus 2018-11-06 Completed [facility] of Vaccine Quad .5 mL 00:00:00 [facility] 6+ MO Branch Influenza Virus 2018-11-06 Completed [facility] of Vaccine Quad Nasal 00:00:00 [facility] Influenza Virus 2018-11-06 Completed [facility] of Vaccine Quad .5 mL 00:00:00 [facility] IM 6+ MO Branch Influenza Virus 2018-11-06 Completed [facility] of Vaccine Quad Nasal 00:00:00 [facility] Influenza Virus 2018-11-06 Completed [facility] of Vaccine Quad .5 mL 00:00:00 [facility] 6+ MO Branch (FLUZONE/FLULAVAL/F LUARIX) Influenza Virus 2018-11-06 Completed [facility] of Vaccine Quad Nasal 00:00:00 [facility] (Flumist) Branch Pneumococcal 13 2018-03-27 Completed [facility] of Conjugate, PCV13 00:00:00 [facility] (Prevnar 13) Branch Pneumococcal 13 2018-03-27 Completed [facility] of Conjugate, PCV13 00:00:00 [place] [facility] (Prevnar 13) Branch Pneumococcal 13 2018-03-27 Completed [facility] of Conjugate, PCV13 00:00:00 [facility] (Prevnar 13) Branch Pneumococcal 13 2018-03-27 Completed [facility] of Conjugate, PCV13 00:00:00 [facility] (Prevnar 13) Branch Pneumococcal 13 2018-03-27 Completed [facility] of Conjugate, PCV13 00:00:00 [facility] (Prevnar 13) Branch Pneumococcal 13 2018-03-27 Completed [facility] of Conjugate, PCV13 00:00:00 [facility] (Prevnar 13) Branch Pneumococcal 13 2018-03-27 Completed [facility] of Conjugate, PCV13 00:00:00 [facility] (Prevnar 13) Branch Pneumococcal 13 2018-03-27 Completed [facility] of Conjugate, PCV13 00:00:00 [facility] (Prevnar 13) Branch Pneumococcal 13 2018-03-27 Completed [facility] of Conjugate, PCV13 00:00:00 [facility] (Prevnar 13) Branch Pneumococcal 13 2018-03-27 Completed [facility] of Conjugate, PCV13 00:00:00 [facility] (Prevnar 13) Branch Pneumococcal 13 2018-03-27 Completed [facility] of Conjugate, PCV13 00:00:00 [facility] (Prevnar 13) Branch Pneumococcal 13 2018-03-27 Completed [facility] of Conjugate, PCV13 00:00:00 [facility] (Prevnar 13) Branch Pneumococcal 13 2018-03-27 Completed [facility] of Conjugate, PCV13 00:00:00 [facility] (Prevnar 13) Branch Pneumococcal 13 2018-03-27 Completed [facility] of Conjugate, PCV13 00:00:00 [facility] (Prevnar 13) Branch Pneumococcal 13 2018-03-27 Completed [facility] of Conjugate, PCV13 00:00:00 [facility] (Prevnar 13) Branch Pneumococcal 13 2018-03-27 Completed [facility] of Conjugate, PCV13 00:00:00 [facility] (Prevnar 13) Branch Pneumococcal 13 2018-03-27 Completed [facility] of Conjugate, PCV13 00:00:00 [facility] (Prevnar 13) Branch Pneumococcal 13 2018-03-27 Completed [facility] of Conjugate, PCV13 00:00:00 [facility] (Prevnar 13) Branch Pneumococcal 13 2018-03-27 Completed [facility] of Conjugate, PCV13 00:00:00 [facility] (Prevnar 13) Branch Pneumococcal 13 2018-03-27 Completed [facility] of Conjugate, PCV13 00:00:00 [facility] (Prevnar 13) Branch Pneumococcal 13 2018-03-27 Completed [facility] of Conjugate, PCV13 00:00:00 [facility] (Prevnar 13) Branch Pneumococcal 13 2018-03-27 Completed [facility] of Conjugate, PCV13 00:00:00 [facility] (Prevnar 13) Branch Pneumococcal 13 2018-03-27 Completed [facility] of Conjugate, PCV13 00:00:00 [facility] (Prevnar 13) Branch Pneumococcal 13 2018-03-27 Completed [facility] of Conjugate, PCV13 00:00:00 [facility] (Prevnar 13) Branch Pneumococcal 13 2018-03-27 Completed [facility] of Conjugate, PCV13 00:00:00 [facility] (Prevnar 13) Branch Pneumococcal 13 2018-03-27 Completed [facility] of Conjugate, PCV13 00:00:00 [facility] (Prevnar 13) Branch Pneumococcal 13 2018-03-27 Completed [facility] of Conjugate, PCV13 00:00:00 [facility] (Prevnar 13) Branch Pneumococcal 13 2018-03-27 Completed [facility] of Conjugate, PCV13 00:00:00 [facility] (Prevnar 13) Branch Pneumococcal 13 2018-03-27 Completed [facility] of Conjugate, PCV13 00:00:00 [facility] (Prevnar 13) Branch Pneumococcal 13 2018-03-27 Completed [facility] of Conjugate, PCV13 00:00:00 [facility] (Prevnar 13) Branch Pneumococcal 13 2018-03-27 Completed [facility] of Conjugate, PCV13 00:00:00 [facility] (Prevnar 13) Branch Pneumococcal 13 2018-03-27 Completed [facility] of Conjugate, PCV13 00:00:00 [place] [facility] (Prevnar 13) Branch Pneumococcal 13 2018-03-27 Completed [facility] of Conjugate, PCV13 00:00:00 [facility] (Prevnar 13) Branch Pneumococcal 13 2018-03-27 Completed [facility] of Conjugate, PCV13 00:00:00 [place] [facility] (Prevnar 13) Branch Pneumococcal 13 2018-03-27 Completed [facility] of Conjugate, PCV13 00:00:00 [facility] (Prevnar 13) Branch Pneumococcal 13 2018-03-27 Completed [facility] of Conjugate, PCV13 00:00:00 [place] [facility] (Prevnar 13) Branch Pneumococcal 13 2018-03-27 Completed [facility] of Conjugate, PCV13 00:00:00 [place] [facility] (Prevnar 13) Branch Pneumococcal 13 2018-03-27 Completed [facility] of Conjugate, PCV13 00:00:00 [place] [facility] (Prevnar 13) Branch Pneumococcal 13 2018-03-27 Completed [facility] of Conjugate, PCV13 00:00:00 [place] [facility] (Prevnar 13) Branch Pneumococcal 13 2018-03-27 Completed [facility] of Conjugate, PCV13 00:00:00 [place] [facility] (Prevnar 13) Branch Pneumococcal 13 2018-03-27 Completed [facility] of Conjugate, PCV13 00:00:00 [place] [facility] (Prevnar 13) Branch Pneumococcal 13 2018-03-27 Completed [facility] of Conjugate, PCV13 00:00:00 [place] [facility] (Prevnar 13) Branch Pneumococcal 13 2018-03-27 Completed [facility] of Conjugate, PCV13 00:00:00 [facility] (Prevnar 13) Branch Pneumococcal 13 2018-03-27 Completed [facility] of Conjugate, PCV13 00:00:00 [facility] (Prevnar 13) Branch Pneumococcal 13 2018-03-27 Completed [facility] of Conjugate, PCV13 00:00:00 [facility] (Prevnar 13) Branch Pneumococcal 13 2018-03-27 Completed [facility] of Conjugate, PCV13 00:00:00 [place] [facility] (Prevnar 13) Branch Pneumococcal 13 2018-03-27 Completed [facility] of Conjugate, PCV13 00:00:00 [place] [facility] (Prevnar 13) Branch Pneumococcal 13 2018-03-27 Completed [facility] of Conjugate, PCV13 00:00:00 [place] [facility] (Prevnar 13) Branch Pneumococcal 13 2018-03-27 Completed [facility] of Conjugate, PCV13 00:00:00 [place] [facility] (Prevnar 13) Branch Pneumococcal 13 2018-03-27 Completed [facility] of Conjugate, PCV13 00:00:00 [place] [facility] (Prevnar 13) Branch Pneumococcal 13 2018-03-27 Completed [facility] of Conjugate, PCV13 00:00:00 [place] [facility] (Prevnar 13) Branch Pneumococcal 13 2018-03-27 Completed [facility] of Conjugate, PCV13 00:00:00 [place] [facility] (Prevnar 13) Branch Pneumococcal 13 2018-03-27 Completed [facility] of Conjugate, PCV13 00:00:00 [place] [facility] (Prevnar 13) Branch Pneumococcal 13 2018-03-27 Completed [facility] of Conjugate, PCV13 00:00:00 [place] [facility] (Prevnar 13) Branch Pneumococcal 13 2018-03-27 Completed [facility] of Conjugate, PCV13 00:00:00 [place] [facility] (Prevnar 13) Branch Pneumococcal 13 2018-03-27 Completed [facility] of Conjugate, PCV13 00:00:00 [place] [facility] (Prevnar 13) Branch Pneumococcal 13 2018-03-27 Completed [facility] of Conjugate, PCV13 00:00:00 [place] [facility] (Prevnar 13) Branch Pneumococcal 13 2018-03-27 Completed [facility] of Conjugate, PCV13 00:00:00 [place] [facility] (Prevnar 13) Branch Pneumococcal 13 2018-03-27 Completed [facility] of Conjugate, PCV13 00:00:00 [place] [facility] (Prevnar 13) Branch Pneumococcal 13 2018-03-27 Completed [facility] of Conjugate, PCV13 00:00:00 [place] [facility] (Prevnar 13) Branch Pneumococcal 13 2018-03-27 Completed [facility] of Conjugate, PCV13 00:00:00 [place] [facility] (Prevnar 13) Branch Pneumococcal 13 2018-03-27 Completed [facility] of Conjugate, PCV13 00:00:00 [place] [facility] (Prevnar 13) Branch Pneumococcal 13 2018-03-27 Completed [facility] of Conjugate, PCV13 00:00:00 [place] [facility] (Prevnar 13) Branch Pneumococcal 13 2018-03-27 Completed [facility] of Conjugate, PCV13 00:00:00 [place] [facility] (Prevnar 13) Branch Pneumococcal 13 2018-03-27 Completed [facility] of Conjugate, PCV13 00:00:00 [place] [facility] (Prevnar 13) Branch Pneumococcal 13 2018-03-27 Completed [facility] of Conjugate, PCV13 00:00:00 [place] [facility] (Prevnar 13) Branch Pneumococcal 13 2018-03-27 Completed [facility] of Conjugate, PCV13 00:00:00 [place] [facility] (Prevnar 13) Branch Pneumococcal 13 2018-03-27 Completed [facility] of Conjugate, PCV13 00:00:00 [place] [facility] (Prevnar 13) Branch Pneumococcal 13 2018-03-27 Completed [facility] of Conjugate, PCV13 00:00:00 [place] [facility] (Prevnar 13) Branch Pneumococcal 13 2018-03-27 Completed [facility] of Conjugate, PCV13 00:00:00 [place] [facility] (Prevnar 13) Branch Pneumococcal 13 2018-03-27 Completed [facility] of Conjugate, PCV13 00:00:00 [place] [facility] (Prevnar 13) Branch Pneumococcal 13 2018-03-27 Completed [facility] of Conjugate, PCV13 00:00:00 [place] [facility] (Prevnar 13) Branch Pneumococcal 13 2018-03-27 Completed [facility] of Conjugate, PCV13 00:00:00 [place] [facility] (Prevnar 13) Branch Pneumococcal 13 2018-03-27 Completed [facility] of Conjugate, PCV13 00:00:00 [place] [facility] (Prevnar 13) Branch Pneumococcal 13 2018-03-27 Completed [facility] of Conjugate, PCV13 00:00:00 [place] [facility] (Prevnar 13) Branch Pneumococcal 13 2018-03-27 Completed [facility] of Conjugate, PCV13 00:00:00 [place] [facility] (Prevnar 13) Branch Pneumococcal 13 2018-03-27 Completed [facility] of Conjugate, PCV13 00:00:00 [place] [facility] (Prevnar 13) Branch Pneumococcal 13 2018-03-27 Completed [facility] of Conjugate, PCV13 00:00:00 [place] [facility] (Prevnar 13) Branch Pneumococcal 13 2018-03-27 Completed [facility] of Conjugate, PCV13 00:00:00 [place] [facility] (Prevnar 13) Branch Pneumococcal 13 2018-03-27 Completed [facility] of Conjugate, PCV13 00:00:00 [place] [facility] (Prevnar 13) Branch Pneumococcal 13 2018-03-27 Completed [facility] of Conjugate, PCV13 00:00:00 [place] [facility] (Prevnar 13) Branch Pneumococcal 13 2018-03-27 Completed [facility] of Conjugate, PCV13 00:00:00 [place] [facility] (Prevnar 13) Branch Pneumococcal 13 2018-03-27 Completed [facility] of Conjugate, PCV13 00:00:00 [place] [facility] (Prevnar 13) Branch Pneumococcal 13 2018-03-27 Completed [facility] of Conjugate, PCV13 00:00:00 [place] [facility] (Prevnar 13) Branch Pneumococcal 13 2018-03-27 Completed [facility] of Conjugate, PCV13 00:00:00 [place] [facility] (Prevnar 13) Branch Pneumococcal 13 2018-03-27 Completed [facility] of Conjugate, PCV13 00:00:00 [place] [facility] (Prevnar 13) Branch Pneumococcal 13 2018-03-27 Completed [facility] of Conjugate, PCV13 00:00:00 [place] [facility] (Prevnar 13) Branch Pneumococcal 13 2018-03-27 Completed [facility] of Conjugate, PCV13 00:00:00 [place] [facility] (Prevnar 13) Branch Pneumococcal 13 2018-03-27 Completed [facility] of Conjugate, PCV13 00:00:00 [place] [facility] (Prevnar 13) Branch Pneumococcal 13 2018-03-27 Completed [facility] of Conjugate, PCV13 00:00:00 [facility] (Prevnar 13) Branch Influenza Virus 2018-03-26 Completed [facility] y of Vaccine 00:00:00 [facility] Influenza Virus 2018-03-26 Completed [facility] y of Vaccine 00:00:00 [facility] Influenza Virus 2018-03-26 Completed [facility] y of Vaccine 00:00:00 [facility] Influenza Virus 2018-03-26 Completed [facility] y of Vaccine 00:00:00 [facility] Influenza Virus 2018-03-26 Completed [facility] y of Vaccine 00:00:00 [facility] Influenza Virus 2018-03-26 Completed [facility] y of Vaccine 00:00:00 [facility] Influenza Virus 2018-03-26 Completed [facility] y of Vaccine 00:00:00 [facility] Influenza Virus 2018-03-26 Completed [facility] y of Vaccine 00:00:00 [facility] Influenza Virus 2018-03-26 Completed [facility] y of Vaccine 00:00:00 [facility] Influenza Virus 2018-03-26 Completed [facility] y of Vaccine 00:00:00 [facility] Influenza Virus 2018-03-26 Completed [facility] y of Vaccine 00:00:00 [facility] Influenza Virus 2018-03-26 Completed [facility] y of Vaccine 00:00:00 [facility] Influenza Virus 2018-03-26 Completed [facility] y of Vaccine 00:00:00 [facility] Influenza Virus 2018-03-26 Completed [facility] y of Vaccine 00:00:00 [facility] Influenza Virus 2018-03-26 Completed [facility] y of Vaccine 00:00:00 [facility] Influenza Virus 2018-03-26 Completed [facility] y of Vaccine 00:00:00 [facility] Influenza Virus 2018-03-26 Completed [facility] y of Vaccine 00:00:00 [facility] Influenza Virus 2018-03-26 Completed [facility] y of Vaccine 00:00:00 [facility] Influenza Virus 2018-03-26 Completed [facility] y of Vaccine 00:00:00 [facility] Influenza Virus 2018-03-26 Completed [facility] y of Vaccine 00:00:00 [facility] Influenza Virus 2018-03-26 Completed [facility] y of Vaccine 00:00:00 [facility] Influenza Virus 2018-03-26 Completed [facility] y of Vaccine 00:00:00 [facility] Influenza Virus 2018-03-26 Completed [facility] y of Vaccine 00:00:00 [facility] Influenza Virus 2018-03-26 Completed [facility] y of Vaccine 00:00:00 [facility] Influenza Virus 2018-03-26 Completed [facility] y of Vaccine 00:00:00 [facility] Influenza Virus 2018-03-26 Completed [facility] y of Vaccine 00:00:00 [facility] Influenza Virus 2018-03-26 Completed [facility] y of Vaccine 00:00:00 [facility] Influenza Virus 2018-03-26 Completed [facility] y of Vaccine 00:00:00 [facility] Influenza Virus 2018-03-26 Completed [facility] y of Vaccine 00:00:00 [facility] Influenza Virus 2018-03-26 Completed [facility] y of Vaccine 00:00:00 [facility] Influenza Virus 2018-03-26 Completed [facility] y of Vaccine 00:00:00 [facility] Influenza Virus 2018-03-26 Completed [facility] y of Vaccine 00:00:00 [facility] Influenza Virus 2018-03-26 Completed [facility] y of Vaccine 00:00:00 [facility] Influenza Virus 2018-03-26 Completed [facility] y of Vaccine 00:00:00 [facility] Influenza Virus 2018-03-26 Completed [facility] y of Vaccine 00:00:00 [facility] Influenza Virus 2018-03-26 Completed [facility] y of Vaccine 00:00:00 [facility] Influenza Virus 2018-03-26 Completed [facility] y of Vaccine 00:00:00 [facility] Influenza Virus 2018-03-26 Completed [facility] y of Vaccine 00:00:00 [facility] Influenza Virus 2018-03-26 Completed [facility] y of Vaccine 00:00:00 [facility] Influenza Virus 2018-03-26 Completed [facility] y of Vaccine 00:00:00 [facility] Influenza Virus 2018-03-26 Completed [facility] y of Vaccine 00:00:00 [facility] Influenza Virus 2018-03-26 Completed [facility] y of Vaccine 00:00:00 [facility] Influenza Virus 2018-03-26 Completed [facility] y of Vaccine 00:00:00 [facility] Influenza Virus 2018-03-26 Completed [facility] y of Vaccine 00:00:00 [facility] Influenza Virus 2018-03-26 Completed [facility] y of Vaccine 00:00:00 [facility] Influenza Virus 2018-03-26 Completed [facility] y of Vaccine 00:00:00 [facility] Influenza Virus 2018-03-26 Completed [facility] y of Vaccine 00:00:00 [facility] Influenza Virus 2018-03-26 Completed [facility] y of Vaccine 00:00:00 [facility] Influenza Virus 2018-03-26 Completed [facility] y of Vaccine 00:00:00 [facility] Influenza Virus 2018-03-26 Completed [facility] y of Vaccine 00:00:00 [facility] Influenza Virus 2018-03-26 Completed [facility] y of Vaccine 00:00:00 [facility] Influenza Virus 2018-03-26 Completed [facility] y of Vaccine 00:00:00 [facility] Influenza Virus 2018-03-26 Completed [facility] y of Vaccine 00:00:00 [facility] Influenza Virus 2018-03-26 Completed [facility] y of Vaccine 00:00:00 [facility] Influenza Virus 2018-03-26 Completed [facility] y of Vaccine 00:00:00 [facility] Influenza Virus 2018-03-26 Completed [facility] y of Vaccine 00:00:00 [facility] Influenza Virus 2018-03-26 Completed [facility] y of Vaccine 00:00:00 [facility] Influenza Virus 2018-03-26 Completed [facility] y of Vaccine 00:00:00 [facility] Influenza Virus 2018-03-26 Completed [facility] y of Vaccine 00:00:00 [facility] Influenza Virus 2018-03-26 Completed [facility] y of Vaccine 00:00:00 [facility] Influenza Virus 2018-03-26 Completed [facility] y of Vaccine 00:00:00 [facility] Influenza Virus 2018-03-26 Completed [facility] y of Vaccine 00:00:00 [facility] Influenza Virus 2018-03-26 Completed [facility] y of Vaccine 00:00:00 [facility] Influenza Virus 2018-03-26 Completed [facility] y of Vaccine 00:00:00 [facility] Influenza Virus 2018-03-26 Completed [facility] y of Vaccine 00:00:00 [facility] Influenza Virus 2018-03-26 Completed [facility] of Vaccine 00:00:00 [facility] Influenza Virus 2018-03-26 Completed [facility] of Vaccine 00:00:00 [facility] Influenza Virus 2018-03-26 Completed [facility] y of Vaccine 00:00:00 [facility] Influenza Virus 2018-03-26 Completed [facility] y of Vaccine 00:00:00 [facility] Influenza Virus 2018-03-26 Completed [facility] y of Vaccine 00:00:00 [facility] Influenza Virus 2018-03-26 Completed [facility] y of Vaccine 00:00:00 [facility] Influenza Virus 2018-03-26 Completed [facility] y of Vaccine 00:00:00 [facility] Influenza Virus 2018-03-26 Completed [facility] y of Vaccine 00:00:00 [facility] Influenza Virus 2018-03-26 Completed [facility] y of Vaccine 00:00:00 [facility] Influenza Virus 2018-03-26 Completed [facility] y of Vaccine 00:00:00 [facility] Influenza Virus 2018-03-26 Completed [facility] y of Vaccine 00:00:00 [facility] Influenza Virus 2018-03-26 Completed [facility] y of Vaccine 00:00:00 [facility] Influenza Virus 2018-03-26 Completed [facility] y of Vaccine 00:00:00 [facility] Influenza Virus 2018-03-26 Completed [facility] y of Vaccine 00:00:00 [facility] Influenza Virus 2018-03-26 Completed [facility] of Vaccine 00:00:00 [facility] Influenza Virus 2018-03-26 Completed [facility] of Vaccine 00:00:00 [facility] Influenza Virus 2018-03-26 Completed [facility] of Vaccine 00:00:00 [facility] Influenza Virus 2018-03-26 Completed [facility] Vaccine 00:00:00 [facility] Influenza Virus 2018-03-26 Completed [facility] Vaccine 00:00:00 [facility] Influenza Virus 2018-03-26 Completed [facility] of Vaccine 00:00:00 [facility] Influenza Virus 2018-03-26 Completed [facility] of Vaccine 00:00:00 [facility] Influenza Virus 2018-03-26 Completed [facility] y of Vaccine 00:00:00 [facility] Influenza Virus 2018-03-26 Completed [facility] y of Vaccine 00:00:00 [facility] Influenza Virus 2018-03-26 Completed [facility] y of Vaccine 00:00:00 [facility] Influenza Virus 2018-03-26 Completed [facility] y of Vaccine 00:00:00 [facility] Influenza Virus 2018-01-22 Completed [facility] y of Vaccine 00:00:00 [facility] Influenza Virus 2018-01-22 Completed [facility] y of Vaccine Quad Nasal 00:00:00 [facility] Influenza Virus 2018-01-22 Completed [facility] y of Vaccine 00:00:00 [facility] Influenza Virus 2018-01-22 Completed [facility] y of Vaccine Quad Nasal 00:00:00 [facility] Influenza Virus 2018-01-22 Completed [facility] y of Vaccine 00:00:00 [facility] Influenza Virus 2018-01-22 Completed [facility] y of Vaccine Quad Nasal 00:00:00 [facility] Influenza Virus 2018-01-22 Completed [facility] y of Vaccine 00:00:00 [facility] Influenza Virus 2018-01-22 Completed [facility] y of Vaccine Quad Nasal 00:00:00 [facility] Influenza Virus 2018-01-22 Completed [facility] y of Vaccine 00:00:00 [facility] Influenza Virus 2018-01-22 Completed [facility] y of Vaccine Quad Nasal 00:00:00 [facility] Influenza Virus 2018-01-22 Completed [facility] y of Vaccine 00:00:00 [facility] Influenza Virus 2018-01-22 Completed [facility] y of Vaccine Quad Nasal 00:00:00 [facility] Influenza Virus 2018-01-22 Completed [facility] y of Vaccine 00:00:00 [facility] Influenza Virus 2018-01-22 Completed [facility] y of Vaccine Quad Nasal 00:00:00 [facility] Influenza Virus 2018-01-22 Completed [facility] y of Vaccine 00:00:00 [facility] Influenza Virus 2018-01-22 Completed [facility] y of Vaccine Quad Nasal 00:00:00 [facility] Influenza Virus 2018-01-22 Completed [facility] y of Vaccine 00:00:00 [facility] Influenza Virus 2018-01-22 Completed [facility] y of Vaccine Quad Nasal 00:00:00 [facility] Influenza Virus 2018-01-22 Completed [facility] y of Vaccine 00:00:00 [facility] Influenza Virus 2018-01-22 Completed [facility] y of Vaccine Quad Nasal 00:00:00 [facility] Influenza Virus 2018-01-22 Completed [facility] y of Vaccine 00:00:00 [facility] Influenza Virus 2018-01-22 Completed [facility] y of Vaccine Quad Nasal 00:00:00 [facility] Influenza Virus 2018-01-22 Completed [facility] y of Vaccine 00:00:00 [facility] Influenza Virus 2018-01-22 Completed [facility] y of Vaccine Quad Nasal 00:00:00 [facility] Influenza Virus 2018-01-22 Completed [facility] y of Vaccine 00:00:00 [facility] Influenza Virus 2018-01-22 Completed [facility] y of Vaccine Quad Nasal 00:00:00 [facility] Influenza Virus 2018-01-22 Completed [facility] y of Vaccine 00:00:00 [facility] Influenza Virus 2018-01-22 Completed [facility] y of Vaccine Quad Nasal 00:00:00 [facility] Influenza Virus 2018-01-22 Completed [facility] y of Vaccine 00:00:00 [facility] Influenza Virus 2018-01-22 Completed [facility] y of Vaccine Quad Nasal 00:00:00 [facility] Influenza Virus 2018-01-22 Completed [facility] of Vaccine 00:00:00 [facility] Influenza Virus 2018-01-22 Completed [facility] y of Vaccine Quad Nasal 00:00:00 [facility] Influenza Virus 2018-01-22 Completed [facility] y of Vaccine 00:00:00 [facility] Influenza Virus 2018-01-22 Completed [facility] y of Vaccine Quad Nasal 00:00:00 [facility] Influenza Virus 2018-01-22 Completed [facility] of Vaccine 00:00:00 [facility] Influenza Virus 2018-01-22 Completed [facility] y of Vaccine Quad Nasal 00:00:00 [facility] Influenza Virus 2018-01-22 Completed [facility] of Vaccine 00:00:00 [facility] Influenza Virus 2018-01-22 Completed [facility] y of Vaccine Quad Nasal 00:00:00 [facility] Influenza Virus 2018-01-22 Completed [facility] of Vaccine 00:00:00 [facility] Influenza Virus 2018-01-22 Completed [facility] y of Vaccine Quad Nasal 00:00:00 [facility] Influenza Virus 2018-01-22 Completed [facility] of Vaccine 00:00:00 [facility] Influenza Virus 2018-01-22 Completed [facility] y of Vaccine Quad Nasal 00:00:00 [facility] Influenza Virus 2018-01-22 Completed [facility] y of Vaccine 00:00:00 [facility] Influenza Virus 2018-01-22 Completed [facility] y of Vaccine Quad Nasal 00:00:00 [facility] Influenza Virus 2018-01-22 Completed [facility] y of Vaccine 00:00:00 [facility] Influenza Virus 2018-01-22 Completed [facility] y of Vaccine Quad Nasal 00:00:00 [facility] Influenza Virus 2018-01-22 Completed [facility] y of Vaccine 00:00:00 [facility] Influenza Virus 2018-01-22 Completed [facility] y of Vaccine Quad Nasal 00:00:00 [facility] Influenza Virus 2018-01-22 Completed [facility] y of Vaccine 00:00:00 [facility] Influenza Virus 2018-01-22 Completed [facility] y of Vaccine Quad Nasal 00:00:00 [facility] Influenza Virus 2018-01-22 Completed [facility] y of Vaccine 00:00:00 [facility] Influenza Virus 2018-01-22 Completed [facility] y of Vaccine Quad Nasal 00:00:00 [facility] Influenza Virus 2018-01-22 Completed [facility] of Vaccine 00:00:00 [facility] Influenza Virus 2018-01-22 Completed [facility] y of Vaccine Quad Nasal 00:00:00 [facility] Influenza Virus 2018-01-22 Completed [facility] of Vaccine 00:00:00 [facility] Influenza Virus 2018-01-22 Completed [facility] y of Vaccine Quad Nasal 00:00:00 [facility] Influenza Virus 2018-01-22 Completed [facility] y of Vaccine 00:00:00 [facility] Influenza Virus 2018-01-22 Completed [facility] y of Vaccine Quad Nasal 00:00:00 [facility] Influenza Virus 2018-01-22 Completed [facility] of Vaccine 00:00:00 [facility] Influenza Virus 2018-01-22 Completed [facility] y of Vaccine Quad Nasal 00:00:00 [facility] Influenza Virus 2018-01-22 Completed [facility] of Vaccine 00:00:00 [facility] Influenza Virus 2018-01-22 Completed [facility] y of Vaccine Quad Nasal 00:00:00 [facility] Influenza Virus 2018-01-22 Completed [facility] of Vaccine 00:00:00 [facility] Influenza Virus 2018-01-22 Completed [facility] y of Vaccine Quad Nasal 00:00:00 [facility] Influenza Virus 2018-01-22 Completed [facility] of Vaccine 00:00:00 [facility] Influenza Virus 2018-01-22 Completed [facility] y of Vaccine Quad Nasal 00:00:00 [facility] Influenza Virus 2018-01-22 Completed [facility] of Vaccine 00:00:00 [facility] Influenza Virus 2018-01-22 Completed [facility] y of Vaccine Quad Nasal 00:00:00 [facility] Influenza Virus 2018-01-22 Completed [facility] of Vaccine 00:00:00 [facility] Influenza Virus 2018-01-22 Completed [facility] y of Vaccine Quad Nasal 00:00:00 [facility] Influenza Virus 2018-01-22 Completed [facility] of Vaccine 00:00:00 [facility] Influenza Virus 2018-01-22 Completed [facility] y of Vaccine Quad Nasal 00:00:00 [facility] Influenza Virus 2018-01-22 Completed [facility] of Vaccine 00:00:00 [facility] Influenza Virus 2018-01-22 Completed [facility] y of Vaccine Quad Nasal 00:00:00 [facility] Influenza Virus 2018-01-22 Completed [facility] of Vaccine 00:00:00 [facility] Influenza Virus 2018-01-22 Completed [facility] y of Vaccine Quad Nasal 00:00:00 [facility] Influenza Virus 2018-01-22 Completed [facility] of Vaccine 00:00:00 [facility] Influenza Virus 2018-01-22 Completed [facility] of Vaccine Quad Nasal 00:00:00 [facility] Influenza Virus 2018-01-22 Completed [facility] of Vaccine 00:00:00 [facility] Influenza Virus 2018-01-22 Completed [facility] of Vaccine Quad Nasal 00:00:00 [facility] Influenza Virus 2018-01-22 Completed [facility] of Vaccine 00:00:00 [facility] Influenza Virus 2018-01-22 Completed [facility] of Vaccine Quad Nasal 00:00:00 [facility] Influenza Virus 2018-01-22 Completed [facility] of Vaccine 00:00:00 [facility] Influenza Virus 2018-01-22 Completed [facility] y of Vaccine Quad Nasal 00:00:00 [facility] Influenza Virus 2018-01-22 Completed [facility] of Vaccine 00:00:00 [facility] Influenza Virus 2018-01-22 Completed [facility] of Vaccine Quad Nasal 00:00:00 [facility] Influenza Virus 2018-01-22 Completed [facility] of Vaccine 00:00:00 [facility] Influenza Virus 2018-01-22 Completed [facility] y of Vaccine Quad Nasal 00:00:00 [facility] Influenza Virus 2018-01-22 Completed [facility] of Vaccine 00:00:00 [facility] Influenza Virus 2018-01-22 Completed [facility] of Vaccine Quad Nasal 00:00:00 [facility] Influenza Virus 2018-01-22 Completed [facility] of Vaccine 00:00:00 [facility] Influenza Virus 2018-01-22 Completed [facility] y of Vaccine Quad Nasal 00:00:00 [facility] Influenza Virus 2018-01-22 Completed [facility] of Vaccine 00:00:00 [facility] Influenza Virus 2018-01-22 Completed [facility] of Vaccine Quad Nasal 00:00:00 [facility] Influenza Virus 2018-01-22 Completed [facility] of Vaccine 00:00:00 [facility] Influenza Virus 2018-01-22 Completed [facility] of Vaccine Quad Nasal 00:00:00 [facility] Influenza Virus 2018-01-22 Completed [facility] of Vaccine 00:00:00 [facility] Influenza Virus 2018-01-22 Completed [facility] of Vaccine Quad Nasal 00:00:00 [facility] Influenza Virus 2018-01-22 Completed [facility] of Vaccine 00:00:00 [facility] Influenza Virus 2018-01-22 Completed [facility] of Vaccine Quad Nasal 00:00:00 [facility] Influenza Virus 2018-01-22 Completed [facility] of Vaccine 00:00:00 [facility] Influenza Virus 2018-01-22 Completed [facility] y of Vaccine Quad Nasal 00:00:00 [facility] Influenza Virus 2018-01-22 Completed [facility] of Vaccine 00:00:00 [facility] Influenza Virus 2018-01-22 Completed [facility] of Vaccine Quad Nasal 00:00:00 [facility] Influenza Virus 2018-01-22 Completed [facility] of Vaccine 00:00:00 [facility] Influenza Virus 2018-01-22 Completed [facility] y of Vaccine Quad Nasal 00:00:00 [facility] Influenza Virus 2018-01-22 Completed [facility] of Vaccine 00:00:00 [facility] Influenza Virus 2018-01-22 Completed [facility] y of Vaccine Quad Nasal 00:00:00 [facility] Influenza Virus 2018-01-22 Completed [facility] of Vaccine 00:00:00 [facility] Influenza Virus 2018-01-22 Completed [facility] of Vaccine Quad Nasal 00:00:00 [facility] Influenza Virus 2018-01-22 Completed [facility] of Vaccine 00:00:00 [facility] Influenza Virus 2018-01-22 Completed [facility] y of Vaccine Quad Nasal 00:00:00 [facility] Influenza Virus 2018-01-22 Completed [facility] of Vaccine 00:00:00 [facility] Influenza Virus 2018-01-22 Completed [facility] y of Vaccine Quad Nasal 00:00:00 [facility] Influenza Virus 2018-01-22 Completed [facility] of Vaccine 00:00:00 [facility] Influenza Virus 2018-01-22 Completed [facility] y of Vaccine Quad Nasal 00:00:00 [facility] Influenza Virus 2018-01-22 Completed [facility] of Vaccine 00:00:00 [facility] Influenza Virus 2018-01-22 Completed [facility] y of Vaccine Quad Nasal 00:00:00 [facility] Influenza Virus 2018-01-22 Completed [facility] of Vaccine 00:00:00 [facility] Influenza Virus 2018-01-22 Completed [facility] y of Vaccine Quad Nasal 00:00:00 [facility] Influenza Virus 2018-01-22 Completed [facility] of Vaccine 00:00:00 [facility] Influenza Virus 2018-01-22 Completed [facility] of Vaccine Quad Nasal 00:00:00 [facility] Influenza Virus 2018-01-22 Completed [facility] of Vaccine 00:00:00 [facility] Influenza Virus 2018-01-22 Completed [facility] y of Vaccine Quad Nasal 00:00:00 [facility] Influenza Virus 2018-01-22 Completed [facility] of Vaccine 00:00:00 [facility] Influenza Virus 2018-01-22 Completed [facility] of Vaccine Quad Nasal 00:00:00 [facility] Influenza Virus 2018-01-22 Completed [facility] of Vaccine 00:00:00 [facility] Influenza Virus 2018-01-22 Completed [facility] y of Vaccine Quad Nasal 00:00:00 [facility] Influenza Virus 2018-01-22 Completed [facility] of Vaccine 00:00:00 [facility] Influenza Virus 2018-01-22 Completed [facility] y of Vaccine Quad Nasal 00:00:00 [facility] Influenza Virus 2018-01-22 Completed [facility] of Vaccine 00:00:00 [facility] Influenza Virus 2018-01-22 Completed [facility] y of Vaccine Quad Nasal 00:00:00 [facility] Influenza Virus 2018-01-22 Completed [facility] of Vaccine 00:00:00 [facility] Influenza Virus 2018-01-22 Completed [facility] y of Vaccine Quad Nasal 00:00:00 [facility] Influenza Virus 2018-01-22 Completed [facility] of Vaccine 00:00:00 [facility] Influenza Virus 2018-01-22 Completed [facility] y of Vaccine Quad Nasal 00:00:00 [facility] Influenza Virus 2018-01-22 Completed [facility] of Vaccine 00:00:00 [facility] Influenza Virus 2018-01-22 Completed [facility] y of Vaccine Quad Nasal 00:00:00 [facility] Influenza Virus 2018-01-22 Completed [facility] y of Vaccine 00:00:00 [facility] Influenza Virus 2018-01-22 Completed [facility] y of Vaccine Quad Nasal 00:00:00 [facility] Influenza Virus 2018-01-22 Completed [facility] of Vaccine 00:00:00 [facility] Influenza Virus 2018-01-22 Completed [facility] y of Vaccine Quad Nasal 00:00:00 [facility] Influenza Virus 2018-01-22 Completed [facility] of Vaccine 00:00:00 [facility] Influenza Virus 2018-01-22 Completed [facility] y of Vaccine Quad Nasal 00:00:00 [facility] Influenza Virus 2018-01-22 Completed [facility] of Vaccine 00:00:00 [facility] Influenza Virus 2018-01-22 Completed [facility] y of Vaccine Quad Nasal 00:00:00 [facility] Influenza Virus 2018-01-22 Completed [facility] y of Vaccine 00:00:00 [facility] Influenza Virus 2018-01-22 Completed [facility] y of Vaccine Quad Nasal 00:00:00 [facility] Influenza Virus 2018-01-22 Completed [facility] y of Vaccine 00:00:00 [facility] Influenza Virus 2018-01-22 Completed [facility] y of Vaccine Quad Nasal 00:00:00 [facility] Influenza Virus 2018-01-22 Completed [facility] of Vaccine 00:00:00 [facility] Influenza Virus 2018-01-22 Completed [facility] y of Vaccine Quad Nasal 00:00:00 [facility] Influenza Virus 2018-01-22 Completed [facility] of Vaccine 00:00:00 [facility] Influenza Virus 2018-01-22 Completed [facility] y of Vaccine Quad Nasal 00:00:00 [facility] Influenza Virus 2018-01-22 Completed [facility] of Vaccine 00:00:00 [facility] Influenza Virus 2018-01-22 Completed [facility] y of Vaccine Quad Nasal 00:00:00 [facility] Influenza Virus 2018-01-22 Completed [facility] of Vaccine 00:00:00 [facility] Influenza Virus 2018-01-22 Completed [facility] y of Vaccine Quad Nasal 00:00:00 [facility] Influenza Virus 2018-01-22 Completed [facility] of Vaccine 00:00:00 [facility] Influenza Virus 2018-01-22 Completed [facility] y of Vaccine Quad Nasal 00:00:00 [facility] Influenza Virus 2018-01-22 Completed [facility] of Vaccine 00:00:00 [facility] Influenza Virus 2018-01-22 Completed [facility] y of Vaccine Quad Nasal 00:00:00 [facility] Influenza Virus 2018-01-22 Completed [facility] y of Vaccine 00:00:00 [facility] Influenza Virus 2018-01-22 Completed [facility] y of Vaccine Quad Nasal 00:00:00 [facility] Influenza Virus 2018-01-22 Completed [facility] of Vaccine 00:00:00 [facility] Influenza Virus 2018-01-22 Completed [facility] y of Vaccine Quad Nasal 00:00:00 [facility] Influenza Virus 2018-01-22 Completed [facility] of Vaccine 00:00:00 [facility] Influenza Virus 2018-01-22 Completed [facility] y of Vaccine Quad Nasal 00:00:00 [facility] Influenza Virus 2018-01-22 Completed [facility] of Vaccine 00:00:00 [facility] Influenza Virus 2018-01-22 Completed [facility] y of Vaccine Quad Nasal 00:00:00 [facility] Influenza Virus 2018-01-22 Completed [facility] of Vaccine 00:00:00 [facility] Influenza Virus 2018-01-22 Completed [facility] y of Vaccine Quad Nasal 00:00:00 [facility] Influenza Virus 2018-01-22 Completed [facility] of Vaccine 00:00:00 [facility] Influenza Virus 2018-01-22 Completed [facility] y of Vaccine Quad Nasal 00:00:00 [facility] Influenza Virus 2018-01-22 Completed [facility] y of Vaccine 00:00:00 [facility] Influenza Virus 2018-01-22 Completed [facility] y of Vaccine Quad Nasal 00:00:00 [facility] Influenza Virus 2018-01-22 Completed [facility] of Vaccine 00:00:00 [facility] Influenza Virus 2018-01-22 Completed [facility] y of Vaccine Quad Nasal 00:00:00 [facility] Influenza Virus 2018-01-22 Completed [facility] of Vaccine 00:00:00 [facility] Influenza Virus 2018-01-22 Completed [facility] y of Vaccine Quad Nasal 00:00:00 [facility] (Flumist) [place] Influenza, Unknown Completed [facility] Vaccine<FLUCELVAX>( Multi-Dose) Pneumococcal Unknown Completed [facility] Conjugate (Prevnar) [facility] Influenza Four-QIV Unknown Completed [facility] Non-PF [facility] Pneumococcal Unknown Completed [facility] Conjugate (Prevnar) [facility] Influenza Four-QIV Unknown Completed [facility] Non-PF [facility] Influenza Virus Unknown Completed [facility] y of Vaccine [facility] Pneumococcal 13 Unknown Completed [facility]it y of Conjugate, PCV13 [facility] dical (Prevnar 13) Branch Influenza Virus Unknown Completed [facility] y of Vaccine [facility] Influenza Virus Unknown Completed [facility]it y of Vaccine Quad .5 mL [facility] 6+ MO Branch (FLUZONE/FLULAVAL/F LUARIX) Influenza Virus Unknown Completed [facility] y of Vaccine Quad Nasal [facility] (Flumist) Branch Influenza Virus Unknown Completed [facility] y of Vaccine Quad Nasal [facility] (Flumist) Branch Influenza Virus Unknown Completed [facility] y of Vaccine Quad IM, [facility] dical Preserv and ABX Branch Free 6 MO-64 YRS (FLUCELVAX) Pneumococcal Unknown Completed University o f Polysaccharide, [facility] ical PPSV23 (PNEUMOVAX) Branch TDAP Unknown Completed [facility] Influenza Virus Unknown Completed [facility] y of Vaccine [facility] Pneumococcal 13 Unknown Completed [facility]it y of Conjugate, PCV13 [facility] dical (Prevnar 13) Branch Influenza Virus Unknown Completed [facility] Vaccine [facility] Influenza Virus Unknown Completed [facility] of Vaccine Quad .5 mL [facility] IM 6+ MO Branch (FLUZONE/FLULAVAL/F LUARIX) Influenza Virus Unknown Completed [facility] y of Vaccine Quad Nasal [facility] (Flumist) Branch Influenza Virus Unknown Completed [facility] y of Vaccine Quad Nasal [facility] (Flumist) Branch Influenza Virus Unknown Completed [facility] y of Vaccine Quad IM, [facility] dical Preserv and ABX Branch Free 6 MO-64 YRS (FLUCELVAX) Pneumococcal Unknown Completed University o f Polysaccharide, [facility] ical PPSV23 (PNEUMOVAX) Branch TDAP Unknown Completed [facility] Influenza Virus Unknown Completed [facility] y of Vaccine [facility] Pneumococcal 13 Unknown Completed [facility]it y of Conjugate, PCV13 [facility] dical (Prevnar 13) Branch Influenza Virus Unknown Completed [facility] y of Vaccine [facility] Branch Influenza Virus Unknown Completed [facility] y of Vaccine Quad .5 mL [facility] IM 6+ MO Branch (FLUZONE/FLULAVAL/F LUARIX) Influenza Virus Unknown Completed [facility] y of Vaccine Quad Nasal [facility] (Flumist) Branch Influenza Virus Unknown Completed [facility] y of Vaccine Quad Nasal [facility] (Flumist) Branch Influenza Virus Unknown Completed [facility] y of Vaccine Quad IM, [facility] dical Preserv and ABX Branch Free 6 MO-64 YRS (FLUCELVAX) Pneumococcal Unknown Completed University o f Polysaccharide, [facility] ical PPSV23 (PNEUMOVAX) Branch TDAP Unknown Completed [facility] Influenza Virus Unknown Completed [facility] y of Vaccine [facility] Pneumococcal 13 Unknown Completed [facility]it y of Conjugate, PCV13 [facility] dical (Prevnar 13) Branch Influenza Virus Unknown Completed [facility] y of Vaccine [facility] Branch Influenza Virus Unknown Completed [facility] of Vaccine Quad .5 mL [facility] IM 6+ MO Branch (FLUZONE/FLULAVAL/F LUARIX) Influenza Virus Unknown Completed [facility] y of Vaccine Quad Nasal [facility] (Flumist) Branch Influenza Virus Unknown Completed [facility] y of Vaccine Quad Nasal [facility] (Flumist) Branch Influenza Virus Unknown Completed [facility] y of Vaccine Quad IM, [facility] dical Preserv and ABX Branch Free 6 MO-64 YRS (FLUCELVAX) Influenza Virus Unknown Completed [facility] Vaccine [facility] Pneumococcal 13 Unknown Completed [facility] Conjugate, PCV13 [facility] (Prevnar 13) Branch Influenza Virus Unknown Completed [facility] Vaccine [facility] Influenza Virus Unknown Completed [facility] y of Vaccine Quad .5 mL [facility] IM 6+ MO Branch (FLUZONE/FLULAVAL/F LUARIX) Influenza Virus Unknown Completed [facility] y of Vaccine [facility] ([facility] Influenza Virus Unknown Completed [facility]it y of Vaccine [facility] Influenza Virus Unknown Completed Universit y of Vaccine Quad IM, [facility] dical Preserv and ABX Branch Free 6 MO-64 YRS (FLUCELVAX) Influenza Virus Unknown Completed [facility]it y of Vaccine [facility] Pneumococcal 13 Unknown Completed Universit y of Conjugate, PCV13 [facility] dical (Prevnar 13) Branch Influenza Virus Unknown Completed [facility]it y of Vaccine [facility] Influenza Virus Unknown Completed [facility]it y of Vaccine Quad .5 mL [facility] IM 6+ MO Branch (FLUZONE/FLULAVAL/F LUARIX) Influenza Virus Unknown Completed [facility]it y of Vaccine [facility] Influenza Virus Unknown Completed [facility]it y of Vaccine [facility] Influenza Virus Unknown Completed Universit y of Vaccine Quad IM, [facility] dical Preserv and ABX Branch Free 6 MO-64 YRS (FLUCELVAX) Influenza Virus Unknown Completed [facility]it y of Vaccine [facility] Pneumococcal 13 Unknown Completed Universit y of Conjugate, PCV13 [facility] dical (Prevnar 13) Branch Influenza Virus Unknown Completed [facility] of [facility]ine [facility] Influenza Virus Unknown Completed [facility]it y of Vaccine Quad .5 mL [facility] IM 6+ MO Branch (FLUZONE/FLULAVAL/F LUARIX) Influenza Virus Unknown Completed [facility]it y of Vaccine [facility] Influenza Virus Unknown Completed [facility] y of Vaccine [facility] Influenza Virus Unknown Completed Universit y of Vaccine Quad IM, [facility] dical Preserv and ABX Branch Free 6 MO-64 YRS (FLUCELVAX) Pneumococcal Unknown Completed University o f Polysaccharide, [facility] ical PPSV23 (PNEUMOVAX) Branch TDAP Unknown Completed [facility] Influenza Virus Unknown Completed Universit y of Vaccine [facility] Pneumococcal 13 Unknown Completed Universit y of Conjugate, PCV13 [facility] dical (Prevnar 13) Branch Influenza Virus Unknown Completed [facility] y of Vaccine [facility] Influenza Virus Unknown Completed Universit y of Vaccine Quad .5 mL [facility] IM 6+ MO Branch (FLUZONE/FLULAVAL/F LUARIX) Influenza Virus Unknown Completed [facility]it y of Vaccine [facility] Influenza Virus Unknown Completed [facility]it y of Vaccine [facility] Nasal [facility] (Flumist) Branch Influenza Virus Unknown Completed Universit y of Vaccine Quad IM, [facility] dical Preserv and ABX Branch Free 6 MO-64 YRS (FLUCELVAX) Pneumococcal Unknown Completed University o f Polysaccharide, [facility] ical PPSV23 (PNEUMOVAX) Branch TDAP Unknown Completed [facility] Influenza Virus Unknown Completed Universit y of Vaccine [facility] Pneumococcal 13 Unknown Completed Universit y of Conjugate, PCV13 [facility] dical (Prevnar 13) Branch Influenza Virus Unknown Completed Universit y of Vaccine [facility] Branch Influenza Virus Unknown Completed Universit y of Vaccine Quad .5 mL [facility] IM 6+ MO Branch (FLUZONE/FLULAVAL/F LUARIX) Influenza Virus Unknown Completed Universit y of Vaccine [facility] Nasal [facility] (Flumist) Branch Influenza Virus Unknown Completed [facility] y of Vaccine [facility] Influenza Virus Unknown Completed Universit y of Vaccine Quad IM, [facility] dical Preserv and ABX Branch Free 6 MO-64 YRS (FLUCELVAX) Pneumococcal Unknown Completed University o f Polysaccharide, [facility] ical PPSV23 (PNEUMOVAX) Branch TDAP Unknown Completed [facility] Influenza Virus Unknown Completed Universit y of Vaccine [facility] Pneumococcal 13 Unknown Completed Universit y of Conjugate, PCV13 [facility] dical (Prevnar 13) Branch Influenza Virus Unknown Completed Universit y of Vaccine [facility] Branch Influenza Virus Unknown Completed Universit y of Vaccine Quad .5 mL [facility] IM 6+ MO Branch (FLUZONE/FLULAVAL/F LUARIX) Influenza Virus Unknown Completed Universit y of Vaccine Quad Nasal [facility] (Flumist) Branch Influenza Virus Unknown Completed [facility]it y of Vaccine Quad Nasal [facility] (Flumist) Branch Influenza Virus Unknown Completed Universit y of Vaccine Quad IM, [facility] dical Preserv and ABX Branch Free 6 MO-64 YRS (FLUCELVAX) Pneumococcal Unknown Completed University o f Polysaccharide, [facility] ical PPSV23 (PNEUMOVAX) Branch TDAP Unknown Completed [facility] Influenza Virus Unknown Completed Universit y of Vaccine [facility] Pneumococcal 13 Unknown Completed Universit y of Conjugate, PCV13 [facility] dical (Prevnar 13) Branch Influenza Virus Unknown Completed Universit y of Vaccine [facility] Influenza Virus Unknown Completed Universit y of Vaccine Quad .5 mL [facility] 6+ MO Branch (FLUZONE/FLULAVAL/F LUARIX) Influenza Virus Unknown Completed Universit y of Vaccine Quad Nasal [facility] (Flumist) Branch Influenza Virus Unknown Completed Universit y of Vaccine [facility] Nasal [facility] (Flumist) Branch Influenza Virus Unknown Completed Universit y of Vaccine Quad IM, [facility] dical Preserv and ABX Branch Free 6 MO-64 YRS (FLUCELVAX) Pneumococcal Unknown Completed University o f Polysaccharide, [facility] ical PPSV23 (PNEUMOVAX) Branch TDAP Unknown Completed [facility] Influenza Virus Unknown Completed Universit y of Vaccine [facility] Pneumococcal 13 Unknown Completed Universit y of Conjugate, PCV13 [facility] dical (Prevnar 13) Branch Influenza Virus Unknown Completed Universit y of Vaccine [facility] Influenza Virus Unknown Completed Universit y of Vaccine Quad .5 mL [facility] 6+ MO Branch (FLUZONE/FLULAVAL/F LUARIX) Influenza Virus Unknown Completed Universit y of Vaccine Quad Nasal [facility] (Flumist) Branch Influenza Virus Unknown Completed Universit y of Vaccine Quad Nasal [facility] (Flumist) Branch Influenza Virus Unknown Completed Universit y of Vaccine Quad IM, [facility] dical Preserv and ABX Branch Free 6 MO-64 YRS (FLUCELVAX) Pneumococcal Unknown Completed [facility] o f Polysaccharide, [facility] PPSV23 (PNEUMOVAX) Branch TDAP Unknown Completed [facility] Pneumococcal 20 Unknown Completed Universit y of Conjugate, PCV20 [facility] dical (Prevnar 20) Branch Influenza Virus Unknown Completed [facility]it y of Vaccine [facility] Pneumococcal 13 Unknown Completed [facility] Conjugate, PCV13 [facility] (Prevnar 13) Branch Influenza Virus Unknown Completed [facility] Influenza Virus Unknown Completed [facility]it y of Vaccine Quad .5 mL [facility] IM 6+ MO Branch (FLUZONE/FLULAVAL/F LUARIX) Influenza Virus Unknown Completed [facility]it y of Vaccine [facility] Influenza Virus Unknown Completed [facility]it y of Vaccine [facility] Nasal [facility] (Flumist) Branch Influenza Virus Unknown Completed Universit y of Vaccine Quad IM, [facility] dical Preserv and ABX Branch Free 6 MO-64 YRS (FLUCELVAX) Pneumococcal Unknown Completed University o f Polysaccharide, [facility] ical PPSV23 (PNEUMOVAX) Branch TDAP Unknown Completed [facility] Pneumococcal 20 Unknown Completed Universit y of Conjugate, PCV20 [facility] dical (Prevnar 20) Branch Influenza Virus Unknown Completed Universit y of Vaccine Quad IM, [facility] dical Preserv and ABX Branch Free 6 MO-64 YRS (FLUCELVAX) Influenza Virus Unknown Completed [facility]it y of Vaccine [facility] Pneumococcal 13 Unknown Completed Universit y of Conjugate, PCV13 [facility] dical (Prevnar 13) Branch Influenza Virus Unknown Completed Universit y of Vaccine [facility] Influenza Virus Unknown Completed Universit y of Vaccine Quad .5 [facility] 6+ MO Branch (FLUZONE/FLULAVAL/F LUARIX) Influenza Virus Unknown Completed Universit y of Vaccine Quad Nasal [facility] (Flumist) Branch Influenza Virus Unknown Completed Universit y of Vaccine Quad Nasal [facility] (Flumist) Branch Influenza Virus Unknown Completed Universit y of Vaccine Quad IM, [facility] dical Preserv and ABX Branch Free 6 MO-64 YRS (FLUCELVAX) Pneumococcal Unknown Completed [facility] o f Polysaccharide, [facility] ical PPSV23 (PNEUMOVAX) Branch TDAP Unknown Completed [facility] Influenza Virus Unknown Completed Universit y of Vaccine [facility] Pneumococcal 13 Unknown Completed Universit y of Conjugate, PCV13 [facility] dical (Prevnar 13) Branch Influenza Virus Unknown Completed [facility]it y of Vaccine [facility] Influenza Virus Unknown Completed Universit y of Vaccine Quad .5 mL [facility] IM 6+ MO Branch (FLUZONE/FLULAVAL/F LUARIX) Influenza Virus Unknown Completed [facility]it y of Vaccine Quad Nasal [facility] (Flumist) Branch Influenza Virus Unknown Completed Universit y of Vaccine Quad Nasal [facility] (Flumist) Branch Influenza Virus Unknown Completed Universit y of Vaccine Quad IM, [facility] dical Preserv and ABX Branch Free 6 MO-64 YRS (FLUCELVAX) Pneumococcal Unknown Completed [facility] Polysaccharide, [facility] ical PPSV23 (PNEUMOVAX) Branch TDAP Unknown Completed [facility] Pneumococcal 20 Unknown Completed Universit y of Conjugate, PCV20 [facility] dical (Prevnar 20) Branch Influenza Virus Unknown Completed Universit y of Vaccine Quad IM, [facility] dical Preserv and ABX Branch Free 6 MO-64 YRS (FLUCELVAX) Pneumococcal Unknown Completed [facility] Conjugate (Prevnar) [facility] 13-Valent Influenza Four-QIV Unknown Completed [facility] Non-PF 5[facility] er Influenza, Unknown Completed [facility] Vaccine<FLUCELVAX>( Multi-Dose) Influenza, Unknown Completed [facility] Vaccine<FLUCELVAX>( Multi-Dose) Vital Signs Vital Name Observation Time Observation Value Comments Source Systolic blood 2022-10-28 00:18:00 172 mm[Hg] manual bp [facility] sity pressure [facility] Diastolic blood 2022-10-28 00:18:00 108 mm[Hg] manual bp [facility] Heart rate 2022-10-27 23:25:00 77 /min [facility] Body temperature 2022-10-27 23:25:00 36.61 Latoya [facility] Respiratory rate 2022-10-27 23:25:00 14 /min [facility] Body height 2022-10-27 23:25:00 162.6 cm [facility] Body weight 2022-10-27 23:25:00 113.036 kg [facility] BMI 2022-10-27 23:25:00 42.78 kg/m2 [facility] Oxygen saturation in 2022-10-27 23:25:00 98 /min [facility] Arterial blood by [facility] Pulse oximetry Branch Systolic blood 2022-09-23 14:21:00 132 mm[Hg] Univer sity of pressure [facility] Diastolic blood 2022-09-23 14:21:00 90 mm[Hg] Unive rsity of pressure [facility] Heart rate 2022-09-23 14:21:00 70 /min [facility]i ty [facility] Body temperature 2022-09-23 14:21:00 36.67 Latoya Univ ersity of [facility] Body height 2022-09-23 14:21:00 162.6 cm [facility] Body weight 2022-09-23 14:21:00 117.028 kg [facility] BMI 2022-09-23 14:21:00 44.29 kg/m2 [facility] Oxygen saturation in 2022-09-23 14:21:00 98 /min University of Arterial blood by [facility] Pulse oximetry Branch Systolic blood 2022-09-13 21:32:00 118 mm[Hg] Univer sity of pressure [facility] Diastolic blood 2022-09-13 21:32:00 73 mm[Hg] Unive rsity of pressure [facility] Heart rate 2022-09-13 21:32:00 80 /min [facility] Body temperature 2022-09-13 21:32:00 36.39 Latoya Univ ersity of [facility] Respiratory rate 2022-09-13 21:32:00 20 /min Univ ersity of [facility] Body height 2022-09-13 21:32:00 162.6 cm [facility] Body weight 2022-09-13 21:32:00 116.665 kg [facility] BMI 2022-09-13 21:32:00 44.15 kg/m2 [facility] Oxygen saturation in 2022-09-13 21:32:00 98 /min University of Arterial blood by [employer] [facility] Pulse oximetry Branch Systolic blood 2022-08-08 13:07:00 133 mm[Hg] Univer sity of pressure [facility] Diastolic blood 2022-08-08 13:07:00 89 mm[Hg] Unive rsity of pressure [facility] Heart rate 2022-08-08 12:58:00 74 /min [facility] Body height 2022-08-08 12:58:00 162.6 cm [facility] Body weight 2022-08-08 12:58:00 113.989 kg [facility] BMI 2022-08-08 12:58:00 43.14 kg/m2 [facility] Oxygen saturation in 2022-08-08 12:58:00 98 /min University of Arterial blood by [facility] Pulse oximetry Branch Systolic blood 2022-07-26 13:19:00 121 mm[Hg] Univer sity of pressure [facility] Diastolic blood 2022-07-26 13:19:00 81 mm[Hg] Unive rsity of pressure [facility] Heart rate 2022-07-26 13:19:00 64 /min [facility] Respiratory rate 2022-07-26 13:19:00 20 /min Univ ersity of [facility] Body height 2022-07-26 13:19:00 160 cm [facility] Body weight 2022-07-26 13:19:00 118.842 kg [facility] BMI 2022-07-26 13:19:00 46.41 kg/m2 [facility] Oxygen saturation in 2022-07-26 13:19:00 99 /min University of Arterial blood by [facility] Pulse oximetry Branch Systolic blood 2022-07-12 14:21:00 79 mm[Hg] Univer sity of pressure [facility] Diastolic blood 2022-07-12 14:21:00 44 mm[Hg] Unive rsity of pressure [facility] Heart rate 2022-07-12 14:21:00 65 /min [facility] Oxygen saturation in 2022-07-12 14:21:00 100 /min University of Arterial blood by [facility] Pulse oximetry Branch Body temperature 2022-07-12 14:19:00 36.28 Latoya Univ ers[facility] of [facility] Respiratory rate 2022-07-12 14:19:00 17 /min Univ ersity of [facility] Body height 2022-07-12 14:19:00 160 cm [facility] Body weight 2022-07-12 14:19:00 117.663 kg [facility] BMI 2022-07-12 14:19:00 45.95 kg/m2 [facility] Systolic blood 2022-07-04 14:26:00 129 mm[Hg] Univer sity of pressure [facility] Diastolic blood 2022-07-04 14:26:00 86 mm[Hg] Unive rsity of pressure [facility] Heart rate 2022-07-04 14:19:00 76 /min [facility] Body height 2022-07-04 14:19:00 160 cm [facility] Body weight 2022-07-04 14:19:00 117.3 kg [facility] BMI 2022-07-04 14:19:00 45.81 kg/m2 [facility] Oxygen saturation in 2022-07-04 14:19:00 98 /min University of Arterial blood by [facility] Pulse oximetry Branch Systolic blood 2022-06-21 13:56:00 118 mm[Hg] Univer sity of pressure [facility] Diastolic blood 2022-06-21 13:56:00 83 mm[Hg] Unive rsity of pressure [facility] Heart rate 2022-06-21 13:56:00 76 /min [facility] Body height 2022-06-21 13:56:00 160 cm [facility] Body weight 2022-06-21 13:56:00 121.246 kg [facility] BMI 2022-06-21 13:56:00 47.35 kg/m2 [facility] Oxygen saturation in 2022-06-21 13:56:00 97 /min University of Arterial blood by [facility] Pulse oximetry Branch Systolic blood 2022-03-15 16:25:00 149 mm[Hg] Univer sity of pressure [facility] Diastolic blood 2022-03-15 16:25:00 98 mm[Hg] Unive rsity of pressure [facility] Heart rate 2022-03-15 16:18:00 80 /min [facility] Body temperature 2022-03-15 16:18:00 36.56 Latoya Univ ers[facility] Body height 2022-03-15 16:18:00 160 cm [facility] Body weight 2022-03-15 16:18:00 110.95 kg [facility] BMI 2022-03-15 16:18:00 43.33 kg/m2 [facility] Oxygen saturation in 2022-03-15 16:18:00 100 /min University of Arterial blood by [facility] Pulse oximetry Branch Systolic blood 2022-02-10 17:51:00 136 mm[Hg] Univer sity of pressure [facility] Diastolic blood 2022-02-10 17:51:00 82 mm[Hg] Unive rsity of pressure [facility] Heart rate 2022-02-10 17:51:00 88 /min [facility] Body temperature 2022-02-10 17:51:00 36.61 Latoya Univ [facility] Body height 2022-02-10 17:51:00 160 cm [facility] Body weight 2022-02-10 17:51:00 110.224 kg [facility] BMI 2022-02-10 17:51:00 43.05 kg/m2 [facility] Oxygen saturation in 2022-02-10 17:51:00 98 /min University of Arterial blood by [facility] Pulse oximetry Branch Systolic blood 2022-02-10 14:08:00 127 mm[Hg] Univer sity of pressure [facility] Diastolic blood 2022-02-10 14:08:00 90 mm[Hg] Unive rsity of pressure [facility] Heart rate 2022-02-10 14:08:00 94 /min [facility] Body weight 2022-02-10 14:08:00 108.863 kg [facility] BMI 2022-02-10 14:08:00 42.51 kg/m2 [facility] Oxygen saturation in 2022-02-10 14:08:00 99 /min University of Arterial blood by [facility] Pulse oximetry Branch Systolic blood 2022-01-11 14:45:00 131 mm[Hg] Univer sity of pressure [facility] Diastolic blood 2022-01-11 14:45:00 83 mm[Hg] Unive rsity of pressure [facility] Heart rate 2022-01-11 14:45:00 77 /min [facility] Body temperature 2022-01-11 14:42:00 35.89 Latoya [facility] Body height 2022-01-11 14:42:00 160 cm [facility] Body weight 2022-01-11 14:42:00 112.81 kg [facility] BMI 2022-01-11 14:42:00 44.06 kg/m2 [facility] Oxygen saturation in 2022-01-11 14:42:00 98 /min University of Arterial blood by [facility] Pulse oximetry Branch Systolic blood 2021-12-10 15:16:00 140 mm[Hg] Univer sity of pressure [facility] Diastolic blood 2021-12-10 15:16:00 87 mm[Hg] Unive rsity of pressure [facility] Heart rate 2021-12-10 15:16:00 69 /min [facility] Body temperature 2021-12-10 15:15:00 36.28 Latoya [facility] Respiratory rate 2021-12-10 15:15:00 18 /min Univ ersity [facility] Body height 2021-12-10 15:15:00 160 cm [facility] Body weight 2021-12-10 15:15:00 108.863 kg [facility] BMI 2021-12-10 15:15:00 42.51 kg/m2 [facility] Oxygen saturation in 2021-12-10 15:15:00 95 /min room air University of Arterial blood by [facility] Pulse oximetry Branch Systolic blood 2021-12-06 16:04:00 138 mm[Hg] Univer sity of pressure [facility] Diastolic blood 2021-12-06 16:04:00 91 mm[Hg] Unive rsity of pressure [facility] Heart rate 2021-12-06 16:03:00 77 /min [facility] Body height 2021-12-06 16:03:00 162.6 cm [facility] Body weight 2021-12-06 16:03:00 108.546 kg [facility] BMI 2021-12-06 16:03:00 41.08 kg/m2 [facility] Oxygen saturation in 2021-12-06 16:03:00 99 /min [facility]terial blood by [facility] Pulse oximetry Branch Systolic blood 2021-11-11 13:14:00 139 mm[Hg] Univer sity of pressure [facility] Diastolic blood 2021-11-11 13:14:00 85 mm[Hg] Unive rsity of pressure [facility] Heart rate 2021-11-11 13:13:00 79 /min [facility] Body temperature 2021-11-11 13:13:00 36.5 Latoya [facility] Body height 2021-11-11 13:13:00 162.6 cm [facility] Body weight 2021-11-11 13:13:00 106.595 kg [facility] BMI 2021-11-11 13:13:00 40.34 kg/m2 [facility] Oxygen saturation in 2021-11-11 13:13:00 100 /min University of Arterial blood by [facility] Pulse oximetry Branch Systolic blood 2021-11-03 16:37:00 121 mm[Hg] Univer sity of pressure [facility] Diastolic blood 2021-11-03 16:37:00 79 mm[Hg] Unive rsity of pressure [facility] Heart rate 2021-11-03 16:37:00 70 /min [facility] Body temperature 2021-11-03 16:37:00 35.72 Latoya Univ [facility] Respiratory rate 2021-11-03 16:37:00 18 /min Univ ers[facility] Oxygen saturation in 2021-11-03 16:37:00 95 /min [facility] Arterial blood by [facility] Pulse oximetry Branch Body weight 2021-11-03 08:36:00 103.964 kg [facility] BMI 2021-11-03 08:36:00 41.92 kg/m2 [facility] Body height 2021-10-31 20:10:00 157.5 cm [facility] Systolic blood 2021-10-26 19:36:00 128 mm[Hg] Univer sity of pressure [facility] Diastolic blood 2021-10-26 19:36:00 85 mm[Hg] [facility] pressure [facility] Heart rate 2021-10-26 19:36:00 96 /min [facility] Body height 2021-10-26 19:36:00 160 cm [facility] Body weight 2021-10-26 19:36:00 102.513 kg [facility] BMI 2021-10-26 19:36:00 40.03 kg/m2 [facility] Oxygen saturation in 2021-10-26 19:36:00 96 /min [facility] Arterial blood by [facility] Pulse oximetry Branch Procedures Procedure Date / Time Performing Clinician Source Performed EXTERNAL PROVIDER RECORDS 2022-12-19 06:01:00 Doctor Unassigned, [facility] [place] [facility] PNEUMOCOCCAL 20 CONJUGATE 2022-11-30 13:03:49 Doctor Koki, [facility] (PREVNAR 20) VACCINE [place] [facility] POCT SARS-COV-2 ANTIGEN 2022-10-28 00:14:00 Tia Kate Un [facility] (BINAX NOW) [facility] WORKERS COMPENSATION 2022-10-20 05:01:00 Doctor Koki, [facility] Name [facility] INSURANCE CORRESPONDENCE 2022-10-05 05:01:00 Doctor Koki, [facility] Name [facility] SCANNED LAB RESULTS 2022-09-13 05:01:00 Doctor Telles [facility] Name [facility] PHOSPHORUS 2022-07-26 14:04:00 Jessika Ross [facility] MAGNESIUM 2022-07-26 14:04:00 [facility] BASIC METABOLIC PANEL 2022-07-26 14:04:00 Gladys Daniel [facility] (NA, K, CL, CO2, GLUCOSE, Medica l Branch BUN, CREATININE, CA) CBC WITHOUT DIFF 2022-07-26 14:04:00 Gladys Daniel [facility] PROTHROMBIN TIME / INR 2022-07-26 14:04:00 Gladys Daniel [facility] URINALYSIS 2022-07-26 14:04:00 Jessika Ross [facility] PROTEIN CREAT RATIO URINE 2022-07-26 14:04:00 [facility] [facility] INTA[facility] PTH CALCIUM GROUP 2022-07-26 14:04:00 Jessika [facility] REFERRAL- 2022-07-20 05:01:00 Doctor Koki, [facility] REQUEST/RESPONSE [place] [facility] PNEUMOCOCCAL VACCINE, 2022-06-21 14:36:43 Mary Garcia [facility] 23-VALENT (PNEUMOVAX) Medical Br anch TDAP VACCINE, >11 YRS, IM 2022-06-21 14:36:43 Mary Garcia [facility] PATIENT FINANCIAL 2022-06-21 13:50:56 Doctor Unassdelon, [facility]ICY [place] [facility] EXTERNAL PROVIDER RECORDS 2022-03-02 06:01:00 Doctor Koki, [facility] Name [facility] ASSIGNMENT OF BENEFITS 2022-02-16 15:41:18 Doctor Unalinda, [facility] CONSENT/REFUSAL FOR 2022-02-10 13:54:01 [facility] DI[facility] AND TREATMENT [place] [facility] BASIC METABOLIC PANEL 2021-11-03 09:44:00 Gregg Saldivar [facility] (NA, K, CL, CO2, GLUCOSE, Medica l Branch BUN, CREATININE, CA) CBC WITH DIFF 2021-11-03 09:44:00 Gregg Saldivar [facility] C-REACTIVE PROTEIN 2021-11-02 10:05:00 Payal Hoffman [facility] C4 COMPLEMENT 2021-11-02 10:05:00 Payal Hoffman [facility] MAGNESIUM 2021-11-02 10:03:00 Payal Hoffman [facility] BASIC METABOLIC PANEL 2021-11-02 10:03:00 Payal Hoffman [facility] (NA, K, CL, CO2, GLUCOSE, Medica l Branch BUN, CREATININE, CA) CBC WITH DIFF 2021-11-02 10:03:00 Payal Hoffman [facility] HB ECG ROUTINE & RHYTHM 2021-11-02 08:45:28 Yvette Anderson [facility] URINALYSIS 2021-11-02 00:31:00 Atif Boswell [place] [facility] PNEUMOCOCCAL ANTIGEN 2021-11-02 00:31:00 Payal Hoffman [facility] MAGNESIUM 2021-11-01 10:10:00 Yariel Greggmikey [facility] BASIC METABOLIC PANEL 2021-11-01 10:10:00 Gregg Saldivar [facility] (NA, K, CL, CO2, GLUCOSE, Medica l Branch BUN, CREATININE, CA) CBC WITH DIFF 2021-11-01 10:10:00 Yariel Gregg [facility] ANTI-NUCLEAR ANTIBODY 2021-11-01 10:10:00 Payal Hoffman [facility] [place] HEPATITIS B SURFACE 2021-11-01 10:10:00 Payal Hoffman [facility] ANTIBODY [facility] HEPATITIS B SURFACE 2021-11-01 10:10:00 Payal Hoffman [facility] HCV ANTIBODY 2021-11-01 10:10:00 Payal Hoffman [facility] HBC ANTIBODY (IGM & IGG) 2021-11-01 10:10:00 Payal Hoffman [facility] ANTI-DOUBLE STRANDED DNA 2021-11-01 10:10:00 Payal Hoffman [facility] PROCALCITONIN 2021-11-01 10:10:00 Gregg Saldivar [facility] CT THORAX WO CONTRAST 2021-11-01 04:55:48 Daniel Cintron [facility] URINE DRUG (IMMUNOASSAY) 2021-10-31 16:34:00 Marialuisa Devine [facility] SCREEN W/O REFLEX PHOSPHORUS 2021-10-31 14:41:00 Gregg Saldivar [facility] TROPONIN I 2021-10-31 14:41:00 Marialuisa Devine [facility] COMP. METABOLIC PANEL 2021-10-31 14:41:00 Marialuisa [id number] Medical Branch CBC WITH DIFF 2021-10-31 14:41:00 Marialuisa Devine [facility] D-DIMER 2021-10-31 14:41:00 Marialuisa Devine [facility] N-TERMINAL PRO-BNP 2021-10-31 14:41:00 Marialuisa Devine [facility] COVID-19 (ID NOW RAPID 2021-10-31 14:41:00 Marialuisa Devine [facility] TESTING) Medical Branch LAB ONLY COVID 2021-10-31 14:41:00 Marialuisa Devine [facility] INTERPRETATION [facility] HB ECG ROUTINE & RHYTHM 2021-10-31 14:35:55 Marialuisa Devine [facility] XR CHEST 2 VW 2021-10-31 14:31:00 Marialuisa Devine [facility] CONSENT/REFUSAL FOR 2021-10-31 13:48:03 [facility] TREATMENT [place] [facility] CARDIAC DEVICE CHECK - 2021-10-11 18:19:00 [facility] REMOTE - LOOP RECORDER Medical B brody (ILR) Plan of Care Planned Activity Planned Date Details Comments Source Future Scheduled Test 2021-03-28 Screening for malignant [facility] 00:00:00 neoplasm of cervix (procedure) [code = 378899221] Future Scheduled Test 2021-03-28 Screening for malignant [facility] 00:00:00 neoplasm of cervix (procedure) [code = 917327474] Future Scheduled Test 2021-03-28 Screening for malignant [facility] 00:00:00 neoplasm of cervix (procedure) [code = 929749727] Future Scheduled Test 2019-02-16 Breast Cancer Scrn [facility] 00:00:00 (Yearly) [code = Breast Cancer Scrn (Yearly)] Future Scheduled Test 2019-02-16 Breast Cancer Scrn [facility] 00:00:00 (Yearly) [code = Breast Cancer Scrn (Yearly)] Future Scheduled Test 2019-02-16 Breast Cancer Scrn [facility] 00:00:00 (Yearly) [code = Breast Cancer Scrn (Yearly)] Future Scheduled Test 1996-02-03 Screening for malignant [facility] 00:00:00 neoplasm of cervix (procedure) [code = 313378127] Future Scheduled Test 1996-02-03 Screening for malignant [facility] 00:00:00 neoplasm of cervix (procedure) [code = 438959837] Future Scheduled Test 1996-02-03 Screening for malignant [facility] 00:00:00 neoplasm of cervix (procedure) [code = 239026711] Future Scheduled Test 1981 Imm Pneumococcal 0-64 [facility] 00:00:00 (1 - PCV) [code = Imm Pneumococcal 0-64 (1 - PCV)] Future Scheduled Test 1975 COVID-19 Vaccine (#1) [facility] 00:00:00 [code = COVID-19 Vaccine (#1)] Future Scheduled Test 1975 COVID-19 Vaccine (#1) [facility] 00:00:00 [code = COVID-19 Vaccine (#1)] Future Scheduled Test 1975 COVID-19 Vaccine (#1) [facility] 00:00:00 [code = COVID-19 Vaccine (#1)] Encounters Start End Encounter Admission Attending Care Care Encounter Source Date/Time Date/Time Type Type Clinicians Facility Department ID 2023-09-26 2023-09-26 Outpatient R JAIMEE MCGEE [facility] [id number] Univers 16:30:00 16:30:00 JAIMEE MCGEE [facility] 2023-01-31 2023-01-31 Outpatient R AUSTEN [facility] [id number] Univers 08:40:00 08:40:00 WANDER [facility] 2023-01-05 2023-01-06 Emergency EM Mehdi, [facility] [id number] [facility] 23:48:00 03:06:00 Román 01 [facility] 2022-12-19 2022-12-19 Orders Doctor ALMAZ 1.2.840.114 [id number] Univers 00:00:00 00:00:00 Only Unassigned, ANDRY 350.1.13.10 ity of [place] [facility] 4.2.7.2.686 Daniel as [id number] [place] [address] Branch 2022-11-30 2022-11-30 Imm/Inj Nurse, Kel Vang [facility] 1.2.840.[id number] [facility] 08:00:00 08:20:00 Visit Mary Garcia [facility] 350.1.13.10 ity of [place] 4.2.7.2.686 Daniel as JUAN M?BLEA [id number] [facility] 044 [facility] 2022-11-30 2022-11-30 Hematology Supervisor Lab, [facility] 1.2.840.[id number] [facility] 07:30:00 07:45:00 Visit Mary Garcia [facility] 350.1.13.10 ity of [place] 4.2.7.2.686 Daniel as JUAN M?BLEA [id number] [facility] 353 [facility] 2022-11-30 2022-11-30 Outpatient R MARY GARCIA [facility] [id number] [facility] 07:30:00 07:30:00 MARY GARCIA [facility] 2022-11-25 2022-11-25 Hematology Supervisor Lab, [facility] 1.2.840.[id number] [facility] 09:15:00 09:30:00 Visit Mary Garcia [facility] 350.1.13.10 ity [facility] 4.2.7.2.686 Daniel as JUAN M?BLEA [id number] [address] 2022-11-25 2022-11-25 Outpatient R MARY GARCIA [facility] [id number] Univers 09:15:00 09:15:00 MARY GARCIA [facility] 2022-11-25 2022-11-25 Telephone [facility] 1.2.550.450 [id number] Univers 00:00:00 00:00:00 [facility] 350.1.13.10 ity of [place] 4.2.7.2.686 Daniel as JUAN M?BLEA [phone] [facility] 044 [facility] 2022-11-24 2022-11-24 Outpatient R ABNER [facility] [id number] Univers 15:15:00 15:50:50 [facility]-24 2022-11-24 Hematology Supervisor Lab, Ang - Db [facility] 1.2.840.1 14 [id number] Univers 15:15:00 15:30:00 Visit Akash Ortiz HEALTH 350.1.13.10 ity of [place] 4.2.7.2.686 Daniel as JUAN M?BLEA [id number] [facility] [address] MEDICAL OFFICE BUILDING 2022-10-27 2022-10-27 Outpatient R ISHAN [facility] [id number] Univers 18:20:00 19:23:51 OMAYEMI ity of [facility] 2022-10-27 2022-10-27 Urgent [facility] 1.2.840. 114 [id number] Univers 18:20:00 19:23:51 Care Unknown, Attending HEALTH 350.1.13.10 [facility] 4.2.7.2.686 Daniel as JUAN M?BLEA [id number] [facility] [address] MEDICAL OFFICE [facility] 2022-10-20 2022-10-20 Orders Doctor ALMAZ 1.2.840.114 [id number] Univers 00:00:00 00:00:00 Only Unassigned, ANDRY 350.1.13.10 ity of [place] [facility] 4.2.7.2.686 Daniel as [id number] [address] 2022-10-05 2022-10-05 Telephone [facility] 1.2.840.11 [id number] Univers 00:00:00 00:00:00 Jaimee griffiths 350.1.13.10 it[place] [id number] [facility] [address] 2022-10-05 2022-10-05 Orders Doctor ALMAZ 1.2.840.114 [id number] Univers 00:00:00 00:00:00 Only Unassigned, ANDRY 350.1.13.10 ity of [place] [facility] 4.2.7.2.686 Daniel as [id number] [address] 2022-09-29 2022-09-29 Telephone [place] [id number] Univers 00:00:00 00:00:00 s, Jaimee JETER 350.1.13.10 ity [facility] 4.2.7.2.[place] [facility] [id number] Oh dical NAL 134 [facility] 2022-09-23 2022-09-23 Outpatient R LIZETTEELINOR EnglishINE [facility] [id number] Univers 09:40:00 10:11:25 LIZETTEELINOR EnglishINE [facility] 2022-09-23 2022-09-23 Office [facility] 1.2.840.114 [id number] Univers 09:40:00 10:11:25 Visit [facility] 350.1.13.10 ity [facility] 4.2.7.2.686 Daniel as JUAN M?BLEA [id number] Oh dical KNEY 044 [facility] OFFICE [facility] 2022-09-23 2022-09-23 Patient Doctor ALMAZ 1.2.840.114 [id number] Univers 00:00:00 00:00:00 Secure Msg Unassigned, ANDRY 350.1.13.10 ity of [place] [facility] 4.2.7.2.686 Daniel as [id number] [facility] [address] 2022-09-19 2022-09-19 Outpatient R LIZETTEEmerald MARY [facility] [id number] Univers 08:00:18 23:59:00 LIZETTEELINOR EnglishINE [facility] 2022-09-19 2022-09-19 Hospital [facility] 1.2.840.114 [id number] Univers 08:00:18 23:59:00 Encounter Mary MICKIEANTONIA 350.1.13.10 ity [facility] 4.2.7.2.[place] [id number] [facility] [address] 2022-09-13 2022-09-13 Outpatient R JAIMEE MCGEE [facility] U [facility] [id number] Univers 16:30:00 16:49:36 JAIMEE MCGEE ity [facility] 2022-09-13 2022-09-13 Office Bo [facility] 1.2.840.114 [id number] Univers 16:30:00 16:49:36 Visit Jaimee griffiths [place] 350.1.13.10 ity of [place] 4.2.7.2.[place] [id number] [facility] 134 [facility] 2022-09-13 2022-09-13 Orders Doctor ALMAZ 1.2.840.114 [id number] Univers 00:00:00 00:00:00 Only Unassigned, ANDRY 350.1.13.10 ity of [place] [facility] 4.2.7.2.686 Daniel as [id number] [facility] [address] 2022-08-30 2022-08-30 [facility] 1.2.840.114 [id number] Univers 00:00:00 00:00:00 [facility] 350.1.13.10 ity of [place] 4.2.7.2.686 Daniel as JUAN M?BLEA [id number] [address] OFFICE [facility] 2022-08-08 2022-08-08 Outpatient R MARY GARCIA [facility] [id number] Univers 08:00:00 09:04:08 MARY GARCIA [facility] 2022-08-08 2022-08-08 Office [facility] 1.2.840.114 [id number] Univers 08:00:00 09:04:08 Visit [facility] 350.1.13.10 ity of [place] 4.2.7.2.686 Daniel as JUAN M?BLEA [id number] [address] OFFICE [facility] 2022-08-03 2022-08-03 Letter ALMAZ Ortiz 1.2.840.114 [id number] Univers 00:00:00 00:00:00 (Out) Akash WILDE 350.1.13.10 it y of [facility] 4.2.7.2.686 Daniel as [id number] [facility] [address] 2022-08-02 2022-08-02 Patient Doctor ALMAZ 1.2.840.114 [id number] Univers 00:00:00 00:00:00 Secure Msg Unassigned, ANDRY 350.1.13.10 ity of [place] [facility] 4.2.7.2.686 Daniel as [id number] [facility] [address] 2022-07-29 2022-07-29 Telephone Ayleen [facility] 1.2.892.303 [id number] Univers 00:00:00 00:00:00 Sendil Uri JETER 350.1.13.10 it[place] of [place].2.[place] [id number] Oh dical NAL 059 [facility] 2022-07-28 2022-07-28 Outpatient R AYLEEN [facility] [id number] Univers 15:34:33 23:59:00 SENDIL itemerald [facility] 2022-07-27 2022-07-27 Ancillary Marla Gupta [facility] 1.2.840 .114 [id number] Univers 13:45:00 14:30:00 Visit Mary Garcia 350.1.13.10 ity [facility] [place].2.7.2.[place] [id number] Oh dical NAL 179 [facility] 2022-07-27 2022-07-27 Outpatient R MARY GARCIA [facility] [id number] Univers 13:45:00 13:45:00 MARY GARCIA [facility] 2022-07-27 2022-07-27 Patient Doctor ALMAZ 1.2.840.114 [id number] Univers 00:00:00 00:00:00 Secure Msg Unassigned, ANDRY 350.1.13.10 ity of [place] [facility] 4.2.7.2.686 Daniel as [id number] [facility] [address] 2022-07-26 2022-07-26 Hematology Supervisor Vtc-Lab [facility] 1.2.840.114 [id number] Univers 09:00:00 09:15:00 Visit Jorge Perez MULTISPEC 350.1.13. 10 [place].7.2.[place] CENTER [id number] [facility] AND BROCK [address] [facility] 2022-07-26 2022-07-26 Outpatient R CHRIS [facility] [id number] Univers 09:00:00 09:00:00 JORGE perez [facility] 2022-07-26 2022-07-26 Office Yanick Perez [facility] 1.2.840.1 14 [id number] Univers 08:30:00 08:53:09 Visit Jorge PerezPEC 350.1.13. 10 [place]2.[place] CENTER [id number] [facility] AND [address] DIABETES [facility] 2022-07-26 2022-07-26 Letter Chris [facility] 1.2.409.895 [id number] Univers 00:00:00 00:00:00 (Out) Yanick GALICIA 350.1.13.10 [place]2.[place] [id number] [facility] AND [address] [facility] 2022-07-20 2022-07-20 Telephone Parag [facility] 1.2.286.041 [id number] Univers 00:00:00 00:00:00 Laura JETER 350.1.13.10 i ty of [place] [id number] Oh dical [facility] 179 [facility] 2022-07-20 2022-07-20 Orders Doctor ALMAZ 1.2.840.114 [id number] Univers 00:00:00 00:00:00 Only Unassigned, ANDRY 350.1.13.10 ity of [place] [facility] 4.2.7.2.686 Daniel as [id number] [facility] [address] 2022-07-18 2022-07-18 Outpatient Maryse HERNÁNDEZ [facility] [id number] Univers 16:00:00 16:00:00 JAYLEN perez [facility] 2022-07-13 2022-07-13 Ancillary Laura Tuttle [facility] 1.2.840. 114 [id number] Univers 07:15:00 08:05:31 Visit Mary Garcia 350.1.13.10 ity of [place].2.[place] [id number] Oh dical NAL 179 [facility] 2022-07-12 2022-07-12 Outpatient R AYLEEN [facility] [id number] Univers 09:30:00 09:53:49 SENDIL emerald [facility] 2022-07-12 2022-07-12 Office Ayleen [facility] 1.2.840.114 [id number] Univers 09:30:00 09:53:49 Visit Latoya JETER 350.1.13.10 it[place] of [place].2.[place] [id number] Oh dical NAL 059 [facility] 2022-07-08 2022-07-08 Outpatient R MARY GARCIA [facility] [id number] Univers 08:00:00 23:59:00 MARY GARCIA [facility] 2022-07-06 2022-07-06 Outpatient R MARY GARCIA [facility] [id number] Univers 09:30:00 10:30:43 MARY GARCIA [facility] 2022-07-06 2022-07-06 Ancillary Elisa Chun [facility] 1 .2.840.114 [id number] Univers 09:30:00 10:30:43 Visit Mary Garcia 350.1.13.10 ity [facility] 4.2.7.2.[place] [id number] Oh dical NAL 179 [facility] 2022-07-06 2022-07-06 Case Betito [facility] 1.2.840.114 [id number] Univers 00:00:00 00:00:00 Management CORONA Duffy 350.1.13.10 ity of [facility] 4.2.7.2.[place] [id number] Oh dical NAL 179 [facility] 2022-07-05 2022-07-05 Hematology Supervisor Lab, Kel Vang [facility] 1.2.840.1 14 [id number] Univers 07:45:00 08:10:40 Visit Mary Garcia 350.1.13.10 ity [facility] 4.2.7.2.686 Daniel as JUAN M?BLEA [id number] Oh lizz TOMPKINS [address] MEDICAL OFFICE [facility] 2022-07-05 2022-07-05 Outpatient R MARY GARCIA [facility] [id number] Univers 07:45:00 07:45:00 RADHA MARY shadeemerald [facility] 2022-07-05 2022-07-05 Letter [facility] 1.2.840.114 [id number] Univers 00:00:00 00:00:00 (Out) [facility] 350.1.13.10 ity of [place] 4.2.7.2.686 Daniel as JUAN M?BLEA [id number] [address] MEDICAL OFFICE [facility] 2022-07-05 2022-07-05 Telephone Radha [facility] 1.2.243.125 [id number] Univers 00:00:00 00:00:00 [facility] 350.1.13.10 ity of [place] 4.2.7.2.686 Daniel as JUAN M?BLEA [id number] [address] MEDICAL OFFICE [facility] 2022-07-04 2022-07-04 Outpatient R MARY GARCIA [facility] [id number] Univers 09:40:00 10:13:18 MARY GARCIA shadeemerald [facility] 2022-07-04 2022-07-04 Office [facility] 1.2.840.114 [id number] Univers 09:40:00 10:13:18 Visit [facility] 350.1.13.10 ity of [place] 4.2.7.2.686 Daniel as JUAN M?BLEA [id number] [address] MEDICAL OFFICE [facility] 2022-06-21 2022-06-21 Outpatient R MARY GARCIA [facility] [id number] Univers 10:22:32 23:59:00 MARY GARCIA [facility] 2022-06-21 2022-06-21 Office [facility] 1.2.840.114 [id number] Univers 09:20:00 09:51:12 Visit [facility] 350.1.13.10 ity [facility] 4.2.7.2.686 Daniel as JUAN M?BLEA [id number] Oh lizz RENTERIA [address] MEDICAL OFFICE [facility] 2022-06-21 2022-06-21 Orders Doctor ALMAZ 1.2.840.114 [id number] Univers 00:00:00 00:00:00 Only Unassigned, ANDRY 350.1.13.10 ity of [place] [facility] 4.2.7.2.686 Daniel as [id number] [facility] [address] 2022-06-16 2022-06-16 Refill [facility] 1.2.840.114 [id number] Univers 00:00:00 00:00:00 Mary HEALTH 350.1.13.10 ity of [place] 4.2.7.2.686 Daniel as JUAN M?BLEA [id number] Oh [address] 2022-05-12 2022-05-12 Outpatient R VANDANA [facility] [id number] Univers 14:00:00 14:00:00 JESSIKA perez [facility] 2022-05-10 2022-05-10 Outpatient R CHRIS [facility] [id number] Univers 08:00:00 08:00:00 JORGE chris [facility] 2022-05-05 2022-05-05 Telephone [facility] 1.2.037.186 [id number] Univers 00:00:00 00:00:00 Jessika Alex MULTISPEC 350.1.13.10 [place] [id number] [facility] AND GUTIÉRREZ [address] [facility] 2022-03-27 2022-03-27 Patient Doctor ALMAZ 1.2.840.114 [id number] Univers 00:00:00 00:00:00 Secure Msg Unassigned, ANDRY 350.1.13.10 ity of [place] [facility] 4.2.7.2.686 Daniel as [id number] [facility] [address] 2022-03-16 2022-03-16 Telephone [facility] 1.2.001.621 [id number] Univers 00:00:00 00:00:00 Mary HEALTH 350.1.13.10 ity of [place] 4.2.7.2.686 Daniel as JUAN M?BLEA [id number] Oh lizz [address] MEDICAL OFFICE [facility] 2022-03-15 2022-03-15 Outpatient R LIZETTEEmerald [facility] [id number] Univers 10:00:00 11:05:28 MARY ity [facility] 2022-03-15 2022-03-15 Office [facility] 1.2.840.114 [id number] Univers 10:00:00 11:05:28 Visit [facility] 350.1.13.10 ity of [place] 4.2.7.2.686 Dainel as JUAN M?BLEA [id number] [address] OFFICE [facility] 2022-03-15 2022-03-15 Refill [facility] 1.2.840.114 [id number] Univers 00:00:00 00:00:00 [facility] 350.1.13.10 ity [facility] 4.2.7.2.686 Daniel as JUAN M?BLEA [id number] [address] OFFICE [facility] 2022-03-14 2022-03-14 Outpatient R RADHA [facility] [id number] Univers 10:00:00 10:00:00 [facility] 2022-03-14 2022-03-14 Outpatient R AYLEEN [facility] [id number] Univers 09:30:00 09:30:00 SENDIL ity [facility] 2022-03-14 2022-03-14 Outpatient R AYLEEN [facility] [id number] Univers 09:30:00 09:30:00 SENDIL ity [facility] 2022-03-14 2022-03-14 Outpatient R AYLEEN [facility] [id number] Univers 09:30:00 09:30:00 SENDIL y [facility] 2022-03-14 2022-03-14 Outpatient R AYLEEN [facility] [id number] Univers 09:30:00 09:30:00 SENDIL [facility] 2022-03-09 2022-03-09 [facility] [id number] Univers 00:00:00 00:00:00 Caryl HEALTH [id number] [place] [phone] [address] 2022-03-09 2022-03-09 [facility]phone [facility] [id number] Univers 00:00:00 00:00:00 Muake HEALTH 350.1.13.10 [place] [phone] [address] [facility]22-[facility] 2022-03-02 Orders Doctor ALMAZ [id number] Univers 00:00:00 00:00:00 Only Unassigned, ANDRY 350.1.13.10 ity of [place] 4.2.7.2.686 Daniel as [phone] [address] 2022-02-16 2022-02-16 Hematology Supervisor Francesca, Rayna [facility] 1.2.8 [id number] [id number] Univers 09:45:00 10:00:00 Visit Akash Ortiz 350.1.13.10 it[place] [phone] [address] 2022-02-16 2022-02-16 Outpatient R ABNER [facility] [id number] Univers 09:45:00 09:45:00 AKASH ity of [facility] 2022-02-16 2022-02-16 Orders Doctor ALMAZ [id number] Univers 00:00:00 00:00:00 Only Unassigned, ANDRY 350.1.13.10 ity of [place] [facility] 4.2.7.2.686 Daniel as [phone] [address] 2022-02-15 2022-02-15 Refcharles Garcia [facility] 1.2.840.114 [id number] Univers 00:00:00 00:00:00 Mary HEALTH 350.1.13.10 ity of [place] 4.2.7.2.686 Daniel as JUAN M?BLEA [phone] [address] OFFICE [facility] 2022-02-14 2022-02-14 [facility]phone [facility] 1.2.582.066 [id number] Univers 00:00:00 00:00:00 [facility] 350.1.13.10 ity of [facility] 4.2.7.2.686 Daniel as JUAN M?BLEA [id number] [address] OFFICE [facility] 2022-02-11 2022-02-11 Telephone [facility] 1.2.363.255 [id number] Univers 00:00:00 00:00:00 [facility] 350.1.13.10 ity of [place] 4.2.7.2.686 Daniel as JUAN M?BLEA [id number] [address] OFFICE [facility] 2022-02-10 2022-02-10 Hematology Supervisor Lab, Ang - [facility] 1.2.840.1 14 [id number] Univers 12:30:00 12:45:00 Visit [facility] 350.1.13.10 ity of [place] 4.2.7.2.686 Daniel as JUAN M?BLEA [phone] [address] OFFICE [facility] 2022-02-10 2022-02-10 Office [facility] 1.2.840.114 [id number] Univers 11:40:00 12:22:31 Visit [facility] 350.1.13.10 ity of [place] 4.2.7.2.686 Daniel as JUAN M?BLEA [id number] [address] OFFICE [facility] 2022-02-10 2022-02-10 Outpatient R SARAH [facility] [id number] Univers 08:20:00 08:56:22 [facility]-10 2022-02-10 [facility] 1.2.840.114 [id number] Univers 08:20:00 08:56:22 [facility] 350.1.13.10 i ty of [place] 4.2.7.2.[place] [id number] [place] 807379 [facility] 2022-02-10 2022-02-10 Orders Doctor ALMAZ 1.2.840.114 [id number] Univers 00:00:00 00:00:00 Only Unassigned, ANDRY 350.1.13.10 ity of [place] [facility] 4.2.7.2.686 Daniel as [phone] [address] 2022-02-10 2022-02-10 Telephone [facility] 1.2.041.282 [id number] Univers 00:00:00 00:00:00 [facility] 350.1.13.10 ity [facility] 4.2.7.2.686 Daniel as JUAN M?BLEA [id number] [address] OFFICE [facility] 2022-02-07 2022-02-07 Refcharles [facility] 1.2.840.114 [id number] Univers 00:00:00 00:00:00 Sendnilo JETER 350.1.13.10 ity of [place].7.2.[place] [id number] [address] 2022-01-20 2022-01-20 [facility] 1.2.840.114 [id number] Univers 00:00:00 00:00:00 [facility] 350.1.13.10 ity of [place] 4.2.7.2.686 Daniel as JUAN M?BLEA [phone] [address] OFFICE [facility] 2022-01-17 2022-01-17 Refcharles [facility] 1.2.840.114 [id number] Univers 00:00:00 00:00:00 Sendnilo JETER 350.1.13.10 ity of [place].2.[place] [id number] [address] 2022-01-11 2022-01-11 Outpatient R AYLEEN [facility] [id number] Univers 09:00:00 09:11:08 SENDIL ity of [facility] 2022-01-11 2022-01-11 Office [facility] 1.2.840.114 [id number] Univers 09:00:00 09:11:08 Visit Latyoa JETER 350.1.13.10 ity of [place] 4.2.7.2.686 [place] [phone] Oh dical NAL 059 [facility] 2021-12-13 2021-12-13 [facility] [id number] Univers 00:00:00 23:59:00 JASE ity of [facility] 2021-12-13 2021-12-13 Hospital JACQUES Smith 1.2.840.114 [id number] Univers 00:00:00 23:59:00 Encounter [facility]aseCritical access hospital 350.1.13.10 ity of [facility] 4.2.7.2.686 Daniel as [phone] [facility] [address] 2021-12-10 2021-12-10 Hematology Supervisor Pcp-Lab [facility] 1.2.840.114 [id number] Univers 10:45:00 11:00:00 Visit Jorge Perez PRIMARY 350.1.13.10 ity of [place] 4.2.7.2.[place] [phone] Oh dical [address] 2021-12-10 2021-12-10 Outpatient [facility] [id number] Univers 10:00:00 10:40:24 JORGE ity [facility] 2021-12-10 2021-12-10 Office Yanick Perez [facility] 1.2.840.1 14 [id number] Univers 10:00:00 10:40:24 Visit Jorge Perez PRIMARY 350.1.13.10 ity of [place] 4.2.7.2.[place] [phone] Oh dical [address] 2021-12-09 2021-12-09 Telephone [facility] 1.2.048.593 [id number] Univers 00:00:00 00:00:00 [facility] 350.1.13.10 ity of [place] 4.2.7.2.686 Daniel as JUAN M?BLEA [id number] [address] MEDICAL OFFICE [facility] 2021-12-06 2021-12-06 Hematology Supervisor Lab, Ang - Db [facility] 1.2.840.1 14 [id number] Univers 12:00:00 12:15:00 Visit Venita Walter 350.1.13.10 ity of [place] 4.2.7.2.686 Daniel as JUAN M?BLEA [phone] [facility] [address] [facility] OFFICE [facility] 2021-12-06 2021-12-06 Outpatient R SABA [facility] [id number] Univers 11:30:00 11:47:17 VENITA perez [facility] 2021-12-06 2021-12-06 Office [facility] 1.2.840.114 [id number] Univers 11:30:00 11:47:17 [facility] 350.1.13.10 it y of [place] 4.2.7.2.686 Daniel as JUAN M?BLEA [phone] [address] OFFICE [facility] 2021-11-11 2021-11-11 Outpatient R RADHA [facility] [id number] Univers 08:00:00 08:42:11 [facility] 2021-11-11 2021-11-11 Office [facility] 1.2.840.114 [id number] Univers 08:00:00 08:42:11 Visit [facility] 350.1.13.10 ity of [place] 4.2.7.2.686 Daniel as JUAN M?BLEA [phone] [address] OFFICE [facility] 2021-11-04 2021-11-04 Transition WICHO Tsai 1.2.840.114 [id number] Univers 00:00:00 00:00:00 of Care Jessica B CHOW[place] 350.1.13.10 [place] y of [place].2.[place] [id number] [address] 2021-10-31 2021-11-03 Inpatient X YASMIN [facility] [id number] Univers 08:55:00 13:25:00 PAYAL perez [facility] 2021-10-31 2021-11-03 [facility] Marialuisa Devine [facility] 1.2.840. 114 [id number] Univers 08:55:00 13:25:00 Encounter YasminPayal 350.1.13.10 ity of [facility] 4.2.7.2.686 [place] [id number] [address] 2021-10-28 2021-10-28 Telephone [facility] 1.2.465.969 [id number] Univers 00:00:00 00:00:00 Venita HEALTH 350.1.13.10 it y of [place] 4.2.7.2.686 Daniel as JUAN M?BLEA [id number] [address] MEDICAL OFFICE [facility] 2021-10-26 2021-10-26 Outpatient [facility] [id number] Univers 14:30:00 15:18:00 VENITA shadeemerald [facility] 2021-10-26 2021-10-26 Office [facility] 1.2.840.114 [id number] Univers 14:30:00 15:18:00 Visit Venita [facility] 350.1.13.10 it y of [place] 4.2.7.2.686 Daniel as JUAN M?BLEA [phone] [address] MEDICAL OFFICE [facility] 2021-10-26 2021-10-26 Outpatient [facility] [id number] Univers 14:30:00 15:18:00 VENITA ity [facility] 2021-10-22 2021-10-22 Telephone [facility] 1.2.463.464 [id number] Univers 00:00:00 00:00:00 Venita HEALTH 350.1.13.10 it y of [place] 4.2.7.2.686 Daniel as JUAN M?BLEA [id number] [address] MEDICAL OFFICE [facility] 2021-10-22 2021-10-22 Orders Doctor MUSE 1.2.840.114 [id number] Univers 00:00:00 00:00:00 Only Unassigned, ANDRY 350.1.13.10 ity of [place] [facility] 4.2.7.2.686 Daniel as [id number] [facility] [address] 2021-10-11 2021-10-11 Outpatient R SARAH [facility] [id number] Univers 00:00:00 23:59:00 JASE ity of [facility] 2021-10-11 2021-10-11 Hospital JACQUES Smith 1.2.840.114 [id number] Univers 00:00:00 23:59:00 Encounter Jase WILDE 350.1.13.10 ity of [place] [address].2.7.2.686 Daniel as [phone] [facility] [address] 2021-10-03 2021-10-03 Emergency X Isai BARBOZA [facility] ERT [id number] Univers 15:20:00 18:07:00 ity of [facility] 2021-10-03 2021-10-03 Emergency Isai Barboza [facility] 1.2.840.114 [id number] Univers 15:20:00 18:07:00 Corin JETER 350.1.13.10 i ty [facility] 4.2.7.2.[address] [facility] [phone] [facility] [address] 2021-10-03 2021-10-03 Nurse ALMAZ Aquino 1.2.840.114 [id number] Univers 00:00:00 00:00:00 Triage Toby WILDE [place].13.10 [place] [address].2.7.2.686 Daniel as [phone] [facility] [address] 2021-09-29 2021-09-29 Outpatient Maryse HERNANDEZ [facility] [id number] Univers 10:30:00 10:30:00 ROC perez [facility] 2021-09-29 2021-09-29 Outpatient Maryse GARCIA [facility] [id number] Univers 10:00:00 10:00:00 JEANIE perez [facility] 2021-09-29 2021-09-29 Outpatient Maryse GARCIA [facility] [id number] Univers 10:00:00 10:00:00 JEANIE perez [facility] 2021-09-28 2021-09-28 Office Mary Garcia [facility] 1.2.840.11 [id number] Univers 14:40:00 15:12:23 Visit Roc Hernandez 350.1.13.10 ity [facility] 4.2.7.2.686 Daniel as JUAN M?BLEA [phone] [address] OFFICE [facility] 2021-09-28 2021-09-28 Outpatient R MARY [facility] [id number] Univers 14:40:00 15:12:23 ROC perez [facility] 2021-09-28 2021-09-28 Outpatient R MARY [facility] [id number] Univers 14:40:00 14:40:00 ROC perez [facility] 2021-09-28 2021-09-28 Refill [facility] 1.2.840.114 [id number] Univers 00:00:00 00:00:00 [facility] 350.1.13.10 ity of [place] 4.2.7.2.686 Daniel as JUAN M?BLEA [id number] [address] MEDICAL OFFICE [facility] 2021-09-28 2021-09-28 Telephone [facility] 1.2.521.878 [id number] Univers 00:00:00 00:00:00 [facility] 350.1.13.10 ity of [place] 4.2.7.2.686 Daniel as JUAN M?BLEA [phone] [address] OFFICE [facility] 2021-09-21 2021-09-21 Orders Doctor ALMAZ 1.2.840.114 [id number] Univers 00:00:00 00:00:00 Only Unassigned, ANDRY 350.1.13.10 ity of [place] [facility] 4.2.7.2.686 Daniel as [id number] [facility] [address] 2021-09-17 2021-09-17 Telephone [facility] 1.2.840.11 [id number] Univers 00:00:00 00:00:00 [place], Y HEALTH 350.1.13.10 ity of [place] [facility] 4.2.7.2.[place] [id number] [address] 2021-09-10 2021-09-10 Telephone DANII Osman 1.2.840.114 [id number] Univers 00:00:00 00:00:00 Roxana English HEALTH 350.1.13.10 ity of [facility] 4.2.7.2.686 [place] [id number] [address] 2021-09-09 2021-09-09 Outpatient [facility] [id number] Univers 09:00:00 09:22:55 SENDIL ity [facility] 2021-09-09 2021-09-09 Office [facility] 1.2.840.114 [id number] Univers 09:00:00 09:22:55 Visit Latoya [facility].13.10 [facility] 4.2.[place].2.[place] [phone] Oh lizz [place] 059 [facility] 2021-09-09 2021-09-09 Outpatient [facility] [id number] Univers 09:00:00 09:00:00 SENDIL ity [facility] 2021-09-09 2021-09-09 Outpatient [facility] [id number] Univers 09:00:00 09:00:00 [facility] 2021-09-09 2021-09-09 Outpatient R [facility] [id number] Univers 09:00:00 09:00:00 SENDIL [facility] 2021-09-03 2021-09-03 Office [facility] 1.2.840.114 [id number] Univers 11:00:00 11:19:55 Visit [facility] 350.1.13.10 it y of [place] 4.2.7.2.686 Daniel as JUAN M?BLEA [phone] Oh dical MYRAEY 044 [facility] OFFICE BUILDING 2021-09-03 2021-09-03 Outpatient Maryse [facility] [id number] Univers 11:00:00 11:19:55 VENITA ity [facility] 2021-09-03 2021-09-03 Outpatient R SABA, [facility] [id number] Univers 11:00:00 11:19:55 VENITA ity [facility] 2021-09-03 2021-09-03 Outpatient R SABA [facility] [id number] Univers 11:00:00 11:19:55 VENITA ity of [facility] 2021-09-03 2021-09-03 Outpatient R SABA [facility] [id number] Univers 11:00:00 11:19:55 VENITA ity [facility] 2021-09-03 2021-09-03 Outpatient R SABA, [facility] [id number] Univers 11:00:00 11:00:00 VENITA itemerald [facility] 2021-09-03 2021-09-03 Telephone DANII Osman 1.2.840.114 [id number] Univers 00:00:00 00:00:00 Roxana English HEALTH 350.1.13.10 ity of [facility] 4.2.7.2.[place] [id number] [address] 2021-09-02 2021-09-02 Abstract [facility] 1.2.840.114 [id number] Univers 00:00:00 00:00:00 Venita HEALTH 350.1.13.10 it y of [place] 4.2.7.2.686 Daniel as JUAN M?BLEA [phone] Oh lizz RENTERIAEY [address] MEDICAL OFFICE BUILDING 2021-08-31 2021-08-31 Hematology Supervisor Francesca, Rayna Lab Main [facility] 1.2.8 40.114 [id number] Univers 12:30:00 12:45:00 Visit Roxana Osman 350.1.13.10 ity of [place] 4.2.7.2.686 [place] [phone] Oh lizz [facility] [address] BUILDING 2021-08-31 2021-08-31 Outpatient R [facility] [id number] Univers 12:30:00 12:30:00 ROXANA perez [facility] 2021-08-31 2021-08-31 Outpatient R [facility] [id number] Univers 12:30:00 12:30:00 KHALED ity [facility] 2021-08-31 2021-08-31 Outpatient R DAWSON [facility] [id number] Univers 12:30:00 12:30:00 KHALED ity [facility] 2021-08-31 2021-08-31 Telephone Saba [facility] 1.2.953.917 [id number] Univers 00:00:00 00:00:00 Venita HEALTH 350.1.13.10 it y of [facility] 4.2.7.2.686 Daniel as JUAN M?BLEA [phone] Oh dic[address] MEDICAL OFFICE BUILDING 2021-08-31 2021-08-31 Orders Doctor ALMAZ 1.2.840.114 [id number] Univers 00:00:00 00:00:00 Only Unassigned, ANDRY 350.1.13.10 ity of [place] [facility] 4.2.7.2.686 Daniel as [phone] [facility] [address] 2021-08-28 2021-08-28 Telephone DANII Osman 1.2.840.114 [id number] Univers 00:00:00 00:00:00 Roxana Up Y HEALTH 350.1.13.10 ity of CLIN[place] 4.2.7.2.686 [place] [id number] [facility] [address] 2021-08-23 2021-08-23 Transition WICHO Tsai 1.2.840.114 [id number] Univers 00:00:00 00:00:00 of Care Jessica Escobar CHOWDARY 350.1.13.10 it y of [place] 4.2.7.2.686 [place] [id number] [facility] [address] 2021-08-18 2021-08-20 Hospital [place]on [place] 1.2.840. 114 [id number] Univers 19:03:00 17:07:00 Encounter Roxana Osman 350.1.13.1 0 ity of HOSPITAL 4.2.7.2.686 Daniel as [id number] [facility] [address] 2021-08-202021-08-20 Telephone Dawson [facility] 1..840.114 9 [id number] Univers 00:00:00 00:00:00 Roxana Up HEALTH 350.1.13.10 ity of CLINICS 4.2.7.2.686 [place] [id number] [place] [address] [address] 2021-08-19 2021-08-19 [facility] 1.2.840.114 [id number] Univers 00:00:00 00:00:00 Roxana Up HEALTH 350.1.13.10 i ty of [place] 4.2.7.2.686 [place] [id number] [facility] [address] OFFICE BUILDING 2021-08-18 2021-08-18 Outpatient R SERJIO [facility] [id number] Univers 19:40:00 19:40:00 MELBA conn [facility] 2021-08-18 2021-08-18 Outpatient R [facility] [id number] Univers 18:30:00 19:12:37 MELBA conn [facility] 2021-08-18 2021-08-18 Outpatient R [facility] [id number] Univers 18:30:00 19:12:37 MELBA shadeemerald [facility] 2021-08-18 2021-08-18 Nurse Nurse, [facility] 1.2.840.114 [id number] Univers 18:30:00 18:50:00 Visit Melba Bassett [facility] 350.1.13.10 ity of [place] 4.2.7.2.686 Daniel as JUAN M?BLEA [phone] [facility] [address] MEDICAL OFFICE BUILDING 2021-08-18 2021-08-18 Outpatient R SERJIO [facility] [id number] Univers 18:30:00 18:30:00 MELBA conn [facility] 2021-08-12 2021-08-12 Refcharles AbbasiUNM CAN[facility]ER [facility] 1.2.840.114 [id number] Univers 00:00:00 00:00:00 Latoya JETER 350.1.13.10 ity of [place] 4.2.7.2.[place] [phone] Oh dical NAL 9 [facility] 2021-08-10 2021-08-10 Refill [facility] 1.2.840.114 [id number] Univers 00:00:00 00:00:00 Sendil Uri [place] 350.1.13.10 ity of [place] 4.2.7.2.686 [place] [phone] Oh dicil NAL [address] [place] [address] 2021-08-07 2021-08-07 Refill [facility] 1.2.840.114 [id number] Univers 00:00:00 00:00:00 Sendil K.HHector [place] 350.1.13.10 ity of [place] 4.2.7.2.686 [place] [phone] [facility] NAL [address] [place] [address] 2021-08-06 2021-08-06 Refill [facility] 1.2.840.114 [id number] Univers 00:00:00 00:00:00 Sendil JoseHHector [place] 350.1.13.10 ity of [place] 4.2.7.2.686 [place] [id number] [facility] NAL [address] [place] [address] 2021-08-05 2021-08-05 Outpatient R ROBIN [facility] [id number] Univers 09:30:00 09:30:00 WONDIFUL ity o f [facility] 2021-08-05 2021-08-05 Outpatient R ROBIN [facility] [id number] Univers 09:30:00 09:30:00 WONDIFUL ity o f [facility] 2021-08-05 2021-08-05 Outpatient R ROBIN [facility] [id number] Univers 09:30:00 09:30:00 WONDIFUL ity o f [facility] 2021-08-05 2021-08-05 Outpatient R ROBIN [facility] [id number] Univers 09:30:00 09:30:00 WONDIFUL ity o f [facility] 2021-08-05 2021-08-05 Outpatient R ROBIN [facility] [id number] Univers 09:30:00 09:30:00 WONDIFUL ity o f [facility] 2021-08-05 2021-08-05 Outpatient R ROBIN [facility] [id number] Univers 09:30:00 09:30:00 WONDIFUL ity o f [facility] 2021-08-05 2021-08-05 Outpatient R ROBIN [facility] [id number] Univers 09:30:00 09:30:00 WONDIFUL ity o f [facility] 2021-07-26 2021-07-26 Outpatient R NIRMALA, ENDY [facility] [id number] Univers 11:00:00 11:15:45 ENDY [facility] 2021-07-26 2021-07-26 Office [facility] 1.2.840.114 [id number] Univers 11:00:00 11:15:45 Visit [facility] 350.1.13.10 ity [facility] 4.2.7.2.686 Daniel as JUAN M?BLEA [phone] Oh lizz TOMPKINS [address] MEDICAL OFFICE BUILDING 2021-07-13 2021-07-13 [facility]an [facility] 1.2.840.114 [id number] Univers 00:00:00 00:00:00 Latoya Grewal [place] 350.1.13.10 ity [facility] 4.2.7.2.686 [place] [phone] Oh dical NAL [address] [facility] 2021-07-07 2021-07-07 Outpatient R SARAH [facility] [id number] Univers 00:00:00 23:59:00 JASE ity of [facility] 2021-07-07 2021-07-07 [facility] JACQUES Smith 1.2.840.114 [id number] Univers 00:00:00 23:59:00 Encounter Jase ANDRY 350.1.13.10 ity of [facility] 4.2.7.2.686 Daniel as [id number] [facility] [address] 2021-06-22 2021-06-22 [facility] 1.2.870.199 [id number] Univers 07:40:48 23:59:00 Encounter Endy JETER 350.1.13.10 ity [facility] 4.2.7.2.686 [facility] [id number] [facility] [address] 2021-06-22 2021-06-22 Outpatient R NIRMALAENDY PHOENIX [facility] [id number] Univers 07:40:00 07:40:00 NIRMALAENDY Robb ity [facility] 2021-06-22 2021-06-22 [facility] 1.2.437.544 [id number] Univers 07:40:00 07:40:00 Encounter Endy [place] 350.1.13.10 ity [facility] 4.2.7.2.686 [facility] [phone] [place] [id number] 2021-06-22 2021-06-22 Hospital Radiology [facility] 1.2.840.114 [id number] Univers 07:39:13 07:39:13 Encounter [place] 350.1.13.10 ity of [place] 4.2.7.2.686 [facility] [id number] [facility] [address] 2021-06-22 2021-06-22 Outpatient R RADIOLOGY [facility] [id number] Univers 00:00:00 07:39:13 ity of [facility] 2021-06-22 2021-06-22 Outpatient R RADIOLOGY [facility] [id number] Univers 00:00:00 07:39:13 ity of [facility] 2021-06-22 2021-06-22 [facility] Anemi, [facility] 1.2.840.114 [id number] Univers 07:38:32 07:38:32 Encounter Venita CORONA [id number] ity of [place] [id number] [place] [address] [phone] [facility] [address] 2021-06-14 2021-06-14 Outpatient R NIRMALAENDY Robb [facility] [id number] Univers 09:40:00 09:49:32 ENDY MALDONADO ity [facility] 2021-06-14 2021-06-14 Office Nirmala, [facility] [id number] Univers 09:40:00 09:49:32 [id number] Daniel as JUAN M?BLEA [phone] Oh mayankstew TOMPKINS [address] [facility] 2021-06-14 2021-06-14 Outpatient ENDY JAIMES [facility] [id number] Univers 09:40:00 09:49:32 ENDY MALDONADO emerald [facility] 2021-06-14 2021-06-14 Outpatient ENDY JAIMES [facility] [id number] Univers 09:40:00 09:40:00 ENDY MALDONADO emerald [facility] 2021-06-14 2021-06-14 Outpatient ENDY JAIMES [facility] [id number] Univers 09:40:00 09:40:00 ENDY MALDONADO [facility] 2021-06-14 2021-06-14 Outpatient ENDY JAIMES [facility] [id number] Univers 09:40:00 09:40:00 ENDY MALDONADO [facility] 2021-06-13 2021-06-13 Outpatient ENDY JAIMES [facility] RAD [id number] Univers 08:58:16 23:59:00 ENDY MALDONADO [facility] 2021-06-13 2021-06-13 [facility] Nirmala [facility] [id number] Univers 08:58:16 23:59:00 Encounter [facility] [id number] ity [facility] [id number] [phone] Oh lizz SPEEDY [facility] [facility] 2021-06-13 2021-06-13 Outpatient ENDY JAIMES [facility] RAD [id number] Univers 08:58:16 23:59:00 ENDY MALDONADO [facility] 2021-06-09 2021-06-09 Outpatient Maryse ABBASI [facility] [id number] Univers 14:30:00 15:33:13 SENDIL ity [facility] 2021-06-09 2021-06-09 Office DICK Abbasi [id number] Univers 14:30:00 15:33:13 Visit Latoya JETER [id number] [id number] [phone] [facility] 2021-06-09 2021-06-09 Telephone JACQUES Smith [id number] Univers 00:00:00 00:00:00 Jase ANDRY 350.1.13.10 it y of [place] [address].2.7.2.686 Daniel as [id number] [place] [address] 2021-06-09 2021-06-09 Orders Doctor ALMAZ 1.2.840.114 [id number] Univers 00:00:00 00:00:00 Only Unassigned, ANDRY 350.1.13.10 ity of [place] [facility] 4.2.7.2.686 Daniel as [phone] [address] 2021-06-04 2021-06-04 Outpatient R [facility] [id number] Univers 00:00:00 23:59:00 ity of [facility] 2021-06-04 2021-06-04 Hospital JACQUES Abbasi 1.2.840.114 [id number] Univers 00:00:00 23:59:00 Encounter Latoya WILDE 350.1.13.[address]2.686 Daniel as [id number] [address] 2021-06-04 2021-06-04 Outpatient R SABA [facility] [id number] Univers 00:00:00 00:00:00 VENITA ity [facility] 2021-06-04 2021-06-04 [facility] [id number] Univers 00:00:00 00:00:00 SENDIL ity [facility] 2021-06-04 2021-06-04 Telephone Ayleen [facility] 1.2.451.782 [id number] Univers 00:00:00 00:00:00 Sendil Uri [place] 350.1.13.10 it[place] of [place].2.[place] [id number] Oh dical NAL 059 [facility] 2021-05-28 2021-05-28 [facility] 1.2.840.114 [id number] Univers 09:29:40 23:59:00 Encounter Venita [place] 350.1.13.10 it[place] of [place] 4.2.7.2.686 [place] [id number] [facility] [address] 2021-05-28 2021-05-28 Hematology Supervisor Francesca, Adc Lab Main [facility] 1.2.8 40.114 [id number] Univers 11:00:00 11:15:00 Visit Akash Ortiz 350.1.13.10 ity of [place] 4.2.7.2.[place] [id number] Oh dical NAL 353 [facility] 2021-05-28 2021-05-28 Outpatient [facility] [id number] Univers 08:12:18 09:28:00 WONDIFUL ity o f [facility] 2021-05-28 2021-05-28 [facility] 1.2.237.376 [id number] Univers 08:12:18 09:28:00 Encounter Wondiful Jorge L [place] 350.1.13.10 ity [facility] 4.2.7.2.686 [facility] [id number] [address] 2021-05-28 2021-05-28 Outpatient R [facility] [id number] Univers 08:12:18 09:28:00 WONDIFUL ity o f [facility] 2021-05-28 2021-05-28 Outpatient R [facility] [id number] Univers 00:00:00 00:00:00 WONDIFUL ity o f [facility] 2021-05-28 2021-05-28 [facility] 1.2.840.114 [id number] Univers 00:00:00 00:00:00 [facility] 350.1.13.10 ity of [place] 4.2.7.2.686 Daniel as JUAN M?BLEA [id number] Oh lizz TOMPKINS [address] [place] [address] MEDICAL OFFICE BUILDING 2021-05-28 2021-05-28 [place] [facility] 1.2.840.114 [id number] Univers 00:00:00 00:00:00 Endy [facility] 350.1.13.10 ity of [facility] 4.2.7.2.[place] [id number] Oh lizz [place] [address] [place] [address] 2021-05-27 2021-05-27 [facility] 1.2.840.114 [id number] Univers 10:46:32 23:59:00 Encounter Sendnilo JusHector JETER 350.1.13.10 ity of [facility] 4.2.7.2.686 [place] [id number] [address] 2021-05-27 2021-05-27 [facility] 1.2.840.114 [id number] Univers 10:46:21 23:59:00 Encounter Sendnilo IsaiHectorGinnyHector JETER 350.1.13.10 ity of [facility] 4.2.7.2.686 [place] [id number] [address] 2021-05-27 2021-05-27 Outpatient R [facility] [id number] Univers 10:46:09 23:59:00 SENDIL ity [facility] 2021-05-27 2021-05-27 [facility] 1.2.840.114 [id number] Univers 10:46:09 23:59:00 Encounter Sendnilo JETER 350.1.13.10 ity of [facility] 4.2.7.2.[place] [id number] [address] 2021-05-27 2021-05-27 Outpatient R [facility] [id number] Univers 10:46:09 23:59:00 SENDIL ity [facility] 2021-05-27 2021-05-27 Outpatient R [facility] [id number] Univers 10:46:09 23:59:00 SENDIL ity [facility] 2021-05-27 2021-05-27 Outpatient Maryse ABBASI [facility] [id number] Univers 10:46:09 23:59:00 SENDIL ity [facility] 2021-05-27 2021-05-27 [facility] 1.2.840.114 [id number] Univers 10:45:55 10:45:55 Encounter Latoya JETER 350.1.13.10 ity [facility] 4.[address] [facility] [id number] [address] 2021-05-27 2021-05-27 Outpatient Maryse ABBASI [facility] [id number] Univers 00:00:00 00:00:00 SENDIL ity [facility] 2021-05-18 2021-05-18 Patient Doctor [facility] 1.2.840.114 [id number] Univers 00:00:00 00:00:00 Secure Msg Unassigned, HEALTH 350.1.13.10 ity of [place] 4.2.7.2.686 Daniel as JUAN M?BLEA [id number] [address] MEDICAL OFFICE BUILDING 2021-05-14 2021-05-14 [facility] 1.2.840.114 [id number] Univers 08:22:36 23:59:00 Encounter Venita JETER 350.1.13.10 ity [facility] 4.2.7.2.686 [place] [id number] [address] 2021-05-14 2021-05-14 Outpatient Mary[facility] [id number] Univers 08:22:36 23:59:00 VENITA ity [facility] 2021-05-14 2021-05-14 Outpatient Maryse [facility] [id number] Univers 08:22:36 23:59:00 VENITA ity [facility] 2021-05-14 2021-05-14 Outpatient Maryse [facility] [id number] Univers 08:22:36 23:59:00 VENITA ity [facility] 2021-05-14 2021-05-14 Outpatient ENDY JAIMES [facility] [id number] Univers 15:00:00 16:17:23 ENDY MALDONADO [facility] 2021-05-14 2021-05-14 Office Nirmala [facility] 1.2.840.114 [id number] Univers 15:00:00 16:17:23 Visit Endy [facility] 350.1.13.10 ity [facility] 4.2.7.2.686 Daniel as JUAN M?BLEA [id number] Oh dical KNEY [address] MEDICAL OFFICE BUILDING 2021-05-14 2021-05-14 Outpatient ENDY JAIMES [facility] [id number] Univers 15:00:00 15:00:00 ENDY MALDONADO [facility] 2021-05-14 2021-05-14 Orders Doctor MUSE 1.2.840.114 [id number] Univers 00:00:00 00:00:00 Only Unassigned, ANDRY 350.1.13.10 ity of [facility] 4.2.7.2.686 Daniel as [id number] [address] 2021-05-12 2021-05-12 Outpatient Maryse ABBASI [facility] [id number] Univers 11:30:00 12:05:34 [facility] 2021-05-12 2021-05-12 [facility] 1.2.840.114 [id number] Univers 11:30:00 12:05:34 Visit Latoya JETER 350.1.13.10 ity [facility] 4.2.7.2.686 [place] [id number] Oh lizz NAL [address] [facility] 2021-05-12 2021-05-12 Outpatient Maryse ABBASI [facility] [id number] Univers 11:30:00 12:05:34 SENDIL ity [facility] 2021-05-12 2021-05-12 Outpatient Maryse ABBASI [facility] [id number] Univers 11:30:00 11:30:00 SENDIL ity [facility] 2021-05-12 2021-05-12 Orders Doctor ALMAZ 1.2.840.114 [id number] Univers 00:00:00 00:00:00 Only Unassigned, ANDRY 350.1.13.10 ity of [place] [facility] 4.2.7.2.686 Daniel as [phone] [place] [address] [address] 2021-05-11 2021-05-11 Patient Doctor [facility] 1.2.840.114 [id number] Univers 00:00:00 00:00:00 Secure Msg Unassigned, HEALTH 350.1.13.10 ity of [place] 4.2.7.2.686 Daniel as JUAN M?BLEA [id number] [address] MEDICAL OFFICE BUILDING 2021-05-07 2021-05-07 Outpatient R SABA [facility] [id number] Univers 14:00:00 15:05:50 VENITA shadeemerald [facility] 2021-05-07 2021-05-07 Office [facility] 1.2.840.114 [id number] Univers 14:00:00 15:05:50 Visit [facility] 350.1.13.10 it y of [place] 4.2.7.2.686 Daniel as JUAN M?BLEA [id number] [address] MEDICAL OFFICE BUILDING 2021-05-03 2021-05-03 Telephone PETE Hernandez 1.2.680.442 [id number] Univers 00:00:00 00:00:00 Roc PEDIATRIC 350.1.13.10 [place].2.686 [place] [id number] [facility] PRIMARY [address] [facility] 2021-04-30 2021-04-30 Outpatient R MARY [facility] [id number] Univers 11:00:00 13:13:25 ROC perez [facility] 2021-04-30 2021-04-30 Outpatient R MARY [facility] [id number] Univers 11:00:00 13:13:25 ROC perez [facility] 2021-04-30 2021-04-30 Office Mary [place] 1.2.840.114 [id number] Univers 11:00:00 13:13:25 Visit Roc [facility] 350.1.13.10 it y of [place] 4.2.7.2.686 Daniel as JUAN M?BLEA [id number] Oh lizz [address] MEDICAL OFFICE BUILDING 2021-04-30 2021-04-30 [facility] [id number] Univers 11:00:00 13:13:25 ROC itemerald [facility] 2021-04-30 2021-04-30 Outpatient [facility] [id number] Univers 11:00:00 13:13:25 ROC emerald [facility] 2021-04-30 2021-04-30 Letter Doctor UMSE 1.2.840.114 [id number] Univers 00:00:00 00:00:00 (Out) Unassigned, ANDRY 350.1.13.10 ity of [facility] 4.2.7.2.686 Daniel as [id number] [address] 2021-03-23 2021-03-23 Outpatient R [facility] [id number] Univers 09:00:00 09:00:00 ity of [facility] 2021-03-23 2021-03-23 Outpatient R [facility] [id number] Univers 09:00:00 09:00:00 ity of [facility] 2021-03-23 2021-03-23 Outpatient R [facility] [id number] Univers 09:00:00 09:00:00 ity of [facility] 2021-03-23 2021-03-23 Outpatient R [facility] [id number] Univers 09:00:00 09:00:00 ity of [facility] 2021-03-23 2021-03-23 Outpatient R [facility] [id number] Univers 09:00:00 09:00:00 ity [facility] 2021-03-12 2021-03-12 Telephone [facility] 1.2.303.484 [id number] Univers 00:00:00 00:00:00 Ena JETER 350.1.13.10 ity of [facility] 4.2.7.2.686 [place] [id number] Oh dical NAL 188 [facility] 2021-03-10 2021-03-10 Outpatient R AYLEEN [facility] [id number] Univers 11:30:00 11:44:50 SENDIL ity [facility] 2021-03-10 2021-03-10 Office [facility] 1.2.840.114 [id number] Univers 11:30:00 11:44:50 Visit Sendil Uri JETER 350.1.13.10 ity of [facility] 4.2.7.2.686 [place] [id number] Oh dical NAL 059 [facility] 2021-03-10 2021-03-10 Outpatient R AYLEEN [facility] [id number] Univers 11:30:00 11:44:50 [facility] 2021-03-10 2021-03-10 Outpatient R AYLEEN [facility] [id number] Univers 11:30:00 11:30:00 [facility] 2021-03-09 2021-03-09 Telephone [facility] 1.2.266.314 [id number] Univers 00:00:00 00:00:00 Gemma JETER 350.1.13.10 ity of [facility] 4.2.7.2.686 [place] [id number] Oh dical NAL 134 [facility] 2021-03-05 2021-03-05 Prep For [facility] 1.2.840.114 [id number] Univers 00:00:00 00:00:00 Surgery Ena JETER 350.1.13.10 ity of [facility] 4.2.7.2.686 [place] [id number] Oh dical NAL 204 [facility] 2021-03-04 2021-03-04 Telephone [facility] 1.2.404.403 [id number] Univers 00:00:00 00:00:00 Sendil Uri JETER 350.1.13.10 ity of [facility] 4.2.7.2.686 [place] [id number] Oh dical NAL 059 [facility] 2021-02-23 2021-02-23 Outpatient R MOHAN, [facility] [id number] Univers 13:30:00 14:31:47 KIMMIE perez [facility] 2021-02-23 2021-02-23 Office [facility] 1.2.278.068 [id number] Univers 13:30:00 14:31:47 Visit Kimmie [place] 350.1.13.10 i ty [facility] 4.2.7.2.686 [place] [id number] Oh dical NAL 188 [facility] 2021-02-23 2021-02-23 Outpatient R MOHAN, [facility] [id number] Univers 13:30:00 14:31:47 KIMMIE perez [facility] 2021-02-23 2021-02-23 Outpatient R MOHAN, [facility] [id number] Univers 13:30:00 14:31:47 KIMMIE perez [facility] 2021-02-23 2021-02-23 Outpatient R MOHAN, [facility] [id number] Univers 13:30:00 14:31:47 KIMMIE perez [facility] 2021-02-23 2021-02-23 Outpatient R LANDY, [facility] [id number] Univers 10:30:00 11:09:51 GEMMA perez [facility] 2021-02-23 2021-02-23 Office [facility] 1.2.840.114 [id number] Univers 10:30:00 11:09:51 Visit Gemma Genesis JETER 350.1.13.10 ity [facility] 4.2.7.2.[place] [id number] Oh dical NAL 134 [facility] 2021-02-23 2021-02-23 Outpatient R LANDY, [facility] [id number] Univers 10:30:00 10:30:00 GEMMA perez [facility] 2021-02-23 2021-02-23 Orders Doctor MUSE 1.2.840.114 [id number] Univers 00:00:00 00:00:00 Only Unassigned, ANDRY 350.1.13.10 ity of [place] [facility] 4.2.7.2.686 Daniel as [id number] [address] 2021-02-12 2021-02-12 Telephone Ayleen [facility] 1.2.592.721 [id number] Univers 00:00:00 00:00:00 Sendil Uri JETER 350.1.13.10 ity of [facility] 4.2.7.2.686 [place] [id number] Oh dical NAL 059 [facility] 2021-02-10 2021-02-10 Outpatient R [facility] [id number] Univers 14:23:20 23:59:00 SENDIL ity of [facility] 2021-02-10 2021-02-10 [facility] 1.2.840.114 [id number] Univers 14:23:20 23:59:00 Encounter Sendil Uri JETER 350.1.13.10 ity of [place] 4.2.7.2.686 [place] [id number] [facility] 843 [facility] 2021-02-10 2021-02-10 Outpatient R [facility] [id number] Univers 14:23:20 23:59:00 SENDIL ity of [facility] 2021-02-10 2021-02-10 Outpatient R [facility] [id number] Univers 15:00:00 15:00:00 SENDIL ity of [facility] 2021-02-07 2021-02-07 Case [facility] 1.2.840.114 [id number] Univers 00:00:00 00:00:00 Management Cyndiful A HEALTH 350.1.13.10 ity of [place] 4.2.7.2.686 Daniel as JUAN M?BLEA [id number] Oh lizz KNEY [address] MEDICAL OFFICE BUILDING 2021-02-04 2021-02-04 Hematology Supervisor Lab, Ang - Db [facility] 1.2.840.1 14 [id number] Univers 09:00:00 09:15:00 Visit Jere Kelly A HEALTH 350.1.13.1 0 ity of [place] 4.2.7.2.686 Daniel as JUAN M?BLEA [id number] Oh dical KNEY [address] MEDICAL OFFICE [facility] 2021-02-04 2021-02-04 Outpatient R ROBIN [facility] [id number] Univers 09:00:00 09:00:00 WONDIFUL ity o f [facility] 2021-02-04 2021-02-04 Office [facility] 1.2.840.114 [id number] Univers 08:45:00 08:45:00 [facility] 350.1.13.10 ity of [place] 4.2.7.2.686 Daniel as JUAN M?BLEA [id number] Oh lizz TOMPKINS [address] MEDICAL OFFICE [facility] 2021-02-04 2021-02-04 Outpatient R ROBIN [facility] [id number] Univers 08:45:00 08:37:04 WONDIFUL ity o f [facility] 2021-02-04 2021-02-04 Outpatient R ROBIN [facility] [id number] Univers 08:45:00 08:37:04 WONDIFUL ity o f [facility] 2021-02-04 2021-02-04 Telephone [facility] 1.2.491.110 [id number] Univers 00:00:00 00:00:00 Sendnilo JETER 350.1.13.10 ity of [facility] 4.2.7.2.686 [place] [id number] Oh mayankstew NAL 059 [facility] 2021-01-29 2021-01-29 Outpatient [facility] [id number] Univers 10:00:00 23:59:00 SENDIL ity of [facility] 2021-01-29 2021-01-29 [facility] 1.2.840.114 [id number] Univers 10:00:00 23:59:00 Encounter Latoya JETER 350.1.13.10 ity of [facility] 4.2.7.2.686 [place] [id number] Oh dical NAL 843 [facility] 2021-01-29 2021-01-29 Outpatient R AYLEEN [facility] [id number] Univers 10:00:00 23:59:00 SENDIL ity [facility] 2021-01-29 2021-01-29 Outpatient R AYLEEN [facility] [id number] Univers 10:00:00 23:59:00 SENDIL ity [facility] 2021-01-29 2021-01-29 Outpatient R AYLEEN [facility] [id number] Univers 10:00:00 10:00:00 SENDIL ity [facility] 2021-01-28 2021-01-28 Orders Doctor ALMAZ 1.2.840.114 [id number] Univers 00:00:00 00:00:00 Only Unassigned, ANDRY 350.1.13.10 ity [facility] 4.2.7.2.686 Daniel as [id number] [address] 2021-01-26 2021-01-26 Out[facility] [id number] Univers 10:59:41 23:59:00 SENDIL ity [facility] 2021-01-26 2021-01-26 [facility] 1.2.840.114 [id number] Univers 10:59:41 23:59:00 Encounter Latoya [facility].13.10 [facility] 4.2.7.2.[place] [id number] Oh dical [address] 2021-01-26 2021-01-26 Out[facility] [id number] Univers 10:59:41 23:59:00 SENDIL ity [facility] 2021-01-26 2021-01-26 Outpatient [facility] [id number] Univers 11:20:00 11:20:00 SENDIL ity [facility] 2021-01-26 2021-01-26 Outpatient R [facility] [id number] Univers 10:59:41 10:59:41 SENDIL ity [facility] 2021-01-25 2021-01-25 Outpatient [facility] [id number] Univers 11:30:00 11:38:57 SENDIL ity of [facility] 2021-01-25 2021-01-25 Outpatient R AYLEEN [facility] [id number] Univers 11:30:00 11:38:57 SENDIL ity [facility] 2021-01-25 2021-01-25 Outpatient R ABBASI [facility] [id number] Univers 11:30:00 11:38:57 SENDIL ity of [facility] 2021-01-25 2021-01-25 Outpatient R ABBASI [facility] [id number] Univers 11:30:00 11:38:57 SENDIL ity of [facility] 2021-01-25 2021-01-25 Outpatient R ABBASI [facility] [id number] Univers 11:30:00 11:38:57 SENDIL ity [facility] 2021-01-25 2021-01-25 Outpatient R AYLEEN [facility] [id number] Univers 11:30:00 11:38:57 SENDIL ity [facility] 2021-01-25 2021-01-25 Office [facility] 1.2.840.114 [id number] Univers 10:56:52 11:38:57 Visit Sendnilo JETER 350.1.13.10 ity of [place].2.7.2.[place] [id number] [place] [id number] [facility] 2021-01-25 2021-01-25 Orders Doctor ALMAZ 1.2.840.114 [id number] Univers 00:00:00 00:00:00 Only Unassigned, ANDRY 350.1.13.10 ity of [place] [facility] 4.2.7.2.686 Daniel as [id number] [address] 2021-01-22 2021-01-22 Outpatient R ROBIN [facility] [id number] Univers 14:40:00 23:59:00 WONDIFUL ity o f [facility] 2021-01-22 2021-01-22 [facility] 1.2.442.876 [id number] Univers 14:40:00 23:59:00 Encounter Wondiful A HEALTH 350.1.13.10 ity of [place] 4.2.7.2.686 Daniel as JUAN M?BLEA [phone] Oh lizz TOMPKINS [address] MEDICAL OFFICE BUILDING 2021-01-22 2021-01-22 Hematology Supervisor Lab, Ang - Db [facility] 1.2.840.1 14 [id number] Univers 14:44:49 14:59:49 Visit Edward Kellykate A HEALTH 350.1.13.1 0 ity of [place] 4.2.7.2.686 Daniel as JUAN M?BLEA [id number] Oh lizz TOMPKINS [address] MEDICAL OFFICE BUILDING 2021-01-22 2021-01-22 Outpatient R ORBIN [facility] [id number] Univers 14:15:00 14:45:43 WONDIFUL ity o f [facility] 2021-01-22 2021-01-22 Office [facility] 1.2.840.114 [id number] Univers 14:15:00 14:45:43 Visit Wondiful A HEALTH 350.1.13.10 ity of [place] 4.2.7.2.686 Daniel as JUAN M?BLEA [id number] Oh lizz TOMPKINS [address] MEDICAL OFFICE BUILDING 2021-01-21 2021-01-21 Orders Doctor ALMAZ 1.2.840.114 [id number] Univers 00:00:00 00:00:00 Only Unassigned, ANDRY 350.1.13.10 ity of [place] [facility] 4.2.7.2.686 Daniel as [phone] [address] 2020-11-22 2020-11-22 Refill [facility] 1.2.840.114 [id number] Univers 00:00:00 00:00:00 Wondiful [facility] Health 350.1.13.10 ity of [place] 4.2.7.2.686 Daniel as Professio [phone] Oh lizz hi [address] [facility] 2020-09-30 2020-09-30 Orders Doctor MUSE 1.2.840.114 [id number] Univers 00:00:00 00:00:00 Only Unassigned, ANDRY 350.1.13.10 ity of [place] [facility] 4.2.7.2.686 Daniel as [id number] [address] 2020-07-20 2020-07-20 Orders Doctor ALMAZ 1.2.840.114 [id number] Univers 00:00:00 00:00:00 Only Unassigned, ANDRY 350.1.13.10 ity of [place] [facility] 4.2.7.2.686 Daniel as [id number] [address] 2020-06-05 2020-06-05 Telemedici [facility]UN[facility] 1.2.840.114 [id number] Univers 16:16:59 16:31:59 ne Visit [facility] [id number] ity of [place] [id number] Daniel as Professio [phone] [address] Office [facility] 2020-06-05 2020-06-05 Outpatient R ROBIN [facility] [id number] Univers 16:30:00 16:30:00 WONDIFUL ity o f [facility] 2020-05-26 2020-05-26 Telephone [facility] 1.2.840.114 [id number] Univers 00:00:00 00:00:00 Wondiful A [place] [id number] ity [place] [id number] [phone] [address] 2020-03-27 2020-03-27 [facility] 1.2.840.114 [id number] Univers 00:00:00 00:00:00 [facility] [id number] ity of [place] [id number] Daniel as Professio [phone] [address] Office [facility] 2020-02-26 2020-02-26 Refcharles [facility] 1.2.840.114 [id number] Univers 00:00:00 00:00:00 [facility] [id number] ity of [place] [id number] Daniel as Professio [phone] [address] 2020-01-14 2020-01-14 Outpatient R CHIQUITA, [facility] [id number] Univers 10:15:00 [facility]:15:[facility] 2020-01-08 Outpatient R CHIQUITA [facility] [id number] Univers 14:15:00 14:15:00 [facility] 2019-12-12 2019-12-12 [facility] [id number] Univers 14:15:00 14:15:00 [facility] 2019-11-21 2019-11-21 Outpatient R FLORINDA, [facility] [id number] Univers 10:15:00 10:15:00 ADOLFO [facility] 2019-09-11 2019-09-11 [facility] 1..840.114 [id number] Univers 00:00:00 00:00:00 [facility] [id number] ity of [place] [id number] Daniel as Professio [phone] [address] 2019-07-15 2019-07-15 [facility] [id number] Univers 16:00:00 16:00:00 WONDIFUL ity o f [facility] 2019-07-02 2019-07-02 [facility] 1..840.114 [id number] 00:00:00 00:00:00 [facility] [id number] [place] [id number] Professio [phone] [place] [address] Office [facility] 2019-07-02 2019-07-02 [facility] 1.2.840.114 [id number] Univers 00:00:00 00:00:00 [facility] [id number] i ty of [place] [id number] Daniel as Professio [phone] [address] Office [facility] 2019-06-13 2019-06-13 [facility] 1.2.840.114 [id number] 13:36:58 16:07:40 ne Visit Wondiful A [place] 350.1.13.10 [place] 4.2.7.2.686 Professio [phone] [address] 2019-06-13 2019-06-13 [facility]ici [facility] 1.2.840.[id number] [facility] 13:36:58 16:07:40 ne Visit Wondiful A [place] 350.1.13.10 ity of [place] Profess[place] [phone] [address] 2019-06-13 2019-06-13 Outpatient R ROBIN [facility] [id number] Univers 15:15:00 15:15:00 WONDIFUL ity o f [facility] 2019-06-13 2019-06-13 Outpatient R ROBIN [facility] [id number] [facility] 10:15:00 10:15:00 WONDIFUL ity o f [facility] 2019-06-13 2019-06-13 [facility] 1.2.840.114 [id number] 07:09:14 07:24:14 ne Visit Wondiful A [place] 350.1.13.10 [place] 4.2.7.2.686 Professio [phone] [address] 2019-06-13 2019-06-13 [facility] 1[facility]840.[id number] [facility] 07:09:14 07:24:14 ne Visit Wondiful A [place] 350.1.13.10 ity [place] Profess[place] [phone] [address] 2019-06-04 2019-06-04 [facility] 1.2.840.114 [id number] 00:00:00 00:00:00 Wondiful A [facility] 350.1.13.10 [place] 4.2.7.2.686 Professio [phone] [address] 2019-06-04 2019-06-04 [facility] 1.2.840.114 [id number] Univers 00:00:00 00:00:00 Wondiful A Health 350.1.13.10 ity of [place] 4.2.7.2.686 Daniel as Professio [phone] [address] 2019-05-02 2019-05-02 Refill [place], [facility] 1.2.840.114 [id number] 00:00:00 00:00:00 [facility] 350.1.13.10 [place] 4.2.7.2.686 Professio [phone] [place] [address] Office [facility] 2019-05-02 2019-05-02 Refill [place], [facility] 1.2.840.114 [id number] Univers 00:00:00 00:00:00 [facility] 350.1.13.10 i ty of [place] 4.2.7.2.686 Daniel as Professio [phone] [address] 2019-04-27 2019-04-27 Refill [place], [facility] 1.2.840.114 [id number] 00:00:00 00:00:00 [facility] 350.1.13.10 [place] 4.2.7.2.686 Professio [phone] [place] [address] Office [facility] 2019-04-27 2019-04-27 Refill [place], [facility] 1.2.840.114 [id number] Univers 00:00:00 00:00:00 [facility] 350.1.13.10 i ty of [place] 4.2.7.2.686 Daniel as Professio [phone] [address] Office [facility] 2019-04-11 2019-04-11 Telephone Robin MNELKIN 1.2.840.114 [id number] 00:00:00 00:00:00 Wondiful A [facility] 350.1.13.10 [place] 4.2.7.2.686 Professio [phone] [place] [address] Office [facility] 2019-04-11 2019-04-11 Telephone Robin [facility] 1.2.840.114 [id number] Univers 00:00:00 00:00:00 Wondiful A Health 350.1.13.10 ity of [place] 4.2.7.2.686 Daniel as Professio [phone] [address] Office [facility] 2019-04-10 2019-04-10 Telephone Robin, [facility] 1.2.840.114 [id number] 00:00:00 00:00:00 Wondiful A Health 350.1.13.10 [place] 4.2.7.2.686 Professio [phone] [place] [address] Office Building One 2019-04-10 2019-04-10 Telephone Robin, [facility] 1.2.840.114 [id number] Univers 00:00:00 00:00:00 Wondiful A Health 350.1.13.10 ity of [place] 4.2.7.2.686 Daniel as Professio [phone] [address] 2019-04-04 2019-04-04 Refill Robin, [facility] 1.2.840.114 [id number] 00:00:00 00:00:00 Wondiful A Health 350.1.13.10 [place] 4.2.7.2.686 Professio [phone] [place] [address] Office [facility] 2019-04-04 2019-04-04 [facility] Robin, [facility] 1.2.840.114 [id number] Univers 00:00:00 00:00:00 Wondiful A Health 350.1.13.10 ity of [place] 4.2.7.2.686 Daniel as Professio [phone] [address] Office [facility] 2019-04-02 2019-04-02 Refill Robin, [facility] 1.2.840.114 [id number] 00:00:00 00:00:00 Wondiful A Health 350.1.13.10 [place] 4.2.7.2.686 Professio [phone] [place] [address] Office [facility] 2019-04-02 2019-04-02 Refill Robin, [facility] 1.2.840.114 [id number] Univers 00:00:00 00:00:00 Wondiful A Health 350.1.13.10 ity of [place] 4.2.7.2.686 Daniel as Professio [phone] [address] Office [facility] 2019-04-01 2019-04-01 Refill Robin, [facility] 1.2.840.114 [id number] 00:00:00 00:00:00 Wondiful A Health 350.1.13.10 [place] 4.2.7.2.686 Professio [phone] [place] [address] Office [facility] 2019-04-01 2019-04-01 Refill [place], [facility] 1.2.840.114 [id number] 00:00:00 00:00:00 [facility] 350.1.13.10 [place] 4.2.7.2.686 Professio [phone] [place] [address] Office [facility] 2019-04-01 2019-04-01 Refill [place], [facility] 1.2.840.114 [id number] Univers 00:00:00 00:00:00 Wondiful A Health 350.1.13.10 ity of [place] 4.2.7.2.686 Daniel as Professio [phone] [address] Office [facility] 2019-04-01 2019-04-01 [facility] 1.2.840.114 [id number] Univers 00:00:00 00:00:00 [facility] 350.1.13.10 i ty of [place] 4.2.7.2.686 Daniel as Professio [phone] [address] Office [facility] 2019-03-31 2019-03-31 Refill [place], [facility] 1.2.840.114 [id number] 00:00:00 00:00:00 Wondiful A Health 350.1.13.10 [place] 4.2.7.2.686 Professio [phone] [place] [address] Office [facility] 2019-03-31 2019-03-31 Refill [place], [facility] 1.2.840.114 [id number] Univers 00:00:00 00:00:00 Wondiful A Health 350.1.13.10 ity of [place] 4.2.7.2.686 Daniel as Professio [phone] [facility] [address] Building [facility] 2019-03-29 2019-03-29 Telephone Robin [facility] 1.2.840.114 [id number] 00:00:00 00:00:00 Wondiful A Health 350.1.13.10 [place] 4.2.7.2.686 Professio [phone] [place] [address] Office [facility] 2019-03-29 2019-03-29 [facility] 1.2.840.114 [id number] Univers 00:00:00 00:00:00 Wondiful A Health 350.1.13.10 ity of [place] 4.2.7.2.686 Daniel as Professio [phone] [address] Office [facility] 2019-03-27 2019-03-27 Refill Glendy [facility] 1.2.840.114 [id number] Univers 00:00:00 00:00:00 [facility] 350.1.13.10 i ty of [place] 4.2.7.2.686 Daniel as Professio [phone] [address] Office [facility] 2019-03-21 2019-03-21 Orders Doctor ALMAZ 1.2.840.114 [id number] Univers 00:00:00 00:00:00 Only Unassigned, ANDRY 350.1.13.10 ity of [place] [facility] 4.2.7.2.686 Daniel as [phone] [address] 2019-03-18 2019-03-18 [facility] 1.2.840.114 [id number] Univers 00:00:00 00:00:00 Wondiful A Health 350.1.13.10 ity of [place] 4.2.7.2.686 Daniel as Professio [phone] [address] Office [facility] 2019-03-14 2019-03-14 Office Robin [facility] 1.2.840.114 [id number] 09:53:26 10:50:12 Visit Wondiful A Health 350.1.13.10 [place] 4.2.7.2.686 Professio [phone] [place] [address] Office Building [facility] 2019-03-14 2019-03-14 Office Robin [facility] 1.2.840.114 [id number] Univers 09:53:26 10:50:12 Visit Wondiful A Health 350.1.13.10 ity of [place] 4.2.7.2.686 Daniel as Professio [phone] [address] Office [facility] 2019-03-14 2019-03-14 Case Robin [facility] 1.2.840.114 [id number] 00:00:00 00:00:00 Management Wondiful A Health 350.1.13.10 [place] 4.2.7.2.686 Professio [phone] [place] [address] Office [facility] 2019-03-14 2019-03-14 Case [facility] 1.2.840.114 [id number] Univers 00:00:00 00:00:00 Management Wondiful A Health 350.1.13.10 ity of [place] 4.2.7.2.686 Daniel as Professio [phone] [address] Office [facility] 2019-03-11 2019-03-11 Letter Clinic, [facility] 1.2.840.114 [id number] Univers 00:00:00 00:00:00 (Out) Neurology Y HEALTH 350.1.13.10 ity of [facility] 4.2.7.2.686 [place] [phone] [place] [id number] [place] 2019-02-18 2019-02-19 Outpatient X SHAHID CAMPOS [facility] REJI [id number] Univers 08:53:48 14:50:00 ity of [facility] 2019-02-17 2019-02-17 Emergency X JOSE A [facility] ERT [id number] Univers 18:04:50 20:44:00 NIKA ity of [facility] 2018-10-31 2018-10-31 Office [facility] 1.2.830.085 [id number] Univers 08:55:23 09:25:23 Visit Vladimir T [place] 350.1.13.10 ity of [place]2.[place] [phone] [address] 2018-10-24 2018-10-24 Orders Doctor ALMAZ 1.2.840.114 [id number] Univers 00:00:00 00:00:00 Only Unassigned, ANDRY 350.1.13.10 ity of [place] [facility] 4.2.7.2.686 Daniel as [phone] [address] 2018-09-27 2018-09-27 Jaquan Robin [facility] 1.2.840.114 [id number] Univers 00:00:00 00:00:00 Wondiful A Health 350.1.13.10 ity of [place] 4.2.7.2.686 Daniel as Professio [phone] Oh dical nal 044 [facility] 2018-09-25 2018-09-25 Orders Doctor ALMAZ 1.2.840.114 [id number] Univers 00:00:00 00:00:00 Only Unassigned, ANDRY 350.1.13.10 ity of [place] [facility] 4.2.7.2.686 Daniel as [phone] [address] 2018-09-05 2018-09-05 Orders Doctor ALMAZ 1.2.840.114 [id number] Univers 00:00:00 00:00:00 Only Unassigned, ANDRY 350.1.13.10 ity of [place] [facility] 4.2.7.2.686 Daniel as [phone] [address] 2018-04-02 2018-04-02 Outpatient [facility] [id number] [place] 00:00:00 00:00:00 Health 2018-03-20 2018-03-20 Outpatient [facility] [id number] [place] 00:00:00 00:00:00 Health 2018-03-15 2018-03-15 Outpatient [facility] [id number] [place] 10:56:14 10:56:14 Health 2018-02-16 2018-02-16 Outpatient [facility] [id number] [place] 08:26:03 08:26:03 Health 2018-02-16 2018-02-16 Outpatient [facility] [id number] 68 [place] 00:00:00 00:00:00 Health Results Test Description Test Time Test Comments Results Result Comments Source POCT SARS-COV-2 ANTIGEN (BINAX NOW) 2022-10-28 00:14:00 Test Item Value Reference Range Interpretation Comme nts POCT SARS-COV-2 ANTIGEN (test code = 16158-1) Not Detected Not Dete cted On board controls acceptable with C Line (test code = Yes 2315) [facility] METABOLIC PANEL (NA, K, CL, CO2, GLUCOSE, BUN, CREATININE, CA)2021-11-03 12:11:25 Test Item Value Reference Range Interpretation Comments NA (test code = 139 mmol/L 135-145 5397304515) K (test code = 4.1 mmol/L 3.5-5 0406163658) CL (test code = 110 mmol/L 98-108 H 0255968116) CO2 TOTAL (test code = 20 mmol/L 23-31 L 0180396799) AGAP (test code = 2-16 6222685293) BUN (test code = 72 mg/dL 7-23 H 1769653002) GLUCOSE (test code = 105 mg/dL 70-110 7309214851) CREATININE (test code = 2.72 mg/dL 0.5-1.04 H 7337540929) CALCIUM (test code = 9.8 mg/dL 8.6-10.6 6100953260) eGFR (test code = mL/min/1.73m2 0710935641) LOGAN (test code = LOGAN) Association of Glomerular Filtration Rate (GFR) and Staging of Kidney Disease* + --+ --+ ------+| GFR (mL/min/1.73 m2) ?| With Kidney Damage ?| ?Without Kidney Damage+ --------+ --------+ +| ?>90 ?| ?Stage one ?| ? Normal ?+ ---+ ---+ -------+| ?60-89 ?| ?Stage two ?| ? Decreased GFR ? + --+ --+ ------+| ?30-59 ?| ?Stage three ?| ? Stage three ? + --+ --+ ------+| ?15-29 ?| ?Stage four ? | ? Stage four ?+ ---+ ---+ -------+| ?<15 (or dialysis) ? ?| ?Stage five ? | ? Stage five ?+ ---+ ---+ -------+ *Each stage assumes the associated GFR level has been in effect for at least three months. ?Stages 1 to 5, with or without kidney disease, indicate chronic kidney disease. Notes: Determination of stages one and two (with eGFR >59mL/min/1.73 m2) requires estimation of kidney damage for at least three months as defined by structural or functional abnormalities of the kidney, manifested by either:Pathological abnormalities or Markers of kidney damage (including abnormalities in the composition of the blood or urine or abnormalities in imaging tests). Lab Interpretation Abnormal (test code = 35492-8) [facility] WITH [id number] 10:19:55 Test Item Value Reference Range Interpretation Comments WBC (test code = See_Comment H [Automated 6390-2) message] The system which generated this result transmit sera reference range : 4.30 - 11.10 10*3/?L. The reference range was not used to interpret this result as normal/abnormal . RBC (test code = See_Comment [Automated 789-8) message] The system which generated this result transmit sera reference range : 3.93 - 5.25 10*6/?L. The reference range was not used to interpret this result as normal/abnormal . HGB (test code = 12.4 g/dL 11.6-15 718-7) HCT (test code = 36.2 % 35.7-45.2 4544-3) MCV (test code = 87.9 fL 80.6-95.5 787-2) MCH (test code = 30.1 pg 25.9-32.8 785-6) MCHC (test code = 34.3 g/dL 31.6-35.1 786-4) RDW-SD (test code = 39.1 fL 39-49.9 49654-8) RDW-CV (test code = 12.2 % 12-15.5 788-0) PLT (test code = See_Comment [Automated 777-3) message] The system which generated this result transmit sera reference range : 166 - 358 10*3/ ?L. The reference range was not u sed to interpret th is result as normal/abnormal . MPV (test code = 8.9 fL 9.5-12.9 L 17898-4) NRBC/100 WBC (test See_Comment [Automat ed code = 3196339945) message] The system which generated this result transmit sera reference range : 0.0 - 10.0 /100 WBCs. The reference range was not used to interpret this result as normal/abnormal . NRBC x10^3 (test code See_Comment [Auto mated = 6315734018) message] The system which generated this result transmit sera reference range : 10*3/?L. The reference range was not used to interpret this result as normal/abnormal . GRAN MAT (NEUT) % 80.6 % (test code = 770-8) IMM GRAN % (test code 1.70 % = 9133898730) LYMPH % (test code = 12.7 % 736-9) MONO % (test code = 4.9 % 5905-5) EOS % (test code = 0.0 % 713-8) BASO % (test code = 0.1 % 706-2) GRAN MAT x10^3(ANC) 13.11 10*3/uL 1.88-7.09 H (test code = 4559983903) IMM GRAN x10^3 (test 0.28 10*3/uL 0-0.06 H code = 9318985806) LYMPH x10^3 (test code 2.06 10*3/uL 1.32-3.29 = 731-0) MONO x10^3 (test code 0.80 10*3/uL 0.33-0.92 = 742-7) EOS x10^3 (test code = 0.03-0.39 L 711-2) BASO x10^3 (test code 0.01-0.07 = 704-7) Lab Interpretation Abnormal (test code = 78839-5) [facility] [id number] 03:30:24 Test Item Value Reference Range Interpretation Comments PHOSPHORUS (test code = 9916947919) 4.8 mg/dL 2.5-5 Lab Interpretation (test code = Normal 85143-5) [facility] [id number] 15:27:12 Test Item Value Reference Interpretation Comments Range TROPONIN I (test 0.010 ng/mL See_Comment [Automated code = 0276715820) message] The system which generated this result transmitted reference range : <=0.034. The reference range was not used to interpret this result as normal/abnormal . LOGAN (test code = Reference (Normal) LOGAN) Range (defined by the 99th percentile reference limit): <= 0.034 ng/mL Note: Cardiac troponin begins to rise 3-4 hours after the onset of ischemia. Repeat in 4-6 hours if the sample was drawn within 3-4 hours of the onset of the symptom and found normal. Diagnosis of myocardial injury is made with acute changes in cTn concentrations with at least one serial sample above the 99th percentile upper reference limit (URL), taken together with the patient's clinical presentation. Biotin has been reported to cause a negative bias, interpret results relative to patient's use of biotin. Lab Interpretation Normal (test code = 88155-0) [facility]AL [id number] 15:23:51 Test Item Value Reference Range Interpretation Comments NT-proBNP (test code 1140 pg/mL See_Comment H [Autom ated = 0203176626) message] The system which generated this result transmitted reference range : <=125. The reference range was not used to interpret this result as normal/abnormal . LOGAN (test code = LOGAN) Biotin has been reported to cause a negative bias, interpret results relative to patient's use of biotin. Lab Interpretation Abnormal (test code = 52059-5) [facility][id number] 15:21:50 Test Item Value Reference Interpretation Comments Range D-DIMER (test code = See_Comment H [Autom ated 0878370709) message] The system which generated this result transmitted reference range : <0.41 ?g/mL (FEU). The reference range was not used to interpret this result as normal/abnormal . LOGAN (test code = This test may be LOGAN) used in conjunction with a clinical pretest probability (PTP) assessment model to exclude venous thromboembolism (VTE) in patients suspected of deep venous thrombosis (DVT) and pulmonary embolism (PE) A D-Dimer value less than 0.50 ?g/ml (FEU) has a negative predicative value of 96 to 100% (95% CI)and 97 to 100% (95% CI) as an aid in the diagnosis of deep vein thrombosis (DVT) and pulmonary embolism when there is low or moderate pretest probability of PE or DVT. D-Dimer values are expressed in initial fibrinogen equivalent units (FEU)" The assay results should be used with other information, including the clinical context, in forming a diagnosis. Lab Interpretation Abnormal (test code = 34796-4) [facility]. METABOLIC PANEL (72389)2021-10-31 15:15:14 Test Item Value Reference Range Interpretation Comments NA (test code = 138 mmol/L 135-145 2502051461) K (test code = 3.7 mmol/L 3.5-5 3455597874) CL (test code = 102 mmol/L 98-108 1493816192) CO2 TOTAL (test code = 20 mmol/L 23-31 L 3801218421) AGAP (test code = 2-16 0647814368) BUN (test code = 63 mg/dL 7-23 H 0540196864) GLUCOSE (test code = 102 mg/dL 70-110 5972468326) CREATININE (test code = 3.86 mg/dL 0.5-1.04 H 4383416395) TOTAL BILI (test code = 0.5 mg/dL 0.1-1.0 9822106340) CALCIUM (test code = 10.6 mg/dL 8.6-10.6 8236658030) T PROTEIN (test code = 7.9 g/dL 6.3-8.2 0673040557) ALBUMIN (test code = 4.4 g/dL 3.5-5 4405012261) ALK PHOS (test code = 94 U/L 34-122 9906180197) ALTv (test code = 16 U/L 5-35 1742-6) AST(SGOT) (test code = 20 U/L 13-40 9748376150) eGFR (test code = mL/min/1.73m2 8980809158) LOGAN (test code = LOGAN) Association of Glomerular Filtration Rate (GFR) and Staging of Kidney Disease* + --+ --+ ------+| GFR (mL/min/1.73 m2) ?| With Kidney Damage ?| ?Without Kidney Damage+ --------+ --------+ +| ?>90 ?| ?Stage one ?| ? Normal ?+ ---+ ---+ -------+| ?60-89 ?| ?Stage two ?| ? Decreased GFR ? + --+ --+ ------+| ?30-59 ?| ?Stage three ?| ? Stage three ? + --+ --+ ------+| ?15-29 ?| ?Stage four ? | ? Stage four ?+ ---+ ---+ -------+| ?<15 (or dialysis) ? ?| ?Stage five ? | ? Stage five ?+ ---+ ---+ -------+ *Each stage assumes the associated GFR level has been in effect for at least three months. ?Stages 1 to 5, with or without kidney disease, indicate chronic kidney disease. Notes: Determination of stages one and two (with eGFR >59mL/min/1.73 m2) requires estimation of kidney damage for at least three months as defined by structural or functional abnormalities of the kidney, manifested by either:Pathological abnormalities or Markers of kidney damage (including abnormalities in the composition of the blood or urine or abnormalities in imaging tests). Lab Interpretation Abnormal (test code = 80125-1) [facility] WITH [id number] 15:02:30 Test Item Value Reference Range Interpretation Comments WBC (test code = See_Comment [Automated 9090-2) message] The sy stem which generated this result transmitted reference range : 4.30 - 11.10 10*3/?L. The reference range was not used to interpret this result as normal/abnormal . RBC (test code = See_Comment [Automated 689-8) message] The sy stem which generated this result transmitted reference range : 3.93 - 5.25 10*6/?L. The reference range was not used to interpret this result as normal/abnormal . HGB (test code = 14.7 g/dL 11.6-15 718-7) HCT (test code = 40.8 % 35.7-45.2 4544-3) MCV (test code = 84.5 fL 80.6-95.5 787-2) MCH (test code = 30.4 pg 25.9-32.8 785-6) MCHC (test code = 36.0 g/dL 31.6-35.1 H 786-4) RDW-SD (test code = 36.0 fL 39-49.9 L 80962-1) RDW-CV (test code = 11.9 % 12-15.5 L 788-0) PLT (test code = See_Comment H [Automated 777-3) message] The sy stem which generated this result transmitted reference range : 166 - 358 10*3/ ?L. The reference r justin was not used to interpret this result as normal/abnormal . MPV (test code = 8.8 fL 9.5-12.9 L 69200-9) NRBC/100 WBC (test See_Comment [Automat ed code = 1127508514) message] The system which generated this result transmitted reference range : 0.0 - 10.0 /100 WBCs. The refer ence range was not u sed to interpret th is result as normal/abnormal . NRBC x10^3 (test code See_Comment [Auto mated = 3776823523) message] The s ystem which generated this result transmitted reference range : 10*3/?L. The reference range was not used to interpret this result as normal/abnormal . GRAN MAT (NEUT) % 56.9 % (test code = 770-8) IMM GRAN % (test code 0.70 % = 6512842472) LYMPH % (test code = 28.6 % 736-9) MONO % (test code = 10.5 % 5905-5) EOS % (test code = 2.7 % 713-8) BASO % (test code = 0.6 % 706-2) GRAN MAT x10^3(ANC) 6.24 10*3/uL 1.88-7.09 (test code = 1985329864) IMM GRAN x10^3 (test 0.08 10*3/uL 0-0.06 H code = 4447988050) LYMPH x10^3 (test code 3.15 10*3/uL 1.32-3.29 = 731-0) MONO x10^3 (test code 1.16 10*3/uL 0.33-0.92 H = 742-7) EOS x10^3 (test code = 0.30 10*3/uL 0.03-0.39 711-2) BASO x10^3 (test code 0.07 10*3/uL 0.01-0.07 = 704-7) Lab Interpretation Abnormal (test code = 22092-3) [facility] METABOLIC [id number] 03:58:00 Test Item Value Reference Range Interpretation Comments SODIUM (test code = 139 mmol/L 137-145 N NA) POTASSIUM (test code 4.1 mmol/L 3.4-5.0 N = K) CHLORIDE (test code = 109 mmol/L 98-107 H CL) CARBON DIOXIDE (test 20 mmol/L 22-30 L code = CO2) GLUCOSE (test code = 83 mg/dL 74-106 N GLU) BLOOD UREA NITROGEN 36 mg/dL 7-17 H (test code = BUN) GLOMERULAR FILTRATION 19 >60 L The es timated RATE (test code = glomerular filtration GFR) rate is compute d usingpatient ra ce, age (>18), sex, and serum creatinine. If anyof the needed data elements are mi ssing the Laboratory cannot compute an john mation of the glomerul ar filtration rate . CREATININE (test code 2.9 mg/dL 0.5-1.0 H = CREAT) CALCIUM (test code = 8.5 mg/dL 8.4-10.2 N CA) CBC W/AUTO [id number] 03:51:00 Test Item Value Reference Range Interpretation Comments WHITE BLOOD CELL (test code = 7.3 x10 3/uL 5.0-12.0 N WBC) RED BLOOD CELL (test code = 4.01 x10 6/uL 4.20-5.40 L RBC) HEMOGLOBIN (test code = HGB) 11.6 g/dL 12.0-16.0 L HEMATOCRIT (test code = HCT) 34.0 % 36.0-46.0 L MEAN CELL VOLUME (test code = 85 fL 81-99 N MCV) MEAN CELL HGB (test code = MCH) 28.9 pg 27-31 N MEAN CELL HGB CONCENTRATION 34.1 g/dL 33-37 N (test code = MCHC) RED CELL DISTRIBUTION WIDTH 14.0 % 11.5-15.5 N (test code = RDW) PLATELET COUNT (test code = 226 x10 3/uL 130-400 N PLT) MEAN PLATELET VOLUME (test code 10.2 fL 9.4-16.4 N = MPV) NEUTROPHIL % (test code = NT%) 49.3 % 43-65 N IMMATURE GRANULOCYTE % (test 0.3 % 0.0-2.0 N code = IG%) LYMPHOCYTE % (test code = LY%) 36.4 % 20.5-45.5 N MONOCYTE % (test code = MO%) 9.7 % 5.5-11.7 N EOSINOPHIL % (test code = EO%) 3.6 % 0.9-2.9 H BASOPHIL % (test code = BA%) 0.7 % 0.2-1.0 N NUCLEATED RBC % (test code = 0.0 % 0-1.0 N NRBC%) NEUTROPHIL # (test code = NT#) 3.60 x10 3/uL 2.2-4.8 N IMMATURE GRANULOCYTE # (test 0.02 x10 3/uL 0-0.03 N code = IG#) LYMPHOCYTE # (test code = LY#) 2.65 x10 3/uL 1.3-2.9 N MONOCYTE # (test code = MO#) 0.71 x10 3/uL 0.3-0.8 N EOSINOPHIL # (test code = EO#) 0.26 x10 3/uL 0.0-0.2 H BASOPHIL # (test code = BA#) 0.05 x10 3/uL 0.0-0.1 N - MRA [id number] 11:58:00 FAX: Yennifer Dwyer MD [phone] [place]: St: ADM Name: GURVINDER RUST [facility] : 1975 Age/S: 43/[address] Unit #: [id number] Loc: [address] [address] Phys: Yennifer Garcia MD Acct: [id number] Dis Date: Status: ADM IN PHONE #: [phone] Exam Date: 01/27/2019 1135 FAX #: [phone] Reason: stroke EXAMS: CPT CODE: [id number] MRA HEAD 09480 B2 EXAM: MRA HEAD WITHOUT CONTRAST HISTORY: stroke TECHNIQUE: 3-D rzji-dc-flzxbh MRA images of the [place] were obtained. COMPARISON: None FINDINGS: There is normal flow-related signal in the larger intracranial arteries. No large branch artery occlusion, definite significant arterial stenosis, or saccular aneurysm is present. Anterior and bilateral posterior communicating arteries are present. IMPRESSION: Normal noncontrast MRA of the head. at 1158 Reported and signed by: Abdelrahman Mendoza MD CC: Yennifer Garcia MD Technologist: [facility] Date/Time/By: 01/27/2019(0074) : By: [email or web address] PAGE 1 Signed Report FAX: Yennifer Dwyer MD [phone] [place]: St: ADM- Name: GURVINDER RUST [facility] : 1975 Age/S: 43/F [address] Unit #: [id number] Loc: [address] [address] Phys: Yennifer Garcia MD Acct: [id number] Dis Date: Status: ADM IN PHONE #: [phone] Exam Date: 01/27/2019 1135 FAX #: [phone] Reason: stroke EXAMS: CPT CODE: [id number] MRA HEAD 30134 (Continued) Orig Print D/T: S: 01/27/2019 (8694) PAGE 2 Signed Report- MRA NECK W/O [id number] 11:57:00 FAX: Yennifer Dwyer MD [phone] [place]: St: ADM Name: GURVINDER RUST [facility] [place] : 1975 Age/S: 43/F [address] Unit #: [id number] Loc: [address] [address] Phys: Yennifer Garcia MD Acct: [id number] Dis Date: Status: ADM IN PHONE #: [phone] Exam Date: 01/27/2019 1135 FAX #: [phone] Reason: stroke EXAMS: CPT CODE: [id number] MRA NECK W/O CONT 26142 B2 EXAM: MRA NECK HISTORY: stroke TECHNIQUE: 2-D vbmm-qf-wgekir MRA of the neck with maximum intensity projection images. COMPARISON:None FINDINGS: The imaged aortic arch is normal. The origins of the innominate, bilateral common carotid, bilateral subclavian, and bilateral vertebral arteries demonstrate no significant stenosis. Normal flow-related signal in bilateral common carotid arteries. The bilateral internal and external carotid arteries are normal. There is no significant ICA stenosis by NASCET-like criteria. The cervical vertebral arteries are normal and codominant. There is no evidence of arterial dissection, significant stenosis, occlusion, arteriovenous fistula, or pseudoaneurysm. Where applicable, evaluation of ICA stenosis was performed using NASCET-like criteria; the site of greatest stenosis is compared to the diameter of the ICA distal to the stenosis at a point where the ICA tolentino become parallel. IMPRESSION:Normal neck MRA. at 1157 Reported and signed by: Abdelrahman Mendoza MD CC: Yennifer Garcia MD Technologist: Sujey Hale [facility] Date/Time/By: 01/27/2019 (7460) : By: [email or web address] PAGE 1 Signed Report FAX: Yennifer Dwyer MD [phone] [place]: MC[facility]: AD[facility] -- [facility]: [facility] [place] [facility] 1975 Age/S: 43/F [address] Unit #: [id number] Loc: [address] [address] Phys: Yennifer Garcia MD Acct: [id number] Dis Date: Status: ADM IN PHONE #: [phone] Exam Date: 01/27/2019 1135 FAX #: [phone] Reason: stroke EXAMS: CPT CODE: [id number] MRA NECK W/O CONT 77292 (Continued) Orig Print D/T: S: 01/27/2019 (1200) PAGE 2 Signed Report- MRI BRAIN W/O [id number] 19:47:00 FAX: Yennifer Dwyer MD [phone] [place]: St: [facility]: [facility] [place] [facility] 1975 Age/S: 43/[address] Unit #: [id number] Loc: [address] [address] Phys: Yennifer Garcia MD Acct: [id number] Dis Date: Status: ADM IN PHONE #: [phone] Exam Date: 01/26/2019 1920 FAX #: [phone] Reason: stroke/ams EXAMS: CPT CODE: [id number] MRI BRAIN W/O CONTRAST 62450 EXAM: - MRI BRAIN W/O CONTRAST LOCATION: H57 HISTORY: 43 years-year old Female with stroke/ams TECHNIQUE: Multiplanar multisequence MR images of the brain were obtained without intravenous contrast. COMPARISON: None FINDINGS: Motion limited exam. Left parietal encephalomalacia as well as small region of encephalomalacia in the right operculum. Scattered periventricular and subcortical T2/FLAIR hyperintensities are nonspecific, most commonly associated with chronic microvascular ischemic disease. There is no mass, mass effect or abnormal extra- axial fluid collection. Diffusion-weighted images show no hyperacute, acute or e haseeb subacute infarction. The ventricles are normal in size, shape, and position. There are normal signal voids in the larger intracranial vessels. Mucosal thickening in the left maxillary sinus and scattered ethmoid air cells. The mastoid air cells are predominantly clear. The marrow signal pattern is within normal limits. IMPRESSION: No acute intracranial abnormalities. at 1947 Reported and signed by: Ian Campos MD CC: Yennifer Garcia MD Technologist: Sujey Hale [facility] Date/Time/By: 01/26/2019 (1946) : By: [email or web address] PAGE 1 Signed Report FAX: Yennifer Dwyer MD [phone] [place]: St: ADM Name: GURVINDER RUST [facility] : 1975 Age/S: 43/F [address] Unit #: [id number] Loc: [address] [address] Phys: Yennifer Garcia MD Acct: [id number] Dis Date: Status: ADM IN PHONE #: [phone] Exam Date: 01/26/20191919 FAX #: Reason: stroke/ams EXAMS: CPT CODE: [id number] MRI BRAIN W/O CONTRAST 63783 (Continued) Orig Print D/T: S: 01/27/2019 (0739) PAGE 2 Signed ReportUR HCG QUAL 2019-01-26 17:41:00 Test Item Value Reference Range Interpretation Comments UR HCG QUAL (test code = HCGQLU) NEGATIVE NEGATIVE Spec Comments: ADD ON [id number] 16:40:00 Test Item Value Reference Range Interpretation Comments PHOSPHOROUS (test code = PHOS) 5.0 mg/dL 2.5-4.5 H CREATINE KINASE (CK)2019-01-26 16:40:00 Test Item Value Reference Range Interpretation Comments CREATINE KINASE (CK) (test code = CK) 142 U/L 30-135 H PARATHYROID HORMONE [id number] 16:40:00 Test Item Value Reference Range Interpretation Comments PARATHYROID HORMONE LEVEL (test 282.4 pg/mL 37.87-83.87 H code = PARA) DRUGS OF ABUSE [id number] 16:26:00 Test Item Value Reference Range Interpretation Comments TRICYCLICS QL SQN (test NEGATIVE NEG TEST PERFORMED code = TRIUR) MANUALLY USING Hot Dot RAPIDTEST TCA.C UTOFF >/= 1000 NG/ML A Positive drug s creen result provides only a "PreliminaryPos itive" test result.If a confirmation of positive result is necessary, a morespecific confirmatory te st must be ordered by the physician. Drug screens are per formed for medical (i. e. treatment)purpo ses only. Unconfirm ed screening resul ts must not beused for non-medical pur poses (e.g employment testing). UR COCAINE (test code = POSITIVE NEGATIVE A CUTO FF >/= 300 NG/ML COCAU) UR THC CANABINOIDS QL NEGATIVE NEGATIVE CUTOFF >/= 20 NG/ML SQN (test code = CANU) UR AMPHETAMINE QL SQN NEGATIVE NEGATIVE CUTOFF >/= 500 NG/ML (test code = AMPHU) UR BARBITURATE QUAL NEGATIVE NEGATIVE CUTOFF > /= 200 NG/ML (test code = BARBQLU) UR BENZODIAZEPINE (test NEGATIVE NEGATIVE CUTO FF >/= 200 NG/ML code = BENZU) UR OPIATES QUAL (test NEGATIVE NEGATIVE CUTOFF >/= 2000 NG/ML code = OPIAQLU) UR PHENCYCLIDINE (PCP) NEGATIVE NEGATIVE CUTOF F >/= 25 NG/ML (test code = PHENCU) [id number] 16:20:00 Test Item Value Reference Range Interpretation Comments PHOSPHOROUS (test code = PHOS) 5.0 mg/dL 2.5-4.5 H CREATINE KINASE (CK)2019-01-26 16:20:00 Test Item Value Reference Range Interpretation Comments CREATINE KINASE (CK) (test code = CK) 142 U/L 30-135 H PARATHYROID HORMONE [id number] 16:20:00 Test Item Value Reference Range Interpretation Comments PARATHYROID HORMONE LEVEL (test code = pg/mL 37.87-83.87 PARA) [id number] 16:16:00 Test Item Value Reference Range Interpretation Comments PHOSPHOROUS (test code = PHOS) mg/dL 2.5-4.5 CREATINE KINASE (CK)2019-01-26 16:16:00 Test Item Value Reference Range Interpretation Comments CREATINE KINASE (CK) (test code = CK) 142 U/L 30-135 H PARATHYROID HORMONE [id number] 16:16:00 Test Item Value Reference Range Interpretation Comments PARATHYROID HORMONE LEVEL (test code = pg/mL 37.87-83.87 PARA) DRUGS OF ABUSE [id number] 16:13:00 Test Item Value Reference Range Interpretation Comments TRICYCLICS QL SQN (test NEGATIVE NEG TEST PERFORMED code = TRIUR) MANUALLY USING Hot Dot RAPIDTEST TCA.C UTOFF >/= 1000 NG/ML A Positive drug s creen result provides only a "PreliminaryPos itive" test result.If a confirmation of positive result is necessary, a morespecific confirmatory te st must be ordered by the physician. Drug screens are per formed for medical (i. e. treatment)purpo ses only. Unconfirm ed screening resul ts must not beused for non-medical pur poses (e.g employment testing). UR COCAINE (test code = NEGATIVE COCAU) UR THC CANABINOIDS QL NEGATIVE SQN (test code = CANU) UR AMPHETAMINE QL SQN NEGATIVE (test code = AMPHU) UR BARBITURATE QUAL NEGATIVE (test code = BARBQLU) UR BENZODIAZEPINE (test NEGATIVE code = BENZU) UR OPIATES QUAL (test NEGATIVE code = OPIAQLU) UR PHENCYCLIDINE (PCP) NEGATIVE (test code = PHENCU) POC ARTERIAL BLOOD [id number] 13:49:00 Test Item Value Reference Range Interpretation Comments POC ARTERIAL BLOOD GAS PH (test 7.307 7.35-7.45 L code = POCPHA) POC ARTERIAL BLOOD GAS PCO2 (test 32.6 mmHg 35-45 L code = KTXIPD1Q) POC ARTERIAL BLOOD GAS PO2 (test 95 mmHg 80-90 H code = VEGTA6C) POC HCO3 ARTERIAL (test code = 16.3 mmol/L 22.0-24.0 L IGOORN6Y) POC BASE EXCESS (test code = -10 mmol/L -2.0-2.0 L POCBEA) POC O2 SATURATION (test code = 97 % 95-98 N POCO2S) ABG DELIVERY (test code = CARLITOS) Room Air ABG SITE (test code = SITEA) R Rad ALLENS TEST (test code = ALLENS) Pass - US RETRO [id number] 11:51:00 FAX: Tess Ivy MD [phone] [place]: St: ADM Name: GURVINDER RUST [facility] : 1975 Age/S: 43/F [address] Unit #: [id number] Loc: [address] [address] Phys: Tess Peñaloza MD Acct: [id number] Dis Date: Status: ADM IN PHONE #: [phone] Exam Date: 01/25/2019 1120 FAX #: [phone] Reason: CKD CRUZ EXAMS: CPT CODE: [id number] [facility] [address] EXAM: Renal Ultrasound INDICATION: CKD CRUZ LOCATION CODE: C3 COMPARISON: None TECHNIQUE: Transabdominal sonography of the kidneys and urinary bladder were performed. Multiple static images were submitted for evaluation. DISCUSSION: Right kidney measure 8.9 x 4.6 x 4.9 cm . Right renal cortex measure up to 1.1 cm. Total volume is 105 cc. No hydronephrosis . No nephrolithiasis. Normal vascularity. Increased echogenicity of renal parenchyma is seen suggest medical renal disease. Left kidney measure 9.2 x 4.6 x 4.6 cm . Left renal cortex measure up to 1.47 cm. Total volume is 100 cc. No hydronephrosis . No nephrolithiasis. Normal vascularity. Increased echogenicity of the renal parenchyma is seen. IMPRESSION: 1. Bilateral medical renal disease. 2. No obstructive uropathy... This report was generated by using voice-recognition software. at 1151 Reported and signed by: Demetrius Perales M.D. PAGE 1 Signed Report (CONTINUED) FAX: Tess Ivy MD [phone] [place]: St: ADM---- Name: GURVINDER RUST [facility] : 1975 Age/S: 43/F [address] Unit #: [id number] Loc: [address] [address] Phys: Tess Peñaloza MD Acct: [id number] Dis Date: Status: ADM IN PHONE #: [phone] ExamDate: 01/25/2019 1120 FAX #: [phone] Reason: CKD CRUZ EXAMS: CPT CODE: [id number] [facility] [address] (Continued) CC: Tess Peñaloza MD Technologist: Felipe Henning [facility] Trnscrd Date/Time/By: 01/26/2019 (1151) : By: Maru PAGE 2 Signed Report FAX: Tess Ivy MD [phone] [place] -- Name: GURVINDER RUST [facility] : 1975 Age/S: 43/F [address] Unit #: [id number] Loc: [address] [place] [address] Phys: Tess Peñaloza MD Acct: [id number] Dis Date: Status: ADM IN PHONE #: [phone] Exam Date: 01/25/2019 1120 FAX #: [phone] Reason: CKD CRUZ EXAMS: CPT CODE: [id number] [facility] [address] (Continued) Orig Print D/T: S: 01/26/2019 (1155) PAGE 3 Signed ReportBASIC METABOLIC [id number] 02:50:00 Test Item Value Reference Range Interpretation Comments SODIUM (test code = 140 mmol/L 137-145 N NA) POTASSIUM (test code 4.4 mmol/L 3.4-5.0 N = K) CHLORIDE (test code = 110 mmol/L 98-107 H CL) CARBON DIOXIDE (test 15 mmol/L 22-30 L code = CO2) GLUCOSE (test code = 88 mg/dL 74-106 N GLU) BLOOD UREA NITROGEN 51 mg/dL 7-17 H (test code = BUN) GLOMERULAR FILTRATION 11 >60 L The es timated RATE (test code = glomerular filtration GFR) rate is compute d usingpatient ra ce, age (>18), sex, and serum creatinine. If anyof the needed data elements are mi ssing the Laboratory cannot compute an john mation of the glomerul ar filtration rate . CREATININE (test code 4.6 mg/dL 0.5-1.0 H = CREAT) CALCIUM (test code = 9.2 mg/dL 8.4-10.2 N CA) URIC [id number] 02:50:00 Test Item Value Reference Range Interpretation Comments URIC ACID (test code = URIC) 9.8 mg/dL 2.5-6.2 H [id number] 02:50:00 Test Item Value Reference Range Interpretation Comments MAGNESIUM (test code = MAG) 2.2 mg/dL 1.6-2.3 N VITAMIN [id number] 02:50:00 Test Item Value Reference Range Interpretation Comments VITAMIN B12 (test code = VITB12) 427 pg/mL 239-931 N TSH REFLEX TO [id number] 02:50:00 Test Item Value Reference Range Interpretation Comments TSH REFLEX TO FT4 2.080 MIU/L 0.465-4.68 N (test code = TSHREFLEX) *A positive bias m ay occur for patie nts taking BIOTINsupplemen ts. BASIC METABOLIC [id number] 01:32:00 Test Item Value Reference Range Interpretation Comments SODIUM (test code = 140 mmol/L 137-145 N NA) POTASSIUM (test code 4.4 mmol/L 3.4-5.0 N = K) CHLORIDE (test code = 110 mmol/L 98-107 H CL) CARBON DIOXIDE (test 15 mmol/L 22-30 L code = CO2) GLUCOSE (test code = 88 mg/dL 74-106 N GLU) BLOOD UREA NITROGEN 51 mg/dL 7-17 H (test code = BUN) GLOMERULAR FILTRATION 11 >60 L The es timated RATE (test code = glomerular filtration GFR) rate is compute d usingpatient ra ce, age (>18), sex, and serum creatinine. If anyof the needed data elements are mi ssing the Laboratory cannot compute an john mation of the glomerul ar filtration rate . CREATININE (test code 4.6 mg/dL 0.5-1.0 H = CREAT) CALCIUM (test code = 9.2 mg/dL 8.4-10.2 N CA) URIC [id number] 01:32:00 Test Item Value Reference Range Interpretation Comments URIC ACID (test code = URIC) 9.8 mg/dL 2.5-6.2 H [id number] 01:32:00 Test Item Value Reference Range Interpretation Comments MAGNESIUM (test code = MAG) 2.2 mg/dL 1.6-2.3 N VITAMIN [id number] 01:32:00 Test Item Value Reference Range Interpretation Comments VITAMIN B12 (test code = VITB12) pg/mL 239-931 TSH REFLEX TO [id number] 01:32:00 Test Item Value Reference Range Interpretation Comments TSH REFLEX TO FT4 2.080 MIU/L 0.465-4.68 N (test code = TSHREFLEX) *A positive bias m ay occur for patie nts taking BIOTINsupplemen ts. CREATINE KINASE (CK)2019-01-26 01:16:00 Test Item Value Reference Range Interpretation Comments CREATINE KINASE (CK) (test code = CK) 132 U/L 30-135 N CARDIAC ENZYMES [id number] 01:16:00 Test Item Value Reference Range Interpretation Comments TROPONIN-I < 0.012 ng/mL 0.012-0.033 L (test code = TROPI) Please be advised of the updated ref erence ranges for the new Chemistry instrumentation . VITROS TROPO GENNA I CRITERIANORM AL PATIENT W/O CIRCULATING TNI: 0.012-0.033 ng/mLCIRCULATIN G TNI PRESENT: 0.034- 0.119 ng/mL(MAY BE AT RISK OF AMI)AMI DIAGNOS TIC CUTOFF: >/= 0.120 ng/mL~~~~~~~~~~ ~~~~~~~~~~~~ ~~~~~~~~~~~~~~~ ~~~~~~~~~~~~ ~~~~~~~~~~The u se of serial sampling and te sting protocol is are commended practice.An francesca vated troponin level alone is often not suffi cient fordiagnosis of myocardial infarction. Tro ponin results obtaine d by different assay s may vary.Evaluation of the extent of myoca rdial damage based onincreas e of troponin would be valid only if similar methodology is used.~~~~~~~~~~ ~~~~~~~~~~~~ ~~~~~~~~~~~~~~~ ~~~~~~~~~~~~ ~~~~~~~~~~ CREATINE KINASE (CK)2019-01-26 01:05:00 Test Item Value Reference Range Interpretation Comments CREATINE KINASE (CK) (test code = CK) 132 U/L 30-135 N CARDIAC ENZYMES [id number] 01:05:00 Test Item Value Reference Range Interpretation Comments TROPONIN-I (test code = TROPI) ng/mL 0.012-0.033 BASIC METABOLIC [id number] 00:58:00 Test Item Value Reference Range Interpretation Comments SODIUM (test code = 140 mmol/L 137-145 N NA) POTASSIUM (test code 4.4 mmol/L 3.4-5.0 N = K) CHLORIDE (test code = 110 mmol/L 98-107 H CL) CARBON DIOXIDE (test 15 mmol/L 22-30 L code = CO2) GLUCOSE (test code = 88 mg/dL 74-106 N GLU) BLOOD UREA NITROGEN 51 mg/dL 7-17 H (test code = BUN) GLOMERULAR FILTRATION 11 >60 L The es timated RATE (test code = glomerular filtration GFR) rate is compute d usingpatient ra ce, age (>18), sex, and serum creatinine. If anyof the needed data elements are mi ssing the Laboratory cannot compute an john mation of the glomerul ar filtration rate . CREATININE (test code 4.6 mg/dL 0.5-1.0 H = CREAT) CALCIUM (test code = 9.2 mg/dL 8.4-10.2 N CA) URIC [id number] 00:58:00 Test Item Value Reference Range Interpretation Comments URIC ACID (test code = URIC) 9.8 mg/dL 2.5-6.2 H [id number] 00:58:00 Test Item Value Reference Range Interpretation Comments MAGNESIUM (test code = MAG) 2.2 mg/dL 1.6-2.3 N VITAMIN [id number] 00:58:00 Test Item Value Reference Range Interpretation Comments VITAMIN B12 (test code = VITB12) pg/mL 239-931 TSH REFLEX TO [id number] 00:58:00 Test Item Value Reference Range Interpretation Comments TSH REFLEX TO FT4 (test code = MIU/L 0.465-4.68 TSHREFLEX) URINALYSIS [id number] 00:58:00 Test Item Value Reference Range Interpretation Comments UA COLOR (test code = COLU) Yellow Yellow UA APPEARANCE (test code = HAZY Clear APPU) UA GLUCOSE DIPSTICK (test Negative Negative code = DGLUU) UA BILIRUBIN DIPSTICK (test Negative Negative code = BILU) UA KETONE DIPSTICK (test code Negative mg/dL Negative = KETU) UA SPECIFIC GRAVITY (test 1.010 <1.030 code = SGU) UA BLOOD DIPSTICK (test code 1+ Negative A = SHAWN) UA PH DIPSTICK (test code = 5.0 5.0-8.0 JUDY) UA PROTEIN DIPSTICK (test 100 (2+) mg/dL Negative A code = PROU) UA UROBILINOGEN DIPSTICK Negative mg/dL Negative (test code = URO) UA NITRITE DIPSTICK (test Negative Negative code = RODRIGO) UA LEUKOCYTE ESTERASE TRACE Negative A DIPSTICK (test code = LEUU) UA WBC (test code = WBCU) 11-20 /HPF <4-5 A UA RBC (test code = RBCU) 0-3 /HPF <4-5 UA BACTERIA (test code = 4+ /HPF None-Rare A BACU) UA SQUAMOUS CELLS (test code 6-15 (FEW) /HPF 0-5 (RARE) A = SQU) UA CALCIUM OXALATE CRYSTALS Rare /HPF None A (test code = CAOXU) UA GRANULAR CAST (test code = 0-3 /LPF None A GRANU) UA MUCUS (test code = MUCU) Rare /LPF <Rare A Spec Comments: CAN STRAIGHT CATH IF NEEDEDUR SODIUM [id number] 00:58:00 Test Item Value Reference Range Interpretation Comments UR SODIUM RANDOM 61 mmol/L 30-90 N 24hr: 40-22 0 (test code = ARSLAN) mmol/Enrique ndom: 30-90 mmol/L Spec Comments: CAN STRAIGHT CATH IF NEEDEDUR CREATININE [id number] 00:58:00 Test Item Value Reference Range Interpretation Comments UR CREATININE RANDOM 91.7 mg/dL ~~~~~~~ ~~~~~~~~~~~~~~~ (test code = CREATU) ~~~~~~~ ~~~~~~~~~~~~~~~ ~~~~~~~~~~~~~~~ This test has been performed on a fluid type that has nopublished nor mal reference range s. Please evaluate theseresults on an individual basis.~~~~~~~~~ ~~~~~~~ ~~~~~~~~~~~~~~~ ~~~~~~~ ~~~~~~~~~~~~~~~ ~~~~~~ Spec Comments: CAN STRAIGHT CATH IF NEEDEDLACTIC [id number] 00:58:00 Test Item Value Reference Range Interpretation Comments LACTIC ACID (test code = LACT) 0.9 mmol/L 0.7-2.0 N [id number] 00:57:00 Test Item Value Reference Range Interpretation Comments AMMONIA (test code = AMM) < 9 umol/L 9-30 L URINALYSIS [id number] 00:56:00 Test Item Value Reference Range Interpretation Comments UA COLOR (test code = COLU) YELLOW UA APPEARANCE (test code = APPU) CLEAR UA GLUCOSE DIPSTICK (test code = MG/DL NEGATIVE DGLUU) UA BILIRUBIN DIPSTICK (test code = NEGATIVE BILU) UA KETONE DIPSTICK (test code = KETU) MG/DL NEGATIVE UA SPECIFIC GRAVITY (test code = SGU) 1.000-1.030 UA BLOOD DIPSTICK (test code = SHAWN) NEGATIVE UA PH DIPSTICK (test code = JUDY) 4.5-8.5 UA PROTEIN DIPSTICK (test code = PROU) MG/DL NEGATIVE UA UROBILINOGEN DIPSTICK (test code = EU/dL <=1.0 URO) UA NITRITE DIPSTICK (test code = RODRIGO) NEGATIVE UA LEUKOCYTE ESTERASE DIPSTICK (test NEGATIVE code = LEUU) UA WBC (test code = WBCU) /HPF 0-3 UA RBC (test code = RBCU) /HPF 0-3 UA BACTERIA (test code = BACU) /HPF NEGATIVE Spec Comments: CAN STRAIGHT CATH IF NEEDEDUR SODIUM [id number] 00:56:00 Test Item Value Reference Range Interpretation Comments UR SODIUM RANDOM 61 mmol/L 30-90 N 24hr: 40-22 0 (test code = ARSLAN) mmol/Enrique ndom: 30-90 mmol/L Spec Comments: CAN STRAIGHT CATH IF NEEDEDUR CREATININE [id number] 00:56:00 Test Item Value Reference Range Interpretation Comments UR CREATININE RANDOM 91.7 mg/dL ~~~~~~~ ~~~~~~~~~~~~~~~ (test code = CREATU) ~~~~~~~ ~~~~~~~~~~~~~~~ ~~~~~~~~~~~~~~~ This test has been performed on a fluid type that has nopublished nor mal reference range s. Please evaluate theseresults on an individual basis.~~~~~~~~~ ~~~~~~~ ~~~~~~~~~~~~~~~ ~~~~~~~ ~~~~~~~~~~~~~~~ ~~~~~~ Spec Comments: CAN STRAIGHT CATH IF NEEDEDCBC W/AUTO [id number] 00:43:00 Test Item Value Reference Range Interpretation Comments WHITE BLOOD CELL (test code = 10.2 x10 3/uL 5.0-12.0 N WBC) RED BLOOD CELL (test code = 4.49 x10 6/uL 4.20-5.40 N RBC) HEMOGLOBIN (test code = HGB) 12.9 g/dL 12.0-16.0 N HEMATOCRIT (test code = HCT) 39.1 % 36.0-46.0 N MEAN CELL VOLUME (test code = 87 fL 81-99 N MCV) MEAN CELL HGB (test code = MCH) 28.7 pg 27-31 N MEAN CELL HGB CONCENTRATION 33.0 g/dL 33-37 N (test code = MCHC) RED CELL DISTRIBUTION WIDTH 14.3 % 11.5-15.5 N (test code = RDW) PLATELET COUNT (test code = 258 x10 3/uL 130-400 N PLT) MEAN PLATELET VOLUME (test code 9.6 fL 9.4-16.4 N = MPV) NEUTROPHIL % (test code = NT%) 58.0 % 43-65 N IMMATURE GRANULOCYTE % (test 0.5 % 0.0-2.0 N code = IG%) LYMPHOCYTE % (test code = LY%) 28.3 % 20.5-45.5 N MONOCYTE % (test code = MO%) 10.8 % 5.5-11.7 N EOSINOPHIL % (test code = EO%) 1.7 % 0.9-2.9 N BASOPHIL % (test code = BA%) 0.7 % 0.2-1.0 N NUCLEATED RBC % (test code = 0.0 % 0-1.0 N NRBC%) NEUTROPHIL # (test code = NT#) 5.89 x10 3/uL 2.2-4.8 H IMMATURE GRANULOCYTE # (test 0.05 x10 3/uL 0-0.03 H code = IG#) LYMPHOCYTE # (test code = LY#) 2.87 x10 3/uL 1.3-2.9 N MONOCYTE # (test code = MO#) 1.10 x10 3/uL 0.3-0.8 H EOSINOPHIL # (test code = EO#) 0.17 x10 3/uL 0.0-0.2 N BASOPHIL # (test code = BA#) 0.07 x10 3/uL 0.0-0.1 N BETA-2 GLYCOPROTEIN [id number] 07:39:00 Test Item Value Reference Range Interpretation Comments B2 GLYCOPROTEIN Refer to individual AUTOVERIFICATION COMPONENT B2-Glycoprotein (test code = 2557) IgG, IgM and IgA results. PROTHROMBIN GENE [id number] 17:24:00 Test Item Value Reference Range Interpretation Comments PROTHROMBIN/FACTOR II Negative for the [id number] (BEAKER) (test code = (Prothrombin/Factor II) 2163) mutation. [id number] Patria Sullivan MD (GINGER) (test code = (electronic signature) 2601) This test is a genotyping assay which evaluates the DNA sequence at position [address]75 of the prothrombin (Factor II) gene. A region of the prothrombin (Factor II) gene is amplified by polymerase chain reaction followed by fluorescent monitoring of a specific pair of hybridized probes. Since genetic variation and other factors can affect the accuracy of direct mutation testing, these results should be interpreted in light of clinical and familial data.This test was developed and its performance characteristics determined by the [facility] Pathology Department, Section of Molecular Pathology. It has not been cleared or approved by the U.S. Food and Drug Administration (FDA), since FDA approval is not required for clinical use of the test. Validation was done as required by the Clinical Laboratory Improvement Amendments of 1988.FACTOR 5 LEIDEN PCR (THROMBOTIC RISK)2018-03-29 17:23:00 Test Item Value Reference Range Interpretation Comments FACTOR V LEIDEN Negative for the R506Q (BEAKER) (test code = (Factor V Leiden) 718) mutation [id number] Patria Sullivan MD (GINGER) (test code = (electronic signature) 2825) This test is a genotyping assay which evaluates the DNA sequence corresponding to Codon 506 of the Factor V Gene. A region of the Factor V Gene is amplified by polymerase chain reaction followed by fluorescent monitoring of a specific pair of hybridized probes. Since genetic variation and other factors can affect the accuracy of direct mutation testing, these results should be interpreted in light ofclinical and familial data.This test was developed and its performance characteristics determined bythe [facility] Pathology Department, Section of Molecular Pathology. It has not been cleared or approved by the U.S. Food and Drug Administration (FDA), since FDA approval is not requ ired for clinical use of the test. Validation was done as required by the Clinical Laboratory Improvement Amendments of 1988.DOUBLE-STRANDED DNA (DSDNA) [id number] 09:48:00 Test Item Value Reference Range Interpretation Comments ANTI-DNA DS (BEAKER) (test code = Negative 1055) URINALYSIS W/ REFLEX URINE [id number] 08:13:00 Test Item Value Reference Range Interpretation Comments COLOR (BEAKER) (test code = 470) Light Yellow CLARITY (BEAKER) (test code = Hazy 469) SPECIFIC GRAVITY UA (BEAKER) 1.010 1.001-1.035 (test code = 468) PH UA (BEAKER) (test code = 467) 6.0 5.0-8.0 PROTEIN UA (BEAKER) (test code = 100 mg/dL Negative A 464) GLUCOSE UA (BEAKER) (test code = Negative Negative 365) KETONES UA (BEAKER) (test code = Negative Negative 371) BILIRUBIN UA (BEAKER) (test code Negative Negative = 462) BLOOD UA (BEAKER) (test code = Negative Negative 461) NITRITE UA (BEAKER) (test code = Negative Negative 465) LEUKOCYTE ESTERASE UA (BEAKER) Moderate Negative A (test code = 466) UROBILINOGEN UA (BEAKER) (test 0.2 mg/dL 0.2-1.0 code = 463) RBC UA (BEAKER) (test code = 0 /HPF 519) WBC UA (BEAKER) (test code = 10 /HPF 520) BACTERIA (BEAKER) (test code = Moderate 517) SQUAMOUS EPITHELIAL (BEAKER) 1 /HPF (test code = 516) SOURCE(BEAKER) (test code = 7901) FACTOR 2 [id number] 10:53:00 Test Item Value Reference Range Interpretation Comments FACTOR II ACTIVITY (BEAKER) (test 118.0 % 70.0-120.0 code = 667) ANTI-NUCLEAR ANTIBODY (SHONDA)2018-03-28 10:31:00 Test Item Value Reference Range Interpretation Comments ANTI-NUCLEAR ANTIBODY (SHONDA) (BEAKER) Positive Negative A (test code = 418) Test performed by IFA method.SHONDA TITER AND [id number] 10:31:00 Test Item Value Reference Range Interpretation Comments SHONDA TITER (BEAKER) (test code = 1541) :640 SHONDA PATTERN (BEAKER) (test code = SSA/RO 1781) PROTEIN C [id number] 09:31:00 Test Item Value Reference Range Interpretation Comments PROTEIN C ACTIVITY (BEAKER) (test 101.0 % 70.0-130.0 code = 582) BASIC METABOLIC [id number] 06:34:00 Test Item Value Reference Range Interpretation Comments SODIUM (BEAKER) 139 meq/L 136-145 (test code = 381) POTASSIUM (BEAKER) 4.6 meq/L 3.5-5.1 (test code = 379) CHLORIDE (BEAKER) 111 meq/L 98-107 H (test code = 382) CO2 (BEAKER) (test 20 meq/L 22-29 L code = 355) BLOOD UREA NITROGEN 40 mg/dL 7-21 H (BEAKER) (test code = 354) CREATININE (BEAKER) 2.56 mg/dL 0.57-1.25 H (test code = 358) GLUCOSE RANDOM 85 mg/dL 70-105 (BEAKER) (test code = 652) CALCIUM (BEAKER) 9.9 mg/dL 8.4-10.2 (test code = 697) EGFR (BEAKER) (test mL/min/1.73 INSUFFIC IENT CLINICAL code = 1092) sq m DATA TO CALCULA TE ESTIMATED GFR. [id number] 06:33:00 Test Item Value Reference Range Interpretation Comments PHOSPHORUS (BEAKER) (test code = 4.1 mg/dL 2.3-4.7 604) [id number] 06:33:00 Test Item Value Reference Range Interpretation Comments MAGNESIUM (BEAKER) (test code = 1.9 mg/dL 1.6-2.6 627) TROPONIN [id number] 06:30:00 Test Item Value Reference Range Interpretation Comments TROPONIN I (BEAKER) (test code = 0.04 ng/mL 0.00-0.03 H 397) Troponin I (TnI) levels must be interpreted in the context of the presenting symptoms and the clinical findings. Elevated TnI levels indicate myocardial damage, but are not specific for ischemic heart disease. Elevated TnI levels are seen in patients with other cardiac conditions (including myocarditis and congestive heart failure), and slight TnI elevations occur in patients with other conditions, including sepsis, renal failure, acidosis, acute neurological disease, and persistent tachyarrhythmia.CBC (HEMOGRAM ONLY)2018-03-28 06:01:00 Test Item Value Reference Range Interpretation Comments WHITE BLOOD CELL COUNT (BEAKER) 10.2 K/ L 3.5-10.5 (test code = 775) RED BLOOD CELL COUNT (BEAKER) 3.80 M/ L 3.93-5.22 L (test code = 761) HEMOGLOBIN (BEAKER) (test code = 11.7 GM/DL 11.2-15.7 410) HEMATOCRIT (BEAKER) (test code = 34.8 % 34.1-44.9 411) MEAN CORPUSCULAR VOLUME (BEAKER) 91.6 fL 79.4-94.8 (test code = 753) MEAN CORPUSCULAR HEMOGLOBIN 30.8 pg 25.6-32.2 (BEAKER) (test code = 751) MEAN CORPUSCULAR HEMOGLOBIN CONC 33.6 GM/DL 32.2-35.5 (BEAKER) (test code = 752) RED CELL DISTRIBUTION WIDTH 12.5 % 11.7-14.4 (BEAKER) (test code = 412) PLATELET COUNT (BEAKER) (test 228 K/CU MM 150-450 code = 756) MEAN PLATELET VOLUME (BEAKER) 9.8 fL 9.4-12.3 (test code = 754) NUCLEATED RED BLOOD CELLS 0 /100 WBC 0-0 (BEAKER) (test code = 413) TROPONIN [id number] 22:16:00 Test Item Value Reference Range Interpretation Comments TROPONIN I (BEAKER) (test code = 0.04 ng/mL 0.00-0.03 H 397) Troponin I (TnI) levels must be interpreted in the context of the presenting symptoms and the clinical findings. Elevated TnI levels indicate myocardial damage, but are not specific for ischemic heart disease. Elevated TnI levels are seen in patients with other cardiac conditions (including myocarditis and congestive heart failure), and slight TnI elevations occur in patients with other conditions, including sepsis, renal failure, acidosis, acute neurological disease, and persistent tachyarrhythmia.CREATINE KINASE (CK)2018-03-27 22:09:00 Test Item Value Reference Range Interpretation Comments CREATINE KINASE TOTAL (BEAKER) (test 48 U/L 29-200 code = 380) MR, BRAIN, WITHOUT [id number] 16:51:00FINAL REPORT MRI brain without contrast 03/27/2018 4:10 PM CLINICAL INDICATION: Focal neuro deficit, new, fixed or worsening, >6 hours TECHNIQUE: Multiplanar, multisequence MR imaging of the brain was performed utilizing the following imaging sequences: Axial T1, T2, FLAIR, GRE,and DWI; sagittal and coronal T1- weighted images. COMPARISON: None available FINDINGS: Patient motion limits this examination. Pathology may be obscured. With this limitation mind, there is an acute nonhemorrhagic infarct in the right lateral frontal and parietal lobes and insular cortex. There is no hematoma, mass, hydrocephalus, or extra-axial collection. Chronic infarcts are evident in the left greater than right parietal lobes. There is advanced for age chronic microvascular ischemia in the supra tentorial white matter and john. A small focus of FFE dephasing in the right lateral thalamus likelyreflects consequence of prior microhemorrhage. Small chronic infarcts are evident in the cerebellum.There is generalized parenchymal volume loss. Normal appearing flow-voids are present in the major intracranial vascular structures. The sellar and pineal regions, craniocervical junction, orbits, face, and skull base are without worrisome finding. IMPRESSION: 1. Motion limited examination. 2. Small volume acute nonhemorrhagic right middle cerebral artery distribution infarct. 3. Chronic ischemic changes, advanced for age. Signed: Tracee Renteria Verified Date/Time: 03/27/2018 16:51:15 Reading Location: [facility] Reading Room MR, MRA, BRAIN, WITHOUT CONTRAST 2018-03-27 16:35:00Reason for exam:->Ischemic Stroke EvaluationFINAL REPORT MRA brain and neck without contrast 03/27/2018 4:34 PM CLINICAL HISTORY: Ischemic Stroke EvaluationCVA COMPARISON: None available TECHNIQUE: Two- and three-dimensional [id number] MRA images of the intra- and extracranial arterial vasculature was performed, from which maximal intensity projection 3-D reconstructions were created. FINDINGS: MRA neck: There is no vessel occlusion or flow-limiting stenosis. There is no NASCET- quantifiable cervical internal carotid artery stenosis. Flow is antegrade in both vertebral arteries. MRA [place]: There is no vesselocclusion, flow-limiting stenosis, or aneurysm. IMPRESSION: Unremarkable intra- and extracranial MRAs. Signed: Tracee Renteria Verified Date/Time: 03/27/2018 16:35:15 Reading Location: [facility] Radiology Reading Room MR, MRA, NECK, WITHOUT IV [id number] 16:35:00Reason for exam:->Ischemic Stroke EvaluationFINAL REPORT MRA brain and neck without contrast 03/27/2018 4:34 PM CLINICAL HISTORY: Ischemic Stroke EvaluationCVA COMPARISON: None available TECHNIQUE: Two- and three-dimensional ofjz-ld-aeoyrt MRA images of the intra- and extracranial arterial vasculature was performed, from which maximal intensity projection 3-D reconstructions were created. FINDINGS: MRA neck: There is no vessel occlusion or flow-limiting stenosis. There is no NASCET-quantifiable cervical internal carotid artery stenosis. Flow is antegrade in both vertebral arteries. MRA [place]: There is no vesselocclusion, flow-limiting stenosis, or aneurysm. IMPRESSION: Unremarkable intra- and extracranial MRAs. Signed: Tracee Renteria MDRort Verified Date/Time: 03/27/2018 16:35:15 Reading Location: [facility] Radiology Reading Room IOLIPIN ANTIBODIES, IGG AND [id number] 15:32:00 Test Item Value Reference Range Interpretation Comments ANTICARDIOLIPIN IGG ANTIBODY < GPL <20.0 (BEAKER) (test code = 712) ANTICARDIOLIPIN IGM ANTIBODY 11.3 MPL <20.0 (AKER) (test code = 713) Anticardiolipin IgG Result Interpretation: <20.0 GPL Normal>/= 20.0 GPL PositiveAnticardiolipin IgM Result Interpretation: <20.0 MPL Normal>/= 20.0 MPL PositiveRHEUMATOID FACTOR AB, REFLEX TO [id number] 13:36:00 Test Item Value Reference Range Interpretation Comments RHEUMATOID FACTOR (BEAKER) (test Negative code = 573) ANTITHROMBIN [id number] 13:19:00 Test Item Value Reference Range Interpretation Comments ANTITHROMBIN III ACTIVITY (BEAKER) 88.0 % 80.0-120.0 (test code = 711) HIV-1 ANTIGEN WITH HIV-1/2 [id number] 12:48:00 Test Item Value Reference Range Interpretation Comments HIV-1 ANTIGEN WITH HIV 1\\T\\2 Nonreactive Nonreactive ANTIBODY (2) (BEAKER) (test code = 2586) COMPLEMENT COMPONENT [id number] 12:26:00 Test Item Value Reference Range Interpretation Comments C4 COMPLEMENT (BEAKER) (test code = 33 mg/dL 15-57 394) COMPLEMENT COMPONENT [id number] 12:26:00 Test Item Value Reference Range Interpretation Comments C3 COMPLEMENT (BEAKER) (test code = 146 mg/dL 82-193 393) [id number] 11:03:00 Test Item Value Reference Range Interpretation Comments RPR SCREEN (BEAKER) (test code = Nonreactive Nonreactive 420) [id number] 07:22:00 Test Item Value Reference Range Interpretation Comments PHOSPHORUS (BEAKER) (test code = 4.1 mg/dL 2.3-4.7 604) [id number] 07:22:00 Test Item Value Reference Range Interpretation Comments MAGNESIUM (BEAKER) (test code = 1.9 mg/dL 1.6-2.6 627) BASIC METABOLIC [id number] 07:22:00 Test Item Value Reference Range Interpretation Comments SODIUM (BEAKER) 137 meq/L 136-145 (test code = 381) POTASSIUM (BEAKER) 4.5 meq/L 3.5-5.1 (test code = 379) CHLORIDE (BEAKER) 112 meq/L 98-107 H (test code = 382) CO2 (BEAKER) (test 17 meq/L 22-29 L code = 355) BLOOD UREA NITROGEN 38 mg/dL 7-21 H (BEAKER) (test code = 354) CREATININE (BEAKER) 2.55 mg/dL 0.57-1.25 H (test code = 358) GLUCOSE RANDOM 93 mg/dL 70-105 (BEAKER) (test code = 652) CALCIUM (BEAKER) 9.8 mg/dL 8.4-10.2 (test code = 697) EGFR (BEAKER) (test mL/min/1.73 INSUFFIC IENT CLINICAL code = 1092) sq m DATA TO CALCULA TE ESTIMATED GFR. C-REACTIVE [id number] 13:39:00 Test Item Value Reference Range Interpretation Comments C-REACTIVE PROTEIN (BEAKER) (test 0.92 mg/dL 0.00-0.50 H code = 676) [id number] 11:26:00 Test Item Value Reference Range Interpretation Comments HOMOCYSTEINE (BEAKER) (test code 23.9 umol/L 5.1-15.4 H = 642) HEMOGLOBIN [id number] 07:55:00 Test Item Value Reference Range Interpretation Comments HEMOGLOBIN A1C (BEAKER) (test code = 5.2 % 4.3-6.1 368) URINALYSIS W/ [id number] 05:21:00 Test Item Value Reference Range Interpretation Comments COLOR (BEAKER) (test code = 470) Light Yellow CLARITY (BEAKER) (test code = Hazy 469) SPECIFIC GRAVITY UA (BEAKER) 1.009 1.001-1.035 (test code = 468) PH UA (BEAKER) (test code = 467) 5.5 5.0-8.0 PROTEIN UA (BEAKER) (test code = 100 mg/dL Negative A 464) GLUCOSE UA (BEAKER) (test code = Negative Negative 365) KETONES UA (BEAKER) (test code = Negative Negative 371) BILIRUBIN UA (BEAKER) (test code Negative Negative = 462) BLOOD UA (BEAKER) (test code = Negative Negative 461) NITRITE UA (BEAKER) (test code = Negative Negative 465) LEUKOCYTE ESTERASE UA (BEAKER) Small Negative A (test code = 466) UROBILINOGEN UA (BEAKER) (test 0.2 mg/dL 0.2-1.0 code = 463) RBC UA (BEAKER) (test code = 3 /HPF 519) WBC UA (BEAKER) (test code = 7 /HPF 520) BACTERIA (BEAKER) (test code = Many 517) SQUAMOUS EPITHELIAL (BEAKER) 12 /HPF (test code = 516) AMORPHOUS CRYSTALS (BEAKER) Moderate (test code = 1584) SOURCE(BEAKER) (test code = 279) SCREEN, [id number] 05:17:00 Test Item Value Reference Range Interpretation Comments TEST URINE (BEAKER) (test Negative code = 583) TSH/FREE T4 IF [id number] 03:57:00 Test Item Value Reference Range Interpretation Comments THYROID STIMULATING HORMONE 2.09 uIU/mL 0.35-4.94 (BEAKER) (test code = 772) VITAMIN B12 AND [id number] 03:57:00 Test Item Value Reference Range Interpretation Comments VITAMIN B12 (BEAKER) (test code = 687 pg/mL 213-816 774) FOLATE (BEAKER) (test code = 362) 4.5 ng/mL >=7.0 L BASIC METABOLIC [id number] 03:31:00 Test Item Value Reference Range Interpretation Comments SODIUM (BEAKER) 139 meq/L 136-145 (test code = 381) POTASSIUM (BEAKER) 4.2 meq/L 3.5-5.1 (test code = 379) CHLORIDE (BEAKER) 110 meq/L 98-107 H (test code = 382) CO2 (BEAKER) (test 20 meq/L 22-29 L code = 355) BLOOD UREA NITROGEN 37 mg/dL 7-21 H (BEAKER) (test code = 354) CREATININE (BEAKER) 2.71 mg/dL 0.57-1.25 H (test code = 358) GLUCOSE RANDOM 86 mg/dL 70-105 (BEAKER) (test code = 652) CALCIUM (BEAKER) 9.3 mg/dL 8.4-10.2 (test code = 697) EGFR (BEAKER) (test mL/min/1.73 INSUFFIC IENT CLINICAL code = 1092) sq m DATA TO CALCULA TE ESTIMATED GFR. [id number] 03:23:00 Test Item Value Reference Range Interpretation Comments MAGNESIUM (BEAKER) (test code = 1.8 mg/dL 1.6-2.6 627) LIPID [id number] 03:23:00 Test Item Value Reference Range Interpretation Comments TRIGLYCERIDES (BEAKER) (test code = 119 mg/dL 540) CHOLESTEROL (BEAKER) (test code = 127 mg/dL 631) HDL CHOLESTEROL (BEAKER) (test code 50 mg/dL = 976) LDL CHOLESTEROL CALCULATED (BEAKER) 53 mg/dL (test code = 633) Triglyceride Reference Range: Low Risk <150 Borderline 150-199 High Risk 200- 499 Very High Risk >=500Cholesterol Reference Range: Low Risk <200 Borderline 200-239 High Risk >240HDL Cholesterol Reference Range: Low Risk >=60 High Risk <40LDL Cholesterol Reference Range: Optimal <100 Near Optimal 100-129 Borderline 130-159 High 160-189 Very High >=190HEPATIC FUNCTION [id number] 03:23:00 Test Item Value Reference Range Interpretation Comments TOTAL PROTEIN (BEAKER) (test code = 7.0 gm/dL 6.0-8.3 770) ALBUMIN (BEAKER) (test code = 1145) 3.6 g/dL 3.5-5.0 BILIRUBIN TOTAL (BEAKER) (test code 0.4 mg/dL 0.2-1.2 = 377) BILIRUBIN DIRECT (BEAKER) (test 0.2 mg/dL 0.1-0.5 code = 706) ALKALINE PHOSPHATASE (BEAKER) (test 72 U/L 40-150 code = 346) AST (SGOT) (BEAKER) (test code = 14 U/L 5-34 353) ALT (SGPT) (BEAKER) (test code = 15 U/L 6-55 347) [id number] 03:03:00 Test Item Value Reference Range Interpretation Comments PROTIME (BEAKER) (test code = 14.1 seconds 11.7-14.7 759) INR (BEAKER) (test code = 370) 1.1 <=5.9 PARTIAL THROMBOPLASTIN TIME 30.1 seconds 22.5-36.0 (BEAKER) (test code = 760) RECOMMENDED COUMADIN/WARFARIN INR THERAPY RANGESSTANDARD DOSE: 2.0 - 3.0 Includes: PROPHYLAXIS for venous thrombosis, systemic embolization; TREATMENT for venous thrombosis and/or pulmonary embolus.HIGH RISK: Target INR is 2.5-3.5 for patients with mechanical heart valves.CBC W/PLT COUNT & AUTO [id number] 02:55:00 Test Item Value Reference Range Interpretation Comments WHITE BLOOD CELL COUNT (BEAKER) 9.8 K/ L 3.5-10.5 (test code = 775) RED BLOOD CELL COUNT (BEAKER) 3.68 M/ L 3.93-5.22 L (test code = 761) HEMOGLOBIN (BEAKER) (test code = 11.4 GM/DL 11.2-15.7 410) HEMATOCRIT (BEAKER) (test code = 34.4 % 34.1-44.9 411) MEAN CORPUSCULAR VOLUME (BEAKER) 93.5 fL 79.4-94.8 (test code = 753) MEAN CORPUSCULAR HEMOGLOBIN 31.0 pg 25.6-32.2 (BEAKER) (test code = 751) MEAN CORPUSCULAR HEMOGLOBIN CONC 33.1 GM/DL 32.2-35.5 (BEAKER) (test code = 752) RED CELL DISTRIBUTION WIDTH 12.7 % 11.7-14.4 (BEAKER) (test code = 412) PLATELET COUNT (BEAKER) (test 207 K/CU MM 150-450 code = 756) MEAN PLATELET VOLUME (BEAKER) 9.5 fL 9.4-12.3 (test code = 754) NUCLEATED RED BLOOD CELLS 0 /100 WBC 0-0 (BEAKER) (test code = 413) NEUTROPHILS RELATIVE PERCENT 57 % (BEAKER) (test code = 429) LYMPHOCYTES RELATIVE PERCENT 30 % (BEAKER) (test code = 430) MONOCYTES RELATIVE PERCENT 10 % (BEAKER) (test code = 431) EOSINOPHILS RELATIVE PERCENT 3 % (BEAKER) (test code = 432) BASOPHILS RELATIVE PERCENT 1 % (BEAKER) (test code = 437) NEUTROPHILS ABSOLUTE COUNT 5.54 K/ L 1.56-6.13 (BEAKER) (test code = 670) LYMPHOCYTES ABSOLUTE COUNT 2.93 K/ L 1.18-3.74 (BEAKER) (test code = 414) MONOCYTES ABSOLUTE COUNT (BEAKER) 0.93 K/ L 0.24-0.36 H (test code = 415) EOSINOPHILS ABSOLUTE COUNT 0.29 K/ L 0.04-0.36 (BEAKER) (test code = 416) BASOPHILS ABSOLUTE COUNT (BEAKER) 0.05 K/ L 0.01-0.08 (test code = 417) IMMATURE GRANULOCYTES-RELATIVE 1 % 0-1 PERCENT (BEAKER) (test code = 2801) Notes Date/Time Note Provider Source 2023-01-06 [id number]:22:00 [facility] 00:22:00 [facility] ([facility])EMERGENCY PROVIDER REPORTREPORT#:[id number] REPORT STATUS: SignedDATE:01/06/23 TIME:0022 PATIENT: GURVINDER RUST UNIT #: [id number]#: [id number] ROOM/BED:: 75 AGE: 47 SEX: F PCP PHYS: No Primary or Family PhysicianSERVICE AUTHOR: Albertina Pedro [employer] * ALL edits or amendments must be made on the electronic/computer document * Albertina Pedro 01/06/23 002:HPI-Dental/Mouth Prob Free Text HPI NotesFree Text HPI [id number] female presents to the emergency department with complaints of toothpain for 4 days. Patient states she does not go see a dentist, has been taking Tylenol is unable to take NSAIDs due to end-stage renal disease. Patient reports an allergy to medication but she is unsure of what it is. GeneralConfirmed Patient YesInitial Greet Date/Time 01/05/232351 PresentationChief Complaint Tooth painHx Obtained From PatientOnset Occurred Days ago (4)Caused by No trauma by historyQuality PainfulAssociated withDenies: Bleeding, Can't fully open mouth, Drooling, Earache, Fever, Nausea, Shortness of breath, Sore throat, Unable to tolerate P.O., Vomiting, bloody, Vomiting, non bloody. Exacerbated by NothingRelieved by Nothing Review of Systems ROS StatementsAll systems rev neg except as marked. Basic Review of SystemsBasic ROS EYES: No redness, CV: No chest pain, : No dysuria/frequency, MS: No ext swelling/pain, HEM: No bleeding/bruising, SKIN: No rash, NEURO: No focal deficit Past Medical History - AdultStated Complaint TOOTHACHEAllergiesCoded Allergies:No Allergy Information Available (01/06/23) Past Medical History:Reports: Kidney disease/stones. Smoking status for patients 13 years old or older: Unknown,if ever smoked Physical Exam Vital SignsVital SignsFirst Documented: Result Date Time Pulse Ox 100 01/07 8 B/P 159/100 01/07 8 B/P Mean 119 01/07 8 O2 Delivery Room air 01/07 8 Temp 36.7 01/07 8 Pulse 89 01/07 8 Resp 22 01/07 8 Last Documented: Result Date Time Pulse Ox 100 01/07 8 B/P 159/100 01/07 8 B/P Mean 119 01/07 8 O2 Delivery Room air 01/07 8 Temp 36.7 01/07 8 Pulse 89 01/07 8 Resp 22 01/07 8 Review of Vital Signs Reviewed Focused PEGeneral/Const General/Const Awake Behavior Appears intoxicated, Hostile, Uncooperative. Appearance/Presentation Hygiene poor, Obese, morbidly. MS Head Head Atraumatic, NormocephalicEyes Eyes Atraumatic, No nystagmus, No scleral icterusEars/Nose/Throat Ears/Nose/Throat Atraumatic, Airway patent, Mucous membranes moist, No trismus Dental/Gums Decay extensive. Negative: Gum bleeding present. MS Neck Neck Atraumatic, Supple, No meningismusResp/Chest Respiratory/Chest Atraumatic, Breath sounds NL, No respiratory distressCardiovascular Cardiovascular Heart rate NL, Regular rhythm, Cap refill not delayed, Peripheral circulation NLNeurologic Neurologic Oriented X3, No motor deficits, Gait NL Additional PEPsychiatric Abnormal Mood/Affect Irritable. Unable to Evaluate Uncooperative. ImagesEars/Nose/Throat Mouth - Open[Embedded Image Not Available] 1) Extensive decay. All other upper teeth are missing Re-Evaluation MDM Free Text MDM NotesFree Text MDM NotesPatient states she is allergic to medicine but she is unable to recall what it is. States that we should already know that information about her. Patient states she took Tylenol today but is unable to verify what time to help alleviate the symptoms but the medicine is not helping. She is requesting narcotic pain medications. Discussed with patient need to see a dentist. She states she does not go to the dentist and she never has. Patient becomes agitated states if cannot give her stronger pain medications she is leaving. Patient leaves the triage room slamming the door, states to the waiting room I better not be charged for this and leaves emergency department. ED CoursePatient Course StableRx Drug Regimen Continue with currentSafety Concerns Patient is safe Differential DiagnosisDifferential Diagnosis Abscess dental, Tooth fracture Findings/Social DeterminantsPresentation ChronicDiagnosis Appears EvidentSocial Concerns Access to follow-up care Patient Discharge Departure Vital Signs/ConditionVital SignsFirst Documented: Result Date Time Pulse Ox 100 01/07 8 B/P 159/100 01/07 8 B/P Mean 119 01/07 8 O2 Delivery Room air 01/07 8 Temp 36.7 01/07 8 Pulse 89 01/07 8 Resp 22 01/07 8 Last Documented: Result Date Time Pulse Ox 100 01/07 8 B/P 159/100 01/07 8 B/P Mean 119 01/07 8 O2 Delivery Room air 01/07 8 Temp 36.7 01/07 8 Pulse 89 01/07 8 Resp 22 01/07 8 All vital signs available at the time of this entry have been reviewed. Clinical ImpressionClinical ImpressionPrimary Impression: Chronic dental pain Disposition DecisionDischarge )( Discharged to Home Yes )( Time 0034 )( Date 01/06/23 Discharge/Care PlanCounseled Regarding Diagnosis, Prescriptions, Need for follow-up, When to returnto ED(Auto) PrescriptionsCurrent Visit ScriptsACETAMINOPHEN (TYLENOL) 650 MG PO Q4H PRN PRN PAIN ACETAMINOPHEN (TYLENOL) 650 MG PO Q4H PRN PRN PAIN #100 TABS Patient Instructions ED Dental Pain Discharge NoteI have spoken with the patient and/or caregivers. I have explained the patient'scondition, diagnoses and treatment plan based on the information available to meat this time. I have answered the patient's and/or caregiver's questions and addressed any concerns. The patient and/or caregivers have as good an understanding of the patient's diagnosis, condition and treatment plan as can beexpected at this point. The vital signs have been stable. The patient's condition is stable and appropriate for discharge from the emergency department. The patient will pursue further outpatient evaluation with the primary care physician or other designated or consulting physician as outlined in the discharge instructions. The patient and/or caregivers are agreeable to this planof care and follow-up instructions have been explained in detail. The patient and/or caregivers have received these instructions in written format and have expressed an understanding of the discharge instructions. The patient and/or caregivers are aware that any significant change in condition or worsening of symptoms should prompt an immediate return to this or the closest emergency department or a call to 911. Román Harding 01/06/23 0544:Patient Discharge Departure Discharge/Care PlanReferralsProvider Referral: John Gomez DO Address: [address] [place] [address] Supervising Physician Note ChelleLv Saw Pt AloneI have reviewed the PA/[employer] ASSAYER's note and plan of care. I was available for consultation as needed at all times during the patient's visit in the emergency department. I agree with the clinical impression, plan and disposition. at 0044 at 0545 RPT #: [id number] OF [facility]EDProv[facility] department oqnstk5896-11-47K12:22:00L.[id number] AVAvailable for patient unbxUOHCJOLWJFEEWD8713-90-37Q23:44:49 2022-10-05 1889-47-84Y30:21:59Formatting of this note Florence smith Tarun [facility] 09:21:59 might be different from the original.Patient RN Health informed of normal pap smear results, repeat pap due in 5 years and annual well woman exams recommended. Patient verbalized understanding, no further questions/concerns. Iqra Mcneil RN 10/05/2022 9:21 AM 44562-8Fmhybpnvj encounter GilwUA4350-90-30W10:22:07Telephone encounter NoteTXT1.2.840.497277.1.13.104.2.7.2.279518| [id number] for patient [id number] Stahl RNUTMBUNM [facility] - [address] Ggr[id number] FVIHMWDSLURGUP7015-48-11G78:22:071.2.840.114 350.1.72.3.15|1.2.840.760104.1.13.104.2.7.2. [id number] 2022-10-05 3864-04-61V47:20:59Formatting of this note Florence Mcneil [facility] - 09:20:59 might be different from the original.Patient RN Health informed of normal pap smear results, repeat pap due in 5 years and annual well woman exams recommended. Patient verbalized understanding, no further questions/concerns. Iqra Mcneil RN 10/05/2022 9:21 AM 02148-1Uaaenpiqy encounter VqyjMR4128-85-93J99:21:45Telephone encounter NoteTXT1.2.840.146974.1.13.104.2.7.2.209402| [id number] for patient emjk58860-8RyerKS732004912Zqffuwj Stahl [id number] KGQXKMBUUIDZUE1352-56-14M76:21:451.2.840.114 350.1.72.3.15|1.2.840.964414.1.13.104.2.7.2. [id number] 2022-10-05 4527-30-06F89:49:04Formatting of this note Natalia Hyde [facility] - 08:49:04 might be different from the original.Pt is [facility] nurse call. 62274-2Whifutleo encounter CiknYT7001-27-12U80:49:43Telephone encounter NoteTXT1.2.840.323183.1.13.104.2.7.2.451075| [id number] for patient [id number] J Barns[id number] LPMRAEUZYKSMWX5840-77-97C42:49:431.2.840.114 350.1.72.3.15|1.2.840.869374.1.13.104.2.7.2. 727879_[id number] 2022-10-04 4179-03-96E31:31:29Formatting of this note Sujatha Mo [facility] - 16:31:29 might be different from the original.LM on Abigail newman [facility] for pt to return call regarding results and plan of care.CHRISTIN CONNER RN 10/04/2022 4:31 PM 60626-2Rptdregmn encounter IfidEQ7842-61-06H79:31:46Telephone encounter NoteTXT1.2.840.548644.1.13.104.2.7.2.477737| [id number] for patient tvzj96649-2HewjJY498952619Emvhpsrzt G Cervantes RNUT[address] Schwartz [id number] DPOYGKFEEQCDIP3457-23-15M30:31:461.2.840.114 350.1.72.3.15|1.2.840.235645.1.13.104.2.7.2. 727879_[id number] 2022-10-03 9333-74-09H06:23:41Formatting of this note OG-OB [facility] - 09:23:41 might be different from the GYNECOLOGY [facility] th original.Reviewed MDL report. 09/13/22: Pap STAFF negative, HR HPV negative.Please let pt know results.Recommend repeat pap with co testing in 5 years.Recommend still having annual exams. 83253-0Pjfndndpp encounter ZnxrJE1767-57-58R28:25:01Telephone encounter NoteTXT1.2.840.211228.1.13.104.2.7.2.739541| [id number] for patient manc06013-8BomsMLME-KFOFWRZDZJ & GYNECOLOGY STAFFOG-OBSTETRICS & GYNECOLOGY STAFF[id number] NRZACZZMSZGUHN3268-19-61S05:25:011.2.840.114 350.1.72.3.15|1.2.840.985099.1.13.104.2.7.2. 727879_[id number] 2022-09-29 2423-12-97U40:51:28Formatting of this note Sujatha Mo [facility] - 07:51:28 might be different from the [facility] th original.Received MDL results via fax. Placed on provider's desk for review.CHRISTIN CONNER RN 09/29/2022 7:51 AM 68020-4Vlorfqfrp encounter SqvhPQ6563-00-46T21:52:12Telephone encounter NoteTXT1.2.840.439200.1.13.104.2.7.2.010113| [id number] for patient bqgl46739-6XkrsST300371060Buqysqmob G Cervantes RNUTMBUT[id number] IDQGTZBPXXFBCM2107-65-26M61:52:121.2.840.114 350.1.72.3.15|1.2.840.183348.1.13.104.2.7.2. 727879_[id number] 2022-08-30 6877-33-22E08:41:38Formatting of this note [facility] - 14:41:38 might be different from the original.Patient Health is requesting refills per patient she is only supposed to be taking half of carvediloL 12.5 mg tablet per Heart DrHector Please advise 85345-8Jsgrlraks encounter HdyoJC1560-86-81U56:42:26Telephone encounter NoteTXT1.2.840.254369.1.13.104.2.7.2.066331| [id number] for patient [address] Il[id number] DPNYWRLNYIKQPD0566-27-46F11:42:261.2.840.114 350.1.72.3.15|1.2.840.501217.1.13.104.2.7.2. [id number] 2019-01-28 CEvjplawinl916146183588-63-91N48:29:00 [facility] 08:29:00 [facility] Progress NoteREPORT#:[id number] REPORT STATUS: SignedDATE:01/28/19 TIME: 828 PATIENT: GURVINDER RUST UNIT #: [id number]#: [id number] [address]: [address] AGE: 43 SEX: F ATTEND: Deanna Camara [facility] AUTHOR: Yennifer Garcia MD * ALL edits or amendments must be made on the electronic/computer document * SubjectiveChief Complaint:AMSComments:Patient wants to go home. States her speech has been bad since her stroke. No new complaints, feeling better Objective Physical ExamVS:Last Documented: Result Date Time Pulse Ox 97 01/28 809 B/P 148/104 01/28 809 B/P Mean 118.4 01/28 809 Temp 36.7 01/28 08 Pulse 76 01/28 08 Resp 21 01/28 809 O2 Delivery Room air 01/28 0420 Patient Weight Weight (lb): 274Weight (oz): 14.66Weight (kg): 124.700 Mental status:The patient is alert, attentive, and oriented to self and place but not time. She has loss of fluency, comprehension is intact for simple commands. Often getting frustrated when she cannot remember or provide history Cranial nerves:CN II: Visual lindo are full to confrontation. Pupils are equal, round and reactive to light. CN III, IV, : At primary gaze, there is no eye deviation. Extraocular movements are full.CN V: Facial sensation is intact to light touch in all 3 divisions bilaterally. CN VII: Left lower facial weakness.CN VII: Hearing is normal to finger rub.CN IX, X: Palate elevates symmetrically. Phonation is normal.CN XI: Head turning and shoulder shrug are intactCN XII: Tongue is midline with normal movements and no atrophy and no fasciculations. Motor: Muscle bulk and tone are normal. Strength is full bilaterally, 5/5 in the bilateral upper and lower extremities. Medications:Current Home MedicationshydrALAZINE (APRESOLINE) 25 MG PO BID CITALOPRAM (CeleXA) 20 MG PO DAILY MIRTAZAPINE (REMERON) 30 MG PO BEDTIME ALBUTEROL (PROVENTIL HFA 90 MCG/ACT) 1 PUFF INH RTQ4H PRN PRN SOB SERTRALINE (ZOLOFT) 100 MG PO DAILY LISINOPRIL/HCTZ (ZESTORETIC 20/25 MG) 1 TAB PO DAILY amLODIPine (NORVASC) 5 MG PO DAILY Active Meds + DC'd Last 24 HrsLorazepam 1 MG ONCE ONE IV (DC) Mirtazapine 30 MG BEDTIME PO Lorazepam 1 MG ONCE PRN IV Sodium Bicarbonate 50 MEQ SEE RATE IV (CKD) Sodium Chloride 950 MLAmlodipine Besylate 5 MG DAILY PO Aspirin 81 MG DAILY PO Atorvastatin Calcium 20 MG DAILY PO Citalopram Hydrobromide 20 MG DAILY PO Heparin Sodium (Porcine) 5,000 UNIT Q12HR SUBQ Hydralazine HCl 25 MG BID PO Acetaminophen 650 MG Q4H PRN PRN PO Ondansetron HCl 4 MG Q4H PRN PRN IV ResultsFindings/Data:Laboratory Tests 01/28 0239 Chemistry Sodium (137 - 145 mmol/L) 139 Potassium (3.4 - 5.0 mmol/L) 4.1 Chloride (98 - 107 mmol/L) 109 H Carbon Dioxide (22 - 30 mmol/L) 20 L BUN (7 - 17 mg/dL) 36 H Creatinine (0.5 - 1.0 mg/dL) 2.9 H Glomerular Filtr Rate (>60) 19 L Glucose (74 - 106 mg/dL) 83 Calcium (8.4 - 10.2 mg/dL) 8.5 Laboratory Tests 01/28 0239 Hematology WBC (5.0 - 12.0 x10 3/uL) 7.3 RBC (4.20 - 5.40 x10 6/uL) 4.01 L Hgb (12.0 - 16.0 g/dL) 11.6 L Hct (36.0 - 46.0 %) 34.0 L MCV (81 - 99 fL) 85 MCH (27 - 31 pg) 28.9 MCHC (33 - 37 g/dL) 34.1 RDW (11.5 - 15.5 %) 14.0 Plt Count (130 - 400 x10 3/uL) 226 MPV (9.4 - 16.4 fL) 10.2 Neut % (Auto) (43 - 65 %) 49.3 Lymph % (Auto) (20.5 - 45.5 %) 36.4 [place] % (Auto) (5.5 - 11.7 %) 9.7 Eos % (Auto) (0.9 - 2.9 %) 3.6 H Baso % (Auto) (0.2 - 1.0 %) 0.7 Neut # (Auto) (2.2 - 4.8 x10 3/uL) 3.60 Lymph # (Auto) (1.3 - 2.9 x10 3/uL) 2.65 [place] # (Auto) (0.3 - 0.8 x10 3/uL) 0.71 Eos # (Auto) (0.0 - 0.2 x10 3/uL) 0.26 H Baso # (Auto) (0.0 - 0.1 x10 3/uL) 0.05 Immature Gran % (0.0 - 2.0 %) 0.3 Nucleated RBC % (0 - 1.0 %) 0.0 Radiology Data:Recent Impressions:MAGNETIC RESONANCE IMAGING - MRA NECK W/O CONT 01/27 1120 Report Impression - Status: SIGNED Entered: 01/27/2019 1200 IMPRESSION: Normal neck MRA.Impression By: Leo Mendoza MD MAGNETIC RESONANCE IMAGING - MRA HEAD 01/27 112 Report Impression - Status: SIGNED Entered: 01/27/2019 1201 IMPRESSION: Normal noncontrast MRA of the head.Impression By: LorieVB7 - Abdelrahman Mendoza MD Diagnosis, Assessment PlanFree Text A P:IMPRESSION1. Acute encephalopathy - suspect a toxic metabolic encephalopathy in view of CRUZ/CKD 2. History of CRUZ on CKD3. History of CVA (left parietal and right operculum), with residual speech disturbance4. Drug abuse - cocaine 5. Tobacco use PLAN1. Continue aspirin and statin2. Medical management supportive care3. Counseling on cessation of tobacco and drug use4. Patient should follow up with her local neurologist and proceed with neuropsychological testing that she states she has scheduled within 1 week Ok to discharge home from neuro standpoint if medically cleared at 2225 RPT #:[id number] OF REPORTPRProgress Xbnu7425-06-05T17:29:00C.[id number] Available for patient auotWAFQIZJGELQNZQ2087-51-18T84:26:19 2019-01-27 CKueutvbwmj622273018671-85-12O78:17:00 [facility] 19:17:00 [facility] Progress NoteREPORT#:[id number] REPORT STATUS: SignedDATE:01/27/19 TIME: 1916 PATIENT: GURVINDER RUST UNIT #: [id number]#: [id number] [address]CE: [address] AGE: 43 SEX: F ATTEND: Deanna Camara MDA AUTHOR: Yennifer Garcia MD * ALL edits or amendments must be made on the electronic/computer document * SubjectiveComments:Patient still feels confused and does not feel back to baseline. She is not a reliable historian. She cannot remember the last time she used cocaine and cannot remember the last time she drank alcohol. Patient's daughter at bedside thinks she may be underestimating the frequency that she uses cocaine. Patient's daughter also thinks that she is not back to baseline. She does have history of 2 prior strokes the last of which was in May 2018 which did leave her with mild speech disturbance. The patient cannot remember whether she was taking aspirin or not at home. Objective Physical ExamVS:Last Documented: Result Date Time Pulse Ox 96 01/27 1613 B/P 127/89 01/27 1613 B/P Mean 101.4 01/27 1613 O2 Delivery Room air 01/27 1613 Temp 37.0 01/27 1613 Pulse 82 01/27 1613 Resp 18 01/27 1613 Patient Weight Weight (lb): 274Weight (oz): 14.66Weight (kg): 124.700 Mental status:The patient is alert, attentive, and oriented to self and place but not time. She has loss of fluency, comprehension is intact for simple commands. Often getting frustrated when she cannot remember or provide history Cranial nerves:CN II: Visual lindo are full to confrontation. Pupils are equal, round and reactive to light. CN III, IV, : At primary gaze, there is no eye deviation. Extraocular movements are full.CN V: Facial sensation is intact to light touch in all 3 divisions bilaterally. CN VII: Left lower facial weakness.CN VII: Hearing is normal to finger rub.CN IX, X: Palate elevates symmetrically. Phonation is normal.CN XI: Head turning and shoulder shrug are intactCN XII: Tongue is midline with normal movements and no atrophy and no fasciculations. Motor: Muscle bulk and tone are normal. Strength is full bilaterally, 5/5 in the bilateral upper and lower extremities. Medications:Current Home MedicationshydrALAZINE (APRESOLINE) 25 MG PO BID CITALOPRAM (CeleXA) 20 MG PO DAILY MIRTAZAPINE (REMERON) 30 MG PO BEDTIME ALBUTEROL (PROVENTIL HFA 90 MCG/ACT) 1 PUFF INH RTQ4H PRN PRN SOB SERTRALINE (ZOLOFT) 100 MG PO DAILY LISINOPRIL/HCTZ (ZESTORETIC 20/25 MG) 1 TAB PO DAILY amLODIPine (NORVASC) 5 MG PO DAILY Active Meds + DC'd Last 24 HrsLorazepam 1 MG ONCE ONE IV (DC) Mirtazapine 30 MG BEDTIME PO Lorazepam 1 MG ONCE PRN IV Sodium Bicarbonate 50 MEQ SEE RATE IV (CKD) Sodium Chloride 950 MLAmlodipine Besylate 5 MG DAILY PO Aspirin 81 MG DAILY PO Atorvastatin Calcium 20 MG DAILY PO Citalopram Hydrobromide 20 MG DAILY PO Heparin Sodium (Porcine) 5,000 UNIT Q12HR SUBQ Hydralazine HCl 25 MG BID PO Acetaminophen 650 MG Q4H PRN PRN PO Ondansetron HCl 4 MG Q4H PRN PRN IV ResultsRadiology Data:Recent Impressions: MAGNETIC RESONANCE IMAGING - MRI BRAIN W/O CONTRAST 01/26 1850 Report Impression - Status: SIGNED Entered: 01/27/2019 0739 IMPRESSION: No acute intracranial abnormalities. Impression By: LorieMKW1 - Ian Campos MD I personally reviewed the MRI of the brain, there is a large amount of left parietal encephalomalacia as well as a small region of encephalomalacia in the right operculum MAGNETIC RESONANCE IMAGING - MRA NECK W/O CONT 01/27 1120 Report Impression - Status: SIGNED Entered: 01/27/2019 1200 IMPRESSION: Normal neck MRA.Impression By: PETE BotelloGNETIC RESONANCE IMAGING - MRA HEAD 01/27 1120 Report Impression - Status: SIGNED Entered: 01/27/2019 1201 IMPRESSION: Normal noncontrast MRA of the head.Impression By: Leo Mendoza MD Diagnosis, Assessment PlanFree Text A P:IMPRESSION1. Acute encephalopathy - suspect a toxic metabolic encephalopathy in view of CRUZ/CKD 2. History of CRUZ on CKD3. History of CVA (left parietal and right operculum), with residual speech disturbance4. Drug abuse - cocaine 5. Tobacco use PLAN1. Would observe for now 2. Continue aspirin and statin3. Medical management supportive care4. Counseling on cessation of tobacco and drug use Will follow at 1923 RPT #:[id number] OF REPORTPRProgress Wxyt1925-69-53G29:17:00C.[id number] Available for patient bgxlLVCBVONBFTUGVL3150-03-76M73:23:57 2019-01-27 RIkdujsgcep029316596721-92-76C20:35:00 [facility] 12:35:00 [facility] Progress NoteREPORT#:[id number] REPORT STATUS: SignedDATE:01/27/19 TIME: 1235 PATIENT: GURVINDER RUST UNIT #: [id number]#: [id number] [address]-DAYQ: [address] AGE: 43 SEX: F ATTEND: Deanna Camara [facility] AUTHOR: Kaleigh Bhatia MD * ALL edits or amendments must be made on the electronic/computer document * SubjectiveComments: feeling a little betterhas some stuttreing of words Objective GeneralVS/I O:Vital Signs: Date Time Temp Pulse Resp B/P B/P Pulse O2 O2 Flow FiO2 Mean Ox Delivery Rate 01/27 0739 36.6 86 18 133/93 106.5 93 Room air 01/27 0424 36.3 77 20 133/89 103.5 99 Room air 01/27 0040 36.4 77 20 110/74 86.1 97 Room air 01/26 2023 36.7 76 24 108/74 85.4 96 Room air 01/26 1609 36.9 80 16 132/85 100.7 97 Room air 24 hour I O ending at 0700: 01/27 0700 01/26 1900 Intake Total 50 Output Total Balance 50 Intake, Oral 50 Number 1 Bowel Movements Number Voids 1 Physical ExamGeneral appearance: alert, awakeHead/eyes: PERRLENT: moist mucous membranes, no uvular shift/swellingNeck: no JVD, no lymphadenopathy, no masses or swellingCardiovascular: pedal pulses present, no murmur, no rubRespiratory: symmetric expansion, no distressAbdomen: no distention, no guarding, no pulsatile mass, no rebound Diagnosis, Assessment PlanFree Text A P: Laboratory Tests: 01/26 01/26 01/26 0020 0020 0020 Chemistry Sodium (137 - 145 mmol/L) 140 Potassium (3.4 - 5.0 mmol/L) 4.4 Chloride (98 - 107 mmol/L) 110 H Carbon Dioxide (22 - 30 mmol/L) 15 L BUN (7 - 17 mg/dL) 51 H Creatinine (0.5 - 1.0 mg/dL) 4.6 H Glomerular Filtr Rate (>60) 11 L Glucose (74 - 106 mg/dL) 88 Lactic Acid (0.7 - 2.0 mmol/L) 0.9 Uric Acid (2.5 - 6.2 mg/dL) 9.8 H Calcium (8.4 - 10.2 mg/dL) 9.2 Magnesium (1.6 - 2.3 mg/dL) 2.2 Total Creatine Kinase (30 - 135 U/L) 132 Troponin I (0.012 - 0.033 ng/mL) < 0.012 L Vitamin B12 (239 - 931 pg/mL) 427 TSH (0.465 - 4.68 MIU/L) 2.080 01/26 0020 Chemistry Ammonia (9 - 30 umol/L) < 9 L Hematology WBC (5.0 - 12.0 x10 3/uL) 10.2 RBC (4.20 - 5.40 x10 6/uL) 4.49 Hgb (12.0 - 16.0 g/dL) 12.9 Hct (36.0 - 46.0 %) 39.1 MCV (81 - 99 fL) 87 MCH (27 - 31 pg) 28.7 MCHC (33 - 37 g/dL) 33.0 RDW (11.5 - 15.5 %) 14.3 Plt Count (130 - 400 x10 3/uL) 258 MPV (9.4 - 16.4 fL) 9.6 Neut % (Auto) (43 - 65 %) 58.0 Lymph % (Auto) (20.5 - 45.5 %) 28.3 [place] % (Auto) (5.5 - 11.7 %) 10.8 Eos % (Auto) (0.9 - 2.9 %) 1.7 Baso % (Auto) (0.2 - 1.0 %) 0.7 Neut # (Auto) (2.2 - 4.8 x10 3/uL) 5.89 H Lymph # (Auto) (1.3 - 2.9 x10 3/uL) 2.87 [place] # (Auto) (0.3 - 0.8 x10 3/uL) 1.10 H Eos # (Auto) (0.0 - 0.2 x10 3/uL) 0.17 Baso # (Auto) (0.0 - 0.1 x10 3/uL) 0.07 Immature Gran % (0.0 - 2.0 %) 0.5 Nucleated RBC % (0 - 1.0 %) 0.0 Urines Urine Color (Yellow) Yellow Urine Appearance (Clear) HAZY Urine pH (5.0 - 8.0) 5.0 Ur Specific Wilcox (<1.030) 1.010 Urine Protein (Negative mg/dL) 100 (2+) H Urine Glucose (UA) (Negative) Negative Urine Ketones (Negative mg/dL) Negative Urine Blood (Negative) 1+ H Urine Nitrite (Negative) Negative Urine Bilirubin (Negative) Negative Urine Urobilinogen (Negative mg/dL) Negative Ur Leukocyte Esterase (Negative) TRACE H Urine RBC (<4 - 5 /HPF) 0-3 Urine WBC (<4 - 5 /HPF) 11-20 H Ur Squamous Epith Cells (0 - 5 (RARE) /HPF) 6-15 (FEW) H Calcium Oxalate Crystal (None /HPF) Rare H Urine Bacteria (None - Rare /HPF) 4+ H Granular Casts (None /LPF) 0-3 H Urine Mucus (<Rare /LPF) Rare H Ur Random Creatinine (mg/dL) 91.7 Ur Random Sodium (30 - 90 mmol/L) 61 Microbiology: Date/Time Procedure - Status Source Growth 01/26 0020 MRSA Screen - RECD NASAL Assessment and pco:elvaed bun and cr, cannot rule out cruz on ckd, vs ckd progression, history is not completebut pt staes she has hx of "really poor " kdiney functoinac encephaloapthyhypvolemichypertensionhx of cva recswill order fullworkup low serum biab is cw acidosis, chagne fluids to bicarb containingcheck abgus renal pth and phoshigh risk of needing ENVIRONMENTAL PROPERTY ASSESSOR if no imrprovementand no otehr etiogoy of encephaloapthy 01/27/2019no labs availablewill order met panelencephaloapthy is a little better, able to answer year, hospital, person identificatoinstill hypovoelmic, cont iv fluidsfurther directions based on marychuy amin= at 1236 RPT #:[id number] OF REPORTPRProgress [id number]:35:00C.[id number] Available for patient ozlbERTGCCQISBSVSX2686-11-31R20:37:08 2019-01-27 [id number]:53:744061-6 [facility]00 [address] [facility] [address] [place] [address] PATIENT NAME: GURVINDER RUST ADMIT DATE: 01/25/19ACCOUNT NO: [id number] ROOM NO: [place] [address] AGE: 44 REPORT TYPE: DISCHARGE SUMMARY SEX: F ADMITTING PHYSICIAN:Deanna Camara MD ATTENDING PHYSICIAN:Deanna Camara MD ADMISSION DATE: 01/25/2019DISCHARGE DATE: 01/27/2019 01:00:00 DISCHARGE DIAGNOSES:1. Cocaine abuse with intoxication delirium.2. Encephalopathy due to above.3. Chronic kidney disease, stage IV.4. Hypertensive nephropathy.5. Essential hypertension.6. Anxiety and depression. CONSULTANTS: Dr. Garcia, neurology and Dr. Bhatia, nephrology. DIAGNOSTIC STUDIES: Urine drug screen was positive for cocaine. The MRI of thebrain, MRA of the head and neck performed were negative. REASON FOR HOSPITAL ADMISSION: This patient is a 43-year-old female with ahistory of hypertension, unknown psychiatric disorder, possible anxiety anddepression, came to this hospital Emergency Room with altered mental status.Initial evaluation was suspicious for metabolic encephalopathy. This patientwas admitted. HOSPITAL COURSE: Her urine drug screen was positive for cocaine, which was notordered in the Emergency Room. She also had elevated BUN and creatinine,possibly chronic kidney disease, stage IV due to her hypertensive nephropathy.She was seen by the jailkeeper as well. MRI of the brain was negative. MRAof the brain and MRA of the neck were also negative. It appeared that thispatient's encephalopathy is probably related to her cocaine abuse. Her Encephalopathy resolved. Subsequently, she was cleared by the neurologist and later she was discharged home. She was instructed to follow up with Dr. Bhatia in about 2 to 3 weeks' time to evaluate her chronic kidney disease further. Discharge time took more than 30 minutes. Dictated By: Deanna Camara MD WT: DS:WILLA/RODOLFO/NTSDD: 01/27/2019 11:53:32DT: 01/27/2019 12:16:41Conf#: [id number]/DID#: [id number] PATIENT NAME: GURVINDER RUST Authenticated and Edited by Deanna Camara MD On 02/03/19 3:43:25 PM at 1545 PATIENT NAME: GURVINDER RUST jqfzvfl8317-59-20W93:16:00C.[id number] AVAvailable for patient martVARJAZJHMDIKHD2871-92-93W87:45:47 2019-01-27 RTdhkcfzqvj102786766612-25-66B73:40:00 [facility] 09:40:00 [facility])Electroencephalogram-EEGREPORT#:[id number] REPORT STATUS: SignedDATE:01/27/19 TIME: 0940 PATIENT: GURVINDER RUST UNIT #: [id number]#: [id number] [address] AGE: 43 SEX: F ATTEND: Deanna Camara MDADM AUTHOR: Yennifer Garcia MD * ALL edits or amendments must be made on the electronic/computer document * Procedure ProcedureImpression/Conclusion:Date of procedure: January 26, 2019 Procedure performed: Routine EEG Clinical History: This is a 43-year-old woman with history of CKD presenting with mental status changes. EEG is obtained to assess for epileptiform abnormalities. Patient State: Awake Medications: See list Technical Description: This is a 21-channel digital EEG recording with single-channel electrocardiogram. Electrodes are placed according to the 10-20 International System. EEG Description: There is a moderate amount of electrode artifact. A posterior dominant rhythm is seen in the bilateral posterior head regions, 10 Hz, symmetric and reactive to eye opening and closure, 20 to 40 V. Drowsiness is seen with loss of the posterior dominant rhythm. There is no abnormal EEG response to photic stimulation. EKG shows a regular rhythm. Classification: normal Impression: This is a normal EEG. There are no epileptiform abnormalities or EEG seizures recorded. at 1226 RPT #:[id number] OF REPORTDIDiagnostic wixhcaz0018-41-72W69:40:00C.[id number] 6AVAvailable for patient wpjoXTPKKILAVIDSZQ3233-16-45I95:26:17 2019-01-26 SVkrolbdrsj359474028648-99-58P02:35:00 [facility] 15:35:00 [facility] NoteREPORT#:[id number] REPORT STATUS: SignedDATE:01/26/19 TIME: 1534 PATIENT: GURVINDER RUST UNIT #: [id number]#: [id number] [address]BED: [address]-PSSF: 75 AGE: 43 SEX: F ATTEND: Deanna Camara [facility] AUTHOR: Deanna Camara MD * ALL edits or amendments must be made on the electronic/computer document * Clinical NoteNote:Patient with the history of CKD was admitted for AMS and metabolic encephalopathy. Continue IVF and will monitor labs. Urine drug screen. at 1536 RPT #:[id number] OF REPORTCLClinical [id number]:35:00C.[id number] Available for patient apygWLQJEUDIJAXPLS3633-22-05W60:36:58 2019-01-26 [id number]:25:00 [facility] 14:25[facility]00 [facility] Consultation NoteREPORT#:[id number] REPORT STATUS: SignedDATE:01/26/19 TIME: 5 PATIENT: GURVINDER RUST UNIT #: [id number]#: [id number] ROOM/BED: [place] [address]HJ549-XNAP: 75 AGE: 43 SEX: F ATTEND: Deanna Camara [facility] AUTHOR: Yennifer Garcia MD * ALL edits or amendments must be made on the electronic/computer document * History of Present Illness HPIReason for consult:Altered mental statusHPI:This is a 43-year-old woman with history of hypertension and CKD presenting withmental status changes. The patient is a poor historian and so history is limited and taken from her as well as the medical record. Patient states that she was not feeling well over the last couple of days and presented to an outside hospital. She feels that she is not thinking clearly and cannot speak clearly. She cannot elaborate any further as to what she is feeling. She denies any headache vision change motor or sensory deficits. The patient tells me that she had a stroke in the past but cannot remember what side she is weak on after the stroke though she states she is weak. Patient denies starting any new medications o she cannot tell me rmissing medications recently. She cannot tell me who she lives with. History - Adult longitudinalAdditional medical history:Hypertension, CKD,? Stroke per patientAdditional family history:Positive for strokeAlcohol use: Alcohol useDrug use: Denies recreational drugsSmoking status for patients 13 years old or older: Current some day smokerAllergies:Coded Allergies:No Known Allergies (01/26/19) Review of Systems Free Text ROS NotesFree Text ROS Notes:A 12 point review of systems was obtained and negative except as mentioned in the HPI and PMH Objective Physical ExamVS:Last Documented: Result Date Time Pulse Ox 95 01/26 1154 B/P 107/75 01/26 1154 B/P Mean 85.8 01/26 1154 O2 Delivery Room air 01/26 1154 Temp 36.8 01/26 1154 Pulse 79 01/26 115 Resp 16 01/26 1154 Patient Weight Weight (lb): 274Weight (oz): 14.66Weight (kg): 124.700 General: no acute distressHEENT: head is normal cephalic, atraumaticNeck: Supple, no carotid bruits, full range of motionCVS: RRR, S1S2, no murmursRespiratory: lungs clear to auscultation bilaterallyExtremities: no edema, no deformitySkin: no rash Mental status:The patient is alert, attentive, and oriented to self and place but not time. She has loss of fluency, comprehension is intact for simple commands Cranial nerves:CN II: Visual lindo are full to confrontation. Pupils are equal, round and reactive to light. CN III, IV, : At primary gaze, there is no eye deviation. Extraocular movements are full.CN V: Facial sensation is intact to light touch in all 3 divisions bilaterally. CN VII: Left lower facial weakness.CN VII: Hearing is normal to finger rub.CN IX, X: Palate elevates symmetrically. Phonation is normal.CN XI: Head turning and shoulder shrug are intactCN XII: Tongue is midline with normal movements and no atrophy and no fasciculations. Motor: Muscle bulk and tone are normal. Strength is full bilaterally, 5/5 in the bilateral upper and lower extremities. Reflexes:Reflexes are 2+ and symmetric at the biceps, triceps, knees, and ankles. Plantarresponses are flexor. Sensory:Light touch sensation intact in the hands and feet. Coordination:There is no dysmetria on vptnzc-fb-dra. There are no abnormal or extraneous movements. Medications:Current Home MedicationshydrALAZINE (APRESOLINE) 25 MG PO BID CITALOPRAM (CeleXA) 20 MG PO DAILY MIRTAZAPINE (REMERON) 30 MG PO BEDTIME ALBUTEROL (PROVENTIL HFA 90 MCG/ACT) 1 PUFF INH RTQ4H PRN PRN SOB SERTRALINE (ZOLOFT) 100 MG PO DAILY LISINOPRIL/HCTZ (ZESTORETIC 20/25 MG) 1 TAB PO DAILY amLODIPine (NORVASC) 5 MG PO DAILY Active Meds + DC'd Last 24 HrsMirtazapine 30 MG BEDTIME PO Sodium Bicarbonate 50 MEQ SEE RATE IV (CKD) Sodium Chloride 950 MLSodium Chloride 500 ML BOLUS ONCE ONE IV (DC) Amlodipine Besylate 5 MG DAILY PO Aspirin 81 MG DAILY PO Atorvastatin Calcium 20 MG DAILY PO Citalopram Hydrobromide 20 MG DAILY PO Heparin Sodium (Porcine) 5,000 UNIT Q12HR SUBQ Hydralazine HCl 25 MG BID PO Acetaminophen 650 MG Q4H PRN PRN PO Ondansetron HCl 4 MG Q4H PRN PRN IV Sodium Chloride 1,000 ML .Q20H IV (DC) ResultsFindings/Data:Laboratory Tests 01/26 1347 Blood Gas Puncture Site R Rad ABG pH (7.35 - 7.45) 7.307 L ABG pCO2 (35 - 45 mmHg) 32.6 L ABG pO2 (80 - 90 mmHg) 95 H ABG HCO3 (22.0 - 24.0 mmol/L) 16.3 L ABG Base Excess (-2.0 - 2.0 mmol/L) -10 L Gus Test Pass Cord O2 Saturation (95 - 98 %) 97 O2 Delivery Device Room Air Laboratory Tests 01/26 01/26 01/26 01/26 0020 0020 0020 0020 Chemistry Sodium (137 - 145 mmol/L) 140 Potassium (3.4 - 5.0 mmol/L) 4.4 Chloride (98 - 107 mmol/L) 110 H Carbon Dioxide (22 - 30 mmol/L) 15 L BUN (7 - 17 mg/dL) 51 H Creatinine (0.5 - 1.0 mg/dL) 4.6 H Glomerular Filtr Rate (>60) 11 L Glucose (74 - 106 mg/dL) 88 Lactic Acid (0.7 - 2.0 mmol/L) 0.9 Uric Acid (2.5 - 6.2 mg/dL) 9.8 H Calcium (8.4 - 10.2 mg/dL) 9.2 Magnesium (1.6 - 2.3 mg/dL) 2.2 Ammonia (9 - 30 umol/L) < 9 L Total Creatine Kinase (30 - 135 U/L) 132 Troponin I (0.012 - 0.033 ng/mL) < 0.012 L Vitamin B12 (239 - 931 pg/mL) 427 TSH (0.465 - 4.68 MIU/L) 2.080 Laboratory Tests 01/26 0020 Hematology WBC (5.0 - 12.0 x10 3/uL) 10.2 RBC (4.20 - 5.40 x10 6/uL) 4.49 Hgb (12.0 - 16.0 g/dL) 12.9 Hct (36.0 - 46.0 %) 39.1 MCV (81 - 99 fL) 87 MCH (27 - 31 pg) 28.7 MCHC (33 - 37 g/dL) 33.0 RDW (11.5 - 15.5 %) 14.3 Plt Count (130 - 400 x10 3/uL) 258 MPV (9.4 - 16.4 fL) 9.6 Neut % (Auto) (43 - 65 %) 58.0 Lymph % (Auto) (20.5 - 45.5 %) 28.3 [place] % (Auto) (5.5 - 11.7 %) 10.8 Eos % (Auto) (0.9 - 2.9 %) 1.7 Baso % (Auto) (0.2 - 1.0 %) 0.7 Neut # (Auto) (2.2 - 4.8 x10 3/uL) 5.89 H Lymph # (Auto) (1.3 - 2.9 x10 3/uL) 2.87 [place] # (Auto) (0.3 - 0.8 x10 3/uL) 1.10 H Eos # (Auto) (0.0 - 0.2 x10 3/uL) 0.17 Baso # (Auto) (0.0 - 0.1 x10 3/uL) 0.07 Immature Gran % (0.0 - 2.0 %) 0.5 Nucleated RBC % (0 - 1.0 %) 0.0 Laboratory Tests 01/26 0020 Urines Urine Color (Yellow) Yellow Urine Appearance (Clear) HAZY Urine pH (5.0 - 8.0) 5.0 Ur Specific [place] (<1.030) 1.010 Urine Protein (Negative mg/dL) 100 (2+) H Urine Glucose (UA) (Negative) Negative Urine Ketones (Negative mg/dL) Negative Urine Blood (Negative) 1+ H Urine Nitrite (Negative) Negative Urine Bilirubin (Negative) Negative Urine Urobilinogen (Negative mg/dL) Negative Ur Leukocyte Esterase (Negative) TRACE H Urine RBC (<4 - 5 /HPF) 0-3 Urine WBC (<4 - 5 /HPF) 11-20 H Ur Squamous Epith Cells (0 - 5 (RARE) /HPF) 6-15 (FEW) H Calcium Oxalate Crystal (None /HPF) Rare H Urine Bacteria (None - Rare /HPF) 4+ H Granular Casts (None /LPF) 0-3 H Urine Mucus (<Rare /LPF) Rare H Ur Random Creatinine (mg/dL) 91.7 Ur Random Sodium (30 - 90 mmol/L) 61 Diagnosis, Assessment PlanFree Text DxA P Notes:IMPRESSION1. Acute encephalopathy - suspect a toxic metabolic encephalopathy in view of CRUZ/CKD however, differential also includes an acute CVA resulting in speech disturbance (loss of fluency)2. History of CRUZ on CKD3. Reported history of stroke per patient with unclear deficits4. Tobacco use PLAN1. MRI head and MRA head and neck without contrast2. 20 minute EEG3. Continue aspirin and statin3. Medical management supportive care Will follow at 1440 RPT #:[id number] OF REPO[id number]:25:00C. [id number] for patient [id number]:40:50 2019-01-26 [id number]:25:00 [facility] HCAKW 14:25:00 [facility])Neurology Consultation NoteREPORT#:[id number] REPORT STATUS: SignedDATE:01/26/19 TIME: 1425 PATIENT: GURVINDER RUST UNIT #: [id number]#: [id number] [address]F: 75 AGE: 43 SEX: F ATTEND: Deanna Camara [facility] AUTHOR: Yennifer Garcia MD * ALL edits or amendments must be made on the electronic/computer document * See AddendumHistory of Present Illness HPIReason for consult:Altered mental statusHPI:This is a 43-year-old woman with history of hypertension and CKD presenting withmental status changes. The patient is a poor historian and so history is limited and taken from her as well as the medical record. Patient states that she was not feeling well over the last couple of days and presented to an outside hospital. She feels that she is not thinking clearly and cannot speak clearly. She cannot elaborate any further as to what she is feeling. She denies any headache vision change motor or sensory deficits. The patient tells me that she had a stroke in the past but cannot remember what side she is weak on after the stroke though she states she is weak. Patient denies starting any new medications o she cannot tell me rmissing medications recently. She cannot tell me who she lives with. History - Adult longitudinalAdditional medical history:Hypertension, CKD,? Stroke per patientAdditional family history:Positive for strokeAlcohol use: Alcohol useDrug use: Denies recreational drugsSmoking status for patients 13 years old or older: Current some day smokerAllergies:Coded Allergies:No Known Allergies (01/26/19) Review of Systems Free Text ROS NotesFree Text ROS Notes:A 12 point review of systems was obtained and negative except as mentioned in the HPI and PMH Objective Physical ExamVS:Last Documented: Result Date Time Pulse Ox 95 01/26 1154 B/P 107/75 01/26 1154 B/P Mean 85.8 01/26 1154 O2 Delivery Room air 01/26 115 Temp 36.8 01/26 115 Pulse 79 01/26 1154 Resp 16 01/26 1154 Patient Weight Weight (lb): 274Weight (oz): 14.66Weight (kg): 124.700 General: no acute distressHEENT: head is normal cephalic, atraumaticNeck: Supple, no carotid bruits, full range of motionCVS: RRR, S1S2, no murmursRespiratory: lungs clear to auscultation bilaterallyExtremities: no edema, no deformitySkin: no rash Mental status:The patient is alert, attentive, and oriented to self and place but not time. She has loss of fluency, comprehension is intact for simple commands Cranial nerves:CN II: Visual lindo are full to confrontation. Pupils are equal, round and reactive to light. CN III, IV, : At primary gaze, there is no eye deviation. Extraocular movements are full.CN V: Facial sensation is intact to light touch in all 3 divisions bilaterally. CN VII: Left lower facial weakness.CN VII: Hearing is normal to finger rub.CN IX, X: Palate elevates symmetrically. Phonation is normal.CN XI: Head turning and shoulder shrug are intactCN XII: Tongue is midline with normal movements and no atrophy and no fasciculations. Motor: Muscle bulk and tone are normal. Strength is full bilaterally, 5/5 in the bilateral upper and lower extremities. Reflexes:Reflexes are 2+ and symmetric at the biceps, triceps, knees, and ankles. Plantarresponses are flexor. Sensory:Light touch sensation intact in the hands and feet. Coordination:There is no dysmetria on aiqfyu-xb-dkq. There are no abnormal or extraneous movements. Medications:Current Home MedicationshydrALAZINE (APRESOLINE) 25 MG PO BID CITALOPRAM (CeleXA) 20 MG PO DAILY MIRTAZAPINE (REMERON) 30 MG PO BEDTIME ALBUTEROL (PROVENTIL HFA 90 MCG/ACT) 1 PUFF INH RTQ4H PRN PRN SOB SERTRALINE (ZOLOFT) 100 MG PO DAILY LISINOPRIL/HCTZ (ZESTORETIC 20/25 MG) 1 TAB PO DAILY amLODIPine (NORVASC) 5 MG PO DAILY Active Meds + DC'd Last 24 HrsMirtazapine 30 MG BEDTIME PO Sodium Bicarbonate 50 MEQ SEE RATE IV (CKD) Sodium Chloride 950 MLSodium Chloride 500 ML BOLUS ONCE ONE IV (DC) Amlodipine Besylate 5 MG DAILY PO Aspirin 81 MG DAILY PO Atorvastatin Calcium 20 MG DAILY PO Citalopram Hydrobromide 20 MG DAILY PO Heparin Sodium (Porcine) 5,000 UNIT Q12HR SUBQ Hydralazine HCl 25 MG BID PO Acetaminophen 650 MG Q4H PRN PRN PO Ondansetron HCl 4 MG Q4H PRN PRN IV Sodium Chloride 1,000 ML .Q20H IV (DC) ResultsFindings/Data:Laboratory Tests 01/26 1347 Blood Gas Puncture Site R Rad ABG pH (7.35 - 7.45) 7.307 L ABG pCO2 (35 - 45 mmHg) 32.6 L ABG pO2 (80 - 90 mmHg) 95 H ABG HCO3 (22.0 - 24.0 mmol/L) 16.3 L ABG Base Excess (-2.0 - 2.0 mmol/L) -10 L Gus Test Pass Cord O2 Saturation (95 - 98 %) 97 O2 Delivery Device Room Air Laboratory Tests 01/26 01/26 01/26 01/26 0020 0020 0020 0020 Chemistry Sodium (137 - 145 mmol/L) 140 Potassium (3.4 - 5.0 mmol/L) 4.4 Chloride (98 - 107 mmol/L) 110 H Carbon Dioxide (22 - 30 mmol/L) 15 L BUN (7 - 17 mg/dL) 51 H Creatinine (0.5 - 1.0 mg/dL) 4.6 H Glomerular Filtr Rate (>60) 11 L Glucose (74 - 106 mg/dL) 88 Lactic Acid (0.7 - 2.0 mmol/L) 0.9 Uric Acid (2.5 - 6.2 mg/dL) 9.8 H Calcium (8.4 - 10.2 mg/dL) 9.2 Magnesium (1.6 - 2.3 mg/dL) 2.2 Ammonia (9 - 30 umol/L) < 9 L Total Creatine Kinase (30 - 135 U/L) 132 Troponin I (0.012 - 0.033 ng/mL) < 0.012 L Vitamin B12 (239 - 931 pg/mL) 427 TSH (0.465 - 4.68 MIU/L) 2.080 Laboratory Tests 01/26 0020 Hematology WBC (5.0 - 12.0 x10 3/uL) 10.2 RBC (4.20 - 5.40 x10 6/uL) 4.49 Hgb (12.0 - 16.0 g/dL) 12.9 Hct (36.0 - 46.0 %) 39.1 MCV (81 - 99 fL) 87 MCH (27 - 31 pg) 28.7 MCHC (33 - 37 g/dL) 33.0 RDW (11.5 - 15.5 %) 14.3 Plt Count (130 - 400 x10 3/uL) 258 MPV (9.4 - 16.4 fL) 9.6 Neut % (Auto) (43 - 65 %) 58.0 Lymph % (Auto) (20.5 - 45.5 %) 28.3 [place] % (Auto) (5.5 - 11.7 %) 10.8 Eos % (Auto) (0.9 - 2.9 %) 1.7 Baso % (Auto) (0.2 - 1.0 %) 0.7 Neut # (Auto) (2.2 - 4.8 x10 3/uL) 5.89 H Lymph # (Auto) (1.3 - 2.9 x10 3/uL) 2.87 [place] # (Auto) (0.3 - 0.8 x10 3/uL) 1.10 H Eos # (Auto) (0.0 - 0.2 x10 3/uL) 0.17 Baso # (Auto) (0.0 - 0.1 x10 3/uL) 0.07 Immature Gran % (0.0 - 2.0 %) 0.5 Nucleated RBC % (0 - 1.0 %) 0.0 Laboratory Tests 01/26 0020 Urines Urine Color (Yellow) Yellow Urine Appearance (Clear) HAZY Urine pH (5.0 - 8.0) 5.0 Ur Specific [place] (<1.030) 1.010 Urine Protein (Negative mg/dL) 100 (2+) H Urine Glucose (UA) (Negative) Negative Urine Ketones (Negative mg/dL) Negative Urine Blood (Negative) 1+ H Urine Nitrite (Negative) Negative Urine Bilirubin (Negative) Negative Urine Urobilinogen (Negative mg/dL) Negative Ur Leukocyte Esterase (Negative) TRACE H Urine RBC (<4 - 5 /HPF) 0-3 Urine WBC (<4 - 5 /HPF) 11-20 H Ur Squamous Epith Cells (0 - 5 (RARE) /HPF) 6-15 (FEW) H Calcium Oxalate Crystal (None /HPF) Rare H Urine Bacteria (None - Rare /HPF) 4+ H Granular Casts (None /LPF) 0-3 H Urine Mucus (<Rare /LPF) Rare H Ur Random Creatinine (mg/dL) 91.7 Ur Random Sodium (30 - 90 mmol/L) 61 Diagnosis, Assessment PlanFree Text DxA P Notes:IMPRESSION1. Acute encephalopathy - suspect a toxic metabolic encephalopathy in view of CRUZ/CKD however, differential also includes an acute CVA resulting in speech disturbance (loss of fluency)2. History of CRUZ on CKD3. Reported history of stroke per patient with unclear deficits4. Tobacco use PLAN1. MRI head and MRA head and neck without contrast2. 20 minute EEG3. Continue aspirin and statin3. Medical management supportive care Will follow at 1440 Addendum 1: 01/26/19 1640 by Yennifer Garcia MD UDS NOTED- POSITIVE FOR COCAINE at 1640 RPT #:[id number] OF REPORTQGUpwgelatbgye3135-51-18O13:25:00C. [id number] for patient vqxbXMMUYHAUWESUYN0531-76-82J20:40:44 2019-01-26 [id number]:38:00 [facility] 11:38:00 [facility])Nephrology Consultation NoteREPORT#:[id number] REPORT STATUS: SignedDATE:01/26/19 TIME: 1138 PATIENT: GURVINDER RUST UNIT #: [id number]#: [id number] [address]: 75 AGE: 43 SEX: F ATTEND: Deanna Camara [facility] AUTHOR: Kaleigh Bhatia MD * ALL edits or amendments must be made on the electronic/computer document * History of Present IllnessHPI: This is a case of a 43-year-old female, presentedat the [facility] ER in [place] because of altered mental status. The patient arielle poor historian. She has ahistory of hypertension, hyperlipidemia and anxiety. The patient was evaluatedin the Emergency Room. Chart reviewed. Her LFTs are unremarkable with a totalprotein of 8.5, BUN of 14 and creatinine of 5. CK is 177. Troponin is 0. UA;Nephrolgy as been cosuteld bc of high bun andcr pt report she lara a nephrolgoist last sen 6 mth ago and her kidneys are "really poor", she is unable to tell me if diaysis was dicused, hisotyr, as above, is limited, no family at bedside PAST MEDICAL HISTORY: Includes hypertension, hyperlipidemia, anxiety, old CVA. PAST SURGICAL HISTORY: . SOCIAL HISTORY: The patient is a smoker. Socially drinks alcohol. No illicitdrug. No current abuse of illicit drugs, admits to use in the past. ALLERGIES: NKDA. HOME MEDICATIONS: Reviewed and reconciled. History - Adult longitudinalSmoking status for patients 13 years old or older: Current some day smokerAllergies:Coded Allergies:No Known Allergies (01/26/19) Objective GeneralVS/I O:Vital Signs: Date Time Temp Pulse Resp B/P B/P Pulse O2 O2 Flow FiO2 Mean Ox Delivery Rate 01/26 723 36.8 78 16 116/67 83.2 97 Room air 01/25 2337 36.7 77 16 120/76 90.4 98 Room air 24 hour I O ending at 0700: 01/26 0700 01/25 1900 Intake Total Output Total Balance Patient 124.7 kg Weight Weight Bed scale Measurement Method Patient Weight Weight (lb): 274Weight (oz): 14.66Weight (kg): 124.700 Physical ExamGeneral appearance: alert, awake (confused)Head/eyes: PERRLENT: moist mucous membranes, no uvular shift/swellingNeck: no JVD, no lymphadenopathy, no masses or swellingCardiovascular: pedal pulses present, no murmur, no rubRespiratory: symmetric expansion, no distressAbdomen: no distention, no guarding, no pulsatile mass, no rebound Diagnosis, Assessment Plan Free Text DxA P NotesFree Text DxA P Notes: Laboratory Tests: 01/26 01/26 01/26 0020 0020 0020 Chemistry Sodium (137 - 145 mmol/L) 140 Potassium (3.4 - 5.0 mmol/L) 4.4 Chloride (98 - 107 mmol/L) 110 H Carbon Dioxide (22 - 30 mmol/L) 15 L BUN (7 - 17 mg/dL) 51 H Creatinine (0.5 - 1.0 mg/dL) 4.6 H Glomerular Filtr Rate (>60) 11 L Glucose (74 - 106 mg/dL) 88 Lactic Acid (0.7 - 2.0 mmol/L) 0.9 Uric Acid (2.5 - 6.2 mg/dL) 9.8 H Calcium (8.4 - 10.2 mg/dL) 9.2 Magnesium (1.6 - 2.3 mg/dL) 2.2 Total Creatine Kinase (30 - 135 U/L) 132 Troponin I (0.012 - 0.033 ng/mL) < 0.012 L Vitamin B12 (239 - 931 pg/mL) 427 TSH (0.465 - 4.68 MIU/L) 2.080 01/26 0020 Chemistry Ammonia (9 - 30 umol/L) < 9 L Hematology WBC (5.0 - 12.0 x10 3/uL) 10.2 RBC (4.20 - 5.40 x10 6/uL) 4.49 Hgb (12.0 - 16.0 g/dL) 12.9 Hct (36.0 - 46.0 %) 39.1 MCV (81 - 99 fL) 87 MCH (27 - 31 pg) 28.7 MCHC (33 - 37 g/dL) 33.0 RDW (11.5 - 15.5 %) 14.3 Plt Count (130 - 400 x10 3/uL) 258 MPV (9.4 - 16.4 fL) 9.6 Neut % (Auto) (43 - 65 %) 58.0 Lymph % (Auto) (20.5 - 45.5 %) 28.3 [place] % (Auto) (5.5 - 11.7 %) 10.8 Eos % (Auto) (0.9 - 2.9 %) 1.7 Baso % (Auto) (0.2 - 1.0 %) 0.7 Neut # (Auto) (2.2 - 4.8 x10 3/uL) 5.89 H Lymph # (Auto) (1.3 - 2.9 x10 3/uL) 2.87 [place] # (Auto) (0.3 - 0.8 x10 3/uL) 1.10 H Eos # (Auto) (0.0 - 0.2 x10 3/uL) 0.17 Baso # (Auto) (0.0 - 0.1 x10 3/uL) 0.07 Immature Gran % (0.0 - 2.0 %) 0.5 Nucleated RBC % (0 - 1.0 %) 0.0 Urines Urine Color (Yellow) Yellow Urine Appearance (Clear) HAZY Urine pH (5.0 - 8.0) 5.0 Ur Specific [place] (<1.030) 1.010 Urine Protein (Negative mg/dL) 100 (2+) H Urine Glucose (UA) (Negative) Negative Urine Ketones (Negative mg/dL) Negative Urine Blood (Negative) 1+ H Urine Nitrite (Negative) Negative Urine Bilirubin (Negative) Negative Urine Urobilinogen (Negative mg/dL) Negative Ur Leukocyte Esterase (Negative) TRACE H Urine RBC (<4 - 5 /HPF) 0-3 Urine WBC (<4 - 5 /HPF) 11-20 H Ur Squamous Epith Cells (0 - 5 (RARE) /HPF) 6-15 (FEW) H Calcium Oxalate Crystal (None /HPF) Rare H Urine Bacteria (None - Rare /HPF) 4+ H Granular Casts (None /LPF) 0-3 H Urine Mucus (<Rare /LPF) Rare H Ur Random Creatinine (mg/dL) 91.7 Ur Random Sodium (30 - 90 mmol/L) 61 Microbiology: Date/Time Procedure - Status Source Growth 01/26 0020 MRSA Screen - RECD NASAL Assessment and pco:elvaed bun and cr, cannot rule out cruz on ckd, vs ckd progression, history is not completebut pt staes she has hx of "really poor " kdiney functoinac encephaloapthyhypvolemichypertensionhx of cva recswill order fullworkup low serum biab is cw acidosis, chagne fluids to bicarb containingcheck abgus renal pth and phoshigh risk of needing ENVIRONMENTAL PROPERTY ASSESSOR if no imrprovementand no otehr etiogoy of encephaloapthyrrathcolin amin= at 1217 RPT #:[id number] OF REPORTQTQeofutfrokzs3894-08-25P93:38:00C. [id number] for patient [id number]:17:37 2019-01-26 [id number]:00:188952-2 [facility] 00:00:00 088 [facility] [id number] [place], [place] [address]y. [address] [place] [address] PATIENT NAME: GURVINDER RUST ADMIT DATE: 01/25/19ACCOUNT NO: [id number] ROOM NO: [place] [address] AGE: 44 REPORT TYPE: HISTORY AND PHYSICAL SEX: F ADMITTING PHYSICIAN:Deanna Camara MD ATTENDING PHYSICIAN:Deanna Camara MD ADMISSION DATE: 01/25/2019 PRIMARY CARE PHYSICIAN: None. CHIEF COMPLAINT: Confusion. HISTORY OF PRESENT ILLNESS: This is a case of a 43-year-old female, presentedat the [facility] ER in [place] because of altered mental status. The patient arielle poor historian. The patient reports that she is confused, has had a hard timeremembering things. This has been going on for a week now. She also claims shecannot remember her medication names, but reports she has been off hermedication for the past 2 days. She cannot remember her daughter's phonenumber. Denied any headache, fever or chills. No change in vision. She has ahistory of hypertension, hyperlipidemia and anxiety. The patient was evaluatedin the Emergency Room. Chart reviewed. Her LFTs are unremarkable with a totalprotein of 8.5, BUN of 14 and creatinine of 5. CK is 177. Troponin is 0. UA;slightly cloudy, leukocyte esterase trace. Drug screen was negative. White count is 11.4. CT of the head showed encephalomalacia with chronic infarct within the left MCA, mild chronic microvascular ischemic changes and atrophy. No evidence of acute intracranial abnormality. EKG showed sinus rhythm. Normal EKG, no ST elevation. The patient was subsequently transferred here for further evaluation and treatment. PAST MEDICAL HISTORY: Includes hypertension, hyperlipidemia, anxiety, old CVA. PAST SURGICAL HISTORY: . SOCIAL HISTORY: The patient is a smoker. Socially drinks alcohol. No illicitdrug. No current abuse of illicit drugs, admits to use in the past. ALLERGIES: NKDA. HOME MEDICATIONS: Reviewed and reconciled. REVIEW OF SYSTEMS: A 14-point review of system performed and pertinent findingas mentioned in the HPI. The patient is a very poor historian. At timesability to remember to answer questions. Complained of headache, but she cannotcharacterize the headache. Denied any visual change. Denied any dizziness,denied any neck pain. Denied fever or chills. Denied any chest pain. Deniednausea or vomiting. Denied diarrhea. PHYSICAL EXAMINATION:GENERAL: Awake and alert, oriented, not in PATIENT NAME: GURVINDER RUST respiratory distress. The patient is uncooperative. Speech is clear.VITAL SIGNS: Temp 98.1, pulse 77, RR 16, blood pressure 120/76, pulse ox 98%.HEENT: Head normocephalic and atraumatic. Pupils symmetric. No disconjugateeye movement. No obvious facial droop. Midline tongue. Normal external earand nares.NECK: Range of motion seems to be intact .CHEST AND LUNGS: Breath sounds clear anteriorly.CARDIAC: Regular rhythm.ABDOMEN: Soft.EXTREMITIES: No edema.NEUROLOGIC: The patient is not cooperative, but grossly nonfocal motor. Speechis clear and grossly intact cranial nerves. Oriented x 2, cannot remember thedate.PSYCH: Mood is appropriate.SKIN: Warm and dry, no rash. ASSESSMENT AND PLAN:1. Altered mental status, etiology not clear. We will do encephalopathicworkup. Possibly metabolic, creatinine is elevated, but we do not have anybaseline for comparison. Per the patient, she had chronic kidney disease . We will defer further imaging per Neurology. We will check ammonia level. Drug screen is negative. 2. Chronic renal failure, seems to be euvolemic. We will consult Nephrology. Ultrasound of the kidneys. Trial with cautious fluids.3. Leukocytosis, 11.4, no other systemic inflammatory response syndromecriteria. No obvious signs of infection. We will monitor for now. We willhydrate and repeat in a.m.4. Hypertension, blood pressure is controlled, the patient takes amlodipine andhydralazine, to be continued. The patient is also on lisinopril/HCTZ which shewill just hold for now due to chronic kidney disease/acute kidney injury.5. Depression, anxiety, citalopram and Remeron.6. Old cerebrovascular accident, antiplatelet.7. History of hyperlipidemia. We will check lipid profile. Further plans will depend on the patient's progress and results of her workup.I am signing off. Attending will continue the patient's care and management. Dictated By: Tess Peñaloza MD WT: HP:CCE/SANLU./NTSDD: 01/26/2019 00:00:47DT: 01/26/2019 04:27:52Conf#: [id number]/DID#: [id number] and Edited by Tess Peñaloza MD On 02/21/19 9:44:33 PM at 9300 PATIENT NAME: GURVINDER RUST and physical [id number]:27:00C.[id number] for patient [id number]:47:38 2019-01-25 [id number]:39:00 [facility] HCAKW 23:39:00 [facility] ([facility])DT History PhysicalREPORT#:[id number] REPORT STATUS: SignedDATE:01/25/19 TIME: 2339 PATIENT: GURVINDER RUST UNIT #: [id number]#: [id number] [address]: [address] AGE: 43 SEX: F ATTEND: Deanna Camara [facility] AUTHOR: Tess Peñaloza MD * ALL edits or amendments must be made on the electronic/computer document * History PhysicalHistory [id number] HPE ALT MSR/O ENCEPHA, MET CRUZ CKD HTN HLP ANXIETY at 2223 RPT #:[id number] OF REPORTHPHistory and physical [id number]:39:00C.[id number] for patient [id number]:23:23
--- NOTE | 2023-01-06 13:32 | ER ---
Nurse's Notes [facility] Name: Donna Rust Age: 47 yrs Sex: Female : 1975 Arrival Date: 01/06/2023 Time: 11:47 Bed DIS8 Private MD: Diagnosis: Disorder of teeth and supporting structures, unspecified Presentation: 01/06 12:09 Chief complaint: Patient states: left sided tooth pain onset Monday. Pt states that cm10 she is not sure if she is having pain on the top or bottom of her mouth. Coronavirus screen: Vaccine status: Patient reports being unvaccinated. Client denies travel out of the [place] in the last 14 days. Ebola Screen: Patient denies travel to an Ebola-affected area in the 21 days before illness onset. No symptoms or risks identified at this time. Initial Sepsis Screen: Does the patient meet any 2 criteria? No. Patient's initial sepsis screen is negative. Does the patient have a suspected source of infection? No. Patient's initial sepsis screen is negative. Risk Assessment: Do you want to hurt yourself or someone else? Patient reports no desire to harm self or others. Onset of symptoms was January 06, 2023. 12:09 Method Of Arrival: Ambulatory cm10 12:09 Acuity: TON 4 cm10 Triage Assessment: 12:15 General: Appears in no apparent distress. comfortable, Behavior is calm, cooperative. cm10 Pain: Complains of pain in teeth on upper left side. EENT: Reports pain in Teeth on upper left side. Neuro: No deficits noted. Rai Agitation-Sedation Scale (RASS): 0 - Alert and Calm Level of Consciousness is awake, alert, obeys commands, Oriented to person, place, time, situation. Cardiovascular: No deficits noted. Patient's skin is warm and dry. Respiratory: No deficits noted. Airway is patent Respiratory effort is even, unlabored, Respiratory pattern is regular, symmetrical. Derm: No deficits noted. Skin is intact, Skin is pink, warm \T\ dry. Historical: - Allergies: 12:09 Red Dye; cm10 - PMHx: 12:09 CVA; Hypertension; cm10 - Immunization history:: Adult Immunizations unknown. - Social history:: Smoking status: Patient denies any tobacco usage or history of. Screenin:15 [facility] ED Fall Risk Assessment (Adult) History of falling in the last 3 months, cm10 including since admission No falls in past 3 months (0 pts) Confusion or Disorientation No (0 pts) Intoxicated or Sedated No (0 pts) Impaired Gait No (0 pts) Mobility Assist Device Used No (0 pt) Altered Elimination No (0 pt) Score/Fall Risk Level 0 - 2 = Low Risk Oriented to surroundings, Maintained a safe environment, Hourly rounding (assess needs \T\ fall precautionary measures) done. Abuse screen: Denies threats or abuse. Denies injuries from another. Nutritional screening: No deficits noted. Tuberculosis screening: No symptoms or risk factors identified. Assessment: 13:00 General: Appears uncomfortable, Behavior is agitated, anxious. Pain: Complains of pain kb3 in upper right second molar, upper right first molar, upper right second bicuspid, upper left second bicuspid, upper left first molar, upper left second molar, lower left third molar, lower left second molar, lower left first molar, lower right first molar, lower right second molar and lower right third molar. EENT: Poor dentition noted. Dental caries noted in upper right third molar (#1), upper right second molar (#2), upper right first molar (#3), upper left first molar (#14), upper left second molar (#15), upper left third molar (#16), lower left third molar (#17), lower left second molar (#18), lower left first molar (#19), lower right first molar (#30), lower right second molar (#31) and lower right third molar (#32). Vital Signs: 12:09 BP 174 / 99; Pulse 80; Resp 18; Temp 97.7; Pulse Ox 99% on R/A; Weight 113.4 kg; Height cm10 5 ft. 5 in. ; Pain 10/10; 12:09 Body Mass Index 41.60 (113.40 kg, 165.1 cm) cm10 12:09 Pain Scale: Adult cm10 ED Course: 11:51 Patient arrived in ED. mg5 11:51 Nathan Woodson PA is PHCP. cp 11:51 Timbo Gomez MD is Attending Physician. cp 12:11 Triage completed. cm10 12:11 Arm band placed on Patient placed in waiting room. cm10 12:15 Patient has correct armband on for positive identification. Provided Education on: ER cm10 process and procedures. . Cardiac monitoring not applicable on this patient. 12:15 No provider procedures requiring assistance completed. Patient did not have IV access cm10 during this emergency room visit. 13:31 Shady Blackburn DDS is Referral Physician. cp Administered Medications: 14:20 Drug: morphine IM 4 mg IM once Route: IM; Site: left ventrogluteal; kb3 14:20 Drug: Clindamycin PO 300 mg PO once Route: PO; kb3 14:27 Not Given (Patient Refused; States she cannot take anti-inflammatories because of her kb3 kidneyss): [id number] mg IM once Medication: 12:15 VIS not applicable for this client. cm10 Outcome: 13:31 Discharge ordered by MD. cp 14:30 Discharged to home ambulatory, kb3 14:30 Condition: stable kb3 14:30 Discharge instructions given to patient, Instructed on discharge instructions, follow up and referral plans. medication usage, Demonstrated understanding of instructions, follow-up care, medications, Prescriptions given X 1, 18:45 Patient left the ED. kb3 Signatures: Nathan Woodson PA PA cp Geraldine Villegas, RN RN kb3 Christine Bauer, RN RN cm10 Zaina Grigsby mg5
--- NOTE | 2023-01-06 13:32 | EDPHYS ---
Physician Documentation [facility] Name: Donna Rust Age: 47 yrs Sex: Female : 1975 Arrival Date: 01/06/2023 Time: 11:47 Bed DIS8 Private MD: ED Physician Timbo Gomez HPI: 01/06 12:35 This 47 yrs old Female presents to ER via Ambulatory with complaints of cp Toothache. 12:35 The patient presents with pain. The problem is located in the left upper and left lower cp jaw. 12:35 Onset: The symptoms/episode began/occurred 2 day(s) ago. cp 12:35 Duration: The symptoms are continuous, and are steadily getting worse. Associated signs cp and symptoms: Pertinent negatives: dysphagia, fever, facial swelling. Severity of symptoms: in the emergency department the symptoms are unchanged, despite home interventions. Historical: - Allergies: 12:09 Red Dye; cm10 - PMHx: 12:09 CVA; Hypertension; cm10 - Immunization history:: Adult Immunizations unknown. - Social history:: Smoking status: Patient denies any tobacco usage or history of. ROS: 12:40 Constitutional: Negative for body aches, chills, fever, poor PO intake, cp 12:40 Eyes: Negative for injury, pain, redness, and discharge, cp 12:40 ENT: Positive for dental pain, Negative for drainage from ear(s), ear pain, sore throat, difficulty swallowing, difficulty handling secretions, 12:40 Neck: Negative for pain with movement, pain at rest, swelling, 12:40 Cardiovascular: Negative for chest pain, 12:40 Abdomen/GI: Negative for abdominal pain, vomiting, diarrhea, constipation, anorexia, 12:40 Neuro: Positive for headache, 12:40 All other systems are negative, Exam: 12:45 Constitutional: The patient appears in no acute distress, alert, awake, non-toxic, well cp developed, well nourished, obese, uncomfortable, 12:45 Head/Face: Normocephalic, atraumatic. cp 12:45 Eyes: Periorbital structures: appear normal, Conjunctiva: normal, no exudate, no injection, Sclera: no appreciated abnormality, Lids and lashes: appear normal, bilaterally, 12:45 ENT: External ear(s): are unremarkable, Nose: is normal, Mouth: Lips: moist, Oral mucosa: pink and intact, moist, Tongue: is normal, Posterior pharynx: Airway: no evidence of obstruction, patent, erythema, is not appreciated, exudate, is not appreciated, Dental exam: abscess, is not appreciated, dental caries, that is severe, diffusely, fractured teeth are noted, diffusely, pain, that is moderate, specifically in the left upper jaw and left lower jaw, Voice: is normal, 12:45 Neck: ROM/movement: is normal, is supple, no meningismus, no nuchal rigidity, 12:45 Chest/axilla: Inspection: normal, 12:45 Cardiovascular: Rate: normal, 12:45 Respiratory: the patient does not display signs of respiratory distress, Respirations: normal, no use of accessory muscles, no retractions, Vital Signs: 12:09 BP 174 / 99; Pulse 80; Resp 18; Temp 97.7; Pulse Ox 99% on R/A; Weight 113.4 kg; Height cm10 5 ft. 5 in. ; Pain 10; 12:09 Body Mass Index 41.60 (113.40 kg, 165.1 cm) cm10 12:09 Pain Scale: Adult cm10 MDM: 12:11 Patient medically screened. cp 12:45 Differential diagnosis: dental caries, dental abscess, pericoronitis, gingivostomatitis.cp 13:30 Data reviewed: vital signs, nurses notes. cp 13:30 Test considered but Not performed: CT: facial bones. Care significantly affected by the cp following chronic conditions: Hypertension, Obesity. Counseling: I had a detailed discussion with the patient and/or guardian regarding the historical points, exam findings, and any diagnostic results supporting the discharge/admit diagnosis, the need for outpatient follow up, for definitive care, maxillary/facial, to return to the emergency department if symptoms worsen or persist or if there are any questions or concerns that arise at home. Administered Medications: 14:20 Drug: morphine IM 4 mg IM once Route: IM; Site: left ventrogluteal; kb3 14:20 Drug: Clindamycin PO 300 mg PO once Route: PO; kb3 14:27 Not Given (Patient Refused; States she cannot take anti-inflammatories because of her kb3 kidneyss): [id number] mg IM once Disposition Summary: 01/06/23 13:31 Discharge Ordered Notes: Location: Home cp Problem: new cp Symptoms: have improved cp Condition: Stable cp Diagnosis - Disorder of teeth and supporting structures, unspecified cp Followup: cp - With: Shady Blackburn DDS - When: 1 week - Reason: Recheck today's complaints Discharge Instructions: - Discharge Summary Sheet cp - Dental Pain cp Forms: - Medication Reconciliation Form cp - Thank You Letter cp - Antibiotic Education cp - Prescription Opioid Use cp - Patient Portal Instructions cp - Leadership Thank You Letter cp Prescriptions: - Clindamycin HCl 300 mg Oral Capsule - take 1 capsule ORAL route every 6 hours for 10 days; 40 capsule; Refills: 0, cp Product Selection Permitted - Diclofenac Sodium 75 mg Oral Tablet Sustained Release - take 1 tablet ORAL route 2 times per day; 30 tablet; Refills: 0, Product cp Selection Permitted Signatures: Nathan Woodson PA PA cp Bradberry, Kelly, RN RN kb3 Christine Bauer RN RN cm10
[2023-01-06] MEDS ORDERED: MORPHINE 4 MG/ML SYR ONE (14:28)
[2023-01-06] MEDS ORDERED: KETOROLAC 30 MG/ML INJ ONE (14:29)
[2023-01-06 20:28] VITALS: BP 174/99; TEMP 97.7; O2SAT 99
== END 2023-01-06 18:45 | disposition home or self-care (01) ==
LOC: ER 11:47
DX: K08.89 Other specified disorders of teeth and supporting structures (principal)
CPT/HCPCS: 96372; 99284

== ENCOUNTER 2023-05-02 03:22 | Inpatient (IN) | payer OTHER ==
[2023-05-02] MEDS ORDERED: LORazepam 2 MG/ML VIAL ONE ×2 (03:56→14:36)
[2023-05-02 03:57] LABS: Absolute Basophils 0.1 K/uL (0-0.5); Absolute Lymphocytes (CBC) 1.6 K/uL (0.7-4.9); Absolute Monocytes 0.6 K/uL (0.1-1.3); Absolute Neutrophil 7.6 K/uL (1.8-8.0); Basophils % 0.8 % (0-1.3); Eosinophils % 0.3 % (0-4.4); Hematocrit 42.1 % (36.0-45.0); Hemoglobin 14.5 g/dL (12.0-15.0); Lymphocytes % 16.2 % (15.3-44.8); MCH 30.3 pg (27.0-35.0); MCHC 34.4 g/dL (32.0-36.0); MCV 88.1 fL (80-100); Monocytes % 6.3 % (3.3-12.3); Neutrophils % 76.4 % (41.7-73.7); Nucleated Red Blood Cells % 0.1 % (0-0); Platelets 273 thou/uL (152-406); RBC Red Blood Cell Count 4.78 M/uL (3.86-4.86); Red Cell Distribution Width 14.1 % (12.1-15.2)
[2023-05-02 04:00] LABS: PT Prothrombin Time 11.2 SECONDS (9.5-12.5); Protime INR 1.02
[2023-05-02] MEDS ORDERED: FAMOTIDINE 20 MG/2 ML VIAL IV ONE (04:09)
[2023-05-02] MEDS ORDERED: ASPIRIN 81 MG CHEWABLE TABLET ONE (04:09)
[2023-05-02] MEDS ORDERED: NA CHLORIDE 0.9% 1,000 ML ONE (04:10)
[2023-05-02 04:27] LABS: Albumin/Globulin Ratio 0.8 (1.1-1.8); Anion Gap 13.7 mEq/L (5.0-15.0); Bilirubin Direct 0.2 mg/dL (0-0.2); Bilirubin Indirect, Calculated 0.4 mg/dL (0.2-0.8); Bilirubin Total 0.6 mg/dL (0.2-1.0); Globulin 4.8 g/dL (2.3-3.5); Magnesium 1.9 mg/dL (1.6-2.4); Potassium 3.7 mEq/L (3.5-5.1); Protein, Total 8.8 g/dL (6.4-8.2)
[2023-05-02 04:31] LABS: Troponin High Sensitivity 344.6 pg/mL (<58.9)
[2023-05-02 04:36] LABS: Arterial Blood Carboxyhemoglob 0.8 % (0-1.5); Blood Gas Oxyhemoglobin 43.1 % (94-97); Blood Gas THB 14.2 g/dl (12-18); Blood O2 Saturation 44.3 % (92-98.5)
--- NOTE | 2023-05-02 04:38 | ER ---
Nurse's Notes [facility] Name: Donna Rust Age: 48 yrs Sex: Female : 1975 Arrival Date: 05/02/2023 Time: 03:22 Bed 5 Private MD: Diagnosis: Non ST elevation PR;Chest pain, unspecified;Acute kidney failure, unspecified-on chronic;Essential (primary) hypertension;Cardiomegaly;Cocaine abuse;Retention of urine, unspecified Presentation: 05/01 03:30 Chief complaint: Patient states: EPIGASTRIC PAIN AND ANXIETY STARTED [address] [facility] Coronavirus screen: At this time, the client does not indicate any symptoms associated with coronavirus-19. Ebola Screen: No symptoms or risks identified at this time. Initial Sepsis Screen: Does the patient meet any 2 criteria? No. Patient's initial sepsis screen is negative. Does the patient have a suspected source of infection? No. Patient's initial sepsis screen is negative. Risk Assessment: Do you want to hurt yourself or someone else? Patient reports no desire to harm self or others. Onset of symptoms was May 02, 2023. 03:30 Method Of Arrival: Ambulatory [facility] 03:30 Acuity: TON 3 j Triage Assessment: 03:30 General: Appears distressed, uncomfortable, Behavior is cooperative, appropriate for [facility] age, anxious. Pain: Complains of pain in epigastric area. Neuro: Level of Consciousness is awake, alert, obeys commands, Oriented to person, place, time, situation, Appropriate for age Disc Ruler Operator are equal bilaterally Reports PT'S IS A\T\OX 3 BUT APPEARS TO BE HAVING DIFFICULTY WITH GETTING HER WORDS OUT POSSIBLE ASPHASIA. Respiratory: No deficits noted. Reports shortness of breath Airway is patent Respiratory effort is even, unlabored, Respiratory pattern is regular, symmetrical, Onset: The symptoms/episode began/occurred just prior to arrival, the patient has mild shortness of breath. Historical: - Allergies: 07:50 Red Dye; ph - PMHx: 07:50 CVA; Hypertension; ph - Immunization history:: Client reports having NOT received the Covid vaccine. Flu vaccine is not up to date. - Social history:: Smoking status: Reported history of juuling and/or vaping. Patient uses alcohol, weekly. street drugs, cocaine. Screenin:30 [facility] ED Fall Risk Assessment (Adult) History of falling in the last 3 months, jj7 including since admission No falls in past 3 months (0 pts) Confusion or Disorientation No (0 pts) Intoxicated or Sedated No (0 pts) Impaired Gait No (0 pts) Mobility Assist Device Used No (0 pt) Altered Elimination No (0 pt) Score/Fall Risk Level 0 - 2 = Low Risk Oriented to surroundings, Maintained a safe environment, Educated pt \T\ family on fall prevention, incl call for assistance when getting out of bed. Abuse screen: Denies threats or abuse. Nutritional screening: No deficits noted. Tuberculosis screening: No symptoms or risk factors identified. Assessment: 06:05 Cardiovascular: Rhythm is regular. Respiratory: Airway is patent Breath sounds are rv clear bilaterally. Vital Signs: 03:30 BP 160 / 96; Pulse 87; Resp 15; Temp 96.7; Pulse Ox 100% on R/A; Weight 113.4 kg; jj7 Height 5 ft. 3 in. ; Pain 5/10; 04:48 BP 139 / 101; Pulse 70; Resp 20; Pulse Ox 100% on R/A; rv 04:59 BP 129 / 82; rv 03:30 Body Mass Index 44.29 (113.40 kg, 160.02 cm) jj7 03:30 Pain Scale: Adult jj7 ED Course: 03:23 Patient arrived in ED. jj6 03:23 Nathan العراقي MD is Attending Physician. [facility] 03:30 Arm band placed on right wrist. Patient placed in an exam room, on a stretcher, on jj7 labor and delivery nurse, on pulse oximetry. EKG completed in triage. Results shown to . 03:30 Patient has correct armband on for positive identification. Placed in gown. Bed in low jj7 position. Side rails up X2. Client placed on continuous cardiac and pulse oximetry monitoring. NIBP monitoring applied. breakfast manager on. 03:30 EKG done, by technician automatic. reviewed by Nathan العراقي MD. oe 03:40 Inserted saline lock: 20 gauge in right antecubital area, using aseptic technique. oe 03:41 Triage completed. jj7 03:50 Initial lab(s) drawn, by me, sent to lab. oe 03:55 XRAY Chest (1 view) In Process Unspecified. EDMS 03:57 Basic Metabolic Panel Sent. oe 03:57 CBC with Diff Sent. oe 03:57 D-Dimer Sent. oe 03:57 LFT's Sent. oe 03:58 Magnesium Sent. oe 03:58 NT PRO-BNP Sent. oe 03:58 PT-INR Sent. oe 03:58 Troponin HS Sent. oe 04:09 US Abdomen Limited In Process Unspecified. EDMS 04:27 Flu Sent. as9 04:27 SARS RAPID Sent. as9 04:35 Alfredo Weller MD is Hospitalizing Provider. bruce 05:00 No provider procedures requiring assistance completed. Inserted saline lock: 20 gauge rv in left hand, using aseptic technique. 05:08 US Extremity Venous W Compression [place] In Process Unspecified. EDMS 05:17 CT Chest Abdomen Pelvis W/O Contrast In Process Unspecified. EDMS 06:05 Patient admitted, IV remains in place. rv 07:08 Troponin High Sensitivity: 530 am Sent. as9 07:13 EKG done, by technician automatic. reviewed by Nathan العراقي MD. oe 07:58 Diet: Patient given a regular meal tray. bd Administered Medications: 04:00 Drug: Aspirin PO 162 mg PO once Route: PO; rv 06:06 Follow up: Response: No adverse reaction rv 04:02 Drug: Ativan IVP 1 mg IVP once Route: IVP; Site: right antecubital; rv 06:06 Follow up: Response: No adverse reaction; Marked relief of symptoms rv 04:15 Drug: NS 0.9% IV 1000 ml IV at 1 bolus Per protocol; 1000 mL bolus Route: IV; Rate: 1 rv bolus; Site: right antecubital; 06:06 Follow up: IV Status: Completed infusion; IV Intake: 1000ml rv 04:15 Drug: Famotidine IVP 20 mg IVP once; dilute with 10 mL 0.9% NaCl; give over 2 minutes rv Route: IVP; Site: right antecubital; 06:06 Follow up: Response: No adverse reaction rv 04:34 CANCELLED (Duplicate Order): enoxaparin1 mg/kg Sub-Q once bruce 05:01 Not Given (NOT APPROPRIATE AT THIS TIEMe): mg PO once rv 05:30 Drug: Heparin (PR-Bolus No thrombolytic) - HEParin IVP 60 units/kg IVP once; Max 5000 as9 units {Co-Signature: rv (Dre Doe RN).} Route: IVP; Site: left hand; 06:06 Follow up: Response: No adverse reaction rv 05:30 Drug: Heparin (PR Drip) 12 units/kg/hr - ([place] [address] units, D5W IV 500 ml) IV at as9 calculated rate Per protocol; Max initial rate 1000 units/hr {Co-Signature: rv (Dre Doe RN).} Route: IV; Rate: calculated rate; Site: left hand; 06:05 Follow up: IV Status: Infusion continued upon admission rv Medication: 03:30 VIS not applicable for this client. jj7 Intake: 06:06 IV: 1000ml; Total: 1000ml. rv Outcome: 04:36 Decision to Hospitalize by Provider. bruce 06:05 Admitted to ER Hold. [facility]. rv 06:05 Condition: good 06:05 Instructed on the need for admit, 16:51 Patient left the ED. ph Signatures: Dispatcher [employer] EDMS Hina Mondragon Corey, MD MD cha Hall, Patricia, RN RN ph Mushtaq Horn Dre Doe, RN RN rv Lizeth Dougherty jj6 Lior Dangelo RN RN jj7 Pramod Stanton RN RN as9 Dre Doe RN rv
--- NOTE | 2023-05-02 04:38 | EDPHYS ---
Physician Documentation [facility] Name: Donna Rust Age: 48 yrs Sex: Female : 1975 Arrival Date: 05/02/2023 Time: 03:22 Bed 5 Private MD: ED Physician Nathan العراقي HPI: 05/01 03:43 This 48 yrs old Female presents to ER via Ambulatory with complaints of bruce Shortness Of Breath, Anxiety. 03:43 The patient has shortness of breath at rest, with light activity. Onset: The bruce symptoms/episode began/occurred 1 day(s) ago. Duration: The symptoms are intermittent, with no pattern. The patient's shortness of breath is aggravated by nothing, is alleviated by nothing. Severity of symptoms: At their worst the symptoms were mild in the emergency department the symptoms are unchanged. The patient has not experienced similar symptoms in the past. Historical: - Allergies: 07:50 Red Dye; ph - PMHx: 07:50 CVA; Hypertension; ph - Immunization history:: Client reports having NOT received the Covid vaccine. Flu vaccine is not up to date. - Social history:: Smoking status: Reported history of juuling and/or vaping. Patient uses alcohol, weekly. street drugs, cocaine. ROS: 03:44 Constitutional: Negative for fever, chills, and weight loss, Eyes: Negative for injury, bruce pain, redness, and discharge, ENT: Negative for injury, pain, and discharge, Neck: Negative for injury, pain, and swelling, Back: Negative for injury and pain, : Negative for injury, bleeding, discharge, and swelling, MS/Extremity: Negative for injury and deformity, Skin: Negative for injury, rash, and discoloration, Neuro: Negative for headache, weakness, numbness, tingling, and seizure, Psych: Negative for depression, anxiety, suicide ideation, homicidal ideation, and hallucinations, Allergy/Immunology: Negative for hives, rash, and allergies, Endocrine: Negative for neck swelling, polydipsia, polyuria, polyphagia, and marked weight changes, Hematologic/Lymphatic: Negative for swollen nodes, abnormal bleeding, and unusual bruising, 03:44 Cardiovascular: Positive for chest pain, 03:44 Respiratory: Positive for shortness of breath, 03:44 Abdomen/GI: Positive for abdominal pain, Exam: 03:44 Constitutional: This is a well developed, well nourished patient who is awake, alert, bruce and in no acute distress. Head/Face: Normocephalic, atraumatic. Eyes: Pupils equal round and reactive to light, extra-ocular motions intact. Lids and lashes normal. Conjunctiva and sclera are non-icteric and not injected. Cornea within normal limits. Periorbital areas with no swelling, redness, or edema. ENT: Nares patent. No nasal discharge, no septal abnormalities noted. Tympanic membranes are normal and external auditory canals are clear. Oropharynx with no redness, swelling, or masses, exudates, or evidence of obstruction, uvula midline. Mucous membranes moist. Neck: Trachea midline, no thyromegaly or masses palpated, and no cervical lymphadenopathy. Supple, full range of motion without nuchal rigidity, or vertebral point tenderness. No Meningismus. Chest/axilla: Normal chest wall appearance and motion. Nontender with no deformity. No lesions are appreciated. Cardiovascular: Regular rate and rhythm with a normal S1 and S2. No gallops, murmurs, or rubs. Normal PMI, no JVD. No pulse deficits. Respiratory: Lungs have equal breath sounds bilaterally, clear to auscultation and percussion. No rales, rhonchi or wheezes noted. No increased work of breathing, no retractions or nasal flaring. Abdomen/GI: Soft, non-tender, with normal bowel sounds. No distension or tympany. No guarding or rebound. No evidence of tenderness throughout. Back: No spinal tenderness. No costovertebral tenderness. Full range of motion. Skin: Warm, dry with normal turgor. Normal color with no rashes, no lesions, and no evidence of cellulitis. MS/ Extremity: Pulses equal, no cyanosis. Neurovascular intact. Full, normal range of motion. Neuro: Awake and alert, GCS 15, oriented to person, place, time, and situation. Cranial nerves II-XII grossly intact. Motor strength 5/5 in all extremities. Sensory grossly intact. Cerebellar exam normal. Normal gait. Psych: Awake, alert, with orientation to person, place and time. Behavior, mood, and affect are within normal limits. 03:44 ECG was reviewed by the Attending Physician. 07:12 ECG was reviewed by the Attending Physician. [facility] Vital Signs: 03:30 BP 160 / 96; Pulse 87; Resp 15; Temp 96.7; Pulse Ox 100% on R/A; Weight 113.4 kg; jj7 Height 5 ft. 3 in. ; Pain 5/10; 04:48 BP 139 / 101; Pulse 70; Resp 20; Pulse Ox 100% on R/A; rv 04:59 BP 129 / 82; rv 03:30 Body Mass Index 44.29 (113.40 kg, 160.02 cm) [facility] 03:30 Pain Scale: Adult jj7 MDM: 03:24 Patient medically screened. bruce 03:48 Differential diagnosis: Anxiety Reaction asthma, CHF exacerbation, abnormal EKG, acute bruce pericarditis, anxiety, coronary artery disease chest wall pain, Cholelithiasis costochondritis, esophagitis, gastritis, hiatal hernia, peptic ulcer disease, pneumonia, pulmonary embolus, pneumonia, Pneumothorax pulmonary edema, Pulmonary Embolism reactive airway disease, Unstable Angina diverticulitis, gastritis, myocardia ischemia or infarction, pancreatitis, urinary tract infection. Antibiotic administration: Not indicated. Data reviewed: vital signs, nurses notes, lab test result(s), EKG, radiologic studies, plain films. 05/01 03:24 Order name: Basic Metabolic Panel; Complete Time: 04: [facility] 05/01 03:24 Order name: CBC with Diff; Complete Time: 04:28 [facility] 05/01 03:24 Order name: D-Dimer; Complete Time: 04:28 [facility] 05/01 03:24 Order name: LFT's; Complete Time: 04: [facility] 05/01 03:24 Order name: Magnesium; Complete Time: 04: [facility] 05/01 03:24 Order name: NT PRO-BNP; Complete Time: 04: [facility] 05/01 03:24 Order name: PT-INR; Complete Time: 04:28 [facility] 05/01 03:24 Order name: Troponin HS; Complete Time: 04:31 [facility] 05/01 03:24 Order name: Urinalysis w/ reflexes 05/01 03:24 Order name: ABG [facility] 05/01 03:25 Order name: UDS [facility] 05/01 03:36 Order name: SARS RAPID [facility] 05/01 03:36 Order name: Flu [facility] 05/01 03:39 Order name: PREGU [facility] 05/01 03:53 Order name: Troponin High Sensitivity: 530 am [facility] 05/01 03:56 Order name: Lipase; Complete Time: 04:31 EDMS 05/01 05:33 Order name: Urinalysis w/ reflexes EDMS 05/01 05:33 Order name: Comprehensive Metabolic Panel EDMS 05/01 05:33 Order name: Comprehensive Metabolic Panel EDMS 05/01 05:33 Order name: Comprehensive Metabolic Panel EDMS 05/01 05:33 Order name: Comprehensive Metabolic Panel EDMS 05/01 05:33 Order name: Troponin High Sensitivity EDMS 05/01 05:33 Order name: Troponin High Sensitivity EDMS 05/01 05:33 Order name: Troponin High Sensitivity EDMS 05/01 05:33 Order name: Troponin High Sensitivity EDMS 05/01 09:37 Order name: Ptt, Activated ph 05/01 10:09 Order name: PTT, Activated Partial Thromb EDKY 05/01 14:11 Order name: Ptt, Activated ph 05/01 16:27 Order name: PTT, Activated Partial Thromb EDKY 05/01 03:24 Order name: XRAY Chest (1 view) [facility] 05/01 03:40 Order name: US Abdomen Limited [facility] 05/01 04:29 Order name: US Extremity Venous W Compression [place] [facility] 05/01 04:34 Order name: CT Chest Abdomen Pelvis W/O Contrast [facility] 05/01 03:24 Order name: EKG; Complete Time: 03:25 [facility] 05/01 03:53 Order name: EKam; Complete Time: 03:54 [facility] 05/01 03:24 Order name: Cardiac monitoring; Complete Time: 03:57 [facility] 05/01 03:24 Order name: EKG - Nurse/Tech; Complete Time: 03:57 [facility] 05/01 03:24 Order name: IV Saline Lock; Complete Time: 03:57 [facility] 05/01 03:24 Order name: Labs collected and sent; Complete Time: 03:57 [facility] 05/01 03:24 Order name: O2 Per Protocol; Complete Time: 04:03 [facility] 05/01 03:24 Order name: O2 Sat Monitoring; Complete Time: 04:03 [facility] 05/01 03:53 Order name: EKG - Nurse/Tech; Complete Time: 03:57 [facility] 05/01 06:30 Order name: Chester: note pvr; Complete Time: 08:25 [facility] 05/01 07:20 Order name: Labs - recollect needed: recollect tropin; Complete Time: 11:54 bd 05/01 15:14 Order name: Labs - recollect needed: recollect pt bd EC:44 Rate is 85 beats/min. Rhythm is regular. QRS [place] is Normal. DC interval is normal. QRS bruce interval is normal. QT interval is normal. No Q waves. T waves are Normal. ST Segment is depressed in leads II, III, aVF, V5, V6. Clinical impression: Abnormal EKG without significant change and No evidence of ischemia. Interpreted by me. Reviewed by me. 07:12 Rate is 73 beats/min. Rhythm is regular. QRS [place] is Normal. DC interval is prolonged bruce at 214 msec. QRS interval is normal. QT interval is normal. No Q waves. T waves are Normal. No ST changes noted. Clinical impression: 1st degree heart block and No evidence of ischemia. Interpreted by me. Reviewed by me. Administered Medications: 04:00 Drug: Aspirin PO 162 mg PO once Route: PO; rv 06:06 Follow up: Response: No adverse reaction rv 04:02 Drug: Ativan IVP 1 mg IVP once Route: IVP; Site: right antecubital; rv 06:06 Follow up: Response: No adverse reaction; Marked relief of symptoms rv 04:15 Drug: NS 0.9% IV 1000 ml IV at 1 bolus Per protocol; 1000 mL bolus Route: IV; Rate: 1 rv bolus; Site: right antecubital; 06:06 Follow up: IV Status: Completed infusion; IV Intake: 1000ml rv 04:15 Drug: Famotidine IVP 20 mg IVP once; dilute with 10 mL 0.9% NaCl; give over 2 minutes rv Route: IVP; Site: right antecubital; 06:06 Follow up: Response: No adverse reaction rv 04:34 CANCELLED (Duplicate Order): enoxaparin1 mg/kg Sub-Q once bruce 05:01 Not Given (NOT APPROPRIATE AT THIS TIEMe): [id number] mg PO once rv 05:30 Drug: Heparin (IL-Bolus No thrombolytic) - HEParin IVP 60 units/kg IVP once; Max 5000 as9 units {Co-Signature: rv (Dre Doe RN).} Route: IVP; Site: left hand; 06:06 Follow up: Response: No adverse reaction rv 05:30 Drug: Heparin ([place] Drip) 12 units/kg/hr - ([place] [address] units, D5W IV 500 ml) IV at as9 calculated rate Per protocol; Max initial rate 1000 units/hr {Co-Signature: rv (Dre Doe RN).} Route: IV; Rate: calculated rate; Site: left hand; 06:05 Follow up: IV Status: Infusion continued upon admission rv Disposition Summary: 05/02/23 04:36 Hospitalization Ordered Notes: Hospitalization Status: Inpatient Admission bruce Provider: Alfredo Weller cha Condition: Fair bruce Problem: new bruce Symptoms: have improved bruce Bed/Room Type: Standard bruce Location: Telemetry/MedSurg (Inpatient)(05/02/23 15:14) [facility] Room Assignment: [facility](05/02/23 15:14) [facility] Diagnosis - Non ST elevation [place] bruce - Chest pain, unspecified bruce - Acute kidney failure, unspecified - on chronic bruce - Essential (primary) hypertension bruce - Cardiomegaly bruce - Cocaine abuse bruce - Retention of urine, unspecified bruce Discharge Instructions: - Discharge Summary Sheet bruce - Abdominal Pain, Adult bruce - Nonspecific Chest Pain, Adult bruce - Cocaine Use Disorder bruce - Obesity, Adult bruce - Substance Use Disorder bruce - Abdominal Pain, Adult, Jghk-wg-Lyic bruce - Nonspecific Chest Pain, Adult, Gvze-[id number] bruce - Aspirin and Your Heart bruce - Substance Use Disorder and Mental Illness bruce - Supporting Someone With Substance Use Disorder bruce Forms: - Medication Reconciliation Form bruce - SBAR form bruce - Leadership Thank You Letter bruce Prescriptions: - Pepcid 20 mg Oral tablet - take 1 tablet ORAL route every 12 hours for 21 days; 42 tablet; Refills: 0, bruce Product Selection Permitted Signatures: Dispatcher [employer] EDMS Hina Mondragon Corey, MD MD cha Hall, Patricia RN Jenny Kathleen ph, RN RN Mick Angelo, RN RN ja1 Dre Doe, RN Lior Charles RN RN jj7 Pramod Stanton RN RN as9 Dre Doe RN rv Corrections: (The following items were deleted from the chart) 03:56 03:49 LIPASE+C.LAB.BRZ ordered. EDMS EDMS 04:34 04:31 Enoxaparin Sub-Q 1 mg/kg Sub-Q once ordered. [facility] 04:38 04:30 Chest For PE Angio+CT.RAD.BRZ ordered. EDMS EDMS 05:40 04:36 Telemetry/MedSurg (Inpatient) [facility] 05:40 04:36 [facility] cg 15:14 05:40 [facility] ER HOLD cg ja1 15:14 05:40 ERHOLD- cg ja1
[2023-05-02 04:51] LABS: SARS-CoV-2 Antigen CONTROL BLUE LINE VIS/BG OK; SARS-CoV-2 Antigen Rapid Res Negative (Negative)
[2023-05-02] MEDS ORDERED: HEPARIN 5000 UNIT/ML 1 ML VIAL ONE (05:12)
[2023-05-02] MEDS: HEPARIN/D5W 25,000 UNIT/500 ML BAG IV ONE (05:13)
[2023-05-02] MEDS ORDERED: ONDANSETRON 4 MG/2 ML VIAL IV PRN (05:28)
--- NOTE | 2023-05-02 05:33 | P.HP ---
Certification for Inpatient Patient admitted to: Inpatient With expected LOS: >2 Midnights Practitioner: I am a practitioner with admitting privileges, knowledge of patient current condition, hospital course, and medical plan of care. Services: Services provided to patient in accordance with Admission requirements found in Title 42 Section 412.3 of the Code of Federal Regulations Patient History Date of Service: 05/02/23 Reason for admission: NSTEMI, chest pain, worsening shortness of breath, cocaine abuse. History of Present Illness: 42 female patient with medical history significant for chronic kidney disease, history of cocaine abuse who came to the ED with complaint of worsening shortness of breath. Episode of shortness of breath was said to be not aggravated by activity and patient had imaging studies concerning. He had lab work that showed elevated proBNP of 22,000, creatinine of 4 and sodium of 131. She was deemed to be having significant issues with worsening CHF as she also did have elevated troponin of over 300. She was started on ACS protocol heparin drip and she was admitted for inpatient care. Review of Systems General: Weakness, Malaise Eyes: Unremarkable ENT: Unremarkable Respiratory: Shortness of Breath, SOB with Excertion, As per HPI Cardiovascular: Chest Pain Gastrointestinal: Unremarkable Genitourinary: Unremarkable Musculoskeletal: Unremarkable Integumentary: Unremarkable Neurological: Unremarkable Lymphatics: Unremarkable Physical Examination - Physical Exam General: Alert, Mild distress HEENT: Atraumatic Neck: Supple Respiratory: Diminished Cardiovascular: Regular rate/rhythm, Normal S1 S2 Gastrointestinal: Soft and benign Musculoskeletal: No swelling Neurological: Normal speech, Normal strength at 5/5 x4 extr - Studies Laboratory Data (last 24 hrs) 05/02/23 05/02/23 05/02/23 03:49 03:47 03:47 WBC 10.00 Hgb 14.5 Hct 42.1 Plt Count 273 PT 11.2 INR 1.02 Sodium Potassium BUN Creatinine Glucose Magnesium Total Bilirubin AST ALT Alkaline Phosphatase Lipase Cancelled 05/02/23 03:47 WBC Hgb Hct Plt Count PT INR Sodium 131 L Potassium 3.7 BUN 52 H Creatinine 4.57 H Glucose 116 H Magnesium 1.9 Total Bilirubin 0.6 AST 20 ALT 20 Alkaline Phosphatase 158 H Lipase 46 Microbiology Data (last 24 hrs): 05/02/23 04:25 Nasopharnyx Influenza Type A Antigen Screen - Final 05/02/23 04:25 Nasopharnyx Influenza Type B Antigen Screen - Final Assessment and Plan - Plan NSTEMI: Patient has significant signs and symptoms of worsening cardiac status with elevated troponin and significantly elevated proBNP. Will obtain echocardiogram, trend troponin and continue patient on ACS heparin protocol. Will have cardiology evaluate. Will continue to trend troponin. CHF: Elevated BNP of 22,000 noted. Will continue management with diuretic therapy and fluid restriction. Cardiology recommendation for management in carrier clinic. History of cocaine abuse: UDS is pending. Will follow result for further management recommendation. Hyponatremia: Sodium of 131 noted. Will continue to monitor on daily labs. EMMANUELLE on CKD: Creatinine of 4.4 noted on labs today latest creatinine prior to this encounter was 2.89 in the year 2019. Nephrology consultation to be placed for management recommendation. Prophylaxis: Heparin drip to be used for ACS management and DVT prophylaxis. CODE STATUS: Full code. Disposition: We will manage her cardiac issues and she will be discharged once cleared by cardiology service. - Advance Directives Does patient have a Living Will: No Does patient have a Durable POA for Healthcare: No
[2023-05-02] MEDS: NA CHLORIDE 0.9% 1,000 ML IV SCH ×2 (06:00→22:19)
[2023-05-02 07:43] LABS: Specific Gravity 1.007 (1.005-1.030)
[2023-05-02 07:47] LABS: Specific Gravity 1.007 (1.005-1.030); Sqamous Epithelial <5 /HPF (None Seen); Urine Bacteria None Seen /HPF (<20); Urine Bilirubin NEGATIVE (Negative); Urine Blood Trace (Negative); Urine Clarity Extremely Turbid (Clear); Urine Color Light-Yellow (Yellow); Urine Culture Reflex Order NOT NEEDED; Urine Glucose NEGATIVE (Negative); Urine Ketones NEGATIVE (Negative); Urine Microscopic Reflex YN ORDER UMIC; Urine Nitrite NEGATIVE (Negative); Urine Protein 2+ (Negative); Urine RBC <5 /HPF (None Seen); Urine Urobilinogen Normal (Normal); Urine WBC <5 /HPF (<5); Urine Yeast (Budding) Trace /HPF (None Seen); Urine pH 6.5 (5.0-7.0)
[2023-05-02 07:50] LABS: Barbiturates NEGATIVE (NEGATIVE); Benzodiazepines NEGATIVE (NEGATIVE); Cocaine NEGATIVE (NEGATIVE); METHAMPHETAM POSITIVE (NEGATIVE); Methadone NEGATIVE (NEGATIVE); Opiates NEGATIVE (NEGATIVE); Phencyclidine NEGATIVE (NEGATIVE); THC Cannibis NEGATIVE (NEGATIVE)
[2023-05-02] MEDS: PNEUMOCOCCAL VACCINE 0.5 ML IMVAC ONE (08:00)
[2023-05-02] MEDS: INFLUENZA VACCINE (for 6+ mo) 0.5 ML DOSE IMVAC ONE (08:00)
[2023-05-02] MEDS ORDERED: HEPARIN 5000 UNIT/ML 1 ML VIAL SQ SCH (09:00)
[2023-05-02] MEDS: HEPARIN/D5W 25,000 UNIT/500 ML BAG IV SCH (10:45)
--- NOTE | 2023-05-02 11:00 | RAD REPORT ---
EXAM DESCRIPTION: CT - Chest Abd Pelvis Wo Con - 05/02/2023 6:47 am CLINICAL HISTORY: The patient is 48 years old and is Female; Dyspnea;Chest pain Bed Name: 5 TECHNIQUE: Axial computed tomography images of the chest, abdomen and pelvis without intravenous con trast. Sagittal and coronal reformatted images were created and reviewed. This CT exam was perfor med using one or more of the following dose reduction techniques: automated exposure control, adjus tment of the mA and/or kV according to patient size, and/or use of iterative reconstruction technique . COMPARISON: No relevant prior studies available. FINDINGS: CHEST: LUNGS: Unremarkable No mass. No consolidation. PLEURAL SPACE: Unremarkable No significant effusion. No pneumothorax. HEART: No significant pericardial effusion. No cardiomegaly. ABDOMEN: LIVER: Unremarkable GALLBLADDER AND BILE DUCTS: Unremarkable No calcified stones. No ductal dilation. PANCREAS: Unremarkable No ductal dilation. SPLEEN: Unremarkable No splenomegaly. ADRENALS: Unremarkable No mass. KIDNEYS AND URETERS: Unremarkable No obstructing stones. No hydronephrosis. STOMACH AND BOWEL: Colonic diverticulosis without evidence of acute diverticulitis. No obstruction. PELVIS: APPENDIX: No findings to suggest acute appendicitis. BLADDER: Moderate urinary bladder distention with no wall thickening or perivesicular fat stranding . No stones. REPRODUCTIVE: Unremarkable as visualized. CHEST, ABDOMEN and PELVIS: INTRAPERITONEAL SPACE: Unremarkable No significant fluid collection. No free air. BONES/JOINTS: Unremarkable No acute fracture. No dislocation. SOFT TISSUES: Unremarkable VASCULATURE: Mild calcified atherosclerosis of the thoracic aorta without aneurysmal dilatation. Mild calcified atherosclerosis of the abdominal aorta without aneurysmal dilatation. Multivessel coronary calcifications, greatest in the LAD. LYMPH NODES: Unremarkable No enlarged lymph nodes. IMPRESSION: 1. No acute abnormality of the chest, abdomen, or pelvis, allowing for lack of intrave nous contrast. 2. Moderate distention of the urinary bladder with no other acute findings. Recommend correlation w ith urinary retention. 3. Multivessel coronary calcifications, greatest in the LAD. Clinical correlation recommended. 4. Colonic diverticulosis without evidence of acute diverticulitis. Electronically signed by: Berhane Alcala MD 05/02/2023 06:18 AM CDT Due to temporary technical issues with the PACS/Fluency reporting system, reports are being signed by the in house radiologists without review as a courtesy to insure prompt reporting. The interpreting radiologist is fully responsible for the content of the report.
--- NOTE | 2023-05-02 11:06 | RAD REPORT ---
EXAM DESCRIPTION: US - Abdomen Exam Limited - 05/02/2023 4:07 am CLINICAL HISTORY: The patient is 48 years old and is Female; ABD PAIN TECHNIQUE: Real-time ultrasound of the right upper quadrant with image documentation. COMPARISON: No relevant prior studies available. FINDINGS: Gallbladder: Small amount of gallbladder sludge. No cholelithiasis. Common bile duct: Common bile duct 3.7 mm in diameter. No stones. No dilation. Pancreas: Pancreas not visualized. IMPRESSION: Small amount of gallbladder sludge. Electronically signed by: Karis Golden MD 05/02/2023 04:38 AM CDT Due to temporary technical issues with the PACS/Fluency reporting system, reports are being signed by the in house radiologists without review as a courtesy to insure prompt reporting. The interpreting radiologist is fully responsible for the content of the report.
--- NOTE | 2023-05-02 14:06 | EKG ---
Test Date: 2023-05-02 Test Time: 02:35:24 Stock Pitcher: ANH MEASUREMENT RESULTS: Intervals: Rate: 85 LA: 204 QRSD: 86 QT: 400 QTc: 476 [place]: P: 49 LA: 204 QRS: 76 T: 11 INTERPRETIVE STATEMENTS: Normal sinus rhythm Nonspecific T wave abnormality Prolonged QT Abnormal ECG Compared to ECG 03/25/2018 19:10:17 T-wave abnormality now present Prolonged QT interval now present Electronically Signed On 05-02-23 14:04:46 CDT by Amanuel Tran
[2023-05-02] MEDS: LORazepam 2 MG/ML VIAL IV ONE (14:55)
--- NOTE | 2023-05-02 15:32 | RAD REPORT ---
EXAM DESCRIPTION: US - Extrem Venous W Compress [place] - 05/02/2023 5:06 am CLINICAL HISTORY: Pain. COMPARISON: None. TECHNIQUE: Grayscale, color Doppler, duplex Doppler, spectral Doppler images and analysis with compr ession and augmentation of right and left lower extremity veins. FINDINGS: Right and Left common femoral, greater saphenous, femoral, deep (profunda) femoral, poplit eal, posterior tibial veins unremarkable without evidence of clot. IMPRESSION: No sonographic evidence of right or left lower extremity DVT. Electronically signed by: Cliff Palacio MD 05/02/2023 06:00 AM CDT Due to temporary technical issues with the PACS/Fluency reporting system, reports are being signed by the in house radiologists without review as a courtesy to insure prompt reporting. The interpreting radiologist is fully responsible for the content of the report.
--- NOTE | 2023-05-02 15:34 | RAD REPORT ---
EXAM DESCRIPTION: RAD - Chest Single View - 05/02/2023 3:53 am CLINICAL HISTORY: The patient is 48 years old and is Female; DYSPNEA TECHNIQUE: Single view of the chest. COMPARISON: No relevant prior studies available. FINDINGS: Lungs: No pulmonary vascular congestion or consolidation. No free air in the visualized upper abdomen. Pleural space: Unremarkable. No pneumothorax. Heart: The cardiac silhouette is enlarged versus artifact of AP technique. Mediastinum: Unremarkable. Bones/joints: No acute fracture visualized. IMPRESSION: No acute cardiopulmonary process identified. Electronically signed by: Karis Golden MD 05/02/2023 04:04 AM CDT Due to temporary technical issues with the PACS/Fluency reporting system, reports are being signed by the in house radiologists without review as a courtesy to insure prompt reporting. The interpreting radiologist is fully responsible for the content of the report.
--- NOTE | 2023-05-02 16:46 | CON ---
Date of Consultation: 05/02/2023 Reason For Consultation: Chest pain and positive troponin. History Of Present Illness: A -iwcg-hzc female, history of chronic kidney disease, advance d, cocaine abuse, obesity, presented to the emergency room because of shortness of breath and also lara d some chest tightness in the lower sternal area, no radiation, constant. Borderline elevated tropon in. She is following up with a gut snatcher in [place] and she does not know if she had any cardiac workup in the recent past. No active chest pain at the present time. Past Medical History: As outlined above in HPI. Medications: Refer reconciliation sheet for detailed list. Allergies: NO KNOWN DRUG ALLERGIES. Family History: No premature coronary artery disease or cancer. Social History: Uses cocaine and smoker and drinks alcohol on regular basis. Review of Systems: All systems reviewed are negative except that mentioned in HPI. Physical Examination: Vital signs: Reviewed. Head and Neck: Pupils are equal, reactive to light. Intact eye movements. No cervical lymphadenopa thy. Neck is supple. Thyroid is not enlarged. Lungs: Decreased breathing sounds bilaterally. No accessory muscle use. No muscle retraction. Heart: Regular rate and rhythm. No extra sounds. Abdomen: Soft, nontender. Bowel sounds positive. No organomegaly. No masses or hernia. No rigidi ty or rebound. Extremities: No edema, clubbing, or cyanosis. Intact pulses. Skin: No rash. Neurologic: Alert, awake, with confusion. No focal deficits appreciated. Lymph Nodes: No cervical or axillary lymphadenopathy. Investigations: BUN 52, creatinine 4.57. Troponin 344, down to 244. Assessment/recommendation: 1.Chest pain, atypical. Borderline troponin elevation. She has advanced kidney failure and not on dialysis at the moment. She follows up with gut snatcher, unsure her status. We will try to obtain records, but in the interim recommend to obtain echo and Lexiscan nuclear stress test. Medication-wi se recommend continuing heparin and please give the patient aspirin 81 mg daily. 2.Shortness of breath, could be fluid retention as she has advanced kidney failure. Obtain an echoc ardiogram to further evaluate. 3.Advanced kidney failure. Recommend Nephrology evaluation. SR/MODL Voice ID: [id number] Report ID: [id number]
--- NOTE | 2023-05-02 17:39 | P.CNS ---
Date of Consult: 05/02/23 Reason for Consult: EMMANUELLE/ CKD Requesting Physician: kerry glass Chief Complaint: NSTEMI, chest pain, worsening shortness of breath, cocaine abuse. History of Present Illness: 42 female patient with medical history significant for chronic kidney disease, history of cocaine abuse who came to the ED with complaint of worsening shortness of breath. Episode of shortness of breath was said to be not aggravated by activity and patient had imaging studies concerning. He had lab work that showed elevated proBNP of 22,000, creatinine of 4 and sodium of 131. She was deemed to be having significant issues with worsening CHF as she also did have elevated troponin of over 300. She was started on ACS protocol heparin drip and she was admitted for inpatient care. [id number] 03:43 This 48 yrs old Female presents to ER via Ambulatory with complaints of bruce Shortness Of Breath, Anxiety. 03:43 The patient has shortness of breath at rest, with light activity. Onset: The bruce symptoms/episode began/occurred 1 day(s) ago. Duration: The symptoms are intermittent, with no pattern. The patient's shortness of breath is aggravated by nothing, is alleviated by nothing. Severity of symptoms: At their worst the symptoms were mild in the emergency department the symptoms are unchanged. The patient has not experienced similar symptoms in the past. Limited HPI/ ROS due to AMS. Case reviewed with her daughter at the bedside. Daughter is concerned about her drug and alcohol use. Allergies red dye Allergy (Unknown, Unverified 05/02/23 07:43) unknown Home medications list reviewed: Yes - Past Medical/Surgical History -: CKD V with Proteinuria (Dr. Ortiz/ Dr. Boswell) -: HTN -: CLARI -: Former cigarette smoker -: Hx Cocaine abuse - Social History Smoking Status: Current every day smoker Place of Residence: Home Review of Systems is unable to be obtained General: Weakness, Malaise Neurological: Change in Speech, Confusion Physical Examination Temp Pulse Resp BP Pulse Ox 97.5 F 75 20 139/98 H 95 05/02/23 16:00 05/02/23 16:00 05/02/23 16:00 05/02/23 16:00 05/02/23 16:00 General: Cooperative, Confused HEENT: Atraumatic Neck: Supple Respiratory: Clear to auscultation bilaterally, Normal air movement Cardiovascular: No edema, Regular rate/rhythm Gastrointestinal: Soft and benign, Non-distended Musculoskeletal: No clubbing, No contractures Integumentary: No rashes, No cyanosis Neurological: Normal speech Laboratory Data (last 24 hrs) 05/02/23 05/02/23 05/02/23 03:49 03:47 03:47 WBC 10.00 Hgb 14.5 Hct 42.1 Plt Count 273 PT 11.2 INR 1.02 Sodium Potassium BUN Creatinine Glucose Magnesium Total Bilirubin AST ALT Alkaline Phosphatase Lipase Cancelled 05/02/23 03:47 WBC Hgb Hct Plt Count PT INR Sodium 131 L Potassium 3.7 BUN 52 H Creatinine 4.57 H Glucose 116 H Magnesium 1.9 Total Bilirubin 0.6 AST 20 ALT 20 Alkaline Phosphatase 158 H Lipase 46 Imagings Data: [id number] EXAM DESCRIPTION: CT - Chest Abd Pelvis Wo Con - 05/02/2023 6:47 am CLINICAL HISTORY: The patient is 48 years old and is Female; Dyspnea;Chest pain Bed Name: 5 TECHNIQUE: Axial computed tomography images of the chest, abdomen and pelvis without intravenous contrast. Sagittal and coronal reformatted images were created and reviewed. This CT exam was performed using one or more of the following dose reduction techniques: automated exposure control, adjustment of the mA and/or kV according to patient size, and/or use of iterative reconstruction technique. COMPARISON: No relevant prior studies available. FINDINGS: CHEST: LUNGS: Unremarkable No mass. No consolidation. PLEURAL SPACE: Unremarkable No significant effusion. No pneumothorax. HEART: No significant pericardial effusion. No cardiomegaly. ABDOMEN: LIVER: Unremarkable GALLBLADDER AND BILE DUCTS: Unremarkable No calcified stones. No ductal dilation. PANCREAS: Unremarkable No ductal dilation. SPLEEN: Unremarkable No splenomegaly. ADRENALS: Unremarkable No mass. KIDNEYS AND URETERS: Unremarkable No obstructing stones. No hydronephrosis. STOMACH AND BOWEL: Colonic diverticulosis without evidence of acute diverticulitis. No obstruction. PELVIS: APPENDIX: No findings to suggest acute appendicitis. BLADDER: Moderate urinary bladder distention with no wall thickening or perivesicular fat stranding. No stones. REPRODUCTIVE: Unremarkable as visualized. CHEST, ABDOMEN and PELVIS: INTRAPERITONEAL SPACE: Unremarkable No significant fluid collection. No free air. BONES/JOINTS: Unremarkable No acute fracture. No dislocation. SOFT TISSUES: Unremarkable VASCULATURE: Mild calcified atherosclerosis of the thoracic aorta without aneurysmal dilatation. Mild calcified atherosclerosis of the abdominal aorta without aneurysmal di latation. Multivessel coronary calcifications, greatest in the LAD. LYMPH NODES: Unremarkable No enlarged lymph nodes. IMPRESSION: 1. No acute abnormality of the chest, abdomen, or pelvis, allowing for lack of intravenous contrast. 2. Moderate distention of the urinary bladder with no other acute findings. Recommend correlation with urinary retention. 3. Multivessel coronary calcifications, greatest in the LAD. Clinical correlation recommended. 4. Colonic diverticulosis without evidence of acute diverticulitis. [id number] EXAM DESCRIPTION: US - Extrem Venous W Compress [place] - 05/02/2023 5:06 am CLINICAL HISTORY: Pain. COMPARISON: None. TECHNIQUE: Grayscale, color Doppler, duplex Doppler, spectral Doppler images and analysis with compression and augmentation of right and left lower extremity veins. FINDINGS: Right and Left common femoral, greater saphenous, femoral, deep (profunda) femoral, popliteal, posterior tibial veins unremarkable without evidence of clot. IMPRESSION: No sonographic evidence of right or left lower extremity DVT. [id number] EXAM DESCRIPTION: US - Abdomen Exam Limited - 05/02/2023 4:07 am CLINICAL HISTORY: The patient is 48 years old and is Female; ABD PAIN TECHNIQUE: Real-time ultrasound of the right upper quadrant with image documentation. COMPARISON: No relevant prior studies available. FINDINGS: Gallbladder: Small amount of gallbladder sludge. No cholelithiasis. Common bile duct: Common bile duct 3.7 mm in diameter. No stones. No dilation. Pancreas: Pancreas not visualized. IMPRESSION: Small amount of gallbladder sludge. [id number] EXAM DESCRIPTION: RAD - Chest Single View - 05/02/2023 3:53 am CLINICAL HISTORY: The patient is 48 years old and is Female; DYSPNEA TECHNIQUE: Single view of the chest. COMPARISON: No relevant prior studies available. FINDINGS: Lungs: No pulmonary vascular congestion or consolidation. No free air in the visualized upper abdomen. Pleural space: Unremarkable. No pneumothorax. Heart: The cardiac silhouette is enlarged versus artifact of AP technique. Mediastinum: Unremarkable. Bones/joints: No acute fracture visualized. IMPRESSION: No acute cardiopulmonary process identified. Conclusions/Impression: CKD V with Proteinuria -No NSAIDs -Continue IVF Hyponatremia -Start IVF with NS Chronic Metabolic Acidosis -Start oral bicarb HTN with CKD -Monitor BP Acute Urinary Retention? -Bladder scan for PVR X3 -Chester catheter prn CKD MBD Hypercalcemia -Continue IVF Case reviewed with Dr. Glass Thank you kindly for the consultation
[2023-05-02] MEDS: ASPIRIN EC 81 MG TAB PO SCH (17:45)
--- NOTE | 2023-05-02 18:14 | P.PN ---
Date of Service: 05/02/23 Patient seen and examined. She seems to have psychomotor retardation. Slurred speech Toxicology screen is positive for amphetamine. Case discussed with Dr. Ortiz. Patient has a h/o CKD, last creatine in the office was 4.1. Cardiology input appreciated. Continue heparin drip. ASA Nuclear stress test in am per cardiology.
[2023-05-03 05:13] LABS: Specific Gravity 1.007 (1.005-1.030); Sqamous Epithelial <5 /HPF (None Seen); Urine Bacteria None Seen /HPF (<20); Urine Bilirubin NEGATIVE (Negative); Urine Blood Negative (Negative); Urine Clarity Turbid (Clear); Urine Color Colorless (Yellow); Urine Culture Reflex Order NOT NEEDED; Urine Glucose NEGATIVE (Negative); Urine Ketones NEGATIVE (Negative); Urine Micro Reflex YN NO BILL MICROSCOPIC; Urine Nitrite NEGATIVE (Negative); Urine Protein 2+ (Negative); Urine RBC None Seen /HPF (None Seen); Urine Urobilinogen Normal (Normal); Urine WBC <5 /HPF (<5)
[2023-05-03 05:16] LABS: UR PROTEIN 106.1 mg/dL (<11.9); Urine Protein/Creatinine Ratio 2.72 ratio (<0.15)
[2023-05-03 05:50] LABS: Albumin 3.2 g/dL (3.4-5.0); Albumin/Globulin Ratio 0.8 (1.1-1.8); Anion Gap 13.6 mEq/L (5.0-15.0); Bilirubin Total 0.5 mg/dL (0.2-1.0); Magnesium 2.1 mg/dL (1.6-2.4); Phosphorus 4.8 mg/dL (2.5-4.9); Potassium 3.6 mEq/L (3.5-5.1); Protein, Total 7.2 g/dL (6.4-8.2); Uric Acid 9.6 mg/dL (2.6-6.0)
[2023-05-03 06:21] LABS: MA/CREAT RATIO 1973.7 (< 30.0)
[2023-05-03] MEDS: ACETAMINOPHEN 500 MG TAB PO PRN (07:31)
--- NOTE | 2023-05-03 07:32 | ECHO ---
HEIGHT: 5 ft 3 in WEIGHT: 244 lb 3.2 oz DATE OF STUDY: 05/02/[address]: Alfredo Weller MD 2-DIMENSIONAL: YES M.MODE: YES DOPPLER: YES COLOR FLOW: YES TDS: PORTABLE: YES DEFINITY: BUBBLE STUDY: DIAGNOSIS: CHEST PAIN, CONGESTIVE HEART FAILURE CARDIAC HISTORY: CATHERIZATION: YES SURGERY: NO PROSTHETIC VALVE: NO PACEMAKER: NO MEASUREMENTS (cm) DIASTOLIC (NORMALS) SYSTOLIC (NORMALS) IVSd 1.1 (0.6-1.2) LA Diam 2.9 (1.9-4.0) LVEF 55-60% LVIDd 5.2 (3.5-5.7) LVIDs 4.2 (2.0-3.5) %FS 20% LVPWd 1.2 (0.6-1.2) Ao Diam 3.2 (2.0-3.7) 2 DIMENSIONAL ASSESSMENT: RIGHT ATRIUM: NORMAL LEFT ATRIUM: NORMAL RIGHT VENTRICLE: NORMAL LEFT VENTRICLE: NORMAL TRICUSPID VALVE: NORMAL MITRAL VALVE: MILD MITRAL REGURGITATION PULMONIC VALVE: NORMAL AORTIC VALVE: MILD AORTIC INSUFFICIENCY PERICARDIAL EFFUSION: NONE AORTIC ROOT: NORMAL LEFT VENTRICULAR WALL MOTION: NORMAL DOPPLER/COLOR FLOW: SEE BELOW COMMENTS: 1. NORMAL LEFT VENTRICULAR EJECTION FRACTION 55-60% WITH NORMAL WALL MOTION 2. DIASTOLIC DYSFUNCTION 3. MILD AORTIC INSUFFICIENCY 4. TRACE MITRAL REGURGITATION 5. POOR STUDY TECHNOLOGIST: LEIAS PURDY
[2023-05-03] MEDS ORDERED: REGADENOSON 0.4 MG/5 ML SYR IV ONE (07:59)
--- NOTE | 2023-05-03 08:45 | RAD REPORT ---
EXAM DESCRIPTION: NM - Rest Stress Cardiac Imaging - 05/03/2023 8:32 am CLINICAL HISTORY: Shortness of breath COMPARISON: REST STRESS CARDIAC dated 12/13/2006 TECHNIQUE: The patient was administered approximately 10.8 mCi of Tc 99m Sestamibi prior to resting SPECT imaging of the heart. The patient was then administered approximately 30.9 mCi of Tc 99m Sestam ibi following exercise or pharmacologic stress. Multiplanar SPECT images were reviewed. FINDINGS: No reversible stress induced ischemic defect is seen to suggest stress induced ischemia. S mall to moderate fixed defect at the mid aspect of the septal wall and its junction with the anterior wall. Small to moderate fixed defect of the inferior wall mid to basal segments. The end diastolic volume is 145 ml, the end systolic volume is 80 ml, and the ejection fraction is 45 %. Hypokinesia along the inferior wall. IMPRESSION: No evidence of stress-induced myocardial ischemia. Small to moderate fixed defects at the junction of the septal and anterior wall and along the inferio r wall as above, suggestive of areas of previous infarct. Mildly reduced left ventricular ejection fraction, 45%. Hypokinesia along the inferior wall.
[2023-05-03] MEDS: SODIUM BICARB 325 MG TAB PO SCH (08:56)
[2023-05-03] MEDS: carvediloL 6.25 MG TAB PO SCH (12:07)
[2023-05-03] MEDS: AMLODIPINE 5 MG TAB PO SCH (12:07)
[2023-05-03] MEDS: CYCLOBENZAPRINE 10 MG TAB PO SCH (13:34)
--- NOTE | 2023-05-03 17:05 | P.PN ---
Subjective Date of Service: 05/03/23 Chief Complaint: NSTEMI, chest pain, worsening shortness of breath, cocaine abuse. Subjective: No new changes Review of Systems 10-point ROS is otherwise unremarkable Physical Examination - Vital Signs Temperature: 96.9 F Blood Pressure: 138/77 Pulse: 76 Respirations: 17 Pulse Ox (%): 100 - Physical Exam General: Alert, Oriented x3 HEENT: Atraumatic Neck: Supple Respiratory: Clear to auscultation bilaterally Cardiovascular: No edema, Normal S1 S2 Gastrointestinal: Normal bowel sounds Assessment And Plan - Current Problems (Diagnosis) (1) Elevated troponin Current Visit: Yes Status: Acute Plan: most likely type 2 RI from acute worsening kidney function. patient had a stress test that shown possible anteroseptal infarction with no signs of reversible ischemia taking in consideration patient worsening kidney function will avoid doing coronary angiogram at this point and will postpone this until patient kidney function improves. (2) HTN (hypertension) Current Visit: Yes Status: Acute Plan: patient BP is better controlled. Continue Coreg 6.25 mg po BID Norvasc 5 mg daily (3) CKD (chronic kidney disease) Current Visit: Yes Status: Acute Plan: appreciate Nephrology input. (4) Chronic diastolic heart failure Current Visit: Yes Status: Acute Plan: Will schedule patient for right heart catheterization to assess volume status and help guide management for her worsening kidney function.
[2023-05-03] MEDS: SERTRALINE HCL 50 MG TAB PO SCH ×2 (17:10→17:39)
--- NOTE | 2023-05-03 18:16 | P.PN ---
Subjective Date of Service: 05/03/23 Chief Complaint: NSTEMI, chest pain, worsening shortness of breath, cocaine abuse. Patient is currently more awake. She is complaining of anxiety. No changes in renal function. Nuclear stress test done today. Physical Examination - Vital Signs Temperature: 96.9 F Blood Pressure: 138/77 Pulse: 76 Respirations: 17 Pulse Ox (%): 100 Assessment And Plan - Plan Physical Examination General: Well-built, Not in acute distress. HEENT: PERRLA, EOMI, anicteric sclera, conjunctiva not pale. Neck: Supple, no elevated JVD, no thyromegaly. Lungs: Clear to auscultation bilaterally. No rhonchi, no rales, no crackles. Heart: S1-S2 heard, rapid, no murmur no gallop no rub. Normal capillary refill. Abdomen: Soft, nontender, nondistended, no hepatosplenomegaly. Extremities: No pedal edema. No deformity. Neuro: No cranial nerve deficit, no focal motor deficit. Psychiatry: Awake, mild psychomotor retardation, normal affect. Skin: Warm and dry, no rashes. Assessment and plan NSTEMI: Mild troponin elevation. Troponin trended flat. Cardiology input appreciated. Nuclear stress test done shows no stress-induced ischemia Cardiology recommending cardiac catheterization once renal function has stabi lized or improved. Chronic diastolic heart failure Elevated BNP of 22,000 noted. Diuretics on hold. Patient treated with IV fluid per nephrology. Monitor closely for volume overload. Chronic kidney disease stage IV-V Nephrology Dr. Ortiz's input appreciated. Patient has creatinine of 4 at baseline. Follow-up as outpatient per nephrology Discontinue IV fluid. Amphetamine abuse Cessation advised Hyponatremia Resolved with IV normal saline. Discontinue IV fluid DVT prophylaxis: Heparin SQ CODE STATUS: Full code.
[2023-05-03] MEDS: HEPARIN 5000 UNIT/ML 1 ML VIAL SQ SCH (21:06)
[2023-05-03] MEDS: GABAPENTIN 100 MG CAP PO SCH (21:06)
[2023-05-03] MEDS: MAGNESIUM OXIDE 400 MG TAB PO SCH (21:06)
--- NOTE | 2023-05-03 21:33 | P.PN ---
Date of Service: 05/03/23 Vital Signs Temp Pulse Resp BP Pulse Ox 96.5 F L 81 20 141/83 H 96 05/03/23 20:00 05/03/23 21:06 05/03/23 20:00 05/03/23 21:06 05/03/23 20:00 Medications Acetaminophen (Acetaminophen 500 Mg Tab) 500 mg PO Q4HP PRN PRN Reason: Pain scale 2-4 (Mild) Last Admin: 05/03/23 07:31 Dose: 500 mg Amlodipine Besylate (Amlodipine 5 Mg Tab) 5 mg PO DAILY [facility] Last Admin: 05/03/23 12:07 Dose: 5 mg Aspirin (Aspirin Ec 81 Mg Tab) 81 mg PO DAILY [facility] Last Admin: 05/03/23 08:56 Dose: 81 mg Carvedilol (Carvedilol 6.25 Mg Tab) 6.25 mg PO BID [facility] Last Admin: 05/03/23 21:06 Dose: 6.25 mg Cyclobenzaprine HCl (Cyclobenzaprine 10 Mg Tab) 5 mg PO TID [facility] Last Admin: 05/03/23 21:08 Dose: 5 mg Folic Acid (Folic Acid 1 Mg Tablet) 1 mg PO DAILY [facility] Gabapentin (Gabapentin 100 Mg Cap) 100 mg PO BID [facility] Last Admin: 05/03/23 21:06 Dose: 100 mg Heparin Sodium (Porcine) (Heparin 5000 Unit/Ml 1 Ml Vial) 5,000 unit SQ Q12HR [facility] Last Admin: 05/03/23 21:06 Dose: 5,000 unit Magnesium Oxide (Magnesium Oxide 400 Mg Tab) 200 mg PO BEDTIME [facility] Last Admin: 05/03/23 21:06 Dose: 200 mg Olanzapine (Olanzapine 2.5 Mg Tab) 5 mg PO DAILY [facility] Ondansetron HCl (Ondansetron 4 Mg/2 Ml Vial) 4 mg IV Q6HP PRN PRN Reason: NAUSEA / VOMITING Sertraline HCl (Sertraline Hcl 50 Mg Tab) 50 mg PO DAILY [facility] Last Admin: 05/03/23 17:39 Dose: 50 mg Sertraline HCl (Sertraline Hcl 50 Mg Tab) 50 mg PO DAILY [facility] Last Admin: 05/03/23 17:10 Dose: 50 mg Sodium Bicarbonate (Sodium Bicarb 325 Mg Tab) 325 mg PO BIDWM [facility] Last Admin: 05/03/23 16:58 Dose: 325 mg Sodium Bicarbonate (Sodium Bicarb 325 Mg Tab) 650 mg PO DAILY [facility] Lab Results (last 24 hrs) 05/03/23 05:17: APTT 54.3 H 05/03/23 05:17: Sodium 137 D, Potassium 3.6, Chloride 106, Carbon Dioxide 21, Anion Gap 13.6, BUN 58 H, Creatinine 4.58 H, Est GFR (CKD-EPI) 11 L, Glucose 86, Uric Acid 9.6 H, Calcium 9.1 D, Phosphorus 4.8, Magnesium 2.1, Total Bilirubin 0.5, AST 11 L, ALT 17, Alkaline Phosphatase 119 H D, Serum Total Protein 7.2, Albumin 3.2 L, Globulin 4.0 H, Albumin/Globulin Ratio 0.8 L 05/03/23 04:45: Ur Random Microalbumin 75.0 H, Urine Creatinine 38.0, Microalb/Creat Ratio 1973.7 H 05/03/23 04:45: Urine Color Colorless, Urine Clarity Turbid H, Urine pH 6.0, Ur Specific [place] 1.007, Glucose (UA)(Auto) Negative, Urine Ketones Negative, Urine Blood Negative, Urine Nitrite Negative, Urine Bilirubin Negative, Urine Urobilinogen Normal, Ur Leukocyte Esterase Negative, Urine RBC None seen, Urine WBC <5, Ur Squamous Epith Cells <5, Urine Bacteria None seen, Urine Culture Reflexed Not needed, Urine Total Protein 2+ H 05/03/23 04:45: Ur Random Microalbumin Cancelled, U Random Total Protein 106.1 H, Urine Creatinine 39.0, Microalb/Creat Ratio Cancelled, Protein/Creatinin Ratio 2.72 H 05/03/23 00:47: APTT 53.8 H Microbiology Results 05/02/23 04:25 Nasopharnyx Influenza Type A Antigen Screen - Final 05/02/23 04:25 Nasopharnyx Influenza Type B Antigen Screen - Final Assessment/ Plan: Nephrology No dyspnea No chest pain Improved mental status No acute events overnight Vitals, medications, blood work and imaging reviewed in the chart General: Cooperative, Confused HEENT: Atraumatic Neck: Supple Respiratory: Clear to auscultation bilaterally, Normal air movement Cardiovascular: No edema, Regular rate/rhythm Gastrointestinal: Soft and benign, Non-distended Musculoskeletal: No clubbing, No contractures Integumentary: No rashes, No cyanosis Neurological: Normal speech Laboratory Data (last 24 hrs) 05/02/23 05/02/23 05/02/23 03:49 03:47 03:47 WBC 10.00 Hgb 14.5 Hct 42.1 Plt Count 273 PT 11.2 INR 1.02 Sodium Potassium BUN Creatinine Glucose Magnesium Total Bilirubin AST ALT Alkaline Phosphatase Lipase Cancelled 05/02/23 03:47 WBC Hgb Hct Plt Count PT INR Sodium 131 L Potassium 3.7 BUN 52 H Creatinine 4.57 H Glucose 116 H Magnesium 1.9 Total Bilirubin 0.6 AST 20 ALT 20 Alkaline Phosphatase 158 H Lipase 46 Imagings Data: [id number] EXAM DESCRIPTION: CT - Chest Abd Pelvis Wo Con - 05/02/2023 6:47 am CLINICAL HISTORY: The patient is 48 years old and is Female; Dyspnea;Chest pain Bed Name: 5 TECHNIQUE: Axial computed tomography images of the chest, abdomen and pelvis without intravenous contrast. Sagittal and coronal reformatted images were created and reviewed. This CT exam was performed using one or more of the following dose reduction techniques: automated exposure control, adjustment of the mA and/or kV according to patient size, and/or use of iterative reconstruction technique. COMPARISON: No relevant prior studies available. FINDINGS: CHEST: LUNGS: Unremarkable No mass. No consolidation. PLEURAL SPACE: Unremarkable No significant effusion. No pneumothorax. HEART: No significant pericardial effusion. No cardiomegaly. ABDOMEN: LIVER: Unremarkable GALLBLADDER AND BILE DUCTS: Unremarkable No calcified stones. No ductal dilation. PANCREAS: Unremarkable No ductal dilation. SPLEEN: Unremarkable No splenomegaly. ADRENALS: Unremarkable No mass. KIDNEYS AND URETERS: Unremarkable No obstructing stones. No hydronephrosis. STOMACH AND BOWEL: Colonic diverticulosis without evidence of acute diverticulitis. No obstruction. PELVIS: APPENDIX: No findings to suggest acute appendicitis. BLADDER: Moderate urinary bladder distention with no wall thickening or perivesicular fat stranding. No stones. REPRODUCTIVE: Unremarkable as visualized. CHEST, ABDOMEN and PELVIS: INTRAPERITONEAL SPACE: Unremarkable No significant fluid collection. No free air. BONES/JOINTS: Unremarkable No acute fracture. No dislocation. SOFT TISSUES: Unremarkable VASCULATURE: Mild calcified atherosclerosis of the thoracic aorta without aneurysmal dilatation. Mild calcified atherosclerosis of the abdominal aorta without aneurysmal dilatation. Multivessel coronary calcifications, greatest in the LAD. LYMPH NODES: Unremarkable No enlarged lymph nodes. IMPRESSION: 1. No acute abnormality of the chest, abdomen, or pelvis, allowing for lack of intravenous contrast. 2. Moderate distention of the urinary bladder with no other acute findings. Recommend correlation with urinary retention. 3. Multivessel coronary calcifications, greatest in the LAD. Clinical correlation recommended. 4. Colonic diverticulosis without evidence of acute diverticulitis. [id number] EXAM DESCRIPTION: US - Extrem Venous W Compress [place] - 05/02/2023 5:06 am CLINICAL HISTORY: Pain. COMPARISON: None. TECHNIQUE: Grayscale, color Doppler, duplex Doppler, spectral Doppler images and analysis with compression and augmentation of right and left lower extremity veins. FINDINGS: Right and Left common femoral, greater saphenous, femoral, deep (profunda) femoral, popliteal, posterior tibial veins unremarkable without evidence of clot. IMPRESSION: No sonographic evidence of right or left lower extremity DVT. [id number] EXAM DESCRIPTION: US - Abdomen Exam Limited - 05/02/2023 4:07 am CLINICAL HISTORY: The patient is 48 years old and is Female; ABD PAIN TECHNIQUE: Real-time ultrasound of the right upper quadrant with image do cumentation. COMPARISON: No relevant prior studies available. FINDINGS: Gallbladder: Small amount of gallbladder sludge. No cholelithiasis. Common bile duct: Common bile duct 3.7 mm in diameter. No stones. No dilation. Pancreas: Pancreas not visualized. IMPRESSION: Small amount of gallbladder sludge. [id number] EXAM DESCRIPTION: RAD - Chest Single View - 05/02/2023 3:53 am CLINICAL HISTORY: The patient is 48 years old and is Female; DYSPNEA TECHNIQUE: Single view of the chest. COMPARISON: No relevant prior studies available. FINDINGS: Lungs: No pulmonary vascular congestion or consolidation. No free air in the visualized upper abdomen. Pleural space: Unremarkable. No pneumothorax. Heart: The cardiac silhouette is enlarged versus artifact of AP technique. Mediastinum: Unremarkable. Bones/joints: No acute fracture visualized. IMPRESSION: No acute cardiopulmonary process identified. LEFT VENTRICULAR WALL MOTION: NORMAL DOPPLER/COLOR FLOW: SEE BELOW COMMENTS: 1. NORMAL LEFT VENTRICULAR EJECTION FRACTION 55-60% WITH NORMAL WALL MOTION 2. DIASTOLIC DYSFUNCTION 3. MILD AORTIC INSUFFICIENCY 4. TRACE MITRAL Conclusions/Impression: CKD V with Proteinuria -No NSAIDs Hyponatremia, resolved Chronic Metabolic Acidosis -Continue oral bicarb HTN with CKD/ CHF -Continue Amlodipine -Continue Coreg Diastolic CHF, chronic -Daily weight Acute Urinary Retention, resolved -Bladder scan negative for urinary retention CKD MBD -Start Ergo Counseled her regarding her alcohol and drug use -Recommend cessation Case reviewed with Dr. Glass
[2023-05-04 04:03] LABS: Albumin 3.3 g/dL (3.4-5.0); Albumin/Globulin Ratio 0.8 (1.1-1.8); Anion Gap 12.8 mEq/L (5.0-15.0); Bilirubin Total 0.5 mg/dL (0.2-1.0); Globulin 3.9 g/dL (2.3-3.5); Potassium 3.8 mEq/L (3.5-5.1); Protein, Total 7.2 g/dL (6.4-8.2)
[2023-05-04 06:56] VITALS: BMI 43.4
--- NOTE | 2023-05-04 07:11 | TREADPHA ---
DX: CHEST PAIN, ELEVATED TROPONIN Date of Study: 05/03/2023 Ht: 5' 3 " Wt: 245 lb 7 oz Consulting Physician: REJI MEDICATIONS: TYLENOL, ASPIRIN, HEPARIN DRIP, SODIUM BICARB HISTORY: HYPERTENSION, HYPERLIPIDEMIA PHYSICIAL EXAMINATION: RESTING B.P.: 121/78 RESTING H.R.: 74 RESTING EKG: NORMAL SINUS RHYTHM PROTOCOL: PHARMACOLOGIC EXERCISE TIME: 3:30 B.P. AT PEAK STRESS: 112/73 IMPRESSION: LEXISCAN INJECTED. CARDIOLITE INJECTED - SEE NUCLEAR MEDICINE REPORT. NO CHEST PAIN, NO VENTRICULAR TACHYCARDIA, NO SUPRAVENTRICULAR TACHYCARDIA, NO ARRHYTHMIA NOTED. PATIENT COMPLAINS OF SHORTNESS OF BREATH DURING PROCEDURE, RESOLVED POST PROCEDURE. NO CONCERNS OR COMPLICATIONS.
[2023-05-04] MEDS: SODIUM BICARB 325 MG TAB PO SCH ×2 (09:00→10:30)
--- NOTE | 2023-05-04 10:27 | P.PN ---
Date of Service: 05/04/23 Vital Signs Temp Pulse Resp BP Pulse Ox 97.3 F 95 H 17 123/81 97 05/04/23 04:00 05/04/23 04:00 05/04/23 04:00 05/04/23 04:00 05/04/23 04:00 Medications Acetaminophen (Acetaminophen 500 Mg Tab) 500 mg PO Q4HP PRN PRN Reason: Pain scale 2-4 (Mild) Last Admin: 05/03/23 07:31 Dose: 500 mg Amlodipine Besylate (Amlodipine 5 Mg Tab) 5 mg PO DAILY [facility] Last Admin: 05/03/23 12:07 Dose: 5 mg Aspirin (Aspirin Ec 81 Mg Tab) 81 mg PO DAILY [facility] Last Admin: 05/03/23 08:56 Dose: 81 mg Carvedilol (Carvedilol 6.25 Mg Tab) 6.25 mg PO BID [facility] Last Admin: 05/03/23 21:06 Dose: 6.25 mg Cyclobenzaprine HCl (Cyclobenzaprine 10 Mg Tab) 5 mg PO TID [facility] Last Admin: 05/03/23 21:08 Dose: 5 mg Docusate Sodium (Docusate Na 100 Mg Cap) 100 mg PO BID [facility] Ergocalciferol (Drisdol (Vitamin D=Ergocalciferol) 60651 Unit Cap) 50,000 unit PO Q48H [facility] Stop: 05/06/23 09:01 Folic Acid (Folic Acid 1 Mg Tablet) 1 mg PO DAILY [facility] Gabapentin (Gabapentin 100 Mg Cap) 100 mg PO BID [facility] Last Admin: 05/03/23 21:06 Dose: 100 mg Heparin Sodium (Porcine) (Heparin 5000 Unit/Ml 1 Ml Vial) 5,000 unit SQ Q12HR [facility] Last Admin: 05/03/23 21:06 Dose: 5,000 unit Magnesium Oxide (Magnesium Oxide 400 Mg Tab) 200 mg PO BEDTIME [facility] Last Admin: 05/03/23 21:06 Dose: 200 mg Olanzapine (Olanzapine 2.5 Mg Tab) 5 mg PO DAILY [facility] Ondansetron HCl (Ondansetron 4 Mg/2 Ml Vial) 4 mg IV Q6HP PRN PRN Reason: NAUSEA / VOMITING Sertraline HCl (Sertraline Hcl 50 Mg Tab) 50 mg PO DAILY [facility] Last Admin: 05/03/23 17:39 Dose: 50 mg Sertraline HCl (Sertraline Hcl 50 Mg Tab) 50 mg PO DAILY [facility] Last Admin: 05/03/23 17:10 Dose: 50 mg Sodium Bicarbonate (Sodium Bicarb 325 Mg Tab) 325 mg PO BIDWM [facility] Last Admin: 05/03/23 16:58 Dose: 325 mg Sodium Bicarbonate (Sodium Bicarb 325 Mg Tab) 650 mg PO DAILY [facility] Microbiology Results 05/02/23 04:25 Nasopharnyx Influenza Type A Antigen Screen - Final 05/02/23 04:25 Nasopharnyx Influenza Type B Antigen Screen - Final Assessment/ Plan: Nephrology No dyspnea No chest pain No acute events overnight Vitals, medications, blood work and imaging reviewed in the chart General: Cooperative, AAO HEENT: Atraumatic Neck: Supple Respiratory: Clear to auscultation bilaterally, Normal air movement Cardiovascular: No edema, Regular rate/rhythm Gastrointestinal: Soft and benign, Non-distended Musculoskeletal: No clubbing, No contractures Integumentary: No rashes, No cyanosis Neurological: Normal speech Laboratory Data (last 24 hrs) 05/02/23 05/02/23 05/02/23 03:49 03:47 03:47 WBC 10.00 Hgb 14.5 Hct 42.1 Plt Count 273 PT 11.2 INR 1.02 Sodium Potassium BUN Creatinine Glucose Magnesium Total Bilirubin AST ALT Alkaline Phosphatase Lipase Cancelled 05/02/23 03:47 WBC Hgb Hct Plt Count PT INR Sodium 131 L Potassium 3.7 BUN 52 H Creatinine 4.57 H Glucose 116 H Magnesium 1.9 Total Bilirubin 0.6 AST 20 ALT 20 Alkaline Phosphatase 158 H Lipase 46 Imagings Data: [id number] EXAM DESCRIPTION: CT - Chest Abd Pelvis Wo Con - 05/02/2023 6:47 am CLINICAL HISTORY: The patient is 48 years old and is Female; Dyspnea;Chest pain Bed Name: 5 TECHNIQUE: Axial computed tomography images of the chest, abdomen and pelvis without intravenous contrast. Sagittal and coronal reformatted images were created and reviewed. This CT exam was performed using one or more of the following dose reduction techniques: automated exposure control, adjustment of the mA and/or kV according to patient size, and/or use of iterative reconstruction technique. COMPARISON: No relevant prior studies available. FINDINGS: CHEST: LUNGS: Unremarkable No mass. No consolidation. PLEURAL SPACE: Unremarkable No significant effusion. No pneumothorax. HEART: No significant pericardial effusion. No cardiomegaly. ABDOMEN: LIVER: Unremarkable GALLBLADDER AND BILE DUCTS: Unremarkable No calcified stones. No ductal dilation. PANCREAS: Unremarkable No ductal dilation. SPLEEN: Unremarkable No splenomegaly. ADRENALS: Unremarkable No mass. KIDNEYS AND URETERS: Unremarkable No obstructing stones. No hydronephrosis. STOMACH AND BOWEL: Colonic diverticulosis without evidence of acute diverticulitis. No obstruction. PELVIS: APPENDIX: No findings to suggest acute appendicitis. BLADDER: Moderate urinary bladder distention with no wall thickening or perivesicular fat stranding. No stones. REPRODUCTIVE: Unremarkable as visualized. CHEST, ABDOMEN and PELVIS: INTRAPERITONEAL SPACE: Unremarkable No significant fluid collection. No free air. BONES/JOINTS: Unremarkable No acute fracture. No dislocation. SOFT TISSUES: Unremarkable VASCULATURE: Mild calcified atherosclerosis of the thoracic aorta without aneurysmal dilatation. Mild calcified atherosclerosis of the abdominal aorta without aneurysmal dilatation. Multivessel coronary calcifications, greatest in the LAD. LYMPH NODES: Unremarkable No enlarged lymph nodes. IMPRESSION: 1. No acute abnormality of the chest, abdomen, or pelvis, allowing for lack of intravenous contrast. 2. Moderate distention of the urinary bladder with no other acute findings. Recommend correlation with urinary retention. 3. Multivessel coronary calcifications, greatest in the LAD. Clinical correlation recommended. 4. Colonic diverticulosis without evidence of acute diverticulitis. [id number] EXAM DESCRIPTION: US - Extrem Venous W Compress [place] - 05/02/2023 5:06 am CLINICAL HISTORY: Pain. COMPARISON: None. TECHNIQUE: Grayscale, color Doppler, duplex Doppler, spectral Doppler images and analysis with compression and augmentation of right and left lower extremity veins. FINDINGS: Right and Left common femoral, greater saphenous, femoral, deep (profunda) femoral, popliteal, posterior tibial veins unremarkable without evidence of clot. IMPRESSION: No sonographic evidence of right or left lower extremity DVT. [id number] EXAM DESCRIPTION: US - Abdomen Exam Limited - 05/02/2023 4:07 am CLINICAL HISTORY: The patient is 48 years old and is Female; ABD PAIN TECHNIQUE: Real-time ultrasound of the right upper quadrant with image documentation. COMPARISON: No relevant prior studies available. FINDINGS: Gallbladder: Small amount of gallbladder sludge. No cholelithiasis. Common bile duct: Common bile duct 3.7 mm in diameter. No stones. No dilation. Pancreas: Pancreas not visualized. IMPRESSION: Small amount of gallbladder sludge. [id number] EXAM DESCRIPTION: RAD - Chest Single View - 05/02/2023 3:53 am CLINICAL HISTORY: The patient is 48 years old and is Female; DYSPNEA TECHNIQUE: Single view of the chest. COMPARISON: No relevant prior studies available. FINDINGS: Lungs: No pulmonary vascular congestion or consolidation. No free air in the visualized upper abdomen. Pleural space: Unremarkable. No pneumothorax. Heart: The cardiac silhouette is enlarged versus artifact of AP technique. Mediastinum: Unremarkable. Bones/joints: No acute fracture visualized. IMPRESSION: No acute cardiopulmonary process identified. LEFT VENTRICULAR WALL MOTION: NORMAL DOPPLER/COLOR FLOW: SEE BELOW COMMENTS: 1. NORMAL LEFT VENTRICULAR EJECTION FRACTION 55-60% WITH NORMAL WALL MOTION 2. DIASTOLIC DYSFUNCTION 3. MILD AORTIC INSUFFICIENCY 4. TRACE MITRAL Conclusions/Impression: CKD V with Proteinuria -No NSAIDs Hyponatremia, resolved Chronic Metabolic Acidosis -Increase oral bicarb HTN with CKD/ CHF -Continue Amlodipine -Continue Coreg Diastolic CHF, chronic -Daily weight Acute Urinary Retention, resolved -Bladder scan negative for urinary retention CKD MBD -Continue Ergo CAD Atherosclerosis of the aorta -Start Crestor qhs Alcohol and drug use -Recommend cessation Case reviewed with Dr. Glass
[2023-05-04 10:30] VITALS: BP 136/72; TEMP 97.8
[2023-05-04] MEDS: FOLIC ACID 1 MG TABLET PO SCH (10:31)
[2023-05-04] MEDS: DRISDOL (VITAMIN D=ERGOCALCIFEROL) 50000 UNIT CAP PO SCH (10:31)
[2023-05-04] MEDS: DOCUSATE NA 100 MG CAP PO SCH (10:31)
[2023-05-04] MEDS: OLANZapine 2.5 MG TAB PO SCH (10:33)
[2023-05-04 11:49] LABS: HBsAG Nonreactive Report Report; Hepatitis B Core Ab, Total Nonreactive (Nonreactive); Hepatitis B Surface Ab - Quant 3.22 mIU/mL (<8.0); Hepatitis B surface AG Interp. Nonreactive (Nonreactive); Hepatitis C Virus Ab Nonreactive (Nonreactive)
--- NOTE | 2023-05-04 12:06 | P.DS ---
Admission Date: 05/03/23 Discharge Date: 05/04/23 Disposition: ROUTINE DISCHARGE Discharge Condition: FAIR Reason for Admission: NSTEMI, chest pain, worsening shortness of breath, cocaine abuse. Brief History of Present Illness: 42 y/o female patient with medical history significant for chronic kidney disease, history of cocaine abuse presented to the ED with a complaint of worsening shortness of breath. Blood work done in the ED showed elevated proBNP of 22,000, creatinine of 4 and sodium of 131. Chest x-ray showed no acute changes. Her troponin was mildly elevated to 300. CHF exacerbation was suspected. Patient was hospitalized for ACS rule out and for further treatment of CHF exacerbation. Hospital Course: Patient admitted to the medical floor and the following medical problems addressed: NSTEMI: Mild troponin elevation. Troponin trended flat. Cardiology input appreciated. Elevated troponin likely secondary to type II NSTEMI/demand ischemia. She was treated briefly with heparin drip. Nuclear stress test done as recommended by cardiology showed no stress-induced ischemia Cardiology recommending outpatient cardiac catheterization once renal function has stabilized or improved. Overall patient has improved to baseline, has no chest pain, vitals stable. Chronic diastolic heart failure Elevated BNP of 22,000 noted. Diuretics on held due to her renal function Patient treated briefly with IV fluid per nephrology. Chronic kidney disease stage IV-V Nephrology Dr. Ortiz's input appreciated. Patient has creatinine of 4 at baseline. Patient treated briefly with IV fluid. No significant change in renal function. Follow-up as outpatient per nephrology Amphetamine abuse Cessation advised Patient was initially somnolent but her mental status improved to baseline Hyponatremia Resolved with IV normal saline. Vital Signs/Physical Exam: Temp Pulse Resp BP Pulse Ox 97.8 F 89 15 136/72 96 05/04/23 08:00 05/04/23 08:00 05/04/23 08:00 05/04/23 08:00 05/04/23 08:00 General: Alert, In no apparent distress, Oriented x3 HEENT: Mucous membr. moist/pink Neck: Supple, JVD not distended Respiratory: Clear to auscultation bilaterally, Normal air movement Cardiovascular: No edema, Regular rate/rhythm, Normal S1 S2 Gastrointestinal: Normal bowel sounds, Soft and benign, Non-distended, No tenderness Musculoskeletal: No swelling Integumentary: No rashes Neurological: Normal strength at 5/5 x4 extr Laboratory Data at Discharge: WBC 10.00 thou/uL (4.3-10.9) 05/02/23 03:47 Hgb 14.5 g/dL (12.0-15.0) 05/02/23 03:47 Hct 42.1 % (36.0-45.0) 05/02/23 03:47 Plt Count 273 thou/uL (152-406) 05/02/23 03:47 PT 11.2 SECONDS (9.5-12.5) 05/02/23 03:47 INR 1.02 05/02/23 03:47 APTT 30.3 SECONDS (24.3-36.9) 05/04/23 02:50 Sodium 137 mEq/L (136-145) 05/04/23 02:50 Potassium 3.8 mEq/L (3.5-5.1) 05/04/23 02:50 BUN 56 mg/dL (7-18) H 05/04/23 02:50 Creatinine 4.43 mg/dL (0.55-1.02) H 05/04/23 02:50 Glucose 89 mg/dL (74-106) 05/04/23 02:50 Uric Acid 9.6 mg/dL (2.6-6.0) H 05/03/23 05:17 Phosphorus 4.8 mg/dL (2.5-4.9) 05/03/23 05:17 Magnesium 2.1 mg/dL (1.6-2.4) 05/03/23 05:17 Total Bilirubin 0.5 mg/dL (0.2-1.0) 05/04/23 02:50 AST 12 U/L (15-37) L 05/04/23 02:50 ALT 16 U/L (13-56) 05/04/23 02:50 Alkaline Phosphatase 120 U/L (45-117) H 05/04/23 02:50 Lipase Cancelled 05/02/23 03:49 Home Medications: Amlodipine Besylate 5 mg PO DAILY 05/03/23 Cyclobenzaprine HCl [Flexeril] 5 mg PO TID 05/03/23 Folic Acid 1 mg PO DAILY 05/03/23 Gabapentin 100 mg PO BID 05/03/23 Magnesium Oxide [Magnesium] 200 mg PO BEDTIME 05/03/23 Olanzapine [Zyprexa] 5 mg PO DAILY 05/03/23 Sertraline HCl 50 mg PO DAILY 05/03/23 Spironolact/Hydrochlorothiazid [Spironolactone-Hctz 25-25 Tab] 1 each PO DAILY 05/03/23 carvediloL [Carvedilol] 6.25 mg PO BID 05/03/23 Aspirin [Aspirin EC] 81 mg PO DAILY #30 tab 05/04/23 Rosuvastatin [Crestor*] 5 mg PO BEDTIME #30 tab 05/04/23 Sodium Bicarbonate 650 mg PO BID #60 tab 05/04/23 Vitamin D [Drisdol*] 50,000 unit PO Q48H #15 cap 05/04/23 New Medications: Aspirin [Aspirin EC] 81 mg PO DAILY #30 tab Rosuvastatin [Crestor*] 5 mg PO BEDTIME #30 tab Vitamin D [Drisdol*] 50,000 unit PO Q48H #15 cap Sodium Bicarbonate 650 mg PO BID #60 tab Diet: Renal Activity: Ad david Followup: Elsie Palacio MD [Primary Care Provider] - 1-2 Weeks Maxim Ortiz DO [ACTIVE - CAN ADMIT] - (Within 2 weeks) Time spent managing pt's care (in minutes): 34
--- NOTE | 2023-05-04 12:15 | P.PN ---
Subjective Date of Service: 05/04/23 Chief Complaint: NSTEMI, chest pain, worsening shortness of breath, cocaine abuse. Subjective: No new changes Review of Systems 10-point ROS is otherwise unremarkable Physical Examination - Vital Signs Temperature: 97.8 F Blood Pressure: 136/72 Pulse: 89 Respirations: 15 Pulse Ox (%): 96 - Physical Exam General: Alert, Oriented x3 HEENT: Atraumatic Neck: Supple Respiratory: Clear to auscultation bilaterally Cardiovascular: No edema, Normal S1 S2 Gastrointestinal: Normal bowel sounds Assessment And Plan - Current Problems (Diagnosis) (1) Elevated troponin Current Visit: Yes Status: Acute Plan: most likely type 2 OH from acute worsening kidney function. patient had a stress test that shown possible anteroseptal infarction with no signs of reversible ischemia taking in consideration patient worsening kidney function will avoid doing coronary angiogram at this point and will postpone this until patient kidney function improves. (2) HTN (hypertension) Current Visit: Yes Status: Acute Plan: patient BP is better controlled. Continue Coreg 6.25 mg po BID Norvasc 5 mg daily (3) CKD (chronic kidney disease) Current Visit: Yes Status: Acute Plan: appreciate Nephrology input. (4) Chronic diastolic heart failure Current Visit: Yes Status: Acute Plan: Patient echo shows normal LV systolic and diastolic function with no signs of volume overload, continue to monitor.
[2023-05-04 13:23] VITALS: O2SAT 98
--- NOTE | 2023-05-04 14:32 | EKG ---
Test Date: 2023-05-02 Test Time: 06:56:10 Licensed Nuclear Control Room Operator: ANH MEASUREMENT RESULTS: Intervals: Rate: 73 NM: 214 QRSD: 92 QT: 432 QTc: 475 Terrell: P: 49 NM: 214 QRS: 65 T: 53 INTERPRETIVE STATEMENTS: Sinus rhythm with 1st degree AV block with premature atrial complexes with aberrant conduction Possible Left atrial enlargement Borderline ECG Compared to ECG 05/02/2023 02:35:24 Atrial premature complex(es) now present First degree AV block now present Aberrant conduction of supraventricular beat(s) now present T-wave abnormality no longer present Prolonged QT interval no longer present Electronically Signed On 05-04-23 14:25:24 CDT by Amanuel Tran
[2023-05-04] MEDS ORDERED: SODIUM BICARB 325 MG TAB PO SCH (17:30)
[2023-05-04] MEDS ORDERED: ROSUVASTATIN 5 MG TAB PO SCH (21:00)
== END 2023-05-04 15:44 | disposition home or self-care (01) | DRG 682 ==
LOC: ER 03:22 → ERHOLD 05:28 → 2ND 15:21 → OBSVTOIN 05-03 18:19
PROVIDERS: ADMIT Internal Medicine Nephrology; ATTEND Internal Medicine
DX: N17.9 Acute kidney failure, unspecified (principal); I21.A1 Myocardial infarction type 2; E87.1 Hypo-osmolality and hyponatremia; E87.20 Acidosis, unspecified; I50.32 Chronic diastolic (congestive) heart failure; I13.2 Hypertensive heart and chronic kidney disease with heart failure and with stage 5 chronic kidney disease, or end stage renal disease; N18.5 Chronic kidney disease, stage 5; F41.9 Anxiety disorder, unspecified; E83.52 Hypercalcemia; F14.10 Cocaine abuse, uncomplicated; F17.210 Nicotine dependence, cigarettes, uncomplicated; I25.10 Atherosclerotic heart disease of native coronary artery without angina pectoris; R33.9 Retention of urine, unspecified; Z91.09 Other allergy status, other than to drugs and biological substances; Z71.41 Alcohol abuse counseling and surveillance of alcoholic; Z71.51 Drug abuse counseling and surveillance of drug abuser; Z79.82 Long term (current) use of aspirin; Z79.02 Long term (current) use of antithrombotics/antiplatelets; Z86.73 Personal history of transient ischemic attack (TIA), and cerebral infarction without residual deficits; Z28.310 Unvaccinated for COVID-19
CPT/HCPCS: 36415; 36600; 71045; 71250; 74176; 76705; 78452; 80048; 80053; 80076; 80307; 81001; 81025; 82043; 82570; 82805; 83690; 83735; 83880; 84100; 84156; 84484; 84550; 85025; 85379; 85610; 85730; 86704; 86706; 86803; 87340; 87804; 87811; 93005; 93017; 93306; 93970; 99285; A9500; G0378; J1644; J2785; J7030